=== PATIENT | male | born 1955 | race Caucasian/White ===

== ENCOUNTER 2023-07-15 19:26 | Emergency (ER) | payer OTHER, SELFPAY ==
[2023-07-15] VITALS (31 sets, daily range): BP systolic 156–170; BP diastolic 78–88; PULSE 57–76; TEMP 36.6; O2SAT 95–99; BMI 31.7
--- NOTE | 2023-07-15 20:05 | ED_ITS ---
HPI - Chest Pain General Chief Complaint: Chest Pain Stated Complaint: Chest Pain Time Seen by Provider: 07/15/23 19:34 Source: patient Mode of arrival: walk-in Limitations: no limitations History of Present Illness HPI narrative: This 68-year-old male with a history of hypertension who does not smoke presents for evaluation of a brief episode of chest pain that happened after dinner, around 5:30 PM while he was mowing the lawn. He states it felt like he strained his chest. The pain was brief in nature. He cannot quantify exactly how long it lasted. There was no radiation into his arm back or jaw. He did not feel dizzy. He did not get diaphoretic.. He did not get short of breath. He has no lower extremity pain or swelling. He denies any history of heart disease or any history of tobacco use. He states he has never had a cardiac workup. He drove himself to the emergency department to get checked out . No medications were taken prior to arrival. ON arrival he has no chest pain or other symptoms and states he feels fine. Related Data Home Medications ?Medication ?Instructions ?Recorded ?Confirmed bisoprolol 10 1 tab PO QAM 07/15/23 07/15/23 mg-hydrochlorothiazide 6.25 mg tablet carbidopa 25 mg-levodopa 100 mg 1.5 tab PO TID 07/15/23 07/15/23 tablet Allergies Allergy/AdvReac Type Severity Reaction Status Date / Time No Known Drug Allergies Allergy Verified 07/15/23 19:37 Review of Systems ROS Status of ROS 10 or more systems reviewed and unremark able except as noted in history and below [facility] Medical History (Updated 07/16/23 @ 01:23 by Harriett Solano MD) JATINDER (obstructive sleep apnea) ?G47.33 - Obstructive sleep apnea (adult) (pediatric) (ICD-10) Exam Narrative Exam Narrative: Nurses note and vital signs reviewed and patient is not hypoxic. The patient is noted to be elevated at 170/88 General: The patient appears well and in no apparent distress. Patient is resting comfortably on cart. Skin: Warm, dry, no pallor noted. There is no rash noted. Head: Normocephalic, atraumatic Eye: Normal conjunctiva, no drainage, EOMI. PERRL Ears, Nose, Mouth, and Throat: oral mucosa is moist. Cardiovascular: Regular Rate and Rhythm S1 S2, No murmurs rubs or gallops appreciated, pulses are brisk and equal bilaterally Chest: no reproducible chest wall tenderness Respiratory: Patient is in no distress, no accessory muscle use, lungs are clear to auscultation, no wheezing, rales or rhonchi Back: non-tender, no CVA tenderness bilaterally to percussion. GI: Normal bowel sounds, no tenderness to palpation, no masses appreciated. No rebound, guarding, or rigidity noted. Musculoskeletal: The patient has no evidence of calf tenderness, no pitting edema, symmetrical pulses noted bilaterally Neurological: A&O x4, normal speech Psychiatric: Cooperative Constitutional Vital Signs, click to edit/add: Last Vital Signs Temp 98 F 07/15/23 19:39 Pulse 65 07/15/23 23:50 Resp 16 07/15/23 23:50 BP 156/78 H 07/15/23 21:33 Pulse Ox 98 07/15/23 23:50 O2 Del Method Room Air 07/15/23 19:39 Course Vital Signs Vital signs: Vital Signs Temperature 98 F 07/15/23 19:39 Pulse Rate 70 07/15/23 19:39 Respiratory Rate 14 07/15/23 19:39 Blood Pressure 161/85 H 07/15/23 19:39 Pulse Oximetry 95 07/15/23 19:39 Oxygen Delivery Method Room Air 07/15/23 19:39 Temperature 98 F 07/15/23 19:39 Pulse Rate 65 07/15/23 23:50 Respiratory Rate 16 07/15/23 23:50 Blood Pressure 156/78 H 07/15/23 21:33 Pulse Oximetry 98 07/15/23 23:50 Oxygen Delivery Method Room Air 07/15/23 19:39 MDM - Chest Pain MDM Narrative Medical decision making narrative: This 68-year-old male with a history of Parkinson's disease presents to the emergency department complaining of an episode of chest pain that occurred while he was mowing the lawn earlier in the evening. The patient is a fairly poor historian. He states that while he was mowing the lawn he started to feel some discomfort in his chest that he thought was related to stress. By this he meant the stress of pushing his lawnmower. He was outside for an extended period of time mowing his lawn and the temperature outside was over 80 degrees. He denies that he felt overheated. He denied any radiation of this chest pain into his arm, back or jaw. He denies any dizziness or diaphoresis. There was no syncope. There is no abdominal pain. He has a history of hypertension. He has never been a smoker. An EKG done upon arrival was a sinus rhythm with a first-degree AV block at 70 bpm. There is very minimal ST depression in leads V2 and V3 V4 V5. The axis was normal. At the time of presentation he was no longer having any chest pain. He was medicated with 324 mg baby aspirin. Cardiac workup including CBC with differential, comprehensive metabolic profile and troponin was ordered. Has a normal white count and hemoglobin. Electrolytes are normal with exception of a mildly elevated creatinine 1.63. His 1st troponin was 50.8. His initial blood pressure was elevated, we continued to monitor and it came down. He remained hemodynamically stable in emergency department chest pain-free. A repeat troponin was ordered and was 73. I signed to him that in light of this change in the troponin we would like to repeat one more troponin. He was reluctant to stay but ultimately agreeable after speaking to his and his repeat troponin is 180. I explained to him at this point that he would likely need a cardiac evaluation. I spoke to his who is adamant that he not be transferred to [facility]. A repeat EKG was similar to the 1st EKG with a sinus rhythm at 64 bpm with a normal axis and non specific changes with no acute ST segment elevation. The case was [facility] and he is accepted for admission. Lab Data Labs: Lab Results 07/15/23 07/15/23 07/15/23 Range/Units 20:00 21:43 22:51 WBC 10.1 (4.0-11.0) 10^3/uL RBC 4.01 L (4.70-6.10) 10^6/uL Hgb 12.5 L (14.0-18.0) g/dL Hct 37.7 L (42.0-54.0) % MCV 94.0 (80.0-94.0) fL MCH 31.2 (25.9-34.0) pg MCHC 33.2 (29.9-35.2) g/dL RDW 13.4 (11.0-15.0) % Plt Count 226 (150-450) 10^3/uL MPV 10.0 (9.5-13.5) fL Neut % (Auto) 72.0 (43.0-75.0) % Lymph % (Auto) 17.0 L (20.5-60.0) % [place] % (Auto) 9.2 (1.7-12.0) % Eos % (Auto) 1.0 (0.9-7.0) % Baso % (Auto) 0.3 (0.2-2.0) % Neut # (Auto) 7.3 H (1.4-6.5) 10^3/uL Lymph # (Auto) 1.7 (1.2-3.8) 10^3/uL [place] # (Auto) 0.9 H (0.3-0.8) 10^3/uL Eos # (Auto) 0.1 (0.0-0.7) 10^3/uL Baso # (Auto) 0.0 (0.0-0.1) 10^3/uL Abs Immat Gran (auto) 0.05 H (0.00-0.03) 10^3/uL Imm/Tot Granulo (auto) 0.5 (0.0-0.5) % Sodium 139 (136-145) mmol/L Potassium 4.2 (3.5-5.1) mmol/L Chloride 103 (98-107) mmol/L Carbon Dioxide 26.2 (21.0-32.0) mmol/L Anion Gap 14.0 BUN 30.0 H (7.0-18.0) mg/dL Creatinine 1.63 H (0.70-1.30) mg/dL Est GFR ( Amer) 52 L (>=60) Est GFR (Non-Af Amer) 43 L (>=60) BUN/Creatinine Ratio 18.4 Glucose 126 H (74-106) mg/dL Calcium 9.3 (8.5-10.1) mg/dL Total Bilirubin 0.4 (0.2-1.0) mg/dL AST 24 (15-37) U/L ALT 13 L (16-63) U/L Alkaline Phosphatase 83 (46-116) U/L Troponin I High Sens 50.8 73.0 180.1 H* (4.0-76.1) pg/mL NT-Pro-B Natriuret Pep 454.0 (<=900.0) pg/mL Total Protein 7.6 (6.4-8.2) g/dL Albumin 3.9 (3.4-5.0) g/dL Globulin 3.7 g/dL Albumin/Globulin Ratio 1.1 ECG Data Attestation: I personally reviewed and interpreted this ECG as follows: (Sinus rhythm at 70 beats for minute, first-degree AV block, incomplete right bundle- branch block, nonspecific ST changes, no acute ST segment elevation or T-wave inversion) Heart Score History: Moderately Suspicious ECG: Sign. ST Depression Age: >65 years Risk Factors: 1 or 2 Risk Factors Troponin: <3X Normal Limit Total Heart Score Recommendations & Risks:: 7 Critical Care Time Critical Care Time Critical Care Time: Yes Total Critical Care Time: 35 Attestation: . Discharge Plan Discharge Chief Complaint: Chest Pain Clinical Impression: Elevated troponin I level, Chest pain Patient Disposition: [facility] Time of Disposition Decision: 00:11 Discharge Location: [facility] Condition: Good Mode of Transportation: EMS
[2023-07-15 20:16] LABS: Basophils Percent Auto 0.3 % (0.2-2.0); Eosinophils Absolute Auto 0.1 10^3/uL (0.0-0.7); Hematocrit 37.7 % (42.0-54.0); Hemoglobin 12.5 g/dL (14.0-18.0); Immature Granulocytes Abs Auto 0.05 10^3/uL (0.00-0.03); Immature Granulocytes Pct Auto 0.5 % (0.0-0.5); Lymphocytes Absolute Auto 1.7 10^3/uL (1.2-3.8); Mean Corpuscular HGB Conc 33.2 g/dL (29.9-35.2); Mean Corpuscular Hemoglobin 31.2 pg (25.9-34.0); Monocytes Absolute Auto 0.9 10^3/uL (0.3-0.8); Monocytes Percent Auto 9.2 % (1.7-12.0); Neutrophils Absolute Auto 7.3 10^3/uL (1.4-6.5); Platelet Count 226 10^3/uL (150-450); Red Blood Count 4.01 10^6/uL (4.70-6.10); Red Cell Distribution Width 13.4 % (11.0-15.0); White Blood Count 10.1 10^3/uL (4.0-11.0)
[2023-07-15] MEDS: 0.9 % SODIUM CHLORIDE 1,000 ML 1000 ML IV (20:28)
[2023-07-15] MEDS: ASPIRIN 81 MG TAB.CHEW 324 MG PO (20:29)
[2023-07-15 20:31] LABS: Alanine Aminotransferase 13 U/L (16-63); Albumin Globulin Ratio 1.1; Albumin Level 3.9 g/dL (3.4-5.0); Alkaline Phosphatase 83 U/L (46-116); Aspartate Amino Transferase 24 U/L (15-37); BUN Creatinine Ratio 18.4; Bilirubin Total 0.4 mg/dL (0.2-1.0); Calcium 9.3 mg/dL (8.5-10.1); Carbon Dioxide 26.2 mmol/L (21.0-32.0); Chloride 103 mmol/L (98-107); Estimated GFR (African America 52 (>=60); Estimated GFR (Non-African Ame 43 (>=60); Globulin 3.7 g/dL; Glucose 126 mg/dL (74-106); Potassium 4.2 mmol/L (3.5-5.1); Sodium 139 mmol/L (136-145); Total Protein 7.6 g/dL (6.4-8.2)
[2023-07-15 20:38] LABS: Troponin I High Sensitivity 50.8 pg/mL (4.0-76.1)
--- NOTE | 2023-07-15 21:51 | ECG_ITS ---
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
--- NOTE | 2023-07-15 23:14 | XR_ITS ---
The [place] [id number] Patient Name: MATTHEW GARZA MRN: [id number] date: 1955 Sex: M Assigned Patient Location: ER Current Patient Location: ER Accession/Order Number: [id number] Exam Date: 07/15/2023 23:20 Report Date: 07/15/2023 23:58 At the request of: VERONICA MARKER Procedure: XR chest 1V XR chest 1V 07/15/2023 11:20 PM EDT CLINICAL INDICATION: Chest pain COMPARISON: None. TECHNIQUE: Portable semiupright AP view of the chest. FINDINGS: There are no tubes or implants noted. Cardiac silhouette appears mildly enlarged. No florid pulmonary interstitial edema. No focal parenchymal opacities. No pneumothorax or pleural effusion. No displaced rib fractures. Osseous structures demonstrate degenerative changes. Soft tissues are grossly normal. XR/XR chest 1V IMPRESSION: No acute cardiopulmonary abnormality. Electronically authenticated by: BRYAN CARMONA Date: 07/15/2023 23:58
--- NOTE | 2023-07-15 23:16 | ECG_ITS ---
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
[2023-07-15 23:20] LABS: Troponin I High Sensitivity 180.1 pg/mL (4.0-76.1)
[2023-07-16] MEDS: ENOXAPARIN SODIUM 100 MG/ML SYRINGE SUBQ (01:35)
[2023-07-16 02:04] VITALS: BP 168/87; PULSE 61; O2SAT 96
[2023-07-16 03:45] VITALS: BP 168/89; PULSE 68; O2SAT 98
== END 2023-07-16 03:45 | disposition short-term general hospital (02) ==
PROVIDERS: Emergency Provider Emergency Medicine; PCP Internal Medicine
DX: R07.9 Chest pain, unspecified (principal); R79.89 Other specified abnormal findings of blood chemistry; I10 Essential (primary) hypertension; Z79.899 Other long term (current) drug therapy; G47.33 Obstructive sleep apnea (adult) (pediatric); G20.A1 Parkinson's disease without dyskinesia, without mention of fluctuations
CPT/HCPCS: 36415; 71045; 80053; 83880; 84484; 85025; 93005; 96372; 99285

== ENCOUNTER 2023-10-20 12:34 | Emergency (ER) | payer OTHER, SELFPAY ==
[2023-10-20 12:37] VITALS: BP 145/70; PULSE 65; TEMP 36.7; O2SAT 96; BMI 30.3
--- NOTE | 2023-10-20 12:45 | ED_ITS ---
HPI HPI - Extremity Injury (Lower) General Chief Complaint: Extremity Injury, Lower Stated Complaint: LOWER EXTREMITY INJURY Time Seen by Provider: 10/20/23 12:37 Mode of arrival: walk-in Limitations: no limitations History of Present Illness HPI Narrative: 68-year-old male presents for right knee pain. He states he was walking yesterday and he was on a step and he twisted it. He is not sure if he landed on it or not. It has been swollen so he came in here today. He has been able to walk but it causes some discomfort. Related Data Home Medications ?Medication ?Instructions ?Recorded ?Confirmed bisoprolol 10 1 tab PO QAM 07/15/23 10/20/23 mg-hydrochlorothiazide 6.25 mg tablet aspirin 81 mg tablet,delayed 81 mg PO DAILY 10/20/23 10/20/23 release atorvastatin 80 mg tablet 80 mg PO DAILY 10/20/23 10/20/23 losartan 25 mg tablet 25 mg PO DAILY 10/20/23 10/20/23 nitroglycerin 0.4 mg sublingual 0.4 mg sublingual Q5M PRN chest 10/20/23 10/20/23 tablet pain ticagrelor 90 mg tablet (Brilinta) 90 mg PO Q12H 10/20/23 10/20/23 Previous Rx's ?Medication ?Instructions ?Recorded acetaminophen 300 mg-codeine 30 mg 1 tab PO Q6H PRN pain 5 days #20 10/20/23 tablet tabs Allergies Allergy/AdvReac Type Severity Reaction Status Date / Time No Known Drug Allergies Allergy Verified 07/15/23 19:37 Opioid HPI Opioid Management Most Recent Pain and Opioid Data: 2 No Data to Display Review of Systems ROS Narrative A ten point review of systems is negative except as noted above. [facility] Medical History (Updated 10/20/23 @ 13:42 by Froilan Ruiz MD) JATINDER (obstructive sleep apnea) ?G47.33 - Obstructive sleep apnea (adult) (pediatric) (ICD-10) Exam Narrative Exam Narrative: Nurses note and vital signs reviewed and patient is not hypoxic. General: The patient appears well and in no apparent distress. Patient is resting comfortably on cart. Skin: Warm, dry, no pallor noted. There is no rash noted. Head: Normocephalic, atraumatic Eye: Normal conjunctiva, no drainage Ears, Nose, Mouth, and Throat: oral mucosa is moist. Nares patent. Cardiovascular: Regular Rate and Rhythm Respiratory: Patient is in no distress, no accessory muscle use, lungs are clear to auscultation, no wheezing, rales or rhonchi Back: non-tender, no CVA tenderness bilaterally to percussion. GI: Soft and nontender Musculoskeletal: The right knee is swollen compared to the contralateral. There is no ballotable effusion and the knee joint is stable. Hip and ankle are nontender. Neurological: Awake and alert Psychiatric: Cooperative Constitutional Vital Signs, click to edit/add: Last Vital Signs Temp 98.1 F 10/20/23 12:37 Pulse 65 10/20/23 12:37 Resp 18 10/20/23 12:37 BP 145/70 H 10/20/23 12:37 Pulse Ox 96 10/20/23 12:37 O2 Del Method Room Air 10/20/23 12:37 Course Vital Signs Vital signs: Vital Signs Temperature 98.1 F 10/20/23 12:37 Pulse Rate 65 10/20/23 12:37 Respiratory Rate 18 10/20/23 12:37 Blood Pressure 145/70 H 10/20/23 12:37 Pulse Oximetry 96 10/20/23 12:37 Oxygen Delivery Method Room Air 10/20/23 12:37 Temperature 98.1 F 10/20/23 12:37 Pulse Rate 65 10/20/23 12:37 Respiratory Rate 18 10/20/23 12:37 Blood Pressure 145/70 H 10/20/23 12:37 Pulse Oximetry 96 10/20/23 12:37 Oxygen Delivery Method Room Air 10/20/23 12:37 MDM - Extremity Injury (Lower) MDM Narrative Medical decision making narrative: X-ray findings are discussed with the patient. Doe wrap applied, application checked by me and found to be appropriate, he is neurovascularly intact. He states he can walk on his leg without issues and does not need a walker. He has an established orthopedist with whom he will follow-up. Treatment diagnosis and follow-up were discussed with the patient. Differential Diagnosis Differential diagnosis: Likely other (Knee fracture, knee sprain, knee effusion, osteoarthritis) Imaging Data Right knee x-ray: Radiologist's impression: ITS Impressions Knee X-Ray 10/20/23 13:02 IMPRESSION: Moderate to severe osteoarthritis Electronically authenticated by: KEELY COTA Date: 10/20/2023 13:23 Discharge Plan Discharge Stand Alone Forms: Portal Instructions Chief Complaint: Extremity Injury, Lower Clinical Impression: Right knee sprain, Arthritis of right knee Patient Disposition: Home, Self-Care Time of Disposition Decision: 13:35 Condition: Good Mode of Transportation: Private Vehicle Prescriptions / Home Meds: New acetaminophen-codeine 300-30 mg tablet 1 tab PO Q6H PRN (Reason: pain) 5 Days Qty: 20 0RF No Action bisoprolol-hydrochlorothiazide 10-6.25 mg tablet 1 tab PO QAM aspirin 81 mg tablet,delayed release (DR/EC) 81 mg PO DAILY atorvastatin 80 mg tablet 80 mg PO DAILY losartan 25 mg tablet 25 mg PO DAILY nitroglycerin 0.4 mg tablet, sublingual 0.4 mg sublingual Q5M PRN (Reason: chest pain) Brilinta 90 mg tablet 90 mg PO Q12H Print Language: Bengali Instructions: Knee Sprain (ED), Osteoarthritis (ED) Referrals: MATTHEW COLLAZO [Primary Care Provider] - 1 week
--- OUTSIDE RECORDS SUMMARY | 2023-10-20 12:51 | XMS_ITS | CCD ---
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 Role Phone NAREHS HINDS Admitting Unavailable VALE, DR MATTHEW Price Primary Care Unavailable NARESH HINDS Attending Unavailable NARESH HINDS Consulting Unavailable Fred Gupta Consulting Unavailable GÓMEZ, DR LEWIS Attending Unavailable GÓMEZ, DR LEWIS Consulting Unavailable GÓMEZ, DR LEWIS Admitting Unavailable VALE, DR MATTHEW Price Primary Care Unavailable BEATA, DR KEELY Griffin Consulting Unavailable PAY, DR KENYON Consulting Unavailable HILLARY NICOLAS Consulting Unavailable Matthew Collazo Unavailable BRIAN GLASGOW Attending Unavailable Matthew Collazo MD Primary Care Provider MD Matthew Collazo Primary Care Provider MD Chico Black Admit Provider [phone] BARRY Garza Other Provider Unavailable MD Atul Silva Other Provider MD Holger Leblanc Other Provider MD Navya Rangel Other Provider MD Matthias Mckenna Attending Provider Matthew Collazo Primary Care Unavailable Chico Black Admitting Unavailable Matthias Mckenna Attending Unavailab Blanquita Lopez Consulting Unavailable Atul Silva Consulting Unavailable Holger Leblanc Consulting Navya Ledezma Consulting Unavailable MATTHEW COLLAZO Attending Unavailable MATTHEW COLLAZO Referring Unavailable MATTHEW COLLAZO Primary Care Unavailable MATTHEW COLLAZO Attending Unavailable MATTHEW COLLAZO Referring Unavailable MATTHEW COLLAZO Primary Care Unavailable ERIC MONTIEL Referring Unavailable MARGOLIUS, ERIC Attending Unavailable MATTHEW COLLAZO Referring Unavailabl e MARGOLIUS, ERIC Referring Unavailable MARGOLIUS, ERIC Attending Unavailable MARGOLIUS, ERIC Referring Unavailable BOYERBALTA CAREY Attending Unavailable MARGOLIUS, ERIC Referring Unavailable CHEUVRONT, CHRISTIANA George Attending Unavailabl e CHEUVRONT, CHRISTIANA George Attending Unavailabl e CHEUVRONT, CHRISTIANA George Attending Unavailabl e CHEUVRONT, CHRISTIANA George Referring Unavailabl e CHEUVRONT, CHRISTIANA George Referring Unavailabl e BOYERBALTA CAREY Referring Unavailable MARGOLIUS, ERIC Attending Unavailable MARGOLIUS, ERIC Referring Unavailable Medications Current Medications Medication Drug Class(es) Dates Sig (Normalized) Sig (Original) Antiarthritic Combination No.2 (Glucosamine-Chondroiti n) 900 mg tablet (2 sources) Start: 4 take 1 tablet by mouth once daily Antiarthritic Combination No.2 (Glucosamine-Chond roitin) 900 mg tablet Active MG PO Daily July 24, 2023 12:00am aspirin 81 mg delayed release oral tablet (5 sources) Platelet Aggregation Inhibitor, Nonsteroidal Anti-inflammatory Drug Start: 4 take 81 mg by mouth once daily Aspirin Active 81 MG PO Daily July 17, 2023 12:00am atorvastatin 80 mg oral tablet (5 sources) HMG-CoA Reductase Inhibitor Start: 4 take 80 mg by mouth once daily Atorvastatin Active 80 MG PO Daily July 17, 2023 12:00am BIPAP (13 sources) BIPAP bisoprolol fumarate 10 mg / hydroCHLOROthiazide 6.25 mg oral tablet (18 sources) Thiazide Diuretic, beta-Adrenergic Sage Start: 3 End: 4 take 1 tablet by mouth once daily in the morning bisoprolol-hydroCH LOROthiazide (ZIAC) 10-6.25 mg per tablet Take 1 tablet by mouth every morning. 0 09/12/2022 Active Comment on above: Take 1 tablet by alejandra th every morning. carbidopa 25 mg / levodopa 100 mg oral tablet (14 sources) Aromatic Amino Acid Decarboxylation Inhibitor, Aromatic Amino Acid Start: 3 End: 4 carbidopa-levodopa (SINEMET) 25-100 mg per tablet Indications: Tremor Take 1.5 pills, 3 times per day 405 tablet 3 06/09/2023 Active Comment on above: Take 1/2 pill three times per day x 1 week, then increase to 1 pill 3 times per day Take 1.5 pills, 3 ti mes per day Cpap (Continuous Positive Airway Pressure) (1 source) Start: Cpap (Continuous Positive Airway Pressure) Active 0 .ROUTE October 02, 2023 12:00am As directed CPAP/BIPAP/OTHER (14 sources) Start: End: CPAP/BIPAP/OTHER Indications: Obstructive sleep apnea syndrome , JATINDER treated with BiPAP , Parkinson's disease, unspecified whether dyskinesia present, unspecified whether manifestations fluctuate (HCC) , Myocardial infarction, unspecified PA type, unspecified artery (HCC) Type .CPAPSettings into a note to see current settings/supplies/ DME information. 1 Each 0 10/12/2023 02/26/2051 Active Start: 07-08-2023 End: 11-22-2050 CPAP/BIPAP/OTHER Indications : Obstructive sleep apnea syndrome , JATINDER treated with BiPAP , Dream enactment behavior , Malfunction of continuous positive airway pressure (CPAP) or bilevel positive airway pressure (BPAP) machine, initial encounter Type .CPAPSettings into a note to see current settings/supplies/DME information. 1 Each 0 07/08/2023 11/22/2050 Active Start: 04-27-2023 End: 09-11-2050 CPAP/BIPAP/OTHER Indications : Obstructive sleep apnea syndrome , JATINDER treated with BiPAP , Malfunction of continuous positive airway pressure (CPAP) or bilevel positive airway pressure (BPAP) machine, initial encounter REPLACEMENT BIPAP DEVICE: BIPAP with settings of 25/21 cm H2O. Dx: Obstructive Sleep Apnea G47.33 DME: [facility] Fax: Fax download reports to [phone]. 1 Each 0 04/27/2023 09/11/2050 Active Comment on above: REPLACEMENT BIPAP DE VICE: BIPAP with settings of 25/21 cm H2O. Dx: Obstructive Sleep Apnea G47.33 DME: [facility] Fax: Fax download reports to [phone]. glucosam/chond-msm1/C /jaya/bor (NUOPIICLCTF-QZAYP-WR M COMPLEX ORAL) (6 sources) take 2 tablets by mouth once daily glucosam/chond-msm1/ C/jaya/bor (BXTFINMVTKD-ULZUV-P SM COMPLEX ORAL) Take 2 tablets by mouth once daily. 0 Active Comment on above: Take 2 tablets by mo uth once daily. losartan potassium 25 mg oral tablet (5 sources) Angiotensin 2 Receptor Sage Start: 07-17-19 take 25 mg by mouth once daily in the morning Losartan Active 25 MG PO Every morning July 17, 2023 12:00am nitroglycerin 0.4 mg sublingual tablet (5 sources) Nitrate Vasodilator Start: 07-17-19 nitroglycerin sublingual (NITROQUICK) 0.4 mg SL tablet Q5M 0 07/17/2023 Active Start: 07-17-2023 Nitroglycerin Active 0.4 MG SUBLINGUAL Q5M July 17, 2023 12:00am ticagrelor 90 mg oral tablet (6 sources) Start: 07-17-2023 End: 08-27-2023 ticagrelor (BRILINTA) 90 mg tablet two times a day. 0 08/27/2023 Active Problems Active Problems Problem Classification Problem Date Documented Da te Episodic/Chronic Acute myocardial infarction (10 sources) Myocardial infarction; Translations: [Non-ST elevation (NSTEMI) myocardial infarction] Onset: 07-16-2023 07-16-2023 Chronic Coronary atherosclerosis and other heart disease (2 sources) Old myocardial infarction; Translations: [Atherosclerotic heart disease of [place] coronary artery without angina pectoris] Onset: 07-27-2023 Chronic Disorders of lipid metabolism (9 sources) Hyperlipidemia; Translations: [Hyperlipidemia, unspecified] Onset: 07-16-2023 07-16-2023 Chronic Essential hypertension (17 sources) Essential (primary) hypertension; Translations: [Essential hypertension] Onset: 02-10-2020 04-01-2023 Chronic Osteoarthritis (1 source) Unspecified osteoarthritis, unspecified site; Translations: [UNSPECIFIED OSTEOARTHRITIS UNS SITE] Onset: 07-23-2021 Chronic Other aftercare (1 source) Other correction (current) drug therapy; Translations: [OTH DETENTION CURRENT DRUG THERAPY] Onset: 07-23-2021 Episodic Other ear and sense organ disorders (1 source) Unspecified hearing loss, bilateral; Translations: [Unspecified hearing loss, bilateral] Onset: 07-27-2023 Chronic Other ear and sense organ disorders (1 source) Impacted cerumen, bilateral; Translations: [Impacted cerumen, bilateral] Onset: 08-04-2023 Episodic Other hereditary and degenerative nervous system conditions (1 source) Restless legs syndrome; Translations: [RESTLESS LEGS SYNDROME] Onset: 07-23-2021 Chronic Other hereditary and degenerative nervous system conditions (1 source) Essential tremor; Translations: [ESSENTIAL TREMOR] Onset: 11-21-2020 Chronic Other hereditary and degenerative nervous system conditions (1 source) Essential tremor; Translations: [Essential tremor] Onset: 02-10-2020 02-10-2020 Chronic Other nervous system disorders (2 sources) Abnormal gait; Translations: [Unspecified abnormalities of gait and mobility] 11-11-2022 Episodic Other nervous system disorders (3 sources) Tremor; Translations: [Tremor, unspecified] 11-11-2022 Episodic Other nutritional; endocrine; and metabolic disorders (1 source) Obese class I; Translations: [Obesity, unspecified] 10-12-2023 Chronic Parkinson`s disease (1 source) Parkinson`s disease; Translations: [Parkinson's disease without dyskinesia, without mention of fluctuations] Onset: 07-16-2023 Residual codes; unclassified (1 source) Sleep apnea, unspecified; Translations: [SLEEP APNEA UNSPECIFIED] Onset: 07-23-2021 Chronic Residual codes; unclassified (7 sources) Obstructive sleep apnea syndrome; Translations: [Obstructive sleep apnea (adult) (pediatric)] Onset: 02-10-2020 02-10-2020 Chronic Residual codes; unclassified (1 source) Parasomnia; Translations: [Parasomnia, unspecified] 04-27-2023 Chronic Residual codes; unclassified (2 sources) Dream enactment behavior; Translations: [REM sleep behavior disorder] 04-27-2023 Chronic Residual codes; unclassified (2 sources) Obstructive sleep apnea (adult) (pediatric); Translations: [Obstructive sleep apnea syndrome] Onset: 04-27-2023 Chronic Residual codes; unclassified (1 source) Parasomnia, unspecified; Translations: [Parasomnia, unspecified type] Onset: 04-27-2023 Chronic Residual codes; unclassified (1 source) REM sleep behavior disorder; 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] Onset: 04-27-2023 Chronic Unclassified (15 sources) Parkinson's disease; Translations: [Parkinson's disease without dyskinesia or fluctuating manifestations (HCC)] Onset: 07-08-2023 06-10-2023 Chronic Unclassified (2 sources) COUGH, UNSPECIFIED; Translations: [COUGH, UNSPECIFIED] Onset: 07-23-2021 Unclassified (1 source) CONTACT W/AND (SUSP) EXPOS COVID-19; Translations: [CONTACT W/AND (SUSP) EXPOS COVID-19] Onset: 11-21-2020 Unclassified (1 source) hospital discharge Onset: 07-27-2023 Viral infection (1 source) COVID-19; Translations: [COVID-19] Onset: 07-23-2021 Past or Other Problems Problem Classification Problem Date Documented Date Episodic/Chronic Acute and unspecified renal failure (4 sources) Acute kidney failure, unspecified; Translations: [ACUTE KIDNEY FAILURE UNSPECIFIED] Onset: 11-02-2020 Episodic Calculus of urinary tract (2 sources) Personal history of urinary calculi; Translations: [Kidney stone] Onset: 02-10-2020 02-10-2020 Episodic Complications of surgical procedures or medical care (3 sources) Complication of medical care; Translations: [Other specified complications of surgical and medical care, not elsewhere classified, initial encounter] Onset: 04-27-2023 04-27-2023 Episodic E Codes: Unspecified (2 sources) Traumatic AND/OR non-traumatic injury; Translations: [Activity, sleeping] Onset: 04-27-2023 04-27-2023 Episodic Fluid and electrolyte disorders (2 sources) Dehydration; Translations: [Hyperkalemia] Onset: 11-21-2020 Episodic Genitourinary symptoms and ill-defined conditions (1 source) Other abnormal findings in urine; Translations: [OTHER ABNORMAL FINDINGS IN URINE] Onset: 11-21-2020 Episodic Mood disorders (1 source) Mood disorders Onset: 10-22-2022 10-22-2022 Spondylosis; intervertebral disc disorders; other back problems (10 sources) Pain in thoracic spine; Translations: [Spinal stenosis in cervical region] Onset: 11-21-2020 11-11-2022 Episodic Unclassified (1 source) COUGH, UNSPECIFIED; Translations: [COUGH, UNSPECIFIED] Onset: 07-19-2021 Results Test Name Value Interpretation Reference Range Facility [facility]) -- MATTHEW GARZA ([id number]) 1955 M Date Time Provider Department 10/13/23 CHRISTIANA EWING During your visit today, we recorded the following information about you: Zack Wallace LPN 10/13/2023 8:44 AM Signed Faxed order, office notes to: DME name: [facility] fax # [phone] DME Faxed info in patient's chart. Allergies As of Date: 10/13/2023 (No Known Allergies) Date Reviewed: 10/12/2023 Reviewed by: Christiana Ewing APRN.[facility] - Fully Assessed Reason for Visit: PAP Supply Fax [Other] Prescriptions as of 10/13/2023 - aspirin, enteric coated (ASPIRIN, ENTERIC COATED) 81 mg EC tablet Take 81 mg by mouth once daily. - atorvastatin (LIPITOR) 80 mg tablet Take 80 mg by mouth once daily. - nitroglycerin sublingual (NITROQUICK) 0.4 mg SL tablet Q5M - losartan (COZAAR) 25 mg tablet Take 25 mg by mouth every morning. - ticagrelor (BRILINTA) 90 mg tablet two times a day. - CPAP/BIPAP/OTHER Type .CPAPSettings into a note to see current settings/supplies/DME information. - CPAP/BIPAP/OTHER Type .CPAPSettings into a note to see current settings/supplies/DME information. - glucosam/chond-msm1/C/jaya /bor (TWXIHOVCTWA-HBQOO-NBC COMPLEX ORAL) Take 2 tablets by mouth once daily. - carbidopa-levodopa (SINEMET) 25-100 mg per tablet Take 1.5 pills, 3 times per day - CPAP/BIPAP/OTHER REPLACEMENT BIPAP DEVICE: BIPAP with settings of 25/21 cm H2O. Dx: Obstructive Sleep Apnea G47.33 DME: [facility] Fax: Fax download reports to [phone]. - bisoprolol-hydroCHLOROthia zide (ZIAC) 10-6.25 mg per tablet Take 1 tablet by mouth every morning. - BIPAP Problem List As Of Date 10/13/2023 Noted Resolved Parkinson's disease (HCC) [G20.A1] 07/08/2023 Stenosis, cervical spine [M48.02] 07/08/2023 HTN (hypertension) [I10] 07/08/2023 Encounter Status:Closed by ZACK WALLACE on 10/13/23 [facility] CNOVon 10-12-2023 CNOV Office Visit (NEUR ) -- MATTHEW GARZA ([id number]) 1955 M Date Time Provider Department 10/12/23 2:00 PM CHRISTIANA EWING During your visit today, we recorded the following information about you: Temperature Pulse Respiration Blood pressure 96.7 degrees 47/minute 20/minute 136/70 Weight Height 90.7 kg 1.727 m Christiana Ewing APRN.[employer] 10/12/2023 2:43 PM Signed [facility] Follow up/ Established patient visit Date of last visit : 07/08/2023 Per last visit: IMPRESSION: Obstructive sleep apnea syndrome (primary encounter diagnosis) Jatinder treated with bipap Malfunction of continuous positive airway pressure (cpap) or bilevel positive airway pressure (bpap) machine, initial encounter Dream enactment behavior Parkinson's disease, unspecified whether dyskinesia present, unspecified whether manifestations fluctuate (hcc) Primary hypertension Matthew Garza is a pleasant 68 year old male with PMH of JATINDER on BiPAP, PD, cervical stenosis, tremor, HTN, JATINDER, and class I obesity. He presents today with his . He has a BiPAP device that is malfunctioning. rAHI was not well-controlled (>20) at time of last visit. He does not have device with him at today's visit for reassessment. Updated Split Study with RBD protocol was completed to requalify for supplies/new device and reassess appropriate settings. He reported DEBs associated w/ hitting (last in Apr 2023). Split study with expanded EMG monitoring completed 06/17/2023 showed severe JATINDER (AHI 66.8) associated with minimum oxygen saturation of 76%; CPAP titration was initiated, but transition to bilevel PAP due to the presence of central apneas; Jay Jay-Mcdaniel breathing was not present during PAP titration portion of study; at a bilevel PAP setting of 25/19 cmH2O, the AHI was normalized, snoring was not eliminated, and oxygen saturation was maintained above 92%, however REM sleep was not captured at the setting; RSWA scoring was performed; 0.0% of REM sleep epochs met criteria supportive of RBD, however severity of SDB renders evaluation and adequate; auto BiPAP with IPAP max 25, EPAP min 9, and pressure support 4 recommended with close clinical follow-up; 4% hypopnea scoring; BMI 32.8 Results of sleep study reviewed w/ pt and . We will proceed with Auto BiPAP device order through new DME. PLAN: - Continue Bilevel PAP at current settings of 25/21 cmH2O until new device is received. - Try the sample mask provided today : AirFit F30 mask, size small - Try this mask for a couple of weeks - If you like it and it's fitting well, contact your DME company to let them know that you are changing to this mask, so they provide the correct supplies - Auto BiPAP device is needed based on sleep study results: - Will start Auto Bilevel PAP with IPAP max 25 cmH2O, EPAP min 9 cmH2O, PS 4 cmH2O - I will have a prescription sent to a DME ([employer]) company - [facility] (Phone ? Fax ) - They should reach out to you in the next 1-2 weeks. - If you do not hear from them within 2 weeks, please contact them directly - Let them know what mask you would like to use. - Start using your device right away - We can adjust pressure for comfort if requested prior to next visit. - You should be eligible for new supplies approximately every 3-6 months, depending on your insurance coverage. - If your mask doesn't fit well, call the DME company within the first 30 days to get a new mask without an additional charge. INSURANCE REQUIREMENTS: - Your insurance requires a follow up visit within a 31-90 day period after starting PAP device. This may be virtual or in-person. - Your insurance requires at least 70% compliance with using your PAP device, which is at least 4 hours per night, at least 5 nights per week, for at least 30 consecutive days. This must occur within the initial 90 day period after starting PAP therapy. - Your insurance also requires at least yearly follow ups to continue to pay for PAP supplies. - Schedule a 3 month follow-up visit today, or call after you receive your machine: [phone] - Follow-up visit needs to be between 31-90 days after receiving CPAP device Bedroom Safety Measures: Removing sharp objects and weapons from room you're sleeping in Move furniture and clutter from the room or away from the bed so you don't run into anything. Make sure windows and doors are locked Sleep away from your partner if symptoms are dangerous for them Can lower bed closer to the ground or get bed rails Christiana Ewing APRN.[employer] Here for follow up for JATINDER - PAP compliance Interval history : No recent DEBs or yelling during sleep with new Auto BiPAP device. He received his new device from [employer] but they need 3 digit code to set-up (more content not included)... Normal [facility] Basic Metabolic Panelon 05-1 Anion gap [Moles/Vol] 15.0 mmol/L Normal 6.0-15.0 e [facility] Comment on above: Performed By: #### B MP, CBC #### [facility] [address] Calcium [Mass/Vol] 9.1 mg/dL Normal 8.6-10.3 [facility] Comment on above: Performed By: #### B MP, CBC #### [place] [address] [place] Chloride [Moles/Vol] 102 mmol/L Normal 98-107 [facility] Comment on above: Performed By: #### B MP, CBC #### [place] [address] [place] CO2 [Moles/Vol] 23.3 mmol/L Normal 21.0-31.0 [facility] Comment on above: Performed By: #### B MP, CBC #### [place] [address] [place] Creatinine [Mass/Vol] 1.17 mg/dL Normal 0.70-1.30 [facility] Comment on above: Performed By: #### B MP, CBC #### [place] [address] [place] Creatinine Clr Calc Pharmacy 72.47 Normal [facility] Comment on above: Result Comment: PERF ORMED BY: [place] [address] PATHOLOGIST NEUROPATHOLOGIST JASON ERVIN M.D. Performed By: #### B MP, CBC #### [place] [address] [place] GFR/1.73 sq M.predicted MDRD (S/P/Bld) [Vol rate/Area] mL/min/{1.73_m2} Normal [facility] Comment on above: Performed By: #### B MP, CBC #### [address] Glucose [Mass/Vol] 99 mg/dL Normal 70-100 [facility] Comment on above: Result Comment: [place] Glucose Reference Range is dependent on time and content of last meal. Glucose of more than 200 mg/dL in a nonstressed, ambulatory subject supports the diagnosis of Diabetes Mellitus. ADA recommended reference range Performed By: #### B MP, CBC #### [place] [address] [place] Potassium [Moles/Vol] 4.3 mmol/L Normal 3.5-5.1 [facility] Comment on above: Performed By: #### B MP, CBC #### [facility] [address] Sodium [Moles/Vol] 136 mmol/L Normal 136-145 [facility] Comment on above: Performed By: #### B MP, CBC #### [facility] [address] Urea nitrogen [Mass/Vol] 18 mg/dL Normal 7-25 [facility] Comment on above: Performed By: #### B MP, CBC #### [facility] [address] Basophils Auto (Bld) [#/Vol] Ordered By: Matthias Mckenna on 07-17-2023 Basophils (Bld) [#/Vol] 0.0 10*3/uL 0.0-0.2 [facility] Basophils/100 WBC Auto (Bld) Ordered By: Matthias Mckenna on 07-17-2023 Basophils/100 WBC (Bld) 0.2 % . [facility] Calcium [Mass/volume] in Ser um or PlasmaOrdered By: Matthias Mckenna on 07-17-2023 Calcium [Mass/Vol] 9.1 mg/dL 8.6-10.3 [facility] Carbon dioxide, total [Moles /volume] in Serum or PlasmaOrdered By: Matthias Mckenna on 07-17-2023 CO2 [Moles/Vol] 23.3 mmol/L 21.0-31.0 [facility] Chloride [Moles/volume] in S nicole or PlasmaOrdered By: Matthias Mckenna on 07-17-2023 Chloride [Moles/Vol] 102 mmol/L 98-107 [facility] Complete Blood Count Auto Di ffon 07-17-2023 Basophils (Bld) [#/Vol] 0.0 10*3/uL Normal 0.0-0.2 [facility] Comment on above: Result Comment: PERF ORMED BY: [place] [phone] PATHOLOGIST NEUROPATHOLOGIST JASON ERVIN M.D. Performed By: #### B MP, CBC #### [address] Basophils/100 WBC (Bld) 0.2 % Normal . [facility] Comment on above: Performed By: #### B MP, CBC #### [facility] [address] [place] [address] [place] Eosinophils (Bld) [#/Vol] 0.0 10*3/uL Normal 0.0-0.45 [facility] Comment on above: Performed By: #### B MP, CBC #### [address] Eosinophils/100 WBC (Bld) 0.4 % Normal . [facility] Comment on above: Performed By: #### B MP, CBC #### [address] Erythrocyte distribution width (RBC) [Ratio] 14.2 % Normal 12.0-14.8 [facility] Comment on above: Performed By: #### B MP, CBC #### [address] Hematocrit (Bld) [Volume fraction] 36.3 % Low 38.8-50.0 [facility] Comment on above: Performed By: #### B MP, CBC #### [address] Hemoglobin (Bld) [Mass/Vol] 12.0 g/dL Low 13.0-17.0 [facility] Comment on above: Performed By: #### B MP, CBC #### [place] [address] [place] Lymphocytes (Bld) [#/Vol] 1.1 10*3/uL Normal 1.00-4.8 [facility] Comment on above: Performed By: #### B MP, CBC #### [place] [address] [place] Lymphocytes/100 WBC (Bld) 9.4 % Normal . [facility] Comment on above: Performed By: #### B MP, CBC #### [address] MCH (RBC) [Entitic mass] 30.8 pg Normal 27.5-35.2 [facility] Comment on above: Performed By: #### B MP, CBC #### [address] MCV (RBC) [Entitic vol] 93.2 fL Normal 83.5-101 [facility] Comment on above: Performed By: #### B MP, CBC #### [address] Mean Corpuscular HGB Conc 33.0 g/dL Normal 32.5-35.6 [facility] Comment on above: Performed By: #### B MP, CBC #### [address] Monocytes (Bld) [#/Vol] 1.2 10*3/uL High 0.0-0.8 [facility] Comment on above: Performed By: #### B MP, CBC #### [address] Monocytes/100 WBC (Bld) 10.4 % Normal . [facility] Comment on above: Performed By: #### B MP, CBC #### [address] Neutrophils (Bld) [#/Vol] 8.9 10*3/uL High 1.8-7.7 [facility] Comment on above: Performed By: #### B MP, CBC #### [address] Neutrophils/100 WBC (Bld) 79.6 % Normal . [facility] Comment on above: Performed By: #### B MP, CBC #### [address] NRBC% 0.1 /100{WBC} Normal 0-0.5 [facility] Comment on above: Performed By: #### B MP, CBC #### [facility] [address] [place] [address] [place] Platelet mean volume (Bld) [Entitic vol] 8.0 fL Normal 6.6-10.1 [facility] Comment on above: Performed By: #### B MP, CBC #### [facility] [address] [place] [address] [place] Platelets (Bld) [#/Vol] 219 10*3/uL Normal 150-450 [facility] Comment on above: Performed By: #### B MP, CBC #### [facility] [address] [place] [address] [place] RBC (Bld) [#/Vol] 3.89 10*6/uL Low 3.90-5.60 [facility] Comment on above: Performed By: #### B MP, CBC #### [facility] [address] [place] [address] [place] WBC (Bld) [#/Vol] 11.2 10*3/uL High 4.1-10.5 [facility] Comment on above: Performed By: #### B MP, CBC #### [facility] [address] Creatinine [Mass/volume] in Serum or PlasmaOrdered By: Matthias Mckenna on 07-17-2023 Creatinine [Mass/Vol] 1.17 mg/dL 0.70-1.30 [facility] ECG 12 lead ECGon 07-17-2023 ECG 12 lead ECG [facility] Main [place] [address] [place] [address] Electrocardiograph Report Signed Patient: Matthew Garza MR#: [id number] : 1955 Acct:[id number] Age/Sex: 68 / M ADM Date: 07/16/23 Loc: Room: [address] [place] [address] Type: ADM IN Attending Dr: Matthias Mckenna MD Ordering Provider: Bebe Mojica DO Date of Service: 07/17/2312/30/499 ECG/ECG 12 lead ECG: PCI Copies to: Test Reason : Blood Pressure : / mmHG Vent. Rate : 064 BPM Atrial Rate : 064 BPM P-R Int : 200 ms QRS Dur : 100 ms QT Int : 488 ms P-R-T Axes : 048 060 128 degrees QTc Int : 503 ms Normal sinus rhythm Incomplete right bundle branch block Cannot rule out Anterior infarct (cited on or before 16-JUL-2023) T wave abnormality, consider lateral ischemia Prolonged QT Abnormal ECG When compared with ECG of 16-JUL-2023 15:43, (Unconfirmed) Serial changes of Anterior infarct present Confirmed by KATHERINE MCCULLOUGH [facility], CECILIA ([id number]) on 07/17/2023 8:58:42 AM Referred By: Electronically Signed By:CECILIA MURPHY MD [facility] Transcribed By: MUS Signed By Cecilia Murphy MD, [facility] 07/17/23 0858 Normal [facility] Eosinophils Auto (Bld) [#/Vo l]Ordered By: Matthias Mckenna on 07-17-2023 Eosinophils (Bld) [#/Vol] 0.0 10*3/uL 0.0-0.45 [facility] Eosinophils/100 WBC Auto (Bl d)Ordered By: Matthias Mckenna on 07-17-2023 Eosinophils/100 WBC (Bld) 0.4 % . [facility] Erythrocyte distribution wid th Auto (RBC) [Ratio]Ordered By: Matthias Mckenna on 07-17-2023 Erythrocyte distribution width (RBC) [Ratio] 14.2 % 12.0-14.8 [facility] Glucose [Mass/volume] in Ser um or PlasmaOrdered By: Matthias Mckenna on 07-17-2023 Glucose [Mass/Vol] 99 mg/dL 70-100 [facility] Comment on above: ADA recommended refe rence rangeRandom Glucose Reference Range is dependent on time and content of last meal. Glucose of more than 200 mg/dL in a nonstressed, ambulatory subject supports the diagnosis of Diabetes Mellitus. Hematocrit Auto (Bld) [Volum e fraction]Ordered By: Matthias Mckenna on 07-17-2023 Hematocrit (Bld) [Volume fraction] 36.3 % Low 38.8-50.0 [facility] Hemoglobin [Mass/volume] in BloodOrdered By: Matthias Mckenna on 07-17-2023 Hemoglobin (Bld) [Mass/Vol] 12.0 g/dL Low 13.0-17.0 [facility] Leukocytes [#/volume] correc cristino for nucleated erythrocytes in Blood by Automated counOrdered By: Matthias Mckenna on 07-17-2023 WBC corrected for nucl RBC Auto (Bld) [#/Vol] 11.2 10*3/uL High 4.1-10.5 [facility] Lymphocytes Auto (Bld) [#/Vo l]Ordered By: Matthias Mckenna on 07-17-2023 Lymphocytes (Bld) [#/Vol] 1.1 10*3/uL 1.00-4.8 [facility] Lymphocytes/100 WBC Auto (Bl d)Ordered By: Matthias Mckenna on 07-17-2023 Lymphocytes/100 WBC (Bld) 9.4 % . [facility] MCH Auto (RBC) [Entitic mass ]Ordered By: Matthias Mckenna on 07-17-2023 MCH (RBC) [Entitic mass] 30.8 pg 27.5-35.2 [facility] MCHC Auto (RBC) [Mass/Vol]Or dered By: Matthias Mckenna on 07-17-2023 MCHC (RBC) [Mass/Vol] 33.0 g/dL 32.5-35.6 [facility] MCV Auto (RBC) [Entitic vol] Ordered By: Matthias Mckenna on 07-17-2023 MCV (RBC) [Entitic vol] 93.2 fL 83.5-101 [facility] Monocytes Auto (Bld) [#/Vol] Ordered By: Matthias Mckenna on 07-17-2023 Monocytes (Bld) [#/Vol] 1.2 10*3/uL High 0.0-0.8 [facility] Monocytes/100 WBC Auto (Bld) Ordered By: Matthias Mckenna on 07-17-2023 Monocytes/100 WBC (Bld) 10.4 % . [facility] Neutrophils Auto (Bld) [#/Vo l]Ordered By: Matthias Mckenna on 07-17-2023 Neutrophils (Bld) [#/Vol] 8.9 10*3/uL High 1.8-7.7 [facility] Neutrophils/100 WBC Auto (Bl d)Ordered By: Matthias Mckenna on 07-17-2023 Neutrophils/100 WBC (Bld) 79.6 % . [facility] No Panel InformationOrdered By: Matthias Mckenna on 07-17-2023 Estimated GFR (CKD-EPI) > 60.0 mL/Min [facility] Creatinine Clearance (Chem 72.47 [facility] Nucleated erythrocytes [Pres ence] in Blood by Automated countOrdered By: Matthias Mckenna on 07-17-2023 Nucleated RBC Auto Ql (Bld) 0.1 /100{WBC} 0-0.5 [facility] Platelet mean volume Auto (B ld) [Entitic vol]Ordered By: Matthisa Mckenna on 07-17-2023 Platelet mean volume (Bld) [Entitic vol] 8.0 fL 6.6-10.1 [facility] Platelets Auto (Bld) [#/Vol] Ordered By: Matthias Mckenna on 07-17-2023 Platelets (Bld) [#/Vol] 219 10*3/uL 150-450 [facility] Potassium [Moles/volume] in Serum or PlasmaOrdered By: Matthias Mckenna on 07-17-2023 Potassium [Moles/Vol] 4.3 mmol/L 3.5-5.1 [facility] RBC Auto (Bld) [#/Vol]Ordere d By: Matthias Mckenna on 07-17-2023 RBC (Bld) [#/Vol] 3.89 10*6/uL Low 3.90-5.60 [facility] Serum or plasma anion gap de terminationOrdered By: Matthias Mckenna on 07-17-2023 Anion gap [Moles/Vol] 15.0 mmol/L 6.0-15.0 [facility] Sodium [Moles/volume] in Ser um or PlasmaOrdered By: Matthias Mckenna on 07-17-2023 Sodium [Moles/Vol] 136 mmol/L 136-145 [facility] Troponin I High Sensitivityo n 07-17-2023 Troponin I High Sensitivity 7506.4 pg/mL Off scale high 0.0-20.0 [facility] Comment on above: Result Comment: Crit ical Result : Called to and read back by: XAVI RIZZO at: 07/17/2023 07:13:36 by:JAIME PERFORMED BY: [phone] PATHOLOGIST NEUROPATHOLOGIST JASON ERVIN M.D. Performed By: #### H S TROP ####[address] Troponin I High Sensitivity 20754.3 pg/mL Off scale high 0.0-20.0 [facility] Comment on above: Result Comment: Crit ical Result : Called to and read back by: KATHIE RODRIGUEZ at: 07/16/2023 23:28:41 by:EVELIO PERFORMED BY: [place] [phone] PATHOLOGIST NEUROPATHOLOGIST JASON ERVIN M.D. Performed By: #### H S TROP #### [facility] [address] [place] [address] Troponin I.cardiac [Mass/vol ume] in Serum or Plasma by Detection limit <= 0.01 ng/Ordered By: Bebe Mojica on 07-17-2023 Troponin I.cardiac DL <= 0.01 ng/mL [Mass/Vol] 7506.4 pg/mL High 0.0-20.0 [facility] Comment on above: Critical Result : Ca lled to and read back by: XAVI RIZZO at: 07/17/2023 07:13:36 by:JAIME Urea nitrogen [Mass/volume] in Serum or PlasmaOrdered By: Matthias Mckenna on 07-17-2023 Urea nitrogen [Mass/Vol] 18 mg/dL 7-25 [facility] WBC Auto (Bld) [#/Vol]Ordere d By: Matthias Mckenna on 07-17-2023 WBC (Bld) [#/Vol] 11.2 10*3/uL High 4.1-10.5 [facility] A1C with Estimated Average Amarilys diop 07-16-2023 Glucose [Mass/Vol] 140 mg/dL Normal [facility] Comment on above: Order Comment: Comme nt Add on to previous lab draw Result Comment: PERF ORMED BY: [facility] [address] [place] [id number] PATHOLOGIST NEUROPATHOLOGIST JASON ERVIN M.D. Performed By: #### A 1C [facility] eA, LIPID ####[place] [address] [place] [id number] [facility] HbA1c (Bld) [Mass fraction] 6.5 % High 4.3-5.6 [facility] Comment on above: Order Comment: Comme nt Add on to previous lab draw Result Comment: Incr eased risk for diabetes: 5.7 - 6.4 diabetes: >6.4 glycemic control for adults with diabetes: <7.0 Performed By: #### A 1C WT eA, LIPID ####[place] [address] [place] [id number] [facility] Activated partial thrombopla stin time (aPTT) in platelet poor plasma by coagulation aOrdered By: [place] Black on 07-16-2023 aPTT Coag (PPP) [Time] 38.0 s High 25.1-36.5 [facility] Comment on above: A hematocrit value g reater than 55% may lead to inaccurate results in coagulation testing. Patients having hematocrit values >55% require a special collection tube for coagulation studies. Please contact the laboratory at [phone] for redraw instructions. B-Type Natriuretic Peptideon 07-16-2023 Natriuretic peptide B (Bld) [Mass/Vol] 292.0 pg/mL High 5-100 [facility] Comment on above: Result Comment: PERF ORMED BY: [facility] [address] [place] [address] PATHOLOGIST NEUROPATHOLOGIST JASON ERVIN M.D. Performed By: #### B SWIMMING POOL CLEANER #### [facility] [address] Natriuretic peptide B (Bld) [Mass/Vol] 245.0 pg/mL High 5-100 [facility] Comment on above: Result Comment: PERF ORMED BY: [address] [place] [address] PATHOLOGIST NEUROPATHOLOGIST JASON ERVIN M.D. Performed By: #### P TT, BNP, CBC, PT, BMP, HS TROP ####[address] Basic Metabolic Panelon 05-0 Anion gap [Moles/Vol] 14.7 mmol/L Normal 6.0-15.0 [facility] Comment on above: Performed By: #### P TT, BNP, CBC, PT, BMP, HS TROP ####[address] Calcium [Mass/Vol] 8.9 mg/dL Normal 8.6-10.3 [facility] Comment on above: Performed By: #### P TT, BNP, CBC, PT, BMP, HS TROP ####[address] Chloride [Moles/Vol] 103 mmol/L Normal 98-107 [facility] Comment on above: Performed By: #### P TT, BNP, CBC, PT, BMP, HS TROP ####[address] CO2 [Moles/Vol] 26.3 mmol/L Normal 21.0-31.0 [facility] Comment on above: Performed By: #### P TT, BNP, CBC, PT, BMP, HS TROP ####[address] Creatinine [Mass/Vol] 1.28 mg/dL Normal 0.70-1.30 [facility] Comment on above: Performed By: #### P TT, BNP, CBC, PT, BMP, HS TROP ####[place] [id number] [place] Creatinine Clr Calc Pharmacy 66.24 Normal [facility] Comment on above: Result Comment: PERF ORMED BY: [facility] [place] [address] PATHOLOGIST NEUROPATHOLOGIST JASON ERVIN M.D. Performed By: #### P TT, BNP, CBC, PT, BMP, HS TROP ####[address] GFR/1.73 sq M.predicted MDRD (S/P/Bld) [Vol rate/Area] mL/min/{1.73_m2} Normal [facility] Comment on above: Performed By: #### P TT, BNP, CBC, PT, BMP, HS TROP ####[address] Glucose [Mass/Vol] 102 mg/dL High 70-100 [facility] Comment on above: Result Comment: [place] Glucose Reference Range is dependent on time and content of last meal. Glucose of more than 200 mg/dL in a nonstressed, ambulatory subject supports the diagnosis of Diabetes Mellitus. ADA recommended reference range Performed By: #### P TT, BNP, CBC, PT, BMP, HS TROP ####[address] Potassium [Moles/Vol] 5.0 mmol/L Normal 3.5-5.1 [facility] Comment on above: Performed By: #### P TT, BNP, CBC, PT, BMP, HS TROP ####[address] Sodium [Moles/Vol] 139 mmol/L Normal 136-145 [facility] Comment on above: Performed By: #### P TT, BNP, CBC, PT, BMP, HS TROP ####[address] Urea nitrogen [Mass/Vol] 25 mg/dL Normal 7-25 [facility] Comment on above: Performed By: #### P TT, BNP, CBC, PT, BMP, HS TROP ####[address] [place] [address] [place] Cholesterol [Mass/volume] in Serum or PlasmaOrdered By: Matthias Mckenna on 07-16-2023 Cholesterol [Mass/Vol] 182 mg/dL 140-200 [facility] Comment on above: Chol less than 200 m g/dl low riskChol 201-239 mg/dl borderline riskChol 240 mg/dl and greater high risk Cholesterol in LDL Calc [Mas s/Vol]Ordered By: Matthias Mckenna on 07-16-2023 Cholesterol in LDL [Mass/Vol] 116 mg/dL High 0-100 [facility] Comment on above: LDL ATP III CLASSIFI CATIONLDL less than 100 mg/dL OptimalLDL 100-129 mg/dL Near or above optimalLDL 130-159 mg/dL Borderline highLDL 160-189 mg/dL HighLDL greater than 189 mg/dL Very high Cholesterol in VLDL Calc [Ma ss/Vol]Ordered By: Matthias Mckenna on 07-16-2023 Cholesterol in VLDL [Mass/Vol] 23 mg/dL [facility] Complete Blood Count Auto Di ffon 07-16-2023 Basophils (Bld) [#/Vol] 0.0 10*3/uL Normal 0.0-0.2 [facility] Comment on above: Result Comment: PERF ORMED BY: [facility] [address] [place] [id number] PATHOLOGIST NEUROPATHOLOGIST JASON ERVIN M.D. Performed By: #### P TT, BNP, CBC, PT, BMP, HS TROP ####[address] Basophils/100 WBC (Bld) 0.3 % Normal . [facility] Comment on above: Performed By: #### P TT, BNP, CBC, PT, BMP, HS TROP ####[place] [address] [place] Eosinophils (Bld) [#/Vol] 0.0 10*3/uL Normal 0.0-0.45 [facility] Comment on above: Performed By: #### P TT, BNP, CBC, PT, BMP, HS TROP ####[address] Eosinophils/100 WBC (Bld) 0.4 % Normal . [facility] Comment on above: Performed By: #### P TT, BNP, CBC, PT, BMP, HS TROP ####[address] Erythrocyte distribution width (RBC) [Ratio] 13.9 % Normal 12.0-14.8 [facility] Comment on above: Performed By: #### P TT, BNP, CBC, PT, BMP, HS TROP ####[address] Hematocrit (Bld) [Volume fraction] 37.9 % Low 38.8-50.0 [facility] Comment on above: Performed By: #### P TT, BNP, CBC, PT, BMP, HS TROP ####[address] Hemoglobin (Bld) [Mass/Vol] 12.5 g/dL Low 13.0-17.0 [facility] Comment on above: Performed By: #### P TT, BNP, CBC, PT, BMP, HS TROP ####[address] Lymphocytes (Bld) [#/Vol] 1.5 10*3/uL Normal 1.00-4.8 [facility] Comment on above: Performed By: #### P TT, BNP, CBC, PT, BMP, HS TROP ####[address] Lymphocytes/100 WBC (Bld) 13.9 % Normal . [facility] Comment on above: Performed By: #### P TT, BNP, CBC, PT, BMP, HS TROP ####[address] MCH (RBC) [Entitic mass] 31.0 pg Normal 27.5-35.2 [facility] Comment on above: Performed By: #### P TT, BNP, CBC, PT, BMP, HS TROP ####[address] MCV (RBC) [Entitic vol] 93.6 fL Normal 83.5-101 [facility] Comment on above: Performed By: #### P TT, BNP, CBC, PT, BMP, HS TROP ####[address] Mean Corpuscular HGB Conc 33.1 g/dL Normal 32.5-35.6 [facility] Comment on above: Performed By: #### P TT, BNP, CBC, PT, BMP, HS TROP ####[address] Monocytes (Bld) [#/Vol] 0.9 10*3/uL High 0.0-0.8 [facility] Comment on above: Performed By: #### P TT, BNP, CBC, PT, BMP, HS TROP ####[address] Monocytes/100 WBC (Bld) 8.5 % Normal . [facility] Comment on above: Performed By: #### P TT, BNP, CBC, PT, BMP, HS TROP ####[address] Neutrophils (Bld) [#/Vol] 8.1 10*3/uL High 1.8-7.7 [facility] Comment on above: Performed By: #### P TT, BNP, CBC, PT, BMP, HS TROP ####[address] Neutrophils/100 WBC (Bld) 76.9 % Normal . [facility] Comment on above: Performed By: #### P TT, BNP, CBC, PT, BMP, HS TROP ####[address] NRBC% 0.1 /100{WBC} Normal 0-0.5 [facility] Comment on above: Performed By: #### P TT, BNP, CBC, PT, BMP, HS TROP ####[address] [place] [address] [facility] Platelet mean volume (Bld) [Entitic vol] 8.4 fL Normal 6.6-10.1 [facility] Comment on above: Performed By: #### P TT, BNP, CBC, PT, BMP, HS TROP ####[place] [id number] [facility] Platelets (Bld) [#/Vol] 222 10*3/uL Normal 150-450 [facility] Comment on above: Performed By: #### P TT, BNP, CBC, PT, BMP, HS TROP ####[address] [address] [facility] RBC (Bld) [#/Vol] 4.05 10*6/uL Normal 3.90-5.60 [facility] Comment on above: Performed By: #### P TT, BNP, CBC, PT, BMP, HS TROP ####[place] [id number] [facility] WBC (Bld) [#/Vol] 10.5 10*3/uL Normal 4.1-10.5 [facility] Comment on above: Performed By: #### P TT, BNP, CBC, PT, BMP, HS TROP ####[place] [id number] [facility] ECG 12 lead ECGon 07-16-2023 ECG 12 lead ECG [facility] Main [place] [address] [place] [address] Electrocardiograph Report Signed Patient: Matthew Garza MR#: [id number] : 1955 Acct:[id number] Age/Sex: 68 / M ADM Date: 07/16/23 Loc: Room: [address] [place] [address] Type: ADM IN Attending Dr: Matthias Mckenna MD Ordering Provider: Bebe Mojica DO Date of Service: 07/16/2311/30/1504 ECG/ECG 12 lead ECG: Post Angioplasty Procedure Copies to: Test Reason : Blood Pressure : / mmHG Vent. Rate : 065 BPM Atrial Rate : 065 BPM P-R Int : 212 ms QRS Dur : 098 ms QT Int : 458 ms P-R-T Axes : 050 047 105 degrees QTc Int : 476 ms Sinus rhythm with 1st degree AV block Incomplete right bundle branch block T wave abnormality, consider lateral ischemia Abnormal ECG Confirmed by [facility]OUGH [facility] ([facility] on 07/17/2023 8:58:21 AM Referred By: JOHN Electronically Signed By:CECILIA MURPHY MD [facility] Transcribed By: RAFA Signed By Cecilia Murphy MD, [facility] 07/17/23 0858 Normal [facility] ECG 12 [place] [address] Electrocardiograph Report Signed Patient: Matthew Garza MR#: [id number] : 1955 Acct:[id number] Age/Sex: 68 / M ADM Date: 07/16/23 Loc: Room: [address] [place] [address] Type: ADM IN Attending Dr: Matthias Mckenna MD Ordering Provider: [place] Black MD Date of Service: 07/16/2312/01/547 ECG/ECG 12 lead ECG: chest pain Copies to: Test Reason : Blood Pressure : / mmHG Vent. Rate : 066 BPM Atrial Rate : 066 BPM P-R Int : 206 ms QRS Dur : 104 ms QT Int : 440 ms P-R-T Axes : 051 058 105 degrees QTc Int : 461 ms Normal sinus rhythm Incomplete right bundle branch block T wave abnormality, consider lateral ischemia Prolonged QT Abnormal ECG No previous ECGs available Confirmed by HEMA LEON MD ([id number]) on 07/16/2023 11:46:50 AM Referred By: Electronically Signed By:HEMA LEON MD Transcribed By: RAFA Signed By Hema Leon MD 0 07/16/23 1146 Normal [facility] ECG 12 lead ECG [facility] Main [address] [address] Electrocardiograph Report Signed Patient: Matthew Garza MR#: [id number] : 1955 Acct:[id number] Age/Sex: 68 / M ADM Date: 07/16/23 Loc: 4 Room: [id number] Type: ADM IN Attending Dr: Matthias Mckenna MD Ordering Provider: Matthias Mckenna MD Date of Service: 07/16/2311/30/1025 ECG/ECG 12 lead ECG: Chest Pain Copies to: Test Reason : Blood Pressure : / mmHG Vent. Rate : 064 BPM Atrial Rate : 064 BPM P-R Int : 204 ms QRS Dur : 104 ms QT Int : 450 ms P-R-T Axes : 053 069 107 degrees QTc Int : 464 ms Normal sinus rhythm Incomplete right bundle branch block T wave abnormality, consider lateral ischemia Abnormal ECG No previous ECGs available Confirmed by KATHERINE MCCULLOUGH [facility], CECILIA ([id number]) on 07/17/2023 8:58:00 AM Referred By: Electronically Signed By:CECILIA MURPHY MD [facility] Transcribed By: MUS Signed By Cecilia Murphy MD, [facility] 07/17/23 0858 Normal [facility] ECH echo transthoracicon ECH echo transthoracic [place] [address] Echocardiogram Signed Patient: Matthew Garza MR#: [id number] : 1955 Acct:[id number] Age/Sex: 68 / M ADM Date: 07/16/23 Loc: Room: [address] [place] [address] Type: ADM IN Attending Dr: Matthias Mckenna MD Ordering Provider: Matthias Mckenna MD Date of Service: 07/16/2311/30/1138 ECH/ECH echo transthoracic: NSTEMI Copies to: MD Cecilia Alves MD, [facility] Weight: 221 lb Performed By: Orquidea Valadez RDCS BSA: 2.2 m2 BP: 168/92 mmHg HR: 75 Reason For Study: NSTEMI History: Parkinsons, JATINDER, HTN Interpretation Summary The left ventricular size and thickness are normal. Moderate hypokinesis involving the mid-distal lateral wall, however this is not affecting the overall ejection fraction which remains normal at 55% A variety of Doppler measurements indicate impaired left ventricular relaxation, which is associated with grade I/IV or mild diastolic dysfunction. The left atrium appears mildly dilated. There is no prior echocardiogram noted for this patient. Procedure/Quality: A two-dimensional transthoracic echocardiogram with color flow, Doppler and injection of contrast agent Definity was performed. The study was technically good in quality. There is no prior echocardiogram noted for this patient. Left Ventricle: The left ventricular size and thickness are normal. A variety of Doppler measurements indicate impaired left ventricular relaxation, which is associated with grade I/IV or mild diastolic dysfunction. Moderate hypokinesis involving the mid-distal lateral wall, however this is not affecting the overall ejection fraction which remains normal at 55%. Left Atrium: The left atrium appears mildly dilated. The atrial septum appears normal. Right Atrium: The right atrium appears normal in size. Right Ventricle: The right ventricular size, thickness and function are normal. Aortic Valve: The aortic valve is trileaflet. Mitral Valve: The mitral valve is mildly sclerotic. Tricuspid Valve: The tricuspid valve is normal in structure. Pulmonic Valve: The pulmonic valve is not well seen, but is grossly normal. Arteries: The aortic root is normal size. Pericardium/Pleura: No pericardial effusion seen. There is no pleural effusion. IVC/Hepatic Veins: The IVC is normal in size with an inspiratory collapse of greater then 50%, suggesting normal right atrial pressure. Miscellaneous: No thrombus, vegetation or mass is seen. Measurements with Normals IVSd: 1.2 cm (0.7-1.1 cm)LVIDd: 5.7 cm (3.7-5.4 cm) LVPWd: 1.0 cm (0.7-1.1 cm)LVIDs: 4.0 cm (2.3-3.6 cm) LA dimension: 4.0 cm (2.3-4.0 cm)Ao root diam: 3.7 cm(2.0-3.6 cm) asc Aorta Diam: 3.4 cm(2.1-3.4cm) Doppler with Normals LV V1 max: 97.7 cm/sec (0.7-1.7m/s)MV E max juan: 77.7 cm/sec(0.8-1.3m/s) MV A max juan: 107.2 cm/sec(0.0-0.0m/s) MV E/A: 0.72 (<1.5) MMode/2D Measurements Calculations RVDd: 2.7 cm FS: 29.6 % Ao root area: LVOT diam: 2.0 cm TAPSE: 2.7 cm EDV(Teich): 10.6 cm2 LVOT area: 3.1 cm2 RV S Juan: 161.8 ml 14.7 cm/sec ESV(Teich): 71.5 ml EF(Teich): 55.8 % __ LVLd ap4: 9.2 cm SV(MOD-sp4): LAV(MOD-sp4): LA A4 area: 17.6 cm2 EDV(MOD-sp4): 88.6 ml 40.3 ml LA length (vol): 157.0 ml 5.9 cm LVLs ap4: 8.1 cm ESV(MOD-sp4): 68.4 ml EF(MOD-sp4): 56.4 % Doppler Measurements Calculations MV dec time: MV V2 max: E/E' lat: 10.5 MV P1/2t max juan: 0.17 sec 121.3 cm/sec E/E' med: 14.6 89.9 cm/sec MV max PG: MV P1/2t: 65.5 msec 84.0 mmHg MVA(P1/2t): 3.4 cm2 MV V2 mean: MV dec slope: 75.7 cm/sec MV mean P.3 cm/sec2 2.5 mmHg MV V2 VTI: 31.6 cm MVA(VTI): 2.1 cm2 __ Ao V2 max: LV V1 max PG: MR max juan: RAP systole: 5.0 mmHg 120.1 cm/sec 3.8 mmHg 458.0 cm/sec Ao max PG: LV V1 mean PG: MR max P.8 mmHg 2.4 mmHg 88.1 mmHg Ao mean PG: LV V1 mean: 3.5 mmHg 74.6 cm/sec Ao V2 mean: LV V1 VTI: 21.1 cm 90.1 cm/sec Ao V2 VTI: 25.7 cm SIRIA(I,D): 2.5 cm2 SIRIA(V,D): 2.5 cm2 Transcribed By: SCV Performed At: 07/16/23 1201 Signed By: Cecilia Murphy MD, [facility] 07/16/23 1354 Normal [facility] Glucose mean value [Mass/vol ume] in Blood Estimated from glycated hemoglobinOrdered By: Matthias Mckenna on 07-16-2023 Average glucose Estimated from glycated hemoglobin (Bld) [Mass/Vol] 140 mg/dL [facility] Hemoglobin A1c percentageOrd ered By: Matthias Mckenna on 07-16-2023 HbA1c (Bld) [Mass fraction] 6.5 % High 4.3-5.6 [facility] Comment on above: Increased risk for d iabetes: 5.7 - 6.4diabetes: >6.4glycemic control for adults with diabetes: <7.0 INR in Platelet poor plasma by Coagulation assayOrdered By: Chico Black on 07-16-2023 INR Coag (PPP) [Relative time] 1.0 {INR} [facility] Comment on above: INR Therapeutic Rang e A) Pre- and Peroperative OAT started two weeks before surgery. NOT HIP SURGERY: 1.5 - 2.5 HIP SURGERY: 2 - 3B) Primary and secondary prevention of venous THROMBOSIS: 2 - 3C) Active venous thrombosis, pulmonary embolismand prevention of recurrent venous thrombosis: 2 - 3D) Prevention of arterial thromboembolismincluding patients with mechanical heart valves: 3 - 4.5 Lipid Panelon 07-16-2023 Cholesterol [Mass/Vol] 182 mg/dL Normal 140-200 [facility] Comment on above: Order Comment: ARRON ZHANG Y Comment Add on to previous lab draw Result Comment: Chol less than 200 mg/dl low risk Chol 201-239 mg/dl borderline risk Chol 240 mg/dl and greater high risk Performed By: #### A 1C [facility], LIPID ####[facility] [place] [id number] [facility] Cholesterol in HDL [Mass/Vol] 42 mg/dL Normal 23-92 [facility] Comment on above: Order Comment: ARRON Forde Comment Add on to previous lab draw Result Comment: HDL CHOL ATP-III CLASSIFICATION Cardiovascular Risk HDL > or equal to 60 mg/dL LOW HDL < 40 mg/dL HIGH Performed By: #### A 1C [facility] Lauren, LIPID ####[place] [address] [address] Cholesterol.total/Chol esterol in HDL [Mass ratio] 4.3 {ratio} Normal <5.0 [facility] Comment on above: Order Comment: ARRON Forde Comment Add on to previous lab draw Result Comment: PERF ORMED BY: [facility] [address] [place] [address] PATHOLOGIST NEUROPATHOLOGIST JASON ERVIN M.D. Performed By: #### A 1C [facility] Lauren, LIPID ####[address] LDL Cholesterol,Calculated 116 mg/dL High 0-100 [facility] Comment on above: Order Comment: ARRON Forde Comment Add on to previous lab draw Result Comment: LDL ATP III CLASSIFICATION LDL less than 100 mg/dL Optimal LDL 100-129 mg/dL Near or above optimal LDL 130-159 mg/dL Borderline high LDL 160-189 mg/dL High LDL greater than 189 mg/dL Very high Performed By: #### A 1C [facility] Lauren, LIPID ####[place] [id number] [facility] Triglyceride w/Reflex 119 mg/dL Normal 0-149 [facility] Comment on above: Order Comment: ARRON Forde Comment Add on to previous lab draw Result Comment: TRIG ATP III CLASSIFICATION TRIG less than 150 mg/dL Normal TRIG 150-199 mg/dL Borderline high TRIG 200-500 mg/dL High TRIG greater than 500 mg/dL Very high Standard traceable to the Center for Disease Conrtrol and Prevention (CDC) test method. Performed By: #### A 1C [facility] Lauren, LIPID ####[place] [id number] [facility] VLDL CHOLESTEROL 23 mg/dL Normal [facility] Comment on above: Order Comment: FASTPop ZHANG Y Comment Add on to previous lab draw Performed By: #### A 1C WT eA, LIPID ####[place] [id number] [facility] Natriuretic peptide B [Mass/ Vol]Ordered By: Chico Black on 07-16-2023 Natriuretic peptide B (Bld) [Mass/Vol] 292.0 pg/mL High 5-100 [facility] Partial Thromboplastin Timeo n 07-16-2023 aPTT Coag (Bld) [Time] 38.0 s High 25.1-36.5 Th e [facility] Comment on above: Result Comment: A he matocrit value greater than 55% may lead to inaccurate results in coagulation testing. Patients having hematocrit values >55% require a special collection tube for coagulation studies. Please contact the laboratory at [phone] for redraw instructions. PERFORMED BY: [facility] [address] [place] [address] PATHOLOGIST NEUROPATHOLOGIST JASON ERVIN M.D. Performed By: #### P TT, BNP, CBC, PT, BMP, HS TROP ####[place] [id number] [facility] Prothrombin Time INRon 07-15 INR Coag (PPP) [Relative time] 1.0 {INR} Normal [facility] Comment on above: Result Comment: INR Therapeutic Range A) Pre- and Peroperative OAT started two weeks before surgery. NOT HIP SURGERY: 1.5 - 2.5 HIP SURGERY: 2 - 3 B) Primary and secondary prevention of venous THROMBOSIS: 2 - 3 C) Active venous thrombosis, pulmonary embolism and prevention of recurrent venous thrombosis: 2 - 3 D) Prevention of arterial thromboembolism including patients with mechanical heart valves: 3 - 4.5 Performed By: #### P TT, BNP, CBC, PT, BMP, HS TROP ####[place] [id number] [facility] PT Coag (PPP) [Time] 11.8 s Normal 9.0-12.9 [facility] Comment on above: Result Comment: A he matocrit value greater than 55% may lead to inaccurate results in coagulation testing. Patients having hematocrit values >55% require a special collection tube for coagulation studies. Please contact the laboratory at [phone] for redraw instructions. Performed By: #### P TT, BNP, CBC, PT, BMP, HS TROP ####[facility] [id number] [place] [id number] [facility] Prothrombin time (PT)Ordered By: Chico Black on 07-16-2023 PT Coag (PPP) [Time] 11.8 s 9.0-12.9 [facility] Comment on above: A hematocrit value g reater than 55% may lead to inaccurate results in coagulation testing. Patients having hematocrit values >55% require a special collection tube for coagulation studies. Please contact the laboratory at [phone] for redraw instructions. Serum or plasma high density lipoprotein (HDL) cholesterol measurementOrdered By: Matthias Mckenna on 07-16-2023 Cholesterol in HDL [Mass/Vol] 42 mg/dL 23-92 [facility] Comment on above: HDL CHOL ATP-III CLA SSIFICATION Cardiovascular RiskHDL > or equal to 60 mg/dL LOWHDL < 40 mg/dL HIGH Serum or plasma total choles terol/high density lipoprotein (HDL) cholesterol mass ratOrdered By: Matthias Mckenna on 07-16-2023 Cholesterol.total/Chol esterol in HDL [Mass ratio] 4.3 {ratio} <5.0 [facility] Triglyceride [Mass/volume] i n Serum or PlasmaOrdered By: Matthias Mckenna on 07-16-2023 Triglyceride [Mass/Vol] 119 mg/dL 0-149 [facility] Comment on above: TRIG ATP III CLASSIF ICATIONTRIG less than 150 mg/dL NormalTRIG 150-199 mg/dL Borderline highTRIG 200-500 mg/dL High TRIG greater than 500 mg/dL Very highStandard traceable to the Center for Disease Conrtrol and Prevention (CDC) test method. Troponin I High Sensitivityo n 07-16-2023 Troponin I High Sensitivity 90863.0 pg/mL Off scale high 0.0-20.0 [facility] Comment on above: Result Comment: Crit ical Result : Called to and read back by: JULIO RIZZO at: 07/16/2023 21:09:41 by:KRISTEN PERFORMED BY: [place] [address] PATHOLOGIST NEUROPATHOLOGIST JASON ERVIN M.D. Performed By: #### H S TROP #### [place] [id number] [facility] Troponin I High Sensitivity 12370.6 pg/mL Off scale high 0.0-20.0 [facility] Comment on above: Order Comment: [place] [facility] 1521 PSW NEXT TROP DUE 1815 PSW Q2HRS Result Comment: Crit ical Result : Called to and read back by: KATHIE RIZZO at: 07/16/2023 19:31:10 by:[id number] PERFORMED BY: [place] [address] PATHOLOGIST NEUROPATHOLOGIST JASON ERVIN M.D. Performed By: #### H S TROP ####[place] [id number] [place] Troponin I High Sensitivity 37822.9 pg/mL Off scale high 0.0-20.0 [facility] Comment on above: Order Comment: [place] [facility] 1521 PSW Result Comment: Crit ical Result : Called to and read back by: BISMARK GRIFFIN at: 07/16/2023 17:16:42 by:KRISTEN PERFORMED BY: [place] [id number] PATHOLOGIST NEUROPATHOLOGIST JASON ERVIN M.D. Performed By: #### H S TROP ####[place] [id number] [place] Troponin I High Sensitivity 2152.9 pg/mL Off scale high 0.0-20.0 [facility] Comment on above: Result Comment: Crit ical Result : Called to and read back by: SHAHNAZ KOTHARI/Juan at: 07/16/2023 08:35:03 by:[id number] PERFORMED BY: [place] [id number] PATHOLOGIST NEUROPATHOLOGIST JASON ERVIN M.D. Performed By: #### P TT, BNP, CBC, PT, BMP, HS TROP ####[facility] [id number] [place] [id number] [facility] Peter [facility] -- MATTHEW GARZA ([id number]) 1955 M Date Time Provider Department 07/09/23 CHRISTIANA EWING During your visit today, we recorded the following information about you: Zack Wallace LPN 07/09/2023 10:17 AM Signed Faxed order, office notes, demographics and sleep study to: DME name: [facility] fax # [phone] DME Faxed info in patient's chart. Allergies As of Date: 07/09/2023 (No Known Allergies) Date Reviewed: 07/08/2023 Reviewed by: Christiana Ewing APRN.[employer] - Fully Assessed Reason for Visit: PAP Therapy Fax [Other] Prescriptions as of 07/09/2023 - CPAP/BIPAP/OTHER Type .CPAPSettings into a note to see current settings/supplies/DME information. - glucosam/chond-msm1/C/jaya /bor (KNKONUMDSEY-PTAWS-SOR COMPLEX ORAL) Take 2 tablets by mouth once daily. - carbidopa-levodopa (SINEMET) 25-100 mg per tablet Take 1.5 pills, 3 times per day - CPAP/BIPAP/OTHER REPLACEMENT BIPAP DEVICE: BIPAP with settings of 25/21 cm H2O. Dx: Obstructive Sleep Apnea G47.33 DME: [facility] Fax: Fax download reports to [phone]. - bisoprolol-hydroCHLOROthia zide (ZIAC) 10-6.25 mg per tablet Take 1 tablet by mouth every morning. - BIPAP Problem List As Of Date 07/09/2023 Noted Resolved Parkinson's disease (HCC) [G20.A1] 07/08/2023 Stenosis, cervical spine [M48.02] 07/08/2023 HTN (hypertension) [I10] 07/08/2023 Encounter Status:Closed by ZACK WALLACE on 07/09/23 [facility] CNOVon 07-08-2023 CNOV Office Visit (NEURHU ) -- MATTHEW GARZA ([id number]) 1955 M Date Time Provider Department 07/08/23 2:00 PM [facility] During your visit today, we recorded the following information about you: Temperature Pulse Respiration Blood pressure 96.6 degrees 65/minute 20/minute 144/71 Weight Height 97.5 kg 1.727 m Christiana Ewing APRN.[employer]PER[employer]ING 07/08/2023 8:07 PM Signed [facility] Follow up/ Established patient visit Date of last visit : 04/27/2023 Per last visit: IMPRESSION/PLAN: G47.33 Obstructive sleep apnea syndrome (primary encounter diagnosis) G47.33 JATINDER treated with BiPAP T88.8XXA Malfunction of continuous positive airway pressure (CPAP) or bilevel positive airway pressure (BPAP) machine, initial encounter G47.50 Parasomnia, unspecified type G47.52 Dream enactment behavior Y93.84 Injury while sleeping Matthew Garza is a pleasant 67 year old male with PMH of JATINDER on BiPAP, PD, cervical stenosis, tremor, HTN, JATINDER, and class I obesity. He presents today with his to discuss JATINDER. He has a BiPAP device that is only ~ 2 years old and is malfunctioning. He and report the device gtz off randomly. He was using [employer], but has not received supplies in a long time. His filter is extremely dirty today in office, which may be contributing to issues with device. Mask and supplies are also very dirty. He is unsure when his last sleep study was completed. He believes this was done at [facility] ([place], [place]). He was initially started on CPAP, and later transitioned to BiPAP. He denies mask or pressure intolerance. Manual data report for the past 30 days shows average use of 5 hours/night (>70% compliance) and poorly controlled sleep apnea (rAHI 21.6). He endorses sx of continued snoring, EDS, frequent napping/dozing off during day, and DEBs (associated w/ hitting ; last occurred 1 week ago). We discussed Laurel recall and need to register device. Also discussed need for updated study given sx and uncontrolled sleep apnea. Emphasized importance of safe sleeping. PLAN: -[place] device as quickly as possible online as this will determine your spot in queue. [employer] or your durable medical equipment company (DME) will be handling replacement. [email or web address] or call [phone]. Check back frequently with the [employer] website for updates. - I will place an order for a new BiPAP device to be sent by [employer] - Continue Bilevel PAP at current settings of 25/21 cmH2O. - Clean out humidifier with soap and water and rinse well - Order new CPAP filters on [employer] - Try the new CPAP mask sample provided today - [employer] - Discussed possible diagnosis, causes, and conditions associated with obstructive sleep apnea. - Avoid driving when drowsy. Recommend that if you are dozing off while driving, that you do not drive until your sleepiness is appropriately treated. - Practice healthy lifestyle with adequate sleep (7-9 hours per night), diet and exercise. - PSG/Split Study to evaluate for sleep apnea - Add RBD protocol - Split Study after 2 hours if AHI is > 15. - Start BiPAP titration study. - Please send mask(s) home with patient. - You should get a call within the next week to schedule - Alternatively, you can call [phone] to schedule the test - Results are usually available within 2-3 weeks - Schedule follow-up visit for 3 weeks after study to review results Bedroom Safety Measures: Removing sharp objects and weapons from room you're sleeping in Move furniture and clutter from the room or away from the bed so you don't run into anything. Make sure windows and doors are locked Sleep away from your partner if symptoms are dangerous for them Can lower bed closer to the ground or get bed rails Christiana Ewing APRN.[employer]PER[employer] Here for follow up for JATINDER - sleep study results Interval history : No recent DEBs. He still yells during sleep at times. He had recent Split Study : Split study with expanded EMG monitoring completed 06/17/2023 showed severe JATINDER (AHI 66.8) associated with minimum oxygen saturation of 76%; CPAP titration was initiated, but transition to bilevel PAP due to the presence of central apneas; Jay Jay-Mcdaniel breathing was not present during PAP titration portion of study; at a bilevel PAP setting of 25/19 cmH2O, the AHI was normalized, snoring was not eliminated, and oxygen saturation was maintained above 92%, however REM sleep was not captured at the setting; RSWA scoring was performed; 0.0% of REM sleep epochs met criteria supportive of RBD, however severity of SDB renders evaluation and adequate; auto BiPAP with IPAP max 25, EPAP min 9, and pressure support 4 recommended with close clinical follow-up; 4% hypopnea scoring; BMI 32.8 SLEEP APNEA Split study with exp (more content not included)... Normal [facility] CNOVon 06-09-2023 CNOV Office Visit (NREUS2 ) -- MATTHEW GARZA ([id number]) 1955 M Date Time Provider Department 06/09/23 3:00 PM ERIC MONTIEL NREUS2 During your visit today, we recorded the following information about you: Pulse Blood pressure 62/minute 132/71 Eric Montiel MD 06/10/2023 10:43 AM Signed [facility] - FOLLOW UP EVALUATION I had the pleasure of seeing Mr. Garza for follow-up today. He is a 67 year old right-handed male with a history of tremor since 1999 or so . Subjective Previous Plan-02/10/2023 Visit: Tremor, gait disorder - Will trial Sinemet, 25/100, uptitrate to one pill three times daily. If response is equivocal could consider DaTscan. There is cervical spine stenosis, but likely does not fully explain gait issues. He is established with spine surgery. Follow up in 4 months or so Interval History: Patient states he feels better since starting the Sinemet. Specifically, he says that he is having less frequent tremors in both his hands. Patient thinks he is slightly improved. Feels like coordination is better as well. feels like patient is still walking slow but does seem steadier. says patient still has tremors but the severity of the tremors dose not seem to be as bad. The biggest difference she has noticed is that patient's speech is much clearer (patient is pronouncing words better and not mumbling as much). Driving has still been very difficult for patient ( is concerned about apprehensiveness while driving, not being as watchful, and concern for falling asleep at the wheel at night). Patient is scheduled for sleep study this month. Patient currently has BIPAP machine for JATINDER but it does not seem to be controlling symptoms. thinks sleep apnea is affecting his memory. Patient denies any new/different head/arm/leg movements. Patient denies falls Movement Disorders Medications Schedule - as of the start of the visit: Medications Sinemet 25/100 1 1 1 Questionnaires: ALLERGIES No Known Allergies Current Outpatient Medications Medication Sig glucosam/chond-msm1/C/jaya /bor (VIGRAMHEEGO-XDXOP-VDX COMPLEX ORAL) Take 2 tablets by mouth once daily. CPAP/BIPAP/OTHER REPLACEMENT BIPAP DEVICE: BIPAP with settings of 25/21 cm H2O. Dx: Obstructive Sleep Apnea G47.33 DME: [facility] Fax: Fax download reports to [phone]. bisoprolol-hydroCHLOROthia zide (ZIAC) 10-6.25 mg per tablet Take 1 tablet by mouth every morning. BIPAP carbidopa-levodopa (SINEMET) 25-100 mg per tablet Take 1.5 pills, 3 times per day No current facility-administered medications for this visit. Objective Vital Signs: BP 132/71 (BP Site: Right Arm, BP Position: Sitting, BP Cuff Size: Regular Adult) Pulse 62 SpO2 97% Orthostatic Vitals: None for this encounter No LMP for male patient. There is no height or weight on file to calculate BMI. Mental Status: Pleasant. A/Ox3 Gait: Stands without needing to push himself up. Short steps, mildly decreased arm swing bilaterally. Slightly favoring L leg. Movement Disorders Scales Performed: MDS-UPDRS Motor subscale condition of exam Medication Off/On/Naiive ON Time of UPDRS 1537 Time of Last Medication 1230 Last Medication Taken DBS Right DBS Left MDS-UPDRS Motor subscale scores Speech 0-Normal. No speech problems. Facial Expression 1-Slight. Minimal masked facies manifested only by decreased frequency of blinking. Rigidity Neck 0-Normal. No rigidity. Rigidity Right Upper Extremity 1-Slight. Rigidity only detected with activation maneuver. Rigidity Left Upper Extremity 1-Slight. Rigidity only detected with activation maneuver. Rigidity Right Lower Extremity 0-Normal. No rigidity. Rigidity Left Lower Extremity 0-Normal. No rigidity. Finger Taps Right 1-Slight. a) the regular rhythm is broken with one or two interruptions or hesitations of the tapping movement, b) slight slowing, c) the amplitude decrements near the end of the 10 taps. Finger Taps Left 1-Slight. a) the regular rhythm is broken with one or two interruptions or hesitations of the tapping movement, b) slight slowing, c) the amplitude decrements near the end of the 10 taps. Hand Movements Right 1-Slight. a) the regular rhythm is broken with one or two interruptions or hesitations of the movement, b) slight slowing, c) the amplitude decrements near the end of the task. Hand Movements Left 1-Slight. a) the regular rhythm is broken with one or two interruptions or hesitations of the movement, b) slight slowing, c) the amplitude decrements near the end of the task. Arm Movements Right 0-Normal. No problems. Arm Movements Left 1-Slight. a) the regular rhythm is broken with one or two interruptions or hesitations of the movement, b) slight slowing, c) the amplitude decrements near the (more content not included)... Normal [facility] CNOVon 04-27-2023 CNOV Office Visit ([facility] ) -- MATTHEW GARZA ([id number]) 1955 M Date Time Provider Department 04/27/23 1:00 PM CHRISTIANA EWING During your visit today, we recorded the following information about you: Temperature Pulse Respiration Blood pressure 96.2 degrees 67/minute 20/minute 152/77 Weight Height 97.5 kg 1.727 m Christiana Ewing APRN.SUPER[employer]OR [employer]ING 04/27/2023 3:12 PM Signed [facility] New Patient Evaluation PATIENT NAME: Matthew Garza DATE OF SERVICE: April 23, 2023 CONSULTING PROVIDER: Eric Montiel [address] [facility] [id number] REASON FOR CONSULT: Eric Montiel sends the patient for an opinion about JATINDER. My findings and recommendations will be transmitted electronically via shared medical record to the consulting provider. HPI: Matthew Garza is a 67 year old male. Sleep-related history: He has a BiPAP device that is only ~ 2 years old and is malfunctioning. He and report the device gtz off randomly. Auto-off feature is not turned on. He is unsure when his last sleep study was completed. He believes this was done at [facility] ([place], [place]). He has a Laurel BiPAP device. He was not aware this was recalled. This was received from [facility] in [place], [place]. MANUAL DATA ACCESS: Device: Laurel Bilevel PAP : [id number] Settings: 25/21 cmH2O days >=4 hours Average use: 5.0 hours Mask fit: 99% Residual AHI: 21.6 Mask: F20 Mask issues: none DME: [facility] in [place], [place] SLEEP-WAKE SCHEDULE Bedtime: 1030-11 PM. He does not have a hard time falling asleep. Wake time: 8-9 AM After falling asleep: he wakes up 1-2 time(s) per night, because of the need to urinate. SLEEP-RELATED DETAILS Preferred sleep position: side and back Breathing disturbances and other behaviors during sleep: snoring, frequent leg movements, and acting out dreams. Bruxism: Yes GERD or aspiration: No Waking up with heart pounding or racing: No He does not report having an urge to move the legs in the evening (when resting) that is accompanied or caused by uncomfortable and/or unpleasant sensations in the legs. He has been told that he has leg kicking during sleep. The patient reports having had the following: Acting out dreams. Just started in the past few months . He has hit during sleep. No associated injury to self or others. Last occurrence was 1 week ago. He has dreams of petting the dog and acts out reaching for and petting the dog. He fell out of bed once, but unsure when this occurred (years ago). Excessive daytime sleepiness / fatigue is a problem. Excessive Daytime sleepiness/fatigue has been a problem for 20+ years. There is no history of a viral illness or significant head injury prior to the start of daytime sleepiness. He does not report sleep paralysis or sleep-related hallucinations or cataplexy. WAKE-RELATED DETAILS He does not work. He does have difficulty with memory or concentration. He denies falling asleep or dozing off when driving. He does take naps. Dozing off multiple times per day. He does drink 3 caffeinated beverages per day. Alcohol use: Maybe once per month Tobacco use: Denies Illicit drug use: Denies There has not been a recent change in weight. Patient Questionnaires Sleep Scores PAST TREATMENTS: CPAP BiPAP PRIOR SLEEP STUDIES: None available for review today OTHER RELEVANT LABS AND STUDIES: No past medical history on file. No past surgical history on file. There is no problem list on file for this patient. Allergies As of Date: 04/27/2023 (Not on File) Fully Assessed 02/10/2023 CURRENT MEDICATIONS: carbidopa-levodopa (SINEMET) 25-100 mg per tablet Take 1/2 pill three times per day x 1 week, then increase to 1 pill 3 times per day bisoprolol-hydroCHLOROthia zide (ZIAC) 10-6.25 mg per tablet Take 1 tablet by mouth every morning. BIPAP Review of Systems SOCIAL HISTORY: Social History Tobacco Use Smoking status: Never Smokeless tobacco: Never Substance Use Topics Alcohol use: Never Drug use: Never FAMILY HISTORY: No family history on file. There is a family history of: Sleep apnea. Relative: brother BP 152/77 (BP Site: Right Arm, BP Position: Sitting, BP Cuff Size: Large Adult) Pulse 67 Temp (!) 35.7 ?C (96.2 ?F) Resp 20 Ht 172.7 cm (5' 8 ) Wt 97.5 kg (215 lb) SpO2 96% BMI 32.69 kg/m? PHYSICAL EXAMINATION: General appearance: NAD, well groomed HEENT: Normocephalic, atraumatic Neck: circumference 40.5 cm Neuro: Awake, alert, memory grossly intact, speech is slow Respiratory: No increased work of breathing; able to speak in complete sentences Psych: Appropriate, normal affect IMPRESSION/PLAN: G47.33 Obstructive sleep apnea syndrome (primary encounter diagnosis) G47.33 JATINDER treated with BiPAP T88.8XXA Malfunction of (more content not included)... [facility] -- MATTHEW GARZA ([id number]) 1955 M Date Time Provider Department 04/27/[address] [facility] During your visit today, we recorded the following information about you: Zack Wallace LPN 04/27/2023 4:38 PM Signed Faxed order, office notes to: DME name: [employer] [facility] fax # [phone] Faxed info in patient's chart. Allergies As of Date: 04/27/2023 (Not on File) Date Reviewed: 04/27/2023 Reviewed by: Christiana Ewing APRN.[facility] - Fully Assessed Reason for Visit: PAP Replacement Fax [Other] Prescriptions as of 04/27/2023 - CPAP/BIPAP/OTHER REPLACEMENT BIPAP DEVICE: BIPAP with settings of 25/21 cm H2O. Dx: Obstructive Sleep Apnea G47.33 DME: [facility] Fax: Fax download reports to [phone]. - carbidopa-levodopa (SINEMET) 25-100 mg per tablet Take 1/2 pill three times per day x 1 week, then increase to 1 pill 3 times per day - bisoprolol-hydroCHLOROthia zide (ZIAC) 10-6.25 mg per tablet Take 1 tablet by mouth every morning. - BIPAP Problem List As Of Date: 04/27/2023 (None) Encounter Status:Closed by ZACK WALLACE [facility]27/23 [facility] -- MATTHEW GARZA ([id number]) 1955 M Date Time Provider Department 02/23/23 ERIC MONTIEL [facility] During your visit today, we recorded the following information about you: Harriett Hackett 02/23/2023 3:27 PM Signed Patients calling to ask for a sleep medicine consult. She says she feels he may need a new bi-pap or c-pap. Harriett Kelly 02/23/2023 4:35 PM Signed Pallavi enamorado. Number given for scheduling. Allergies As of Date: 02/23/2023 (Not on File) Date Reviewed: 02/10/2023 Reviewed by: Gustabo Mauricio - Fully Assessed Reason for Visit: Consult [173] Visit Diagnosis:Obstructive sleep apnea syndrome [G47.33] Order(s):CONSULT TO SLEEP MEDICINE - ADULT [[id number]] Order #: [id number]: 1 FUTURE Prescriptions as of 03/23/2023 - carbidopa-levodopa (SINEMET) 25-100 mg per tablet Take 1/2 pill three times per day x 1 week, then increase to 1 pill 3 times per day - bisoprolol-hydroCHLOROthia zide (ZIAC) 10-6.25 mg per tablet Take 1 tablet by mouth every morning. - BIPAP Problem List As Of Date: 02/23/2023 (None) Encounter Status:Closed by HARRIETT HACKETT on 03/23/23 [facility] CNOVon 02-10-2023 CNOV Office Visit ([facility] ) -- MATTHEW GARZA ([id number]) 1955 M Date Time Provider Department 02/10/23 3:00 PM ERIC MONTIEL [facility] During your visit today, we recorded the following information about you: Pulse Blood pressure 63/minute 155/81 Eric Montiel MD 02/10/2023 3:26 PM Signed [facility] - FOLLOW UP EVALUATION I had the pleasure of seeing Mr. Garza for follow-up today. He is a 67 year old male with a history of tremor since 1999 or so . Subjective Previous Plan-11/11/2022 Visit: Tremor, gait disorder - See discussion above. Will obtain MRI brain, C spine. If unremarkable will trial L dopa. Follow up in 3 months Interval History: He saw neurosurgery, and minimal signs of myelopathy were appreciated. They are getting xrays but likely surgery will not be pursued. Tremors are present bilaterally, though not overly bothersome. Noticeable, but he is able to do ADLs without difficulty. Handwriting was always sloppy, not smaller. Tremors are with rest and action. He does tend to shuffle his feet, for years. No falls. Pertinent Neurologic ROS: Patient denies depress mood/anxiety: reports impaired Memory/Cognitive: He has been diagnosed with early dementia . Had neuropsych testing maybe [address], no accidents denies hallucinations: Patient denies sleep disturbances. 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 denies Swallowing difficulties. denies Orthostatic hypotension symptoms. Sense of smell is intact Movement Disorders Medications Schedule - as of the start of the visit: Medications Questionnaires: ALLERGIES Not on File Current Outpatient Medications Medication Sig bisoprolol-hydroCHLOROthia zide (ZIAC) 10-6.25 mg per tablet Take 1 tablet by mouth every morning. BIPAP No current facility-administered medications for this visit. Objective Vital Signs: BP 155/81 (BP Site: Left Arm, BP Position: Sitting, BP Cuff Size: Large Adult) Pulse 63 SpO2 98% Neurologic Exam: Mental Status: Good historian. Gait: Stands without needing to push himself up. Short steps, everted feet, decreased arm swing bilaterally, impaired turns Movement Disorders Scales Performed: MDS-UPDRS Motor subscale condition of exam Medication Off/On/Naiive Drug Naiive Time of UPDRS Time of Last Medication Last Medication Taken DBS Right N/A DBS Left N/A MDS-UPDRS Motor subscale scores Speech 0-Normal. No speech problems. Facial Expression 1-Slight. Minimal masked facies manifested only by decreased frequency of blinking. Rigidity Neck 0-Normal. No rigidity. Rigidity Right Upper Extremity 1-Slight. Rigidity only detected with activation maneuver. Rigidity Left Upper Extremity 1-Slight. Rigidity only detected with activation maneuver. Rigidity Right Lower Extremity 0-Normal. No rigidity. Rigidity Left Lower Extremity 0-Normal. No rigidity. Finger Taps Right 2-Mild. a) 3 to 5 interruptions during tapping, b) mild slowing, c) the amplitude decrements midway in the 10-tap sequence. Finger Taps Left 1-Slight. a) the regular rhythm is broken with one or two interruptions or hesitations of the tapping movement, b) slight slowing, c) the amplitude decrements near the end of the 10 taps. Hand Movements Right 1-Slight. a) the regular rhythm is broken with one or two interruptions or hesitations of the movement, b) slight slowing, c) the amplitude decrements near the end of the task. Hand Movements Left 1-Slight. a) the regular rhythm is broken with one or two interruptions or hesitations of the movement, b) slight slowing, c) the amplitude decrements near the end of the task. Arm Movements Right 0-Normal. No problems. Arm Movements Left 1-Slight. a) the regular rhythm is broken with one or two interruptions or hesitations of the movement, b) slight slowing, c) the amplitude decrements near the end of the sequence. Toe Taps Right 1-Slight. a) the regular rhythm is broken with one or two interruptions or hesitations of the tapping movement, b) slight slowing, c) the amplitude decrements near the end of the ten taps. Toe Taps Left 1-Slight. a) the regular rhythm is broken with one or two interruptions or hesitations of the tapping movement, b) slight slowing, c) the amplitude decrements near the end of the ten taps. Leg Agility Right 1-Slight. a) the regular rhythm is broken with one or two interruptions or hesitations of the movement, b) slight slowing, c) the amplitude decrements near the end of the task. Leg Agility Left 0-Normal. No problems. Arise From Chair 0-Normal. No problems. Able to arise quickly without hesitation. Gait 2-Mild. Independent walking (more content not included)... Normal [facility] XR CERVICAL 2V FLEX/EXTon XR CERVICAL 2V FLEX/EXT * * *Final Report* * * DATE OF EXAM: Feb 10 2023 3:49PM JIX [id number] - XR CERVICAL 2V FLEX/EXT / PROCEDURE REASON: Cervical stenosis of spine * * * * Physician Interpretation * * * * CERVICAL SPINE X-RAYS HISTORY: pain in neck no fall/trauma. Cervical stenosis of spine TECHNIQUE: 2 views of the cervical spine (flexion-extension views). COMPARISON: 01/07/2023 MRI cervical spine RESULT: Counting reference: Craniocervical junction. There is moderate degenerative disc disease C4-C5, C5-C6 and C6-C7. Alignment maintained with flexion and extension. No acute fracture or subluxation. No prevertebral soft tissue swelling. IMPRESSION: Moderate degenerative disc disease C4-C7 Web Weaver: TOYA Transcribe Date/Time: Feb 10 2023 4:05P Dictated by : GINO TAYLOR MD This examination was interpreted and the report reviewed and electronically signed by: GINO TAYLOR MD on Feb 10 2023 4:06PM EST [id number] Normal [facility] CNOVon 02-06-2023 CNOV Office Visit ([facility] ) -- MATTHEW GARZA ([id number]) 1955 M Date Time Provider Department 02/06/23 2:00 PM BALTA BOYER [facility] During your visit today, we recorded the following information about you: Weight Height 97.5 kg 1.727 m Balta Boyer APRN.[employer] 02/06/2023 4:52 PM Signed [facility] Neck Pain - Chronic (> 12 weeks) Initial Exam SUBJECTIVE HISTORY OF PRESENT ILLNESS: Matthew Garza is a 67 year old male who presents for evaluation of cervical stenosis and is seen in consultation requested by Dr. Eric Montiel for an opinion regarding cervical stenosis . My final recommendations will be communicated back to the requesting physician by way of shared medical record or letter via US mail. Patient presents for evaluation of cervical stenosis. At time of today's appointment he denies neck pain, upper extremity pain, upper extremity numbness and tingling. He does report that he will occasionally experience mild neck pain. He states that these episodes are few and far between and not debilitating . He has recently been evaluated by Dr. Montiel neurology for evaluation of chronic essential tremor. At time of neurology evaluation MRI brain and cervical spine orders placed and were completed prior to today's appointment. Upon completion of imaging he was referred to spine for further evaluation. Patient reports that his brother has a history of Parkinson's disease. He reports that he has recently been diagnosed with early onset dementia. Patient's Pallavi is present with his consent. Per patient's she states that she has noticed patient experiencing increased bilateral upper extremity shaking and imbalance. He verbalizes that he does not feel that his shaking or imbalance has changed. Patient's adamantly disagrees. Retired: Previously worked at [employer] He is right handed Pain localized to intermittent midline neck pain - not present today Pain described as tension, ache Radiation: Denies Numbness/Tingling: Denies He denies loss of bowel or bladder control, he states that his only dexterity difficulty is with small zippers , he denies dropping items. He does report imbalance without falls. He states that he has not experienced a fall in close to 30 years , fell 30 years ago he did land on his neck after falling off of a bed. Pain rated 0/10 Pain worse with unknown Pain improved with unknown Interventions: none Medications: Ziac , Past medicaitons: requip Physical Therapy: None Treating Physicians: Dr. Collazo - PCP Dr. Montiel - Neurology - Referring Provider History of Spine Injections/Surgery: None RT shoulder rotator cuff and collarbone surgical repair Other Issues Addressed at the Visit Today: None. Precipitating Event: None PAIN EVALUATION 02/06/2023 1340 Pain Level: 0 Pain Location: Neck Description: Tightness Duration Units: Years Frequency: Intermittent Litigation: No Workers' Compensation: No YELLOW AND BLUE FLAGS No-Neg Attitude; Back Pain is Disabling No-Avoiding Activity (for Fear of Pain) No-Depression or Anxiety Disorders No-Social Problems No-Substance Use Disorder No-Job Dissatisfaction No-Financial Disincentives Patient Entered Questionnaires PROMIS Score Percentiles Percentiles provide an indication of how the patient's score ranks in relation to the general population. Higher percentile rankings indicate better function/quality of life. 50th percentile is the average of the general population and indicates half of respondents had a worse score. Depression Screening: PHQ-9 Self-Harm (Item 9) response options: 0 Not at all 1 Several days 2 More than half the days 3 Nearly every day PHQ-9 Levels: 0-4 No - mild depression 5-9 Mild depression 10-14 Moderate depression 15-19 Moderately severe depression 20-27 Severe depression There is no problem list on file for this patient. No past medical history on file. No past surgical history on file. Social History Tobacco Use Smoking status: Never Smokeless tobacco: Never Substance Use Topics Alcohol use: Never Drug use: Never No family history on file. ALLERGIES Not on File CURRENT MEDICATIONS: bisoprolol-hydroCHLOROthia zide (ZIAC) 10-6.25 mg per tablet Take 1 tablet by mouth every morning. BIPAP REVIEW OF SYSTEMS: PAIN ASSESSMENT: See HPI. GENERAL: Denies fever, chills malaise and weight loss. HEENT: No recent change in vision or hearing. CARDIOVASCULAR: Hypertension RESPIRATORY: Sleep apnea on c-pap GI: Denies GI ulcers, inflammatory disease, or liver disease. : Denies change in frequency or urgency, kidney disease, and burning with urination. MUSCULOSKELETAL: Negative for joint pain or swelling, back pain or muscle pain. SKIN: Denies rash or itching. PSYCHOLOGICAL: Denies uncontrolled de (more content not included)... Normal [facility] 01-14-2023 CNPN Telephone ([facility]) -- MATTHEW GARZA ([id number]) 1955 M Date Time Provider Department 01/14/23 ERIC MONTIEL [id number] During your visit today, we recorded the following information about you: Cheryl Sharma RN 01/14/2023 2:31 PM Signed ----- Message from Eric Montiel MD sent at 01/14/2023 12:39 PM EST ----- Regarding: MRI results Hi, Please let this patient know we have received the results from his MRI. There is some significant arthritis of the neck (cervical stenosis) which may be contributing to some of his symptoms. I am not sure whether or not this is something that would require a surgery, but I would recommend he meet with a human services care specialist to discuss. I have placed a referral for spine surgery (neurosurgery). Thanks, Cheryl Campos RN 01/14/2023 2:32 PM Signed Message left for patient to return call to discusss results from MRI Cheryl Sharma RN 01/14/2023 4:39 PM Signed I spoke with Vladimir and gave him results from MRI per Dr. Montiel. He was also given information to schedule in [facility]. We also scheduled a follow up appt with Dr. Montiel 02/10/2023 at 3pm. Allergies As of Date: 01/14/2023 (Not on File) Date Reviewed: 11/11/2022 Reviewed by: Alka Joyner MA - Fully Assessed Reason for Visit: Results [95] Cmt: MRI Prescriptions as of 01/14/2023 - bisoprolol-hydroCHLOROthia zide (ZIAC) 10-6.25 mg per tablet Take 1 tablet by mouth every morning. - BIPAP Problem List As Of Date: 01/14/2023 (None) Encounter Status:Closed by CHERYL SHARMA on 01/14/23 Normal [facility] MRI BRAIN WO IVCONon 023 MRI BRAIN WO IVCON * * *Final Report* * * DATE OF EXAM: Jan 07 2023 9:09AM LNM 0294 - MRI BRAIN WO IVCON / PROCEDURE REASON: multiple diagnoses * * * * Physician Interpretation * * * * EXAMINATION: MRI BRAIN WO IVCON, MRI CERVICAL SPINE WO IVCON HISTORY: Gait disorder Tremor TECHNIQUE: Routine noncontrast MRI protocol including diffusion and gradient echo images. M: [id number] Routine cervical spine MR protocol without gadolinium. M: [id number] COMPARISON: None. RESULT: BRAIN MRI FINDINGS: Acute Change: No evidence of an acute intracranial process. Hemorrhage: No evidence of prior parenchymal hemorrhage on the susceptibility weighted sequences. Mass Lesion/ Mass Effect: No evidence of an intracranial mass or extra-axial fluid collection. No significant mass effect. Chronic Change: Scattered punctate foci of increased T2 and FLAIR signal are noted in the supratentorial white matter which is a nonspecific finding, but likely represents minimal chronic microvascular ischemia. Parenchyma: There is moderate generalized parenchymal volume loss. The brain parenchyma is otherwise within normal limits of signal intensity and morphology. Ventricles: Ventriculomegaly corresponds to the degree of parenchymal volume loss. Skull Base: Hypothalamic and pituitary region are grossly normal. Craniocervical junction is normal. No significant marrow replacement process. Vasculature: Major intracranial arterial structures and dural venous sinuses demonstrate typical flow voids, suggesting patency by spin echo criteria. Other: There is mild mucosal thickening involving the ethmoid sinuses and the maxillary sinuses. The visualized paranasal sinuses and mastoid air cells are otherwise clear. The orbits and extracranial soft tissues are unremarkable. CERVICAL SPINE FINDINGS: Counting reference: Craniocervical junction. Localizer images: No significant findings. Alignment: Alignment is anatomic. There is straightening of the normal lumbar lordosis. There is moderate degenerative loss of intervertebral disc space height at C4-C5, C5-C6 and C6-C7. Craniocervical junction: Craniocervical junction is normal. Cord: The visualized cord is within normal limits of signal intensity and morphology. Bone marrow signal/fracture: No evidence of pathologic marrow infiltration. No evidence of prior fracture. Cervical soft tissues: The paraspinal soft tissues are within normal limits. C2-C3: There is mild bilateral facet arthropathy and disc osteophyte complex resulting in partial effacement of the ventral thecal sac without cord impingement and mild bilateral neural foraminal narrowing. C3-C4: There is mild bilateral facet arthropathy and disc osteophyte complex as well as mild ligamentum flavum thickening resulting in partial effacement of ventral dorsal thecal sac, mild spinal canal stenosis, mild right and minimal left neural foraminal narrowing. C4-C5: There is mild to moderate bilateral facet arthropathy, disc osteophyte complex and ligamentum flavum thickening resulting in partial effacement of ventral and dorsal thecal sac and contact of the right ventral cord, indentation of the ventral cord, moderate spinal canal stenosis, moderate right and mild left neural foraminal narrowing. C5-C6: There is moderate right and mild left facet arthropathy, disc osteophyte complex and ligamentum flavum thickening resulting in partial effacement of ventral and dorsal thecal sac, moderate spinal canal stenosis, contact of the cord, moderate to severe right and moderate left neural foraminal narrowing. C6-C7: There is mild bilateral facet arthropathy, disc osteophyte complex slightly eccentric left and ligamentum flavum thickening resulting in partial effacement of ventral dorsal thecal sac, mild to moderate spinal canal stenosis, moderate right and moderate to severe left neural foraminal narrowing. C7-T1: Canal and foramina are patent. IMPRESSION: No acute findings. No acute infarction, intracranial hemorrhage or intracranial mass lesion. Multilevel degenerative changes of the cervical spine, most pronounced at C4-C5 with moderate spinal canal stenosis with indentation of the ventral cord, moderate right and mild left neural foraminal narrowing. As well as at C5-C6 with moderate spinal canal stenosis with contact of the cord, moderate to severe right and moderate left neural foraminal narrowing. Web Weaver: TOYA Transcribe Date/Time: Jan 07 2023 9:42A Dictated by : MANULEA TRAN MD This examination was interpreted and the report reviewed and electronically signed by: MANUELA TRAN MD on Jan 07 2023 9:54AM EST [id number] Normal [facility] MRI CERVICAL SPINE WO IVCONo n 01-07-2023 MRI CERVICAL SPINE WO IVCON * * *Final Report* * * DATE OF EXAM: Jan 07 2023 9:09AM LNM 0297 - MRI CERVICAL SPINE WO IVCON / PROCEDURE REASON: Spinal stenosis of cervical region * * * * Physician Interpretation * * * * EXAMINATION: MRI BRAIN WO IVCON, MRI CERVICAL SPINE WO IVCON HISTORY: Gait disorder Tremor TECHNIQUE: Routine noncontrast MRI protocol including diffusion and gradient echo images. M: [id number] Routine cervical spine MR protocol without gadolinium. M: [id number]_[id number] COMPARISON: None. RESULT: BRAIN MRI FINDINGS: Acute Change: No evidence of an acute intracranial process. Hemorrhage: No evidence of prior parenchymal hemorrhage on the susceptibility weighted sequences. Mass Lesion/ Mass Effect: No evidence of an intracranial mass or extra-axial fluid collection. No significant mass effect. Chronic Change: Scattered punctate foci of increased T2 and FLAIR signal are noted in the supratentorial white matter which is a nonspecific finding, but likely represents minimal chronic microvascular ischemia. Parenchyma: There is moderate generalized parenchymal volume loss. The brain parenchyma is otherwise within normal limits of signal intensity and morphology. Ventricles: Ventriculomegaly corresponds to the degree of parenchymal volume loss. Skull Base: Hypothalamic and pituitary region are grossly normal. Craniocervical junction is normal. No significant marrow replacement process. Vasculature: Major intracranial arterial structures and dural venous sinuses demonstrate typical flow voids, suggesting patency by spin echo criteria. Other: There is mild mucosal thickening involving the ethmoid sinuses and the maxillary sinuses. The visualized paranasal sinuses and mastoid air cells are otherwise clear. The orbits and extracranial soft tissues are unremarkable. CERVICAL SPINE FINDINGS: Counting reference: Craniocervical junction. Localizer images: No significant findings. Alignment: Alignment is anatomic. There is straightening of the normal lumbar lordosis. There is moderate degenerative loss of intervertebral disc space height at C4-C5, C5-C6 and C6-C7. Craniocervical junction: Craniocervical junction is normal. Cord: The visualized cord is within normal limits of signal intensity and morphology. Bone marrow signal/fracture: No evidence of pathologic marrow infiltration. No evidence of prior fracture. Cervical soft tissues: The paraspinal soft tissues are within normal limits. C2-C3: There is mild bilateral facet arthropathy and disc osteophyte complex resulting in partial effacement of the ventral thecal sac without cord impingement and mild bilateral neural foraminal narrowing. C3-C4: There is mild bilateral facet arthropathy and disc osteophyte complex as well as mild ligamentum flavum thickening resulting in partial effacement of ventral dorsal thecal sac, mild spinal canal stenosis, mild right and minimal left neural foraminal narrowing. C4-C5: There is mild to moderate bilateral facet arthropathy, disc osteophyte complex and ligamentum flavum thickening resulting in partial effacement of ventral and dorsal thecal sac and contact of the right ventral cord, indentation of the ventral cord, moderate spinal canal stenosis, moderate right and mild left neural foraminal narrowing. C5-C6: There is moderate right and mild left facet arthropathy, disc osteophyte complex and ligamentum flavum thickening resulting in partial effacement of ventral and dorsal thecal sac, moderate spinal canal stenosis, contact of the cord, moderate to severe right and moderate left neural foraminal narrowing. C6-C7: There is mild bilateral facet arthropathy, disc osteophyte complex slightly eccentric left and ligamentum flavum thickening resulting in partial effacement of ventral dorsal thecal sac, mild to moderate spinal canal stenosis, moderate right and moderate to severe left neural foraminal narrowing. C7-T1: Canal and foramina are patent. IMPRESSION: No acute findings. No acute infarction, intracranial hemorrhage or intracranial mass lesion. Multilevel degenerative changes of the cervical spine, most pronounced at C4-C5 with moderate spinal canal stenosis with indentation of the ventral cord, moderate right and mild left neural foraminal narrowing. As well as at C5-C6 with moderate spinal canal stenosis with contact of the cord, moderate to severe right and moderate left neural foraminal narrowing. Web Weaver: TOYA Transcribe Date/Time: Jan 07 2023 9:42A Dictated by : MANUELA TRAN MD This examination was interpreted and the report reviewed and electronically signed by: MANUELA TRAN MD on Jan 07 2023 9:54AM EST [id number] Normal [facility] CNOVon 11-11-2022 CNOV Office Visit (NREUS2 ) -- MATTHEW GARZA ([id number]) 1955 M Date Time Provider Department 11/11/22 10:00 AM ERIC MONTIEL NREUS2 During your visit today, we recorded the following information about you: Pulse Blood pressure Weight Height 56/minute 154/79 97.1 kg 1.727 m Eric Montiel MD 11/11/2022 10:51 AM Signed [facility] - NEW PATIENT EVALUATION Referring Provider: Matthew Collazo MD [address] [place] [address], [address] [place] [address] Dear Matthew Collazo: Thank you for referring Mr. Garza to our clinic today. As you know he is a 67 year old male who is seen in consultation for evaluation of tremor since 1999 or so . Consultation requested by Dr. Collazo for an opinion regarding tremor. My final recommendations will be communicated back to the requesting physician by way of shared Medical record or letter to requesting physician via US mail. Subjective HISTORY OF PRESENT ILLNESS: He is referred for evaluation of Tremor. He tells me he is here for second opinion. 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 His brother has PD so he is concerned. He has had some amount of tremor going back at least 20 years, gradually getting worse. He does not remember if one hand or both hands. He first saw a doctor about the tremor maybe 10-15 years ago, diagnosed with ET. He was started on primidone. He thinks it helped with tremors, though his does not. He took it for a few years, ended up stopping it as it caused positive drug test at his work. He has not tried any medications since then. Coffee makes the shaking worse. Tremors are present bilaterally, though not really bothersome. Noticeable, but he is able to do ADLs without difficulty. Handwriting was always sloppy, not smaller. Tremors are with rest and action. He denies issues with dexterity. He does tend to shuffle his feet. This has been going on for 10-15 year apparently. He does not fall. Not using assistive device. He was tried on Requip for leg movements during sleep, without clear benefit. Pertinent Neurologic ROS: Patient denies depress mood/anxiety: reports impaired Memory/Cognitive: He has been diagnosed with early dementia . Had neuropsych testing maybe [address], no accidents but has gotten lost before. denies hallucinations: Patient denies sleep disturbances. 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 denies Swallowing difficulties. denies Orthostatic hypotension symptoms. Sense of smell is intact Voice is gravelly per (he has not noticed change) Handwriting is sloppy, not smaller Questionnaires Review of Systems ALLERGIES Not on File Current Outpatient Medications Medication Sig bisoprolol-hydroCHLOROthia zide (ZIAC) 10-6.25 mg per tablet Take 1 tablet by mouth every morning. BIPAP No current facility-administered medications for this visit. 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 Neurologic Exam: Mental Status: orientation to time, place, person. Good historian. No aphasia. Able to spell APPLE forwards and backwards. Knows 7 quarters in $1.75. Cranial nerves: Pupils equal round and reactive to light. No visual field defects. EOMI. Normal facial sensation. Normal facial symmetry and movements. Normal hearing and vestibular function. Normal palatal movement. Normal shoulder shrug and head rotation. Tongue protrudes midline Motor: No pronator drift. Power is 5/5 throughout. Sensation: Light touch intact in all 4 extremities. Decreased vibration knees and distal Reflexes: Normal 2+ reflexes throughout Coordination: Normal finger-to- nose-finger Gait: Stands without needing to push himself up. Short steps, everted feet, decreased arm swing bilaterally, impaired turns Movement exam: Slight resting tremor in bilateral upper extremities Slight/mild postural tremor, L>R Slight/mild kinetic tremor, L>R Slight rigidity in bilateral upper extremities mild bradykinesia bilaterally Assessment and Plan: Assessment Mr. Garza is a 67 year old year old male with 20+ year history of tremor, (more content not included)... Normal [facility] CBC AUTO DIFFon 07-19-2021 BASO # 0.0 103/ul Normal 0.0-0.1 [facility] Comment on above: Performed By: #### C BC #### [facility] [address], [place] [address] Antonio Randee Basophils/100 WBC (Bld) 0.2 % Normal 0.2-2.0 [facility] Comment on above: Performed By: #### C BC #### [facility] [address], [place] [address] Antoniojulio Jeff EO # 0.0 103/ul Normal 0.0-0.7 [facility] Comment on above: Performed By: #### C BC #### [facility] [address], [place] [address] Antonio Randee Eosinophils/100 WBC (Bld) 0.0 % Critically low 0.9-7.0 [facility] Comment on above: Performed By: #### C BC #### [facility] [address], [place] [address] Antonio Randee Erythrocyte distribution width (RBC) [Ratio] 13.0 % Normal 11.0-15.0 [facility] Comment on above: Performed By: #### C BC #### [facility] [address] [place] [address] Antoniojulio Jeff Hematocrit (Bld) [Volume fraction] 41.2 % Critically low 42.0-54.0 [facility] Comment on above: Performed By: #### C BC #### [facility] [address] [place] [address] Antonio Randee Hemoglobin (Bld) [Mass/Vol] 13.4 g/dL Critically low 14.0-18.0 [facility] Comment on above: Performed By: #### C BC #### [facility] [address] [place] [address] Antonio Randee IG # 0.03 10e3/ul Normal 0.00-0.03 [facility] Comment on above: Performed By: #### C BC #### [facility] [address] [place] [address] Antonio Randee IG % 0.3 % Normal 0.0-0.5 [facility] Comment on above: Performed By: #### C BC #### [facility] [address] [place] [address] Antonio Randee LYMPH # 0.9 103/ul Critically low 1.2-3.8 [facility] Comment on above: Performed By: #### C BC #### [facility] [address] [place] [address] Antonio Jeff Lymphocytes/100 WBC (Bld) 7.7 % Critically low 20.5-60.0 [facility] Comment on above: Performed By: #### C BC #### [facility] [address] [place] [address] Antonio Jeff MANUAL DIFF REQ NO Normal [facility] Comment on above: Performed By: #### C BC #### [facility] [address] [place], [place] [id number] Antonio Jeff MCH (RBC) [Entitic mass] 30.6 pg Normal 25.9-34.0 [facility] Comment on above: Performed By: #### C BC #### [facility] [address], [place] [address] Antonio Jeff MCHC (RBC) [Mass/Vol] 32.5 g/dL Normal 29.9-35.2 [facility] Comment on above: Performed By: #### C BC #### [facility] [address], [place] [address] Antonio Jeff MCV (RBC) [Entitic vol] 94.1 fL Critically high 80.0-94.0 [facility] Comment on above: Performed By: #### C BC #### [facility] [address], [place] [address] Antoniojulio Jeff MONO # 1.1 103/ul Critically high 0.3-0.8 [facility] Comment on above: Performed By: #### C BC #### [facility] [address] [place] [id number] Antonio Jeff Monocytes/100 WBC (Bld) 9.8 % Normal 1.7-12.0 [facility] Comment on above: Performed By: #### C BC #### [facility] [address], [place] [address] Antonio Lealen NEUT # 9.3 103/ul Critically high 1.4-6.5 [facility] Comment on above: Performed By: #### C BC #### [facility] [address] [place], [place] [id number] Antonio Jeff Neutrophils/100 WBC (Bld) 82.0 % Critically high 43.0-75.0 [facility] Comment on above: Performed By: #### C BC #### [facility] [address], [place] [address] Antonio Jeff Platelet mean volume (Bld) [Entitic vol] 9.7 fL Normal 9.5-13.5 [facility] Comment on above: Performed By: #### C BC #### [facility] [address] [place] [id number] Antonio Randee PLT 215 103/ul Normal 150-450 [facility] Comment on above: Performed By: #### C BC #### [facility] [address], [place] [address] Antonio Randee RBC 4.38 106/ul Critically low 4.70-6.10 [facility] Comment on above: Performed By: #### C BC #### [facility] [address] [place] [address] Antonio Jeff WBC 11.4 103/ul Critically high 4.0-11.0 [facility] Comment on above: Performed By: #### C BC #### [facility] [address] [place] [address] Antonio Jeff Covid-19 PCR (CVDTBH)on 07-07 SARS-CoV-2 (COVID-19) RNA HERMAN+probe Ql (Unsp spec) Detected Critically abnormal NOT DETECTED [facility] Comment on above: Result Comment: This test is not yet approved or cleared by the [place] Food and Drug Administration (FDA). This test was developed by [employer], [place], [place]. The performance characteristics of this test were validated by [facility]. The results are not intended to be used as the sole means for clinical diagnosis or patient management decisions. [facility] is authorized under Clinical Laboratory Improvement Amendments (CLIA) to perform high- complexity testing. This test is not yet approved or cleared by the [place] FDA. When there are no FDA-approved or cleared tests available, and other criteria are met, FDA can make tests available under an emergency access mechanism called an Emergency Use Authorization (EUA). The EUA for this test is supported by the Change Coordinator of Health and Human Service's declaration that circumstances exist to justify the emergency use of in vitro diagnostics for the detection and/or diagnosis of the virus that causes COVID-19. This EUA will remain in effect for the duration of the COVID-19 declaration justifying emergency of IVDs, unless it is terminated or revoked by the FDA (after which the test may no longer be used). Performed By: #### C BC #### [facility] [address] [place] [address] Antonio Jeff PROF CHEM 8 (BAS METB)on Anion gap [Moles/Vol] 14.4 mmol/L Normal [facility] Comment on above: Performed By: #### C BC #### [facility] [address], [place] [address] Antonio Randee Calcium [Mass/Vol] 8.5 mg/dL Normal 8.5-10.1 [facility] Comment on above: Performed By: #### C BC #### [facility] [address] [place] [id number] Antonio Randee Chloride [Moles/Vol] 99 mmol/L Normal 98-107 [facility] Comment on above: Performed By: #### C BC #### [facility] [address] [place] [id number] Antonio Randee CO2 [Moles/Vol] 25.8 mmol/L Normal 21.0-32.0 [facility] Comment on above: Performed By: #### C BC #### [facility] [address] [place] [address] Antonio Randee Creatinine [Mass/Vol] 1.66 mg/dL Critically high 0.70-1.30 [facility] Comment on above: Performed By: #### C BC #### [facility] [address] [place] [id number] Antonio Randee EGFR-AF BARBADIAN 51 mL/min/1.73m2 Critically low >=60 [facility] Comment on above: Performed By: #### C BC #### [facility] [address] [place] [address] Antonio Randee EGFR-NON AF BARBADIAN 42 mL/min/1.73m2 Critically low >=60 [facility] Comment on above: Performed By: #### C BC #### [facility] [address] [place] [id number] Antonio Randee Glucose [Mass/Vol] 119 mg/dL Critically high 74-106 T [facility] Comment on above: Performed By: #### C BC #### [facility] [address] [place] [id number] Antonio Randee Potassium [Moles/Vol] 4.2 mmol/L Normal 3.5-5.1 [facility] Comment on above: Performed By: #### C BC #### [facility] [address] [place] [address] Antonio Randee Sodium [Moles/Vol] 135 mmol/L Critically low 136-145 [facility] Comment on above: Performed By: #### C BC #### [facility] [address] [place] [id number] Antonio Randee Urea nitrogen [Mass/Vol] 38.0 mg/dL Critically high 7.0-18.0 [facility] Comment on above: Performed By: #### C BC #### [facility] [address] [place] [id number] Antonio Randee Urea nitrogen/Creatinine [Mass ratio] 22.9 mg/mg Normal [facility] Comment on above: Performed By: #### C BC #### [facility] [address] [place], [place] [id number] Antonio Randee XR CHEST 2 Von 07-19-2021 XR CHEST 2 V STUDY: Chest exam TECHNIQUE:XR CHEST 2 V COMPARISON: Chest radiographs 11/02/2020, 05/30/2013 HISTORY: COUGH FINDINGS: The lungs are well expanded. No pneumothorax. No pleural effusion. No consolidation. Cardiomediastinal silhouette is normal in size and position. No acute osseous abnormality. Rotator cuff repair hardware in the right humeral head. IMPRESSION: No acute cardiopulmonary findings. Electronically authenticated by: FRED GUPTA Date: 2021-07-19 20:37 Normal [facility] CBC AUTO DIFFon 11-04-2020 BASO # 0.0 103/ul Normal 0.0-0.1 [facility] Comment on above: Performed By: #### C BC #### [facility] [address] [place], [place] [address] Antonio Randee Basophils/100 WBC (Bld) 0.2 % Normal 0.2-2.0 [facility] Comment on above: Performed By: #### C BC #### [facility] [address] [place], [place] [address] Antonio Randee EO # 0.1 103/ul Normal 0.0-0.7 [facility] Comment on above: Performed By: #### C BC #### [facility] [address] [place], [place] [address] Antonio Randee Eosinophils/100 WBC (Bld) 1.2 % Normal 0.9-7.0 [facility] Comment on above: Performed By: #### C BC #### [facility] [address] [place] [address] Antonio Randee Erythrocyte distribution width (RBC) [Ratio] 13.2 % Normal 11.0-15.0 [facility] Comment on above: Performed By: #### C BC #### [facility] [address] [place] [address] Antonio Randee Hematocrit (Bld) [Volume fraction] 33.0 % Critically low 42.0-54.0 [facility] Comment on above: Performed By: #### C BC #### [facility] [address] [place] [address] Antonio Randee Hemoglobin (Bld) [Mass/Vol] 10.3 g/dL Critically low 14.0-18.0 [facility] Comment on above: Performed By: #### C BC #### [facility] [address] [place] [address] Antonio Randee IG # 0.03 10e3/ul Normal 0.00-0.03 [facility] Comment on above: Performed By: #### C BC #### [facility] [address] [place] [address] Antonio Randee IG % 0.4 % Normal 0.0-0.5 [facility] Comment on above: Performed By: #### C BC #### [facility] [address] [place] [address] Antonio Randee LYMPH # 2.0 103/ul Normal 1.2-3.8 [facility] Comment on above: Performed By: #### C BC #### [facility] [address] [place] [address] Antonio Randee Lymphocytes/100 WBC (Bld) 24.1 % Normal 20.5-60.0 [facility] Comment on above: Performed By: #### C BC #### [facility] [address] [place] [address] Antonio Randee MANUAL DIFF REQ NO Normal [facility] Comment on above: Performed By: #### C BC #### [facility] [address] [place], [place] [address] Antonio Jeff MCH (RBC) [Entitic mass] 30.4 pg Normal 25.9-34.0 [facility] Comment on above: Performed By: #### C BC #### [facility] [address] [place], [place] [address] Antonio Jeff MCHC (RBC) [Mass/Vol] 31.2 g/dL Normal 29.9-35.2 [facility] Comment on above: Performed By: #### C BC #### [facility] [address] [place] [address] Antonio Jeff MCV (RBC) [Entitic vol] 97.3 fL Critically high 80.0-94.0 [facility] Comment on above: Performed By: #### C BC #### [facility] [address] [place] [address] Antonio Jeff MONO # 0.7 103/ul Normal 0.3-0.8 [facility] Comment on above: Performed By: #### C BC #### [facility] [address] [place] [address] Antonio Randee Monocytes/100 WBC (Bld) 8.3 % Normal 1.7-12.0 [facility] Comment on above: Performed By: #### C BC #### [facility] [address] [place] [address] Antonio Jeff NEUT # 5.5 103/ul Normal 1.4-6.5 [facility] Comment on above: Performed By: #### C BC #### [facility] [address] [place], [place] [address] Antonio Randee Neutrophils/100 WBC (Bld) 65.8 % Normal 43.0-75.0 [facility] Comment on above: Performed By: #### C BC #### [facility] [address] [place] [address] Antonio Randee Platelet mean volume (Bld) [Entitic vol] 10.2 fL Normal 9.5-13.5 [facility] Comment on above: Performed By: #### C BC #### [facility] [address], [place] [address] Antonio Randee PLT 231 103/ul Normal 150-450 [facility] Comment on above: Performed By: #### C BC #### [facility] [address], [place] [address] Antonio Randee RBC 3.39 106/ul Critically low 4.70-6.10 [facility] Comment on above: Performed By: #### C BC #### [facility] [address], [place] [address] Antonio Randee WBC 8.3 103/ul Normal 4.0-11.0 [facility] Comment on above: Performed By: #### C BC #### [facility] [address] [place] [address] Antonio Randee CRPon 11-04-2020 CRP [Mass/Vol] mg/L Normal <=1.0 [facility] Comment on above: Performed By: #### C MP, CRP #### [facility] [address] [place] [address] Antonio Randee PROF 14(COMP METB)on 021 Albumin [Mass/Vol] 3.5 g/dL Normal 3.5-5.0 [facility] Comment on above: Performed By: #### C MP, CRP #### [facility] [address] [place], [place] [address] Antonio Randee Albumin/Globulin [Mass ratio] 1.1 {ratio} Normal [facility] Comment on above: Performed By: #### C MP, CRP #### [facility] [address] [place] [address] Antonio Randee ALP [Catalytic activity/Vol] 57 U/L Normal 38-126 [facility] Comment on above: Performed By: #### C MP, CRP #### [facility] [address] [place], [place] [address] Antonio Randee ALT [Catalytic activity/Vol] 20 U/L Critically low 21-72 [facility] Comment on above: Performed By: #### C MP, CRP #### [facility] [address] [place] [id number] Antonio Randee Anion gap [Moles/Vol] 11.9 mmol/L Normal [facility] Comment on above: Performed By: #### C MP, CRP #### [facility] [address] [place] [id number] Antonio Randee AST [Catalytic activity/Vol] 20 U/L Normal 17-59 [facility] Comment on above: Performed By: #### C MP, CRP #### [facility] [address] [place] [address] Antonio Arndee Bilirubin [Mass/Vol] 0.6 mg/dL Normal 0.2-1.3 [facility] Comment on above: Performed By: #### C MP, CRP #### [facility] [address] [place] [address] Antonio Randee Calcium [Mass/Vol] 8.2 mg/dL Critically low 8.4-10.2 [facility] Comment on above: Performed By: #### C MP, CRP #### [facility] [address] [place] [address] Antonio Randee Chloride [Moles/Vol] 105 mmol/L Normal 98-107 [facility] Comment on above: Performed By: #### C MP, CRP #### [facility] [address] [address] Antonio Randee CO2 [Moles/Vol] 27.4 mmol/L Normal 22.0-30.0 [facility] Comment on above: Performed By: #### C MP, CRP #### [facility] [address] [phone] Antonio Randee Creatinine [Mass/Vol] 1.36 mg/dL Critically high 0.66-1.25 [facility] Comment on above: Performed By: #### C MP, CRP #### [facility] [address] [phone] Antonio Randee EGFR-AF BARBADIAN >60 Normal >=60 [facility] Comment on above: Performed By: #### C MP, CRP #### [facility] [address], [place] [address] Antonio Randee EGFR-NON AF BARBADIAN 53 mL/min/1.73m2 Critically low >=60 [facility] Comment on above: Performed By: #### C MP, CRP #### [facility] [address], [place] [address] Antonio Randee Globulin (S) [Mass/Vol] 3.1 g/dL Normal [facility] Comment on above: Performed By: #### C MP, CRP #### [facility] [address] [phone] Antonio Randee Glucose [Mass/Vol] 88 mg/dL Normal 74-106 [facility] Comment on above: Performed By: #### C MP, CRP #### [facility] [address] [phone] Antonio Randee Potassium [Moles/Vol] 5.3 mmol/L Critically high 3.4-5.0 [facility] Comment on above: Performed By: #### C MP, CRP #### [facility] [address] [phone] Antonio Randee Protein [Mass/Vol] 6.6 g/dL Normal 6.1-8.2 [facility] Comment on above: Performed By: #### C MP, CRP #### [facility] [address] [phone] Antonio Randee Sodium [Moles/Vol] 139 mmol/L Normal 137-145 [facility] Comment on above: Performed By: #### C MP, CRP #### [facility] [address] [id number] Antonio Randee Urea nitrogen [Mass/Vol] 44.0 mg/dL Critically high 9.0-20.0 [facility] Comment on above: Performed By: #### C MP, CRP #### [facility] [address] [phone] Antonio Randee Urea nitrogen/Creatinine [Mass ratio] 32.4 mg/mg Normal [facility] Comment on above: Performed By: #### C MP, CRP #### [facility] [address] [phone] Antonio Randee PROF CHEM 8 (BAS METB)on Anion gap [Moles/Vol] 14.5 mmol/L Normal [facility] Comment on above: Performed By: #### C BC #### [facility] [address] [address] Antonio Randee Calcium [Mass/Vol] 8.2 mg/dL Critically low 8.4-10.2 [facility] Comment on above: Performed By: #### C BC #### [facility] [address] [place] [address] Antonio Randee Chloride [Moles/Vol] 103 mmol/L Normal 98-107 [facility] Comment on above: Performed By: #### C BC #### [facility] [address] [place] [address] Antonio Randee CO2 [Moles/Vol] 24.5 mmol/L Normal 22.0-30.0 [facility] Comment on above: Performed By: #### C BC #### [facility] [address] [place], [place] [id number] Antonio Randee Creatinine [Mass/Vol] 1.26 mg/dL Critically high 0.66-1.25 [facility] Comment on above: Performed By: #### C BC #### [facility] [address] [place], [place] [id number] Antonio Randee EGFR-AF BARBADIAN >60 Normal >=60 [facility] Comment on above: Performed By: #### C BC #### [facility] [address] [place], [place] [phone] Antonio Randee EGFR-NON AF BARBADIAN 58 mL/min/1.73m2 Critically low >=60 [facility] Comment on above: Performed By: #### C BC #### [facility] [address] [place], [place] [phone] Antonio Randee Glucose [Mass/Vol] 94 mg/dL Normal 74-106 [facility] Comment on above: Performed By: #### C BC #### [facility] [address] [place] [address] Antonio Randee Potassium [Moles/Vol] 5.0 mmol/L Normal 3.4-5.0 [facility] Comment on above: Performed By: #### C BC #### [facility] [address] [place] [address] Antonio Randee Sodium [Moles/Vol] 137 mmol/L Normal 137-145 [facility] Comment on above: Performed By: #### C BC #### [facility] [address] [place] [address] Antonio Randee Urea nitrogen [Mass/Vol] 41.0 mg/dL Critically high 9.0-20.0 [facility] Comment on above: Performed By: #### C BC #### [facility] [address] [place] [address] Antonio Randee Urea nitrogen/Creatinine [Mass ratio] 32.5 mg/mg Normal [facility] Comment on above: Performed By: #### C BC #### [facility] [address] [place] [address] Antonio Randee CBC AUTO DIFFon 11-03-2020 BASO # 0.0 103/ul Normal 0.0-0.1 [facility] Comment on above: Performed By: #### C BC #### [facility] [address] [place] [address] Antonio Randee Basophils/100 WBC (Bld) 0.3 % Normal 0.2-2.0 [facility] Comment on above: Performed By: #### C BC #### [facility] [address] [place] [address] Antonio Randee EO # 0.1 103/ul Normal 0.0-0.7 [facility] Comment on above: Performed By: #### C BC #### [facility] [address] [place], [place] [phone] Antonio Randee Eosinophils/100 WBC (Bld) 1.0 % Normal 0.9-7.0 [facility] Comment on above: Performed By: #### C BC #### [facility] [address] [place] [address] Antonio Randee Erythrocyte distribution width (RBC) [Ratio] 13.2 % Normal 11.0-15.0 [facility] Comment on above: Performed By: #### C BC #### [facility] [address] [place] [address] Antonio Jeff Hematocrit (Bld) [Volume fraction] 32.7 % Critically low 42.0-54.0 [facility] Comment on above: Performed By: #### C BC #### [facility] [address] [place] [address] Antonio Jeff Hemoglobin (Bld) [Mass/Vol] 10.4 g/dL Critically low 14.0-18.0 [facility] Comment on above: Performed By: #### C BC #### [facility] [address] [place] [address] Antonio Jeff IG # 0.02 10e3/ul Normal 0.00-0.03 [facility] Comment on above: Performed By: #### C BC #### [facility] [address] [place] [address] Antonio Jeff IG % 0.3 % Normal 0.0-0.5 [facility] Comment on above: Performed By: #### C BC #### [facility] [address] [place] [address] Antonio Jeff LYMPH # 1.8 103/ul Normal 1.2-3.8 [facility] Comment on above: Performed By: #### C BC #### [facility] [address] [place] [address] Antonio Jeff Lymphocytes/100 WBC (Bld) 23.1 % Normal 20.5-60.0 [facility] Comment on above: Performed By: #### C BC #### [facility] [address] [place] [address] Antonio Jeff MANUAL DIFF REQ NO Normal [facility] Comment on above: Performed By: #### C BC #### [facility] [address] [place] [address] Antonio Jeff MCH (RBC) [Entitic mass] 30.3 pg Normal 25.9-34.0 [facility] Comment on above: Performed By: #### C BC #### [facility] [address], [place] [address] Antonio Jeff MCHC (RBC) [Mass/Vol] 31.8 g/dL Normal 29.9-35.2 [facility] Comment on above: Performed By: #### C BC #### [facility] [address] [phone] Antonio Jeff MCV (RBC) [Entitic vol] 95.3 fL Critically high 80.0-94.0 [facility] Comment on above: Performed By: #### C BC #### [facility] [address] [place], [place] [id number] Antonio Jeff MONO # 0.6 103/ul Normal 0.3-0.8 [facility] Comment on above: Performed By: #### C BC #### [facility] [address] [place], [place] [address] Antonio Jeff Monocytes/100 WBC (Bld) 7.9 % Normal 1.7-12.0 [facility] Comment on above: Performed By: #### C BC #### [facility] [address] [place], [place] [id number] Antonio Jeff NEUT # 5.3 103/ul Normal 1.4-6.5 [facility] Comment on above: Performed By: #### C BC #### [facility] [address] [place], [place] [address] Antonio Jeff Neutrophils/100 WBC (Bld) 67.4 % Normal 43.0-75.0 [facility] Comment on above: Performed By: #### C BC #### [facility] [address] [place], [place] [phone] Antoniojulio Jeff Platelet mean volume (Bld) [Entitic vol] 10.2 fL Normal 9.5-13.5 [facility] Comment on above: Performed By: #### C BC #### [facility] [address] [place], [place] [phone] Antonio Randee PLT 239 103/ul Normal 150-450 [facility] Comment on above: Performed By: #### C BC #### [facility] [address], [place] [address] Antoniojulio Jeff RBC 3.43 106/ul Critically low 4.70-6.10 [facility] Comment on above: Performed By: #### C BC #### [facility] [address], [place] [address] Antoniojulio Lealen WBC 7.8 103/ul Normal 4.0-11.0 [facility] Comment on above: Performed By: #### C BC #### [facility] [address] [place] [address] Antoniojulio Lealen CRPon 11-03-2020 CRP [Mass/Vol] mg/L Normal <=1.0 [facility] Comment on above: Performed By: #### C BC #### [facility] [address] [place] [address] Antonio Jeff CULTURE URINEon 11-03-2020 CULTURE URINE Culture Observations : NO GROWTH. Normal [facility] Comment on above: Performed By: #### C BC #### [facility] [address] [place] [id number] Antonio Jeff OCC BLD IMMUNOASSAYon 2020 OCCULT BLOOD Negative Normal NEGATIVE [facility] Comment on above: Performed By: #### C BC #### [facility] [address] [place] [address] Antonio Jeff PROF 14(COMP METB)on 021 Albumin [Mass/Vol] 3.8 g/dL Normal 3.5-5.0 [facility] Comment on above: Performed By: #### C BC #### [facility] [address] [place] [address] Antonio Randee Albumin/Globulin [Mass ratio] 1.2 {ratio} Normal [facility] Comment on above: Performed By: #### C BC #### [facility] [address] [place] [address] Antonio Randee ALP [Catalytic activity/Vol] 60 U/L Normal 38-126 [facility] Comment on above: Performed By: #### C BC #### [facility] [address] [address] Antonio Randee ALT [Catalytic activity/Vol] 19 U/L Critically low 21-72 [facility] Comment on above: Performed By: #### C BC #### [facility] [address] [place], [place] [address] Antonio Randee Anion gap [Moles/Vol] 13.2 mmol/L Normal [facility] Comment on above: Performed By: #### C BC #### [facility] [address] [address] Antonio Randee AST [Catalytic activity/Vol] 20 U/L Normal 17-59 [facility] Comment on above: Performed By: #### C BC #### [facility] [address] [place] [address] Antonio Randee Bilirubin [Mass/Vol] 0.5 mg/dL Normal 0.2-1.3 [facility] Comment on above: Performed By: #### C BC #### [facility] [address] [place] [address] Antonio Randee Calcium [Mass/Vol] 8.8 mg/dL Normal 8.4-10.2 [facility] Comment on above: Performed By: #### C BC #### [facility] [address] [place] [address] Antonio Randee Chloride [Moles/Vol] 105 mmol/L Normal 98-107 [facility] Comment on above: Performed By: #### C BC #### [facility] [address] [place] [address] Antonio Randee CO2 [Moles/Vol] 25.5 mmol/L Normal 22.0-30.0 [facility] Comment on above: Performed By: #### C BC #### [facility] [address] [place], [place] [address] Antonio Randee Creatinine [Mass/Vol] 1.97 mg/dL Critically high 0.66-1.25 [facility] Comment on above: Performed By: #### C BC #### [facility] [address] [place], [place] [address] Antonio Randee EGFR-AF BARBADIAN 42 mL/min/1.73m2 Critically low >=60 [facility] Comment on above: Performed By: #### C BC #### [facility] [address] [phone] Antonio Randee EGFR-NON AF BARBADIAN 35 mL/min/1.73m2 Critically low >=60 [facility] Comment on above: Performed By: #### C BC #### [facility] [address] [phone] Antonio Randee Globulin (S) [Mass/Vol] 3.3 g/dL Normal [facility] Comment on above: Performed By: #### C BC #### [facility] [address] [place], [place] [address] Antonio Randee Glucose [Mass/Vol] 76 mg/dL Normal 74-106 [facility] Comment on above: Performed By: #### C BC #### [facility] [address] [place], [place] [address] Antonio Randee Potassium [Moles/Vol] 4.7 mmol/L Normal 3.4-5.0 [facility] Comment on above: Performed By: #### C BC #### [facility] [address] [place], [place] [address] Antonio Randee Protein [Mass/Vol] 7.1 g/dL Normal 6.1-8.2 [facility] Comment on above: Performed By: #### C BC #### [facility] [address] [place], [place] [address] Antonio Randee Sodium [Moles/Vol] 139 mmol/L Normal 137-145 [facility] Comment on above: Performed By: #### C BC #### [facility] [address] [place], [place] [address] Antonio Randee Urea nitrogen [Mass/Vol] 80.0 mg/dL Critically high 9.0-20.0 [facility] Comment on above: Result Comment: TEST REPEATED; CRITICAL VALUE VERIFIED Performed By: #### C BC #### [facility] [address] [place], [place] [address] Antonio Randee Urea nitrogen/Creatinine [Mass ratio] 40.6 mg/mg Normal [facility] Comment on above: Performed By: #### C BC #### [facility] [address] [place] [address] Antonio Randee UA RANDOM W/MICROSCOPICon BACTERIA NONE SEEN Normal NONE SEEN [facility] Comment on above: Performed By: #### C BC #### [facility] [address] [place] [address] Antonio Randee Bilirubin Ql (U) Negative Normal NEGATIVE [facility] Comment on above: Performed By: #### C BC #### [facility] [address] [place] [address] Antonio Randee CAST NONE SEEN Normal NONE SEEN [facility] Comment on above: Performed By: #### C BC #### [facility] [address] [place] [address] Antonio Randee Clarity (U) CLEAR Normal CLEAR [facility] Comment on above: Performed By: #### C BC #### [facility] [address] [place] [address] Antonio Randee Color (U) LT. YELLOW Normal YELLOW [facility] Comment on above: Performed By: #### C BC #### [facility] [address] [place] [address] Antonio Randee Crystals LM Nom (Urine sed) NONE SEEN Normal NONE SEEN [facility] Comment on above: Performed By: #### C BC #### [facility] [address] [place], [place] [address] Antonio Randee Epithelial cells LM Ql (Urine sed) RARE Normal NONE SEEN /RARE [facility] Comment on above: Performed By: #### C BC #### [facility] [address] [place] [address] Antonio Randee Glucose Ql (U) 100 mg/dl Abnormal NEGATIVE [facility] Comment on above: Performed By: #### C BC #### [facility] [address] [place] [address] Antonio Randee Hemoglobin Ql (U) Negative Normal NEGATIVE [facility] Comment on above: Performed By: #### C BC #### [facility] [address] [place] [address] Antonio Randee Ketones Ql (U) Negative Normal NEGATIVE [facility] Comment on above: Performed By: #### C BC #### [facility] [address] [place], [place] [address] Antonio Randee LEUKOCYTES Negative Normal NEGATIVE [facility] Comment on above: Performed By: #### C BC #### [facility] [address] [place], [place] [address] Antonio Randee MUCOUS NONE SEEN Normal NONE SEEN [facility] Comment on above: Performed By: #### C BC #### [facility] [address] [place] [address] Antonio Randee Nitrite Ql (U) Negative Normal NEGATIVE [facility] Comment on above: Performed By: #### C BC #### [facility] [address] [place] [address] Antonio Randee pH (U) 5.5 [pH] Normal 5-9 [facility] Comment on above: Performed By: #### C BC #### [facility] [address] [place] [address] Antonio Randee RBC NONE SEEN Abnormal 0-2 [facility] Comment on above: Performed By: #### C BC #### [facility] [address] [place] [address] Antonio Randee SPEC GRAVITY 1.020 Normal 1.005-<=1.0 25 [facility] Comment on above: Performed By: #### C BC #### [facility] [address] [place] [address] Antonio Randee UA PROTEIN Negative Normal NEGATIVE/ TRACE [facility] Comment on above: Performed By: #### C BC #### [facility] [address] [place], [place] [address] Antonio Randee Urobilinogen Qn (U) 0.2 {Brittany'U}/dL Normal 0.2 - 1. 0 [facility] Comment on above: Performed By: #### C BC #### [facility] [address] [place] [address] Antonio Randee WBC NONE SEEN Normal NONE SEEN [facility] Comment on above: Performed By: #### C BC #### [facility] [address] [place] [address] Antonio eJff ASYMPTOMATIC COVID-19 ANTIGE Non 11-02-2020 EUA Statement SEE BELOW Normal [facility] Comment on above: Result Comment: This test has not been FDA cleared or approved, but has been authorized by the FDA under an Emergency Use Authorization (EUA) for use by authorized laboratories certified under CLIA that meet the requirements to perform moderate or high complexity testing. This test has been authorized only for the detection of proteins from SARS-CoV-2, not for any other viruses or pathogens. The emergency use of this test is authorized for the duration of the declaration that circumstances exist justifying the authorization of emergency use of in vitro diagnostic tests for detection and/or diagnosis of Covid-19 under section 564(b)(1) of the Act, 21 U.S.C. 360bbb-3(b)(1), unless the declaration is terminated or authorization is revoked sooner. Performed By: #### C VDAGA #### [facility] [address] [place] [address] Antonio Jeff SARS-CoV-2 (COVID-19) RNA HERMAN+probe Ql (Unsp spec) Negative Normal NEGATIVE [facility] Comment on above: Result Comment: Nega tive results are presumptive. They do not preclude infection and should not be used as the sole basis for treatment decisions. Additional confirmatory testing by a molecular method should be considered. Performed By: #### C VDAGA #### [facility] [address] [place] [address] Antonio Jeff CARDIAC YOUNG ADMITon 021 CK [Catalytic activity/Vol] 95 U/L Normal 55-170 [facility] Comment on above: Performed By: #### C BC #### [facility] [address] [place], [place] [address] Antonio Jeff CK.MB [Mass/Vol] 0.62 ng/mL Normal <=2.37 [facility] Comment on above: Performed By: #### C BC #### [facility] [address] [place] [address] Antonio Jeff HSTROP 4.2 pg/mL Normal 4.0-42.2 [facility] Comment on above: Result Comment: CUT- OFF POINTS HAVE BEEN ESTABLISHED BASED ON THE FOURTH UNIVERSAL DEFINITIONS OF MYOCARDIAL INFARCTION. THE UPPER REFERENCE LIMIT (URL) OF TROPONIN, DEFINED THE 99TH PERCENTILE OF cTnI DISTRIBUTION IN A REFERENCE POPULATION, HAS BEEN CONFIRMED THE DECISION THRESHOLD FOR PA DIAGNOSIS. Performed By: #### C BC #### [facility] [address] [place] [address] Antonio Jeff DEEJAY 199.0 ng/mL Critically high <=121.0 [facility] Comment on above: Performed By: #### C BC #### [facility] [address] [place] [address] Antonio Jeff CBC AUTO DIFFon 11-02-2020 BASO # 0.0 103/ul Normal 0.0-0.1 [facility] Comment on above: Performed By: #### C BC #### [facility] [address] [place] [address] Antonio Jeff Basophils/100 WBC (Bld) 0.4 % Normal 0.2-2.0 [facility] Comment on above: Performed By: #### C BC #### [facility] [address] [place] [address] Antonio Jeff EO # 0.0 103/ul Normal 0.0-0.7 [facility] Comment on above: Performed By: #### C BC #### [facility] [address] [place] [address] Antonio Jeff Eosinophils/100 WBC (Bld) 0.4 % Critically low 0.9-7.0 [facility] Comment on above: Performed By: #### C BC #### [facility] [address] [place], [place] [address] Antonio Jeff Erythrocyte distribution width (RBC) [Ratio] 13.2 % Normal 11.0-15.0 [facility] Comment on above: Performed By: #### C BC #### [facility] [address] [place], [place] [id number] Antonio Jeff Hematocrit (Bld) [Volume fraction] 36.9 % Critically low 42.0-54.0 [facility] Comment on above: Performed By: #### C BC #### [facility] [address] [place] [address] Antonio Randee Hemoglobin (Bld) [Mass/Vol] 12.0 g/dL Critically low 14.0-18.0 [facility] Comment on above: Performed By: #### C BC #### [facility] [address] [place] [address] Antoniojulio Jeff IG # 0.02 10e3/ul Normal 0.00-0.03 [facility] Comment on above: Performed By: #### C BC #### [facility] [address] [place] [address] Antoniojulio Jeff IG % 0.3 % Normal 0.0-0.5 [facility] Comment on above: Performed By: #### C BC #### [facility] [address] [place] [address] Antonio Randee LYMPH # 1.2 103/ul Normal 1.2-3.8 [facility] Comment on above: Performed By: #### C BC #### [facility] [address] [place] [address] Antonio Jeff Lymphocytes/100 WBC (Bld) 15.3 % Critically low 20.5-60.0 [facility] Comment on above: Performed By: #### C BC #### [facility] [address] [place] [address] Antonio Jeff MANUAL DIFF REQ NO Normal [facility] Comment on above: Performed By: #### C BC #### [facility] [address] [place] [address] Antonio Jeff MCH (RBC) [Entitic mass] 30.9 pg Normal 25.9-34.0 [facility] Comment on above: Performed By: #### C BC #### [facility] [address] [place] [address] Antonio Jeff MCHC (RBC) [Mass/Vol] 32.5 g/dL Normal 29.9-35.2 [facility] Comment on above: Performed By: #### C BC #### [facility] [address], [place] [address] Antonio Jeff MCV (RBC) [Entitic vol] 95.1 fL Critically high 80.0-94.0 [facility] Comment on above: Performed By: #### C BC #### [facility] [address] [id number] Antoniojulio Jeff MONO # 0.5 103/ul Normal 0.3-0.8 [facility] Comment on above: Performed By: #### C BC #### [facility] [address] [id number] Antoniojulio Jeff Monocytes/100 WBC (Bld) 5.8 % Normal 1.7-12.0 [facility] Comment on above: Performed By: #### C BC #### [facility] [address] [place] [address] Antoniojulio Lealen NEUT # 6.2 103/ul Normal 1.4-6.5 [facility] Comment on above: Performed By: #### C BC #### [facility] [address] [place], [place] [id number] Antonio Jeff Neutrophils/100 WBC (Bld) 77.8 % Critically high 43.0-75.0 [facility] Comment on above: Performed By: #### C BC #### [facility] [address] [place], [place] [id number] Antoniojulio Jeff Platelet mean volume (Bld) [Entitic vol] 10.0 fL Normal 9.5-13.5 [facility] Comment on above: Performed By: #### C BC #### [facility] [address] [place], [place] [id number] Antonio Randee PLT 273 103/ul Normal 150-450 [facility] Comment on above: Performed By: #### C BC #### [facility] [address] [place], [place] [id number] Antonio Randee RBC 3.88 106/ul Critically low 4.70-6.10 [facility] Comment on above: Performed By: #### C BC #### [facility] [address] [place] [address] Antonio Jeff WBC 8.0 103/ul Normal 4.0-11.0 [facility] Comment on above: Performed By: #### C BC #### [facility] [address] [place] [address] Antonio Jeff Covid-19 PCR (CVDTB)on 10-08 SARS-CoV-2 (COVID-19) RNA HERMAN+probe Ql (Unsp spec) Not detected Normal NOT DETECTED [facility] Comment on above: Result Comment: This test is not yet approved or cleared by the [place] FDA. When there are no FDA-approved or cleared tests available, and other criteria are met, FDA can make tests available under an emergency access mechanism called an Emergency Use Authorization (EUA). The EUA for this test is supported by the [place] of Health and Human Service's (HHS's) declaration that circumstances exist to justify the emergency use of in vitro diagnostics for the detection and/or diagnosis of the virus that causes COVID-19. This EUA will remain in effect (meaning this test can be used) for the duration of the COVID-19 declaration justifying emergency of IVDs, unless it is terminated or revoked by FDA (after which the test may no longer be used). When diagnostic testing is negative, the possibility of a false negative should be considered in the context of a patient's recent exposures and the presence of clinical signs and symptoms consistent with SARS-CoV-2. Performed By: #### C VDTBH #### [facility] [address] [place] [address] Antonio Jeff D-DIMERon 11-02-2020 D-DIMER 0.49 mg/L FEU Normal 0.19-0.50 [facility] Comment on above: Performed By: #### D DIM, PT, PTT #### [facility] [address] [place] [address] Antonio Jeff D-DIMER COMMENTS SEE BELOW Normal [facility] Comment on above: Result Comment: Incr eases in D-Dimer concentration observed with thromboembolic events can be variable due to localization, size, and age of the thrombus. Therefore, a thromboembolic event cannot be diagnosed with certainty on the basis of the reference range. D-Dimers may also be elevated for a variety of disorders including: advanced age, , coronary disease, cancer, liver disease, infection, inflammation, hematoma, DIC, trauma, post-surgery, diabetes, thrombolytic or anticoagulant therapy, stress, and generalized hospitalization. Performed By: #### D DIM, PT, PTT #### [facility] [address] [place], [place] [id number] Antoniojulio Jeff LIPASEon 11-02-2020 Lipase [Catalytic activity/Vol] 461.0 U/L Critically high 23.0-300.0 [facility] Comment on above: Performed By: #### C BC #### [facility] [address] [place], [place] [id number] Antonio Jeff PROF 14(COMP METB)on 021 Albumin [Mass/Vol] 5.0 g/dL Normal 3.5-5.0 [facility] Comment on above: Performed By: #### C BC #### [facility] [address] [place] [address] Antonio Randee Albumin/Globulin [Mass ratio] 1.3 {ratio} Normal [facility] Comment on above: Performed By: #### C BC #### [facility] [address] [place] [address] Antonio Randee ALP [Catalytic activity/Vol] 73 U/L Normal 38-126 [facility] Comment on above: Performed By: #### C BC #### [facility] [address] [place], [place] [id number] Antonio Randee ALT [Catalytic activity/Vol] 26 U/L Normal 21-72 [facility] Comment on above: Performed By: #### C BC #### [facility] [address] [place], [place] [id number] Antonio Randee Anion gap [Moles/Vol] 17.6 mmol/L Normal [facility] Comment on above: Performed By: #### C BC #### [facility] [address] [place], [place] [id number] Antonio Randee AST [Catalytic activity/Vol] 25 U/L Normal 17-59 [facility] Comment on above: Performed By: #### C BC #### [facility] [address], [place] [address] Antonio Randee Bilirubin [Mass/Vol] 0.6 mg/dL Normal 0.2-1.3 [facility] Comment on above: Performed By: #### C BC #### [facility] [address] [id number] Antonio Randee Calcium [Mass/Vol] 9.8 mg/dL Normal 8.4-10.2 [facility] Comment on above: Performed By: #### C BC #### [facility] [address] [id number] Antonio Randee Chloride [Moles/Vol] 100 mmol/L Normal 98-107 [facility] Comment on above: Performed By: #### C BC #### [facility] [address] [address] Antonio Randee CO2 [Moles/Vol] 24.5 mmol/L Normal 22.0-30.0 [facility] Comment on above: Performed By: #### C BC #### [facility] [address] [id number] Antonio Randee Creatinine [Mass/Vol] 3.63 mg/dL Critically high 0.66-1.25 [facility] Comment on above: Performed By: #### C BC #### [facility] [address] [id number] Antonio Randee EGFR-AF BARBADIAN 21 mL/min/1.73m2 Critically low >=60 [facility] Comment on above: Performed By: #### C BC #### [facility] [address] [id number] Antonio Randee EGFR-NON AF BARBADIAN 17 mL/min/1.73m2 Critically low >=60 [facility] Comment on above: Performed By: #### C BC #### [facility] [address] [id number] Antonio Randee Globulin (S) [Mass/Vol] 3.9 g/dL Normal [facility] Comment on above: Performed By: #### C BC #### [facility] [address] [phone] Antonio Randee Glucose [Mass/Vol] 102 mg/dL Normal 74-106 [facility] Comment on above: Performed By: #### C BC #### [facility] [address] [place] [address] Antonio Randee Potassium [Moles/Vol] 6.1 mmol/L Critically high 3.4-5.0 [facility] Comment on above: Result Comment: crit ical value repeated and verified Performed By: #### C BC #### [facility] [address] [place], [place] [id number] Antonio Randee Protein [Mass/Vol] 8.9 g/dL Critically high 6.1-8.2 T [facility] Comment on above: Performed By: #### C BC #### [facility] [address] [place], [place] [address] Antonio Randee Sodium [Moles/Vol] 135 mmol/L Critically low 137-145 [facility] Comment on above: Performed By: #### C BC #### [facility] [address] [place], [place] [id number] Antonio Randee Urea nitrogen [Mass/Vol] 105.0 mg/dL Critically high 9.0-20.0 [facility] Comment on above: Result Comment: crit ical value repeated and verified Performed By: #### C BC #### [facility] [address] [place] [address] Antonio Randee Urea nitrogen/Creatinine [Mass ratio] 28.9 mg/mg Normal [facility] Comment on above: Performed By: #### C BC #### [facility] [address] [place] [address] Antonio Randee PROF CHEM 8 (BAS METB)on Anion gap [Moles/Vol] 17.7 mmol/L Normal [facility] Comment on above: Performed By: #### C BC #### [facility] [address] [place] [address] Antonio Randee Calcium [Mass/Vol] 9.4 mg/dL Normal 8.4-10.2 [facility] Comment on above: Performed By: #### C BC #### [facility] [address], [place] [address] Antonio Randee Chloride [Moles/Vol] 101 mmol/L Normal 98-107 [facility] Comment on above: Performed By: #### C BC #### [facility] [address], [place] [address] Antonio Randee CO2 [Moles/Vol] 21.5 mmol/L Critically low 22.0-30.0 [facility] Comment on above: Performed By: #### C BC #### [facility] [address], [place] [address] Antonio Randee Creatinine [Mass/Vol] 3.29 mg/dL Critically high 0.66-1.25 [facility] Comment on above: Performed By: #### C BC #### [facility] [address] [address] Antonio Randee EGFR-AF BARBADIAN 23 mL/min/1.73m2 Critically low >=60 [facility] Comment on above: Performed By: #### C BC #### [facility] [address] [phone] Antonio Randee EGFR-NON AF BARBADIAN 19 mL/min/1.73m2 Critically low >=60 [facility] Comment on above: Performed By: #### C BC #### [facility] [address] [phone] Antonio Randee Glucose [Mass/Vol] 88 mg/dL Normal 74-106 [facility] Comment on above: Performed By: #### C BC #### [facility] [address], [place] [address] Antonio Randee Potassium [Moles/Vol] 6.2 mmol/L Critically high 3.4-5.0 [facility] Comment on above: Result Comment: crit ical value repeated and verified Performed By: #### C BC #### [facility] [address], [place] [address] Antonio Randee Sodium [Moles/Vol] 134 mmol/L Critically low 137-[address] [facility] Comment on above: Performed By: #### C BC #### [facility] [address] [place] [address] Antonio Randee Urea nitrogen [Mass/Vol] 100.0 mg/dL Critically high 9.0-20.0 [facility] Comment on above: Result Comment: crit ical value repeated and verified Performed By: #### C BC #### [facility] [address] [place] [address] Antonio Randee Urea nitrogen/Creatinine [Mass ratio] 31.0 mg/mg Normal [facility] Comment on above: Performed By: #### C BC #### [facility] [address] [place] [address] Antonio Randee PROTIMEon 11-02-2020 INR Coag (PPP) [Relative time] 1.01 {INR} Normal [facility] Comment on above: Performed By: #### D DIM, PT, PTT #### [facility] [address] [place] [address] Antonio Randee INR GUIDELINES SEE BELOW Normal [facility] Comment on above: Result Comment: CELINA RED INR: 2.0 - 3.0 CONDITIONS NOT LISTED BELOW 2.5 - 3.5 FOR PROSTHETIC HEART VALVE REPLACEMENT 2.5 - 3.5 RECURRENT THROMBOSIS Performed By: #### D DIM, PT, PTT #### [facility] [address] [place] [address] Antonio Randee PT Coag (PPP) [Time] 10.9 s Normal 9.0-11.6 [facility] Comment on above: Performed By: #### D DIM, PT, PTT #### [facility] [address] [place] [address] Antonio Randee PTTon 11-02-2020 aPTT Coag (Bld) [Time] 26.4 s Normal 22.3-36.2 [facility] Comment on above: Performed By: #### D DIM, PT, PTT #### [facility] [address] [place] [address] Antonio Randee TYPE AND SCREENon 11-02-2020 TYPE AND SCREEN Negative Normal [facility] Comment on above: Performed By: #### C BC #### [facility] [address], [place] [address] Antonio Jeff XR CHEST 1 Von 11-02-2020 XR CHEST 1 V EXAMINATION: XR CHES T 1 V HISTORY: CHEST PAIN, UNSPECIFIED COMPARISON: 05/30/2013 TECHNIQUE: AP portable erect FINDINGS: LUNGS: No significant pulmonary parenchymal abnormalities. VASCULATURE: No increased pulmonary vasculature. PLEURA: No pneumothorax, effusion, or pleural thickening. CARDIAC: No cardiomegaly or cardiac silhouette abnormality. MEDIASTINUM: No visible mass or adenopathy. BONES: Mild degenerative disc disease and spondylosis without visible acute abnormalities. OTHER: EKG wires IMPRESSION: No acute disease. Electronically authenticated by: KEELY COTA Date: 2020-11-02 13:30 Normal [facility] Reminderson 02-09-2020 Reminders - From: Idalmis Hyatt To: [facility] Maclearstacey Villanueva; Sent: 09/26/2019 13:20:37 EDT Show up: 10/27/2019 13:20:00 EDT Subject: 1 year w/psa Due Date/Time: 11/27/2019 13:20:00 EDT Reminder/Recall Office had to cancel patient's appointment for 09-26-2019 due to PRW being out of office. LM for patient to call and reschedule. If doesn't call to reschedule in 2 months call patient. 1 year w/PSA From: Bess Ha ([facility]) To: [facility] - Administrative; Sent: 11/22/2019 15:00:51 EDT Show up: 11/22/2019 15:00:00 EDT Subject: RE: 1 year w/psa lvm. From: Lupe Zafar MA ([employer]) To: [facility] - Administrative; Sent: 12/02/2019 12:24:47 EDT Show up: 12/02/2019 12:23:00 EDT Subject: RE: 1 year w/psa Please try and reschedule for a 1 year with f/u Pt was last seen 09/2018. needs PSA as well. Last PSA was done at [facility]. thank you lvm x2. Left message to call for annual recheck- per Kay' last note, needs PSA and KUB. Patient does not have a trackable diagnosis. Multiple phone messages have been left asking pt to call to schedule f/up. LR Normal [facility] Vital Signs Date Time Vital Sign Value Performing Clinician Facility 10-12-2023 13:49-0400 Body height 172.7 cm Christiana Ewing APRN.[employer] Work Phone: [facility] 10-12-2023 13:49-0400 Body mass index (BMI) [Ratio] 30.41 kg/m2 Christiana Ewing APRN.[employer] Work Phone: [facility] 10-12-2023 13:49-0400 Body temperature 96.69 [degF] Christiana Ewing APRN.[employer] Work Phone: [facility] 10-12-2023 13:49-0400 Body weight 90.72 kg Christiana Ewing NEUROPSYCHOLOGY SERVICE DIRECTOR.[employer] Work Phone: [facility] 10-12-2023 13:49-0400 Diastolic blood pressure 70 mm[Hg] Christiana Ewing APRN.[employer] Work Phone: [facility] 10-12-2023 13:49-0400 Heart rate 47 /min Christiana Ewing APRN.[employer] Work Phone: [facility] 10-12-2023 13:49-0400 Respiratory rate 20 /min Christiana Ewing APRN.[employer] Work Phone: [facility] 10-12-2023 13:49-0400 SaO2% (BldA) [Mass fraction] 98 % Christiana Ewing APRN.[employer] Work Phone: [facility] 10-12-2023 13:49-0400 Systolic blood pressure 136 mm[Hg] Christiana Ewing APRN.[employer] Work Phone: [facility] 10-02-2023 10:16-0400 Body height 175.26 cm MD Matthew Collazo Work Phone: [facility] 10-02-2023 10:16-0400 Body mass index (BMI) [Ratio] 30.1 kg/m2 MD Matthew Collazo Work Phone: [facility] 10-02-2023 10:16-0400 Body weight 92.53 kg MD Matthew Collazo Work Phone: [facility] 10-02-2023 10:16-0400 Diastolic blood pressure 66 mm[Hg] MD Matthew Collazo Work Phone: [facility] 10-02-2023 10:16-0400 Heart rate 62 /min MD Matthew Collazo Work Phone: [facility] 10-02-2023 10:16-0400 Respiratory rate 18 /min MD Matthew Collazo Work Phone: [facility] 10-02-2023 10:16-0400 SaO2% (BldA) [Mass fraction] 98 % MD Matthew Collazo Work Phone: [facility] 10-02-2023 10:16-0400 Systolic blood pressure 104 mm[Hg] MD Matthew Collazo Work Phone: [facility] 07-24-2023 11:41-0400 Body height 175.26 cm MD Matthew Collazo Work Phone: [facility] 07-24-2023 11:41-0400 Body mass index (BMI) [Ratio] 31.1 kg/m2 MD Matthew Collazo Work Phone: [facility] 07-24-2023 11:41-0400 Body weight 95.7 kg MD Matthew Collazo Work Phone: [facility] 07-24-2023 11:41-0400 Diastolic blood pressure 82 mm[Hg] MD Matthew Collazo Work Phone: [facility] 07-24-2023 11:41-0400 Heart rate 53 /min MD Matthew Collazo Work Phone: [facility] 07-24-2023 11:41-0400 Respiratory rate 18 /min MD Matthew Collazo Work Phone: [facility] 07-24-2023 11:41-0400 SaO2% (BldA) [Mass fraction] 96 % MD Matthew Collazo Work Phone: [facility] 07-24-2023 11:41-0400 Systolic blood pressure 126 mm[Hg] MD Matthew Collazo Work Phone: [facility] 07-17-2023 12:08-0400 Body height 175.26 cm MD Matthew Collazo Work Phone: [facility] 07-17-2023 11:25-0400 Body temperature 97.8 [degF] MD Matthew Collazo Work Phone: [facility] 07-17-2023 11:25-0400 Diastolic blood pressure 83 mm[Hg] MD Matthew Collazo Work Phone: [facility] 07-17-2023 11:25-0400 Heart rate 56 /min MD Matthew Collazo Work Phone: [facility] 07-17-2023 11:25-0400 Respiratory rate 18 /min MD Matthew Collazo Work Phone: [facility] 07-17-2023 11:25-0400 SaO2% (BldA) [Mass fraction] 97 % MD Matthew Collazo Work Phone: [facility] 07-17-2023 11:25-0400 Systolic blood pressure 146 mm[Hg] MD Matthew Collazo Work Phone: [facility] 07-17-2023 08:49-0400 Body weight 98.5 kg MD Matthew Collazo Work Phone: [facility] 07-08-2023 13:50-0400 Body height 172.7 cm Christen Cheuvront NEUROPSYCHOLOGY SERVICE DIRECTOR.[employer] Work Phone: [facility] 07-08-2023 13:50-0400 Body mass index (BMI) [Ratio] 32.69 kg/m2 Christiana Whitmoreuvront NEUROPSYCHOLOGY SERVICE DIRECTOR.[employer] Work Phone: [facility] 07-08-2023 13:50-0400 Body temperature 96.6 [degF] Vinnyen Myrandauvront NEUROPSYCHOLOGY SERVICE DIRECTOR.[employer] Work Phone: [facility] 07-08-2023 13:50-0400 Body weight 97.52 kg Christen Myrandauvront NEUROPSYCHOLOGY SERVICE DIRECTOR.[employer] Work Phone: [facility] 07-08-2023 13:50-0400 Diastolic blood pressure 71 mm[Hg] Vinnyen Cheuvront NEUROPSYCHOLOGY SERVICE DIRECTOR.[employer] Work Phone: [facility] 07-08-2023 13:50-0400 Heart rate 65 /min Vninyen Myrandauvront NEUROPSYCHOLOGY SERVICE DIRECTOR.SUPER[employer] Work Phone: [facility] 07-08-2023 13:50-0400 Respiratory rate 20 /min [facility] Myrandauvront NEUROPSYCHOLOGY SERVICE DIRECTOR.[employer] Work Phone: [facility] 07-08-2023 13:50-0400 SaO2% (BldA) [Mass fraction] 98 % [facility] Whitmoreuvront NEUROPSYCHOLOGY SERVICE DIRECTOR.SUPER[employer] Work Phone: [facility] 07-08-2023 13:50-0400 Systolic blood pressure 144 mm[Hg] Vinnyen Cheuvront NEUROPSYCHOLOGY SERVICE DIRECTOR.[employer] Work Phone: [facility] 06-09-2023 14:45-0400 Diastolic blood pressure 71 mm[Hg] Eric Montiel MD Work Phone: [facility] 06-09-2023 14:45-0400 Heart rate 62 /min Eric Montiel MD Work Phone: [facility] 06-09-2023 14:45-0400 SaO2% (BldA) [Mass fraction] 97 % Eric Montiel MD Work Phone: [facility] 06-09-2023 14:45-0400 Systolic blood pressure 132 mm[Hg] Eric Montiel MD Work Phone: [facility] 04-27-2023 13:08-0500 Body height 172.7 cm Christen Cheuvront NEUROPSYCHOLOGY SERVICE DIRECTOR.[employer]PER[employer] Work Phone: [facility] 04-27-2023 13:08-0500 Body temperature 96.21 [degF] Christen Cheuvront NEUROPSYCHOLOGY SERVICE DIRECTOR.[employer]PER[employer] Work Phone: [facility] 04-27-2023 13:08-0500 Body weight 97.52 kg Christen Cheuvront NEUROPSYCHOLOGY SERVICE DIRECTOR.[employer] Work Phone: [facility] 04-27-2023 13:08-0500 Diastolic blood pressure 77 mm[Hg] Christen Cheuvront NEUROPSYCHOLOGY SERVICE DIRECTOR.SUPER[employer] Work Phone: [facility] 04-27-2023 13:08-0500 Heart rate 67 /min Christen Cheuvront NEUROPSYCHOLOGY SERVICE DIRECTOR.[employer] Work Phone: [facility] 04-27-2023 13:08-0500 Respiratory rate 20 /min Christen Cheuvront NEUROPSYCHOLOGY SERVICE DIRECTOR.[employer] Work Phone: [facility] 04-27-2023 13:08-0500 SaO2% (BldA) [Mass fraction] 96 % Christen Cheuvront NEUROPSYCHOLOGY SERVICE DIRECTOR.SUPER[employer] Work Phone: [facility] 04-27-2023 13:08-0500 Systolic blood pressure 152 mm[Hg] Christen Cheuvront NEUROPSYCHOLOGY SERVICE DIRECTOR.[employer] Work Phone: [facility] 02-10-2023 14:52-0500 Diastolic blood pressure 81 mm[Hg] Eric Montiel MD Work Phone: [facility] 02-10-2023 14:52-0500 Heart rate 63 /min Eric Montiel MD Work Phone: [facility] 02-10-2023 14:52-0500 SaO2% (BldA) [Mass fraction] 98 % Eric Montiel MD Work Phone: [facility] 02-10-2023 14:52-0500 Systolic blood pressure 155 mm[Hg] Eric Montiel MD Work Phone: [facility] 11-11-2022 09:44-0400 Body height 172.7 cm Eric Montiel MD Work Phone: [facility] 11-11-2022 09:44-0400 Body weight 97.07 kg Eric Montiel MD Work Phone: [facility] 11-11-2022 09:44-0400 Diastolic blood pressure 79 mm[Hg] Eric Montiel MD Work Phone: [facility] 11-11-2022 09:44-0400 Heart rate 56 /min Eric Montiel MD Work Phone: [facility] 11-11-2022 09:44-0400 SaO2% (BldA) [Mass fraction] 98 % Eric Montiel MD Work Phone: [facility] 11-11-2022 09:44-0400 Systolic blood pressure 154 mm[Hg] Eric Montiel MD Work Phone: [facility] Encounters Encounter Date Encounter Type Care Provider Facility Start: 10-13-2023 Telephone encounter Christiana Ewing APRN.SUPERVISOR ASSEMBLY [employer] PACKING Work Phone: Neurology Comment on above: PAP Supply Fax Start: 10-12-2023 End: 10-12-2023 ambulatory CHRISTIANA EWING Facility:[facility] Start: 10-12-2023 End: 10-12-2023 Patient encounter procedure Christiana Ewing NEUROPSYCHOLOGY SERVICE DIRECTOR.SUPERVISOR [employer]ING Work Phone: Neurology Comment on above: Obstructive sleep ap juan carlos syndrome (Primary Dx); JATINDER treated with BiPAP; Parkinson's disease, unspecified whether dyskinesia present, unspecified whether manifestations fluctuate (HCC); Myocardial infarction, unspecified PA type, unspecified artery (HCC); Obesity, Class I, BMI 30-34.9 Start: 10-02-2023 End: 10-02-2023 ambulatory MD Matthew Collazo Work Phone: [facility] Work Phone: Start: 10-02-2023 End: 10-02-2023 Patient encounter procedure MD Matthew Collazo Work Phone: [facility] Work Phone: Start: 08-04-2023 End: 08-04-2023 ambulatory [facility] Start: 07-27-2023 End: 07-27-2023 ambulatory [facility] Start: 07-24-2023 End: 07-24-2023 ambulatory MD Matthew Collazo Work Phone: [facility] Work Phone: Start: 07-24-2023 End: 07-24-2023 Patient encounter procedure MD Matthew Collazo Work Phone: [facility] Work Phone: Start: 07-20-2023 Non-patient / Non-visit MD Tod Collazo Work Phone: [facility] Work Phone: Start: 07-16-2023 End: 07-17-2023 Non-patient / Non-visit MD Matthew Collazo Work Phone: [facility] Work Phone: Start: 07-16-2023 End: 07-17-2023 Evaluation and management of inpatient Matthew Collazo Facility:[facility] Start: 07-16-2023 End: 07-17-2023 Evaluation and management of inpatient MD Matthew Collazo Work Phone: [facility] [facility] Work Phone: Start: 07-09-2023 Telephone encounter Christiana Ewing APRN.SUPERVISOR [employer] Work Phone: Neurology Comment on above: PAP Therapy Fax Start: 07-08-2023 End: 07-08-2023 ambulatory CHRISTIANA EWING Facility:[facility] Start: 07-08-2023 End: 07-08-2023 Patient encounter procedure Christiana Ewing APRN.CNP Work Phone: Neurology Comment on above: Obstructive sleep ap juan carlos syndrome (Primary Dx); JATINDER treated with BiPAP; Malfunction of continuous positive airway pressure (CPAP) or bilevel positive airway pressure (BPAP) machine, initial encounter; Dream enactment behavior; Parkinson's disease, unspecified whether dyskinesia present, unspecified whether manifestations fluctuate (HCC); Primary hypertension Start: 06-18-2023 Chart [facility] Work Phone: Neurology Start: 06-17-2023 End: 06-17-2023 [facility] Facility:[facility] Start: 06-09-2023 End: 06-09-2023 [facility] Start: 06-09-2023 End: 06-09-2023 Patient encounter procedure Eric Montiel MD Work Phone: [facility] Comment on above: Parkinson's disease without dyskinesia or fluctuating manifestations (HCC) (Primary Dx); Tremor; Gait disorder Start: 04-27-2023 Telephone encounter Christiana Ewing APRN.CNP Work Phone: Neurology Comment on above: PAP Replacement Fax Start: 04-27-2023 End: 04-27-2023 Patient encounter procedure Christiana Ewing APRN.CNP Work Phone: Neurology Comment on above: Obstructive sleep ap juan carlos syndrome (Primary Dx); JATINDER treated with BiPAP; Malfunction of continuous positive airway pressure (CPAP) or bilevel positive airway pressure (BPAP) machine, initial encounter; Parasomnia, unspecified type; Dream enactment behavior; Injury while sleeping Start: 04-27-2023 End: 04-27-2023 ambulatory ERIC MONTIEL Facility:[facility] Start: 04-01-2023 Anai bennett MD Work Phone: [facility] Comment on above: Essential hypertensi on Start: 03-16-2023 End: 03-16-2023 ambulatory BRIAN ECHEVERRIAING Not Available Start: 02-10-2023 End: 02-10-2023 Subsequent hospital visit by physician Marquez Burks J1-4 Work Phone: Radiology Comment on above: Cervical stenosis of spine [M48.02] Start: 02-10-2023 End: 02-10-2023 ambulatory [facility] Facility:[facility] Start: 02-10-2023 End: 02-10-2023 Patient encounter procedure Eric Montiel MD Work Phone: [facility] Comment on above: Tremor (Primary Dx) Start: 02-06-2023 End: 02-06-2023 ambulatory [facility] Facility:[facility] Start: 01-14-2023 Orders Only Eric Montiel MD Work Phone: [facility] Comment on above: Cervical stenosis of spine (Primary Dx) Results (MRI) Start: 01-07-2023 End: 01-07-2023 ambulatory [facility] Facility:[facility] Start: 11-11-2022 End: 11-11-2022 [facility] Facility:[facility] Start: 11-11-2022 End: 11-11-2022 Patient encounter procedure Eric Montiel MD Work Phone: [facility] Comment on above: Tremor (Primary Dx); Spinal stenosis of cervical region; Gait disorder Start: 07-19-2021 End: 07-20-2021 ambulatory NARESH HINDS Facility:[facility] Start: 11-02-2020 End: 11-04-[address] DEBBIE MAGAÑA Facility: Procedures Date Procedure Procedure Detail Performing Clinician Start: 07-16-2023 CL LHC & COR Angio MD Albert Collazo Work Phone: Start: 07-16-2023 CL Stent 1st Vessel LAD ALBINO MD Matthew Collazo Work Phone: Start: 07-16-2023 CL Stent Ea Add LAD ALBINO Collazo Work Phone: Start: 07-16-2023 MD Matthew parker Work Phone: Start: 02-10-2023 Radex spine cervical 2 or 3 views Balta Boyer NEUROPSYCHOLOGY SERVICE DIRECTOR.SUPERVISOR [employer]ING Work Phone: Start: 10-22-2022 Adult depression scr eening assessment Matthew Collazo MD Work Phone: Start: 03-22-2018 Colonoscopy Matthew Feliz Work Phone: Start: 01-08-2018 Lipid 1996 panel - S nicole or Plasma Eric Montiel MD Work Phone: Plan of Treatment Date Care Activity Detail Author Start: 03-22-2028 Screening for malign ant neoplasm of colon Colonoscopy [facility] Start: 10-25-2027 PROSTATE CANCER SCREENING DISCUSSION PROSTATE CANCER SCREENING DISCUSSION [facility] Start: 10-25-2027 Prostate specific antigen measurement Prostate Cancer Screening Discussion [facility] Start: 10-24-2025 Diabetes Screening Diabetes Screenin g [facility] Start: 01-12-2024 End: 01-12-2024 Patient encounter procedure 01/12/2024 1:00 PM EST Office Visit Neurology [address] [place] [address] Christiana Ewing APRN.SUPERVISOR [employer] P[employer]ING [address] [place] [address] Return in about 3 months (around 01/12/2024) for with EFRA. Neurology Comment on above: Return in about 3 mo nths (around 01/12/2024) for with EFRA. Start: 11-10-2023 End: 11-10-2023 Patient encounter procedure 11/10/2023 3:30 PM EDT Office Visit [facility] [address] [address] Eric Montiel MD [address] [place] [address] Follow up [facility] Comment on above: Follow up Start: 11-08-2023 Influenza vaccination Influenza Vacc ine (#1) [facility] Start: 10-23-2023 Adult BMI Screening Adult BMI Screen ing [facility] Start: 10-23-2023 Depression Screening Depression Scre ening [facility] Start: 10-23-2023 Fall Risk Screening Fall Risk Screen ing [facility] Start: 10-23-2023 Medicare Annual Well ness Visit Medicare Annual Wellness Visit [facility] Start: 10-23-2023 Tobacco Screening Tobacco Screening [facility] Start: 10-12-2023 End: 10-12-2023 Patient encounter procedure 10/12/2023 2:00 PM EDT Office Visit Neurology [address] [place] [id number] Christiana Ewing, MARYA.SUPERVISOR [employer]SEM[employer]ING [address] [place] [address] 3 mo tres with EFRA Neurology Comment on above: 3 mo tres with EFRA Start: 07-21-2023 Covid-19 Vaccine () Covid-19 Vaccine () [facility] Start: 07-17-2023 [facility] Start: 07-16-2023 Referral to cardiac rehabilitation program [facility] Start: 07-16-2023 Dilation of Coronary Artery, Two Arteries with Two Drug-eluting Intraluminal Devices, Percutaneous Approach Dilation of Coronary Artery, Two Arteries with Two Drug-eluting Intraluminal Devices, Percutaneous Approach [facility] Start: 07-16-2023 Fluoroscopy of Left Heart using Low Osmolar Contrast Fluoroscopy of Left Heart using Low Osmolar Contrast [facility] Start: 07-16-2023 Fluoroscopy of Multi ple Coronary Arteries using Low Osmolar Contrast Fluoroscopy of Multiple Coronary Arteries using Low Osmolar Contrast [facility] Start: 07-16-2023 Measurement of Cardi ac Sampling and Pressure, Left Heart, Percutaneous Approach Measurement of Cardiac Sampling and Pressure, Left Heart, Percutaneous Approach [facility] Start: 07-16-2023 Hospital admission [facility] Start: 07-16-2023 Referral to director of strategic marketing [facility] Start: 07-16-2023 [facility] Start: 03-09-2023 Advance Directive Discussion Advance Directive Discussion [facility] Start: 03-09-2023 Behavioral Health Screening Behavioral Health Screening [facility] Start: 03-09-2023 Depression Assessment Depression Ass essment [facility] Start: 01-08-2023 Lipid 1996 panel - S nicole or Plasma Lipid Screening [facility] Start: 01-08-2023 Lipid panel Lipid Screening [facility] Start: 01-08-2023 LIPID SCREEN LIPID SCREEN [facility] Start: 11-07-2022 Covid-19 Vaccine ( season) Covid-19 Vaccine ( season) [facility] Start: 11-07-2022 Influenza vaccination C [facility] Start: 07-04-2022 COVID-19 VACCINE (5 - Pfizer series) COVID-19 VACCINE (5 - Pfizer series) [facility] Start: 2022 ADVANCE DIRECTIVE DISCUSSION ADVANCE DIRECTIVE DISCUSSION [facility] Start: 2022 PNEUMOCOCCAL: 65+ (1 - PCV) PNEUMOCOCCAL: 65+ (1 - PCV) [facility] Start: 06-05-2022 DTaP,Tdap and Td Vaccines (2 - Td or Tdap) DTaP,Tdap and Td Vaccines (2 - Td or Tdap) [facility] Start: 06-05-2022 Urine microalbumin profile DTaP,Tdap,Td Vaccine (2 - Td or Tdap) [facility] Start: 03-09-2022 DEPRESSION ASSESSMENT DEPRESSION ASS ESSMENT [facility] Start: 02-01-2021 Screening for malign ant neoplasm of colon [facility] Start: 2017 RSV Vaccine (1 - 1-d ose 60+ series) RSV Vaccine (1 - 1-dose 60+ series) [facility] Start: 06-27-2007 Administration of varicella zoster vaccine Zoster (Shingles) Vaccine (1 of 2) [facility] Start: 06-27-2007 SHINGRIX VACCINE (1 of 2) SHINGRIX VACCINE (1 of 2) [facility] Start: 2002 COLOGUARD (FIT-DNA) COLOGUARD (FIT-D NA) [facility] Start: 2002 Colonoscopy COLONOSCOPY [facility] Start: 2002 COLORECTAL CANCER SCREENING COLORECTAL CANCER SCREENING [facility] Start: [address] COLONOGRAPHY [facility] Start: 2002 DIABETES SCREEN DIABETES SCREEN [facility] Start: 2002 Diabetes Screening Diabetes Screenin g [facility] Start: 2002 FECAL OCCULT BLOOD FECAL OCCULT BLOO D [facility] Start: 2002 Screening for malign ant neoplasm of colon [facility] Start: 2002 SIGMOIDOSCOPY SIGMOIDOSCOPY [facility] Start: 1976 Urine microalbumin profile DTAP,TDAP,TD (1 - Tdap) [facility] Start: 06-27-1975 Adult BMI Follow Up Plan Adult BMI Follow Up Plan [facility] Start: 06-27-1975 Annual PCP Team Machine Feeder Floorperson elena Disease Visit Annual PCP Team Chronic Disease Visit [facility] Start: 06-27-1975 Anxiety Screening Anxiety Screening [facility] Start: 06-27-1975 BP Controlled (<130/80) BP Controlle d (<130/80) [facility] Start: 06-27-1975 Depression Screening Depression Scre ening [facility] Start: 06-27-1975 HEPATITIS C SCREENING HEPATITIS C [facility] Start: 06-27-1975 Hepatitis C screening Hepatitis C [facility] Start: 06-27-1975 HIV SCREENING HIV SCREENING [facility] Start: 06-27-1975 HIV screening HIV Screening [facility] End: 12-11-2023 Mri brain brain stem w/o contrast material MRI BRAIN WO IVCON Radiology Routine Gait disorder Tremor 1 Occurrences starting 11/11/2022 until 12/11/2023 [facility] Work Phone: Comment on above: 1 Occurrences starti ng 11/11/2022 until 12/11/2023 End: 12-11-2023 Mri spinal canal cervical w/o contrast matrl MRI CERVICAL SPINE WO IVCON Radiology Routine Spinal stenosis of cervical region 1 Occurrences starting 11/11/2022 until 12/11/2023 [facility] Work Phone: Comment on above: 1 Occurrences starti ng 11/11/2022 until 12/11/2023 Patient Education Coronary Angio plasty Heart Attack (DC) Angina (DC) Diabetes and diet Know your Meds [facility] Work Phone: Patient referral [facility] Work Phone: End: 04-26-2024 Polysomnogram POLYSOMNOGRAM (PSG) Procedures Routine Obstructive sleep apnea syndrome Parasomnia, unspecified type Dream enactment behavior Injury while sleeping 1 Occurrences starting 04/27/2023 until 04/26/2024 [facility] Work Phone: Comment on above: 1 Occurrences starti ng 04/27/2023 until 04/26/2024 [facility] Immunizations Immunization Date Immunization Notes Care Provider [facility] 01-28-2023 influenza virus vaccine, unspecified formulation Christiana Ewing NEUROPSYCHOLOGY SERVICE DIRECTOR.SUPERVISOR ASSEMBLY [employer] PACKING Work Phone: [facility] 10-22-2022 Pneumococcal Conjuga te 20-valent Matthew Collazo MD Work Phone: [facility] 04-08-2022 influenza, injectabl e, quadrivalent, preservative free Matthew Collazo MD Work Phone: [facility] 04-08-2022 influenza virus vaccine, unspecified formulation Eric Montiel MD Work Phone: [facility] 12-12-2020 influenza, seasonal, injectable Matthew Collazo MD Work Phone: [facility] 06-14-2020 COVID-19, mRNA, LNP- S, PF, 30mcg/0.3mL Dose Matthew Collazo MD Work Phone: [facility] 05-23-2020 COVID-19, mRNA, LNP- S, PF, 30mcg/0.3mL Dose Matthew Collazo MD Work Phone: [facility] 06-05-2012 tetanus toxoid, redu lv diphtheria toxoid, and acellular pertussis vaccine, adsorbed Matthew Collazo MD Work Phone: [facility] Payers Date Payer Category Payer Medicare [id number] 2023 Self-pay [id number] 2023 Unknown [id number] 2022 Medicare [id number] 2022 Medicare [id number] 1959 Private Health Insurance [id number] 1959 Unknown [id number] 1957 Unknown [id number] 1957 Unknown [id number] 1957 Unknown [id number] 1957 Unknown [id number] 1957 Unknown [id number] [id number] Unknown [id number] Social History Date Type Detail Facility Start: 11-11-2022 End: 10-02-2023 Tobacco smoking status NHIS Never smoked tobacco [facility] Start: 10-22-2022 End: 11-11-2022 Tobacco use and exposure Smokeless tobacco non-user [facility] Start: 11-11-2022 End: 10-12-2023 Alcohol intake Lifetime non-drinker (finding) [facility] Start: 11-11-2022 End: 02-06-2023 History of Social function [facility] Start: 11-11-2022 End: 02-06-2023 Tobacco use panel [facility] National Score (1-100), lower number is lower risk 93 [facility] Start: 1955 Sex Assigned At Not on file C [facility] Start: 10-22-2022 Alcohol intake Current drinke r of alcohol (finding) [facility] Start: 03-15-2018 Alcohol Comment Once in a while [facility] Start: [birth year]20-1956 Sex Assigned At Male F [facility] Medical Equipment Procedure Code Equipment Code Equipment Origin al Text Equipment Identifier Dates CL STENT PRABHAKAR FRONTIER 2.5 X 22 FDA Start: 07-16-2023 CL STENT PRABHAKAR FRONTIER 3.5 X 38 FDA Start: 07-16-2023 CL STENT PRABHAKAR FRONTIER 2.5 X 22 FDA Start: 07-16-2023 CL STENT PRABHAKAR FRONTIER 3.5 X 38 FDA Start: 07-16-2023 CL STENT PRABHAKAR FRONTIER 2.5 X 22 FDA Start: 07-16-2023 CL STENT PRABHAKAR FRONTIER 3.5 X 38 FDA Start: 07-16-2023 Goals Date Patient Goal Desired Activity /State Functional Status Date Assessment Result Facility 07-17-2023 Functional status Patient at Baseline [facility] Work Phone: Mental Status Date Assessment Result Facility 07-17-2023 Cognitive function Cognitive Sta tus Patient at Baseline [facility] Work Phone: Clinical Notes 11-11-2022 to 10-13-2023 Telephone Encounter - Zack Wallace LPN - 10/13/2023 8:42 AM EDTTelephone Encounter - Zack Wallace LPN - 10/13/2023 8:42 AM EDTPatient Instructions Note Date & Type Note Facility 10-13-2023 Telephone encount er Note Faxed order, office notes to: DME name: [facility] fax # [phone] DME Faxed info in patient's chart. [facility] 10-13-2023 Miscellaneous Notes Formattin g of this note might be different from the original. Faxed order, office notes to: DME name: [facility] fax # [phone] DME Faxed info in patient's chart. documented in this encounter [facility] 10-12-2023 Instructions Christiana Ewing APRN.SUPERVISOR [employer]ING - 10/12/2023 2:33 PM EDT Images from the original note were not included. PATIENT INSTRUCTIONS: - Continue Auto Bilevel PAP at IPAP max 25 cmH2O, EPAP min 9 cmH2O, PS 4 cmH2O - I will request a download from your DME company: [facility] (Phone Fax ) - You will need to provide them with your 3-digit device code - I will send you a [employer] message when the download is received, letting you know if any changes to your settings are needed/recommended - Remember to clean your mask and equipment regularly, as directed. - Avoid use of ozone kettle operator, SoClean devices, or UV cleaning devices - Avoid using alcohol or alcohol-containing products on your mask, as this may compromise the integrity of the mask materials and contribute to leak issues - Use only baby shampoo and water, mild dish soap and water, or CPAP-specific wipes to clean your supplies. - You should be eligible for new supplies approximately every 3-6 months, depending on your insurance coverage. Contact your Durable Medical Equipment (DME) company for new supplies as needed. - Order will be sent to [employer] for supplies: [facility] (Phone Fax ) - Let DME know if you need filters - Try to get about a 1 hour planned nap with BiPAP on after lunch ; hopefully this will help to reduce daytime sleepiness and drowsiness Bedroom Safety Measures: Removing sharp objects and weapons from room you're sleeping in Move furniture and clutter from the room or away from the bed so you don't run into anything. Make sure windows and doors are locked Sleep away from your partner if symptoms are dangerous for them Can lower bed closer to the ground or get bed rails - Follow-up 3 months PAP Supply Guidelines Below are the guidelines for reordering your supplies. You will be responsible for your deductible, co-payments, and out of pocket expenses. Item Medicare & Commercial Insurance Medicaid & HCAP Nasal Mask (no headgear) 1 every 3 months 1 per year Nasal Mask Cushion 1 every month 2 per year Full Face Mask (no headgear) 1 every 3 months 1 per year Full Face Mask Cushion 1 every month *Self-Pay Nasal Pillows 2 every month 2 per year Headgear 1 every 6 months 1 per year Chin Strap 1 every 6 months 2 per year Tubing 1 every 3-6 months 1 per year Filters: Reusable 1 every 6 months 4 per year Filters: Disposable 2 every month 1 per month Humidifier Chamber(disposable) 1 every 6 months *Self-Pay Contacting the Sleep Disorders Center: - Appointments can be scheduled through the central scheduling system for the [facility] [place] at [phone]. - Call the Sleep Disorders Center at [phone] for questions. - May use Message [employer] Doc through [employer] for questions. - [facility] website: [email or web address] documented in this encounter [facility] 10-12-2023 Note HNO ID: [id number] Author: CHRISTIANA EWING APRN.JACINTA Service: ? Author Type: Nurse Practitioner Type: Progress Notes Filed: 10/12/2023 14:43 Note Text: [facility] Follow up/ Established patient visit Date of last visit : 07/08/2023 Per last visit: IMPRESSION: Obstructive sleep apnea syndrome (primary encounter diagnosis) Jatinder treated with bipap Malfunction of continuous positive airway pressure (cpap) or bilevel positive airway pressure (bpap) machine, initial encounter Dream enactment behavior Parkinson's disease, unspecified whether dyskinesia present, unspecified whether manifestations fluctuate (hcc) Primary hypertension Matthew Garza is a pleasant 68 year old male with PMH of JATINDER on BiPAP, PD, cervical stenosis, tremor, HTN, JATINDER, and class I obesity. He presents today with his . He has a BiPAP device that is malfunctioning. rAHI was not well-controlled (>20) at time of last visit. He does not have device with him at today's visit for reassessment. Updated Split Study with RBD protocol was completed to requalify for supplies/new device and reassess appropriate settings. He reported DEBs associated w/ hitting (last in Apr 2023). Split study with expanded EMG monitoring completed 06/17/2023 showed severe JATINDER (AHI 66.8) associated with minimum oxygen saturation of 76%; CPAP titration was initiated, but transition to bilevel PAP due to the presence of central apneas; Jay Jay-Mcdaniel breathing was not present during PAP titration portion of study; at a bilevel PAP setting of 25/19 cmH2O, the AHI was normalized, snoring was not eliminated, and oxygen saturation was maintained above 92%, however REM sleep was not captured at the setting; RSWA scoring was performed; 0.0% of REM sleep epochs met criteria supportive of RBD, however severity of SDB renders evaluation and adequate; auto BiPAP with IPAP max 25, EPAP min 9, and pressure support 4 recommended with close clinical follow-up; 4% hypopnea scoring; BMI 32.8 Results of sleep study reviewed w/ pt and . We will proceed with Auto BiPAP device order through new DME. PLAN: - Continue Bilevel PAP at current settings of 25/21 cmH2O until new device is received. - Try the sample mask provided today : AirFit F30 mask, size small - Try this mask for a couple of weeks - If you like it and it's fitting well, contact your DME company to let them know that you are changing to this mask, so they provide the correct supplies - Auto BiPAP device is needed based on sleep study results: - Will start Auto Bilevel PAP with IPAP max 25 cmH2O, EPAP min 9 cmH2O, PS 4 cmH2O - I will have a prescription sent to a DME (durable medical equipment) company - [facility] (Phone ? Fax ) - They should reach out to you in the next 1-2 weeks. - If you do not hear from them within 2 weeks, please contact them directly - Let them know what mask you would like to use. - Start using your device right away - We can adjust pressure for comfort if requested prior to next visit. - You should be eligible for new supplies approximately every 3-6 months, depending on your insurance coverage. - If your mask doesn't fit well, call the DME company within the first 30 days to get a new mask without an additional charge. INSURANCE REQUIREMENTS: - Your insurance requires a follow up visit within a 31-90 day period after starting PAP device. This may be virtual or in-person. - Your insurance requires at least 70% compliance with using your PAP device, which is at least 4 hours per night, at least 5 nights per week, for at least 30 consecutive days. This must occur within the initial 90 day period after starting PAP therapy. - Your insurance also requires at least yearly follow ups to continue to pay for PAP supplies. - Schedule a 3 month follow-up visit today, or call after you receive your machine: [phone] - Follow-up visit needs to be between 31-90 days after receiving CPAP device Bedroom Safety Measures: Removing sharp objects and weapons from room you're sleeping in Move furniture and clutter from the room or away from the bed so you don't run into anything. Make sure windows and doors are locked Sleep away from your partner if symptoms are dangerous for them Can lower bed closer to the ground or get bed rails Christiana Ewing APRN.[employer] Here for follow up for JATINDER - PAP compliance Interval history : No recent DEBs or yelling during sleep with new Auto BiPAP device. He received his new device from [employer] but they need 3 digit code to set-up remote access. Overall doing well with Auto BiPAP. He is dozing off more during the day since his recent PA in 07/2023. SLEEP APNEA Split study with expanded EMG monitoring completed 06/17/2023 showed severe JATINDER (AHI 66.8) associated with minimum oxygen saturation of 76%; CPAP titration was ini (more content not included)... [facility] 10-12-2023 History of Presen t illness Narrative Images from the original note were not included. [facility] Follow up/ Established patient visit Date of last visit : 07/08/2023 Per last visit: IMPRESSION: Obstructive sleep apnea syndrome (primary encounter diagnosis) Jatinder treated with bipap Malfunction of continuous positive airway pressure (cpap) or bilevel positive airway pressure (bpap) machine, initial encounter Dream enactment behavior Parkinson's disease, unspecified whether dyskinesia present, unspecified whether manifestations fluctuate (hcc) Primary hypertension Matthew Garza is a pleasant 68 year old male with PMH of JATINDER on BiPAP, PD, cervical stenosis, tremor, HTN, JATINDER, and class I obesity. He presents today with his . He has a BiPAP device that is malfunctioning. rAHI was not well-controlled (>20) at time of last visit. He does not have device with him at today's visit for reassessment. Updated Split Study with RBD protocol was completed to requalify for supplies/new device and reassess appropriate settings. He reported DEBs associated w/ hitting (last in Apr 2023). Split study with expanded EMG monitoring completed 06/17/2023 showed severe JATINDER (AHI 66.8) associated with minimum oxygen saturation of 76%; CPAP titration was initiated, but transition to bilevel PAP due to the presence of central apneas; Jay Jay-Mcdaniel breathing was not present during PAP titration portion of study; at a bilevel PAP setting of 25/19 cmH2O, the AHI was normalized, snoring was not eliminated, and oxygen saturation was maintained above 92%, however REM sleep was not captured at the setting; RSWA scoring was performed; 0.0% of REM sleep epochs met criteria supportive of RBD, however severity of SDB renders evaluation and adequate; auto BiPAP with IPAP max 25, EPAP min 9, and pressure support 4 recommended with close clinical follow-up; 4% hypopnea scoring; BMI 32.8 Results of sleep study reviewed w/ pt and . We will proceed with Auto BiPAP device order through new DME. PLAN: - Continue Bilevel PAP at current settings of 25/21 cmH2O until new device is received. - Try the sample mask provided today : AirFit F30 mask, size small - Try this mask for a couple of weeks - If you like it and it's fitting well, contact your DME company to let them know that you are changing to this mask, so they provide the correct supplies - Auto BiPAP device is needed based on sleep study results: - Will start Auto Bilevel PAP with IPAP max 25 cmH2O, EPAP min 9 cmH2O, PS 4 cmH2O - I will have a prescription sent to a DME ([employer]) company - [facility] (Phone Fax ) - They should reach out to you in the next 1-2 weeks. - If you do not hear from them within 2 weeks, please contact them directly - Let them know what mask you would like to use. - Start using your device right away - We can adjust pressure for comfort if requested prior to next visit. - You should be eligible for new supplies approximately every 3-6 months, depending on your insurance coverage. - If your mask doesn't fit well, call the [employer] company within the first 30 days to get a new mask without an additional charge. INSURANCE REQUIREMENTS: - Your insurance requires a follow up visit within a 31-90 day period after starting PAP device. This may be virtual or in-person. - Your insurance requires at least 70% compliance with using your PAP device, which is at least 4 hours per night, at least 5 nights per week, for at least 30 consecutive days. This must occur within the initial 90 day period after starting PAP therapy. - Your insurance also requires at least yearly follow ups to continue to pay for PAP supplies. - Schedule a 3 month follow-up visit today, or call after you receive your machine: [phone] - Follow-up visit needs to be between 31-90 days after receiving CPAP device Bedroom Safety Measures: Removing sharp objects and weapons from room you're sleeping in Move furniture and clutter from the room or away from the bed so you don't run into anything. Make sure windows and doors are locked Sleep away from your partner if symptoms are dangerous for them Can lower bed closer to the ground or get bed rails Christiana Ewing APRN.[employer] Here for follow up for JATINDER - PAP compliance Interval history : No recent DEBs or yelling during sleep with new Auto BiPAP device. He received his new device from [employer] but they need 3 digit code to set-up remote access. Overall doing well with Auto BiPAP. He is dozing off more during the day since his recent PA in 07/2023. SLEEP APNEA Split study with expanded EMG monitoring completed 06/17/2023 showed severe JATINDER (AHI 66.8) associated with minimum oxygen saturation of 76%; CPAP titration was initiated, but transition to bilevel PAP due to the presence of central apneas; Jay Jay-Mcdaniel breathing was not present during PAP titration portion of study; at a bilevel PAP setting of 25/19 cmH2O, the AHI was normalized, snoring was not eliminated, and oxygen saturation was maintained above 92%, however REM sleep was not captured at the setting; RSWA scoring was performed; 0.0% of REM sleep epochs met criteria supportive of RBD, however severity of SDB renders evaluation inadequate; auto BiPAP with IPAP max 25, EPAP min 9, and pressure support 4 recommended with close clinical follow-up; 4% hypopnea scoring; BMI 32.8 Sleep apnea type : JATINDER, Most Recent Apnea-Hypopnea Index (AHI): 66.8 Treatment : PAP therapy DME: [facility] (Phone Fax ) PAP History: Uses Bilevel PAP for 8 hours per night, 7 nights per week. Current PAP setting: IPAP max 25 cmH2O, EPAP min 9 cmH2O, PS 4 cmH2O Difficulties with Bilevel PAP: No Reviewed objective PAP compliance data: does not have device with him today Mask type: full face mask - F30 Mask issues: none - not making noises per Distilled water: Yes Per , he's not making any noises with new Auto BiPAP device SLEEP HYGIENE QUESTIONS: Bedtime : 10-11 PM Time it takes to fall sleep : 5 mins Number of times patient wakes up per night : 1x/night Reason (s) why patient wakes up during the night : use BR - falls right back asleep Wake up Time : 8 AM Estimated total sleep time (in a 24 hour period of time) : 8-9 hours overnight Naps : off and on during the day a few times 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 Neurological: Positive for memory loss. All other systems reviewed and are negative. ALLERGIES No Known Allergies CURRENT MEDICATIONS: aspirin, enteric coated (ASPIRIN, ENTERIC COATED) 81 mg EC tablet Take 81 mg by mouth once daily. atorvastatin (LIPITOR) 80 mg tablet Take 80 mg by mouth once daily. nitroglycerin sublingual (NITROQUICK) 0.4 mg SL tablet Q5M losartan (COZAAR) 25 mg tablet Take 25 mg by mouth every morning. ticagrelor (BRILINTA) 90 mg tablet two times a day. CPAP/BIPAP/OTHER Type .CPAPSettings into a note to see current settings/supplies/DME information. glucosam/chond-msm1/C/jaya/bor (PAMUDFHEMDC-BSZZT-CXT COMPLEX ORAL) Take 2 tablets by mouth once daily. carbidopa-levodopa (SINEMET) 25-100 mg per tablet Take 1.5 pills, 3 times per day CPAP/BIPAP/OTHER REPLACEMENT BIPAP DEVICE: BIPAP with settings of 25/21 cm H2O. Dx: Obstructive Sleep Apnea G47.33 DME: [facility] Fax: Fax download reports to [phone]. bisoprolol-hydroCHLOROthiazide (ZIAC) 10-6.25 mg per tablet Take 1 tablet by mouth every morning. BIPAP CPAP/BIPAP/OTHER Type .CPAPSettings into a note to see current settings/supplies/DME information. BP 136/70 (BP Site: Left Arm, BP Position: Sitting, BP Cuff Size: Regular Adult) Pulse (!) 47 Temp (!) 35.9 C (96.7 F) Resp 20 Ht 172.7 cm (5' 8 ) Wt 90.7 kg (200 lb) SpO2 98% BMI 30.41 kg/m PHYSICAL EXAMINATION: General appearance: NAD, well groomed HEENT: Normocephalic, atraumatic Neuro: Awake, alert, memory grossly intact, speech is fluent Respiratory: No increased work of breathing; able to speak in complete sentences Psych: Appropriate, normal affect IMPRESSION: Obstructive sleep apnea syndrome (primary encounter diagnosis) Jatinder treated with bipap Parkinson's disease, unspecified whether dyskinesia present, unspecified whether manifestations fluctuate (hcc) Myocardial infarction, unspecified mi type, unspecified artery (hcc) Obesity, class i, bmi 30-34.9 Matthew Garza is a pleasant 68 year old male with PMH of JATINDER on BiPAP, PD, cervical stenosis, tremor, HTN, JATINDER, and class I obesity. He presents today with his for PAP compliance. He had a BiPAP device that was malfunctioning. rAHI was not well-controlled (>20) on old device. Updated Split Study with RBD protocol was completed to requalify for supplies/new device and reassess appropriate settings. He reported DEBs associated w/ hitting (last in Apr 2023). Split study with expanded EMG monitoring completed 06/17/2023 showed severe JATINDRE (AHI 66.8) associated with minimum oxygen saturation of 76%; CPAP titration was initiated, but transition to bilevel PAP due to the presence of central apneas; Jay Jay-Mcdaniel breathing was not present during PAP titration portion of study; at a bilevel PAP setting of 25/19 cmH2O, the AHI was normalized, snoring was not eliminated, and oxygen saturation was maintained above 92%, however REM sleep was not captured at the setting; RSWA scoring was performed; 0.0% of REM sleep epochs met criteria supportive of RBD, however severity of SDB renders evaluation inadequate; auto BiPAP with IPAP max 25, EPAP min 9, and pressure support 4 recommended with close clinical follow-up; 4% hypopnea scoring; BMI 32.8. He was set-up with Auto BiPAP through [facility]. There is no remote access set-up for device; per DME, they need 3 digit code from Auto BiPAP device. Per , his new mask (F30) is working much better w/o noisiness. He is not having yelling/making noises during the night, and no recent DEBs. He had a recent PA (07/2023) and his EDS is somewhat worse since that time. He is dozing on and off throughout the day. PLAN: - Continue Auto Bilevel PAP at IPAP max 25 cmH2O, EPAP min 9 cmH2O, PS 4 cmH2O - I will request a download from your DME company: [facility] (Phone Fax ) - You will need to provide them with your 3-digit device code - I will send you a [employer] message when the download is received, letting you know if any changes to your settings are needed/recommended - Remember to clean your mask and equipment regularly, as directed. - Avoid use of ozone kettle operator, SoClean devices, or UV cleaning devices - Avoid using alcohol or alcohol-containing products on your mask, as this may compromise the integrity of the mask materials and contribute to leak issues - Use only baby shampoo and water, mild dish soap and water, or CPAP-specific wipes to clean your supplies. - You should be eligible for new supplies approximately every 3-6 months, depending on your insurance coverage. Contact your Durable Medical Equipment (DME) company for new supplies as needed. - Order will be sent to DME for supplies: [facility] (Phone Fax ) - Let DME know if you need filters - Try to get about a 1 hour planned nap with BiPAP on after lunch ; hopefully this will help to reduce daytime sleepiness and drowsiness Bedroom Safety Measures: Removing sharp objects and weapons from room you're sleeping in Move furniture and clutter from the room or away from the bed so you don't run into anything. Make sure windows and doors are locked Sleep away from your partner if symptoms are dangerous for them Can lower bed closer to the ground or get bed rails - Follow-up 3 months Christiana Ewing APRN.JACINTA I spent a total of 31 minutes on the date of the service which included preparing to see the patient, [id number] patient care, completing clinical documentation, obtaining and/or reviewing separately obtained history, performing a medically appropriate examination, counseling and educating the patient/family/caregiver, ordering medications, tests, or procedures, and communicating results to the patient/family/caregiver. documented in this encounter [facility] 07-16-2023 Consult note Note Date/Time July 16, 2023 3:18pm [facility] [address] [place] [address] Cardiology Consult Note Signed Patient: Matthew Garza MR#: [id number] : 1955 Acct:[id number] Age/Sex: 68 / M Adm Date: 4 Loc: 4P Room: [address] [place] [address] Type: ADM IN Attending Dr: Matthias Mckenna MD Copies to: MD Matthew Alves MD W Scott Sheldon, DO~ Cardiology HPI History of Present Illness Consult Date: 07/16/23 Reason for Consult: Non-ST elevation PA, critical LAD and diagonal branch disease HPI: Mr. Garza is a 68 year old male seen in interventional cardiology consultation atthe request of Dr. Navya Rangel for further interventional assessment and management of LAD?diagonal branch disease. Patient presented with new onset acute coronary syndrome with troponins of 2100, ECG is consistent with high lateral non-ST elevation ischemia, corroborated by echocardiography revealing focal segmental distal lateral wall motion defect with preserved LV function. Comorbidities are noted for hyperlipidemia, hypertension, mild obesity, Parkinson syndrome There is no prior history of myocardial infarction or revascularization or thromboembolic or bleeding disorder in the past Case is reviewed, angiograms reviewed and discussed with general cardiology; will proceed with urgent ad hoc two-vessel PCI's of the LAD and diagonal branch infarct vessels. Review of Systems Review of Systems All other systems reviewed & are negative unless noted below or in HPI Constitutional Constitutional: Reports as per HPI [facility] Medical History (Updated 07/16/23 @ 13:25 by Navya Rangel MD) Collar bone fracture Rotator cuff arthropathy of right shoulder Strabismus Arthritis Sleep apnea Parkinson disease Hypertension Social History Smoking Status: Never smoker Substance Use Type: None Meds Medications and Allergies Allergies No Known Allergies Allergy (Verified 07/16/23 04:46) Home Medications bisoprolol 10 mg-hydrochlorothiazide 6.25 mg tablet 1 tab PO DAILY BLOOD PRESSURE 07/16/23 [History Confirmed 07/16/23] carbidopa 25 mg-levodopa 100 mg tablet 1.5 tab PO TID PARKINSONS 07/16/23 [History Confirmed 07/16/23] Exam Physical Exam Vital Signs: Temp Pulse Resp BP Pulse Ox O2 Del Method 97.6 F 73 18 168/92 H 94 L Room Air 07/16/23 11:32 07/16/23 11:32 07/16/23 11:32 07/16/23 11:32 07/16/23 11:32 07/16/23 11:32 Const General: cooperative, comfortable and no acute distress Nutritional Appearance: overweight Orientation: awake Limitations: altered mental status HEENT Head: normal to inspection Neck Neck: normal visual inspection Chest Chest palpation & inspection: normal inspection of the chest Resp Effort & Inspection: normal respiratory effort Auscultation: clear to auscultation bilaterally Cardio Palpation: normal PMI Rate: regular rate Rhythm: regular rhythm Heart Sounds: S1 normal and S2 normal Pulses: radial pulses present GI Palpation: soft Skin General: no rashes or lesions noted Neuro General: patient awake Cognition: abnormal cognition Speech: abnormal speech Extrem General: no clubbing, cyanosis or edema Results - Cardiology Labs 07/16/23 06:37 07/16/23 06:37 Lab results: Cardiac Enzymes 07/16/23 07/16/23 Range/Units 06:37 08:24 B-Natriuretic Peptide 245.0 H 292.0 H (5-100) pg/mL Lipids 07/16/23 Range/Units 06:37 Triglycerides 119 (0-149) mg/dL Cholesterol 182 (140-200) mg/dL HDL Cholesterol 42 (23-92) mg/dL Cholesterol/HDL Ratio 4.3 (<5.0) CBC 07/16/23 Range/Units 06:37 RBC 4.05 (3.90-5.60) X10E6/uL Hgb 12.5 L (13.0-17.0) g/dL Hct 37.9 L (38.8-50.0) % Plt Count 222 (150-450) x10E3/uL Neut # (Auto) 8.1 H (1.8-7.7) x10E3/uL Lymph # (Auto) 1.5 (1.00-4.8) x10E3/uL [place] # (Auto) 0.9 H (0.0-0.8) x10E3/uL Eos # (Auto) 0.0 (0.0-0.45) x10E3/uL Baso # (Auto) 0.0 (0.0-0.2) x10E3/uL Comprehensive Metabolic Panel 07/16/23 Range/Units 06:37 Sodium 139 (136-145) mmol/L Potassium 5.0 (3.5-5.1) mmol/L Chloride 103 (98-107) mmol/L Carbon Dioxide 26.3 (21.0-31.0) mmol/L BUN 25 (7-25) mg/dL Creatinine 1.28 (0.70-1.30) mg/dL Glucose 102 H (70-100) mg/dL Calcium 8.9 (8.6-10.3) mg/dL Intake and Output 07/15/23 07/16/23 07/16/23 23:59 07:59 15:59 Other: Weight 100.2 kg Date of Last Bowel Movement 07/16/23 07/16/23 Patient Weight 07/16/23 23:59 Weight 100.2 kg Lab 07/16/23 06:37 PT 11.8 INR 1.0 APTT 38.0 H EKG Interpretations EKG EKG results cardiology: sinus rhythm Blocks, axis, hypertrophy, ST abn Repolarization changes or abnormalities: ST or T wave suggestive of ischemia A&P - Cardiology (1) Hypertension: Code(s): I10 - Essential (primary) hypertension (2) Parkinson disease: Code(s): G20.A1 - Parkinson's disease without dyskinesia, without mention of fluctuations (3) NSTEMI (non-ST elevated myocardial infarction): Code(s): I21.4 - Non-ST elevation (NSTEMI) myocardial infarction (4) Hyperlipidemia: Code(s): E78.5 - Hyperlipidemia, unspecified Plan Proceed with two-vessel PCI; LAD and diagonal Documented By: Bebe Mojica DO 07/16/231514 Signed By: <Electronically signed by Bebe Mojica DO> 07/16/[address] [place] [address] Ctr Work Phone: [phone] Consult note Author Navya Rangel [facility] July 16, 2023 1:37pm Note Date/Time July 16, 2023 1:23pm [facility] [address] [place] [address] Cardiology Consult Note Signed Patient: Matthew Garza MR#: [id number] : 1955 Acct:[id number] Age/Sex: 68 / M Adm Date: 4 Loc: Room: [address] [place] [address] Type: ADM IN Attending Dr: Matthias Mckenna MD Copies to: MD Matthew Alves MD Linda Njoroge, MD~ Cardiology HPI History of Present Illness Consult Date: 07/16/23 Reason for Consult: NSTEMI HPI: Mr. Garza is a 68 year old male with PMH significant for HTN and Parkinson's disease who presented as a transfer from [facility] for management of NSTEMI. He initially presented with 1 day history of retrosternal chest pressure that started while mowing his lawn. It was sudden onset, severe, non radiating; denied associated dyspnea, palpititations, n/v, diaphoresis, light headedness orsyncope. Pt's reports that he's had intermittent minor chest pain in the past week. No previous cardiac history reported. On arrival to the ER, EKG was reported to show normal sinus rhythm with nonspecific findings. Troponin was 50-->73-->180. He received ASA and lovenox and transferred to [facility] for further evaluation. Repeat EKG here showed NSR with lateral T wave inversions. Troponin was elevatedat 2152; BNP elevated at 245. Pt remains chest pain free. Review of Systems Review of Systems All other systems reviewed & are negative unless noted below or in HPI [facility] Medical History (Updated 07/16/23 @ 13:25 by Navya Rangel MD) Collar bone fracture Rotator cuff arthropathy of right shoulder Strabismus Arthritis Sleep apnea Parkinson disease Hypertension Social History Smoking Status: Never smoker Substance Use Type: None Meds Medications and Allergies Allergies No Known Allergies Allergy (Verified 07/16/23 04:46) Home Medications bisoprolol 10 mg-hydrochlorothiazide 6.25 mg tablet 1 tab PO DAILY BLOOD PRESSURE 07/16/23 [History Confirmed 07/16/23] carbidopa 25 mg-levodopa 100 mg tablet 1.5 tab PO TID PARKINSONS 07/16/23 [History Confirmed 07/16/23] Exam Physical Exam Vital Signs: Temp Pulse Resp BP Pulse Ox O2 Del Method 97.6 F 73 18 168/92 H 94 L Room Air 07/16/23 11:32 07/16/23 11:32 07/16/23 11:32 07/16/23 11:32 07/16/23 11:32 07/16/23 11:32 Narrative: GEN: AAOx3. No acute distress. Neck: No JVD. Lungs: Clear to auscultation bilaterally Heart: Regular rate and rhythm. Normal S1 and S2. No murmurs or rubs appreciated. Abdomen: Soft, nontender, nondistended, bowel sounds present. Extremities: No BLE edema. Neuro: AAOx3. No focal deficits. Results - Cardiology Labs 07/16/23 06:37 07/16/23 06:37 Lab results: Cardiac Enzymes 07/16/23 07/16/23 Range/Units 06:37 08:24 B-Natriuretic Peptide 245.0 H 292.0 H (5-100) pg/mL Lipids 07/16/23 Range/Units 06:37 Triglycerides 119 (0-149) mg/dL Cholesterol 182 (140-200) mg/dL HDL Cholesterol 42 (23-92) mg/dL Cholesterol/HDL Ratio 4.3 (<5.0) CBC 07/16/23 Range/Units 06:37 RBC 4.05 (3.90-5.60) X10E6/uL Hgb 12.5 L (13.0-17.0) g/dL Hct 37.9 L (38.8-50.0) % Plt Count 222 (150-450) x10E3/uL Neut # (Auto) 8.1 H (1.8-7.7) x10E3/uL Lymph # (Auto) 1.5 (1.00-4.8) x10E3/uL [place] # (Auto) 0.9 H (0.0-0.8) x10E3/uL Eos # (Auto) 0.0 (0.0-0.45) x10E3/uL Baso # (Auto) 0.0 (0.0-0.2) x10E3/uL Comprehensive Metabolic Panel 07/16/23 Range/Units 06:37 Sodium 139 (136-145) mmol/L Potassium 5.0 (3.5-5.1) mmol/L Chloride 103 (98-107) mmol/L Carbon Dioxide 26.3 (21.0-31.0) mmol/L BUN 25 (7-25) mg/dL Creatinine 1.28 (0.70-1.30) mg/dL Glucose 102 H (70-100) mg/dL Calcium 8.9 (8.6-10.3) mg/dL Intake and Output 07/15/23 07/16/23 07/16/23 23:59 07:59 15:59 Other: Weight 100.2 kg Date of Last Bowel Movement 07/16/23 07/16/23 Patient Weight 07/16/23 23:59 Weight 100.2 kg Lab 07/16/23 06:37 PT 11.8 INR 1.0 APTT 38.0 H A&P - Cardiology (1) Hypertension: Code(s): I10 - Essential (primary) hypertension (2) Parkinson disease: Code(s): G20.A1 - Parkinson's disease without dyskinesia, without mention of fluctuations (3) NSTEMI (non-ST elevated myocardial infarction): Code(s): I21.4 - Non-ST elevation (NSTEMI) myocardial infarction (4) Hyperlipidemia: Code(s): E78.5 - Hyperlipidemia, unspecified Plan Mr. Garza is a 68 year old male with PMH significant for HTN and Parkinson's disease who presented as a transfer from [facility] for management of NSTEMI. Troponin at [facility] was 50-->73-->180. Troponin here was 2152; BNP elevated at 245. Repeat EKG here showed NSR with lateral T wave inversions. Assessment: NSTEMI HTN HLD Parkinson's disease Recommendations: - C this afternoon to evaluate coronaries - Pt receved therapeutic lovenox prior to transfer. - Continue ASA, Bisoprolol 10mg daily, statin, PRN NTG. - ECHO to evaluate LV function and wall motion - Will follow Documented By: Navya Rangel MD 07/16/23 1317 Signed By: <Electronically signed by Navya Rangel MD> 07/16/23 1339 [facility] Work Phone: 1(576) 346-524005-09-2024 Procedure [facility]05-09-2024 Procedure [facility]05-09-2024 Progress note Author Matthias Mckenna [facility] July 16, 2023 11:52am Note Date/Time July 16, 2023 11:18a m [facility] [address] [place] [address] Hospitalist Progress Note Signed Patient: Matthew Garza MR#: [id number] : 1955 Acct:[id number] Age/Sex: 68 / M Adm Date: 4 Loc: 3T Room: [address] [place] [address] Type: ADM IN Attending Dr: Matthias Mckenna MD Copies to: ~ Date of Service: 07/16/2023 Subjective Subjective Narrative: Patient does not report any cardiorespiratory complaints at this time. He has not had any chest discomfort since last night during the emergency department. He reports following up with a primary care physician, but has not seen them in a little over a year. He does report a family history of cardiac conditions including PA in his father. He denies any current symptoms of palpitations, nausea/vomiting, chest pain currently. I did inform him that he is likely having a heart attack and we will therefore need to have him undergo cardiac catheterization for further evaluation. I did inform him that he will need to see director of strategic marketing first before this occurs. Exam Physical Exam Vital Signs: Temp Pulse Resp BP Pulse Ox O2 Del Method 97.6 F 63 18 156/79 H 95 Room Air 07/16/23 08:00 07/16/23 08:00 07/16/23 08:00 07/16/23 08:00 07/16/23 08:00 07/16/23 08:00 Narrative: Constitutional: Middle-aged WM, resting in bed comfortably HEENT: Moist mucous membranes, neck supple Cardiovascular: RRR, no M/R/G, normal S1 and S2, no JVD Respiratory: Lungs clear to auscultation bilaterally, no wheezes, rales or rhonchi GI: Soft, NTND, normoactive bowel sounds : Deferred Neuro: AAO x3, no focal deficits. CN III-XII grossly intact, Strength 5/5 throughout Extremities: No clubbing, cyanosis or edema Psych: Patient calm, cooperative and conversant GI Risk Score GI Risk Score Predictor Historical: Age > 65 Years Old and 3 or more Risk Factors: FHx,HTN,elevated cholesterol,DM,active smoker Presentation: Recent (>/=24hr) Angina and Increased Cardiac Marker Score Risk Score (0-7): 4 Objective Lab Results 07/16/23 06:37 07/16/23 06:37 Meds Allergies and Active Meds Allergies No Known Allergies Allergy (Verified 07/16/23 04:46) Active Meds: Active Medications Generic Name Dose Route Start Last Admin Trade Name Freq PRN Reason Stop Dose Admin Acetaminophen 1,000 mg 07/16/23 05:48 Acetaminophen 500 Mg Tablet PO 07/15/24 05:47 Q6H PRN Mild Pain Al Hydrox/Mg Hydrox/Simethicone 30 ml 07/16/23 05:48 Mag Hydrox/Al Hydrox/Simeth 30 Ml Udc PO 07/15/24 05:47 Q4H PRN Epigastric distress (Non-Card) Aspirin 325 mg 07/16/23 09:00 07/16/23 08:17 Aspirin 325 Mg Tablet PO 07/15/24 08:59 325 mg DAILY [facility] Administration Bisoprolol Fumarate 10 mg 07/16/23 05:55 07/16/23 08:20 Bisoprolol 5 Mg Tablet PO 07/15/24 05:54 Not Given DAILY [facility] Docusate Sodium 100 mg 07/16/23 05:48 Docusate 100 Mg Capsule PO 07/15/24 05:47 QHS PRN Constipation Sodium Chloride 1,000 mls @ 100 mls/hr 07/16/23 10:30 0.9% Sodium Chloride 1,000 Ml IV 07/15/24 10:29 .Q10H [facility] Miscellaneous Information 1 each 07/16/23 10:21 Consult To Pharmacy MISCELLANE 07/15/24 10:20 .PHACONSULT PRN ZZ.Pharmacy Consult Protocol Morphine Sulfate 4 mg 07/16/23 05:48 Morphine Sulfate 4 Mg/Ml Cartridge IV-PUSH Q20M PRN Chest Pain Nitroglycerin 0.4 mg 07/16/23 05:48 Nitroglycerin 0.4 Mg Tab.Subl SUBLINGUAL 07/15/24 05:47 Q5M PRN Chest Pain Ondansetron HCl 4 mg 07/16/23 05:48 Ondansetron 4 Mg/2 Ml Vial IV-PUSH 07/15/24 05:47 Q6H PRN Nausea And Vomiting Potassium Chloride 40 meq 07/16/23 10:21 Potassium Chloride Er 20 Meq Tab.Er.Prt PO STAT PRN Hypokalemia Sodium Chloride 0 ml 07/16/23 05:48 Sodium Chloride 0.9 % 10 Ml Syringe IV-PUSH 07/15/24 05:47 PRN PRN Flush Sodium Chloride 0 ml 07/16/23 10:21 Sodium Chloride 0.9 % 10 Ml Syringe IV-PUSH 07/15/24 10:20 PRN PRN Flush Tramadol HCl 50 mg 07/16/23 05:48 Tramadol 50 Mg Tablet PO 01/12/24 05:47 Q6H PRN Moderate Pain Triamcinolone Acetonide 1 applic 07/16/23 05:48 Triamcinolone 0.1% Cream 15 Gm Tube TOPICAL 07/15/24 05:47 QID PRN Irritation A&P - Hospitalist Assessment/Plan (1) NSTEMI (non-ST elevated myocardial infarction): (2) Parkinson disease: (3) Hypertension: Plan NSTEMI EKG shows TWIs. Troponin trend: 80s-->2152. Patient currently chest pain free. GI risk score of 4. EKG does demonstrate some T wave inversions in the anterior leads. Received full dose of Lovenox at around 2:00 AM Plan: -Cardiology consult; will determine timing of invasive coronary intervention- n.p.o. for now -Maintain on cardiac telemetry -Cont antiplatelet therapy with ASA 81mg daily -Echo to assess for wall motion abnormalities; cardiac function -Cont statin therapy -Assess lipid panel and A1c -Cont BB -SLNG and morphine PRN for pain -Patrol Commander on lifestyle modifications: Physical activity regimen, healthy diet, weight loss HTN- Continue bisoprolol at home dose, HCTZ is currently on hold Parkinson's disease- Neuro status at baseline. Continue Sinemet CODE STATUS: FULL CODE Documented By: Matthias Mckenna MD 4 1115 Signed By: <Electronically signed by Matthias Mckenna MD> 07/16/23 1152 [facility] Work Phone: 1(495) 692-275705-09-2024 History and physical note Author Chico Black [facility] July 16, 2023 6:13am Note Date/Time July 16, 2023 6:13am [facility] [address] [place] [address] Hospitalist H&P Signed Patient: Matthew Garza MR#: [id number] : 1955 Acct:[id number] Age/Sex: 68 / M Adm Date: 4 Loc: 3T Room: [address] [place] [address] Type: ADM INOo Attending Dr: Chico Black MD Copies to: MD Matthew Robin MD~ HPI DATE OF EXAMINATION: 07/16/23 CHIEF COMPLAINT: chest pain HISTORY OF PRESENT ILLNESS: 68 year old man with history of HTN and parkinson's disease who presented to [facility] complaining of chest pain starting earlier on the date of presentation. Per the patient he was mowing his lawn around 4pm and noted the sudden onset of midsternal chest pain, described as like a strain - no associated dyspnea diaphoresis or nausea. Pt had never had similar symptoms before and was concerned so he presented to the ED for evaluation Vital signs on arrival to [facility] were unremarkable- ECG NSR 70bpm with nonspecific abnormalities. initial troponin was 50 -> 73 -> 180 (~2-3 xULN) Pt was given ASA and enoxaparin and was transferred here for further evaluation Pt denies any current chest pain or other complaints ROS: 10 systems reviewed and were negative except as noted in the [facility] Medical History Collar bone fracture Rotator cuff arthropathy of right shoulder Strabismus Arthritis Sleep apnea Parkinson disease Hypertension Social History Smoking Status: Never smoker Substance Use Type: None Meds Medications and Allergies Allergies No Known Allergies Allergy (Verified 07/16/23 04:46) Home Medications bisoprolol 10 mg-hydrochlorothiazide 6.25 mg tablet tab PO DAILY BLOOD PRESSURE 07/16/23 [History] carbidopa 25 mg-levodopa 100 mg tablet tab PO TID PARKINSONS 07/16/23 [History] Exam Physical Exam Vital Signs: Pulse Resp BP Pulse Ox O2 Del Method 64 14 195/96 H 97 Room Air 07/16/23 04:30 07/16/23 04:30 07/16/23 04:30 07/16/23 04:30 07/16/23 04:30 Const General: cooperative, no acute distress and well developed HEENT Head: normal to inspection Ears: external ears normal Nose: external nose normal Face and sinus: normal facial exam Mouth: oral mucosae normal Throat: posterior oropharynx normal Eyes General: appearance normal, both eyes and all related structures Visual Carlisle: normal visual carlisle by confrontation Sclera: sclerae normal Pupils: PERRL and accommodation normal Neck Neck: normal visual inspection, no lymphadenopathy and supple Thyroid: thyroid normal Lymphatic: no lymphadenopathy noted Chest Chest palpation & inspection: normal inspection of the chest Resp Effort & Inspection: normal respiratory effort, able to speak in complete sentences and symmetric chest movement Auscultation: clear to auscultation bilaterally Cardio Palpation: normal PMI Rate: regular rate Rhythm: regular rhythm Heart Sounds: S1 normal and S2 normal GI Inspection: normal to inspection Palpation: soft Auscultation: normal bowel sounds General: bladder normal to palpation Musc Cervical Spine: cervical ROM normal Thoracic/Lumbar Spine: thoracic and lumbar spine normal to inspection Skin General: no rashes or lesions noted and turgor normal Neuro General: patient alert, patient awake and patient oriented x3 Speech: speech normal Other: + R>L arm tremor Extrem General: normal to inspection and full ROM Psych Appearance: grossly normal Mental Status: mental status grossly normal Affect: normal affect Speech and Movement: speech and movement normal Attitude: cooperative GI Risk Score GI Risk Score Predictor Historical: Age > 65 Years Old and 3 or more Risk Factors: FHx,HTN,elevated cholesterol,DM,active smoker Presentation: Recent (>/=24hr) Angina and Increased Cardiac Marker Score Risk Score (0-7): 4 Assessment & Plan Assessment/Plan (1) NSTEMI (non-ST elevated myocardial infarction): Plan admit to medicine monitor on telemetry trend troponin STAT ECG now ASA beta sage statin NTG morphine supplemental O2 PRN check lipid panel given enoxaparin at zach around 0200- defer to cardiology if any further doses should be given cardiology consult entered- appreciate input HTN- continue bisoprolol at home dose PD- continue sinemet FULL CODE IP vs OBS Justification Based on differential dx, clinical care plan, and risk of adverse events, if untreated, in my clinical judgement this patient requires an acute care setting as: INPATIENT because of an expectation of an over 2 midnight stay. Estimated length of stay (# of days): 3 Documented By: Chico Black MD 07/16/23 06 Signed By: <Electronically signed by Chico Black MD> 07/16/23 06 [facility] Work Phone: 1(123) 821-925805-02-2024 Telephone encounter Note* Telephone Encounter - Zack Wallace LPN - 07/09/2023 10:15 AM EDT Faxed order, office notes, demographics and sleep study to: DME name: [facility] fax # [phone] DME Faxed info in patient's chart. [facility]05-02-2024 Miscellaneous Notes* Telephone Encounter - Zack Wallace LPN - 07/09/2023 10:15 AM EDT Faxed order, office notes, demographics and sleep study to: DME name: [facility] fax # [phone] DME Faxed info in patient's chart. [facility] Instructions* Patient Instructions* Christiana Ewing APRN.SUPERVISOR [employer]ING - 07/08/2023 2:30 PM EDT Images from the original note were not included. PLAN: - Continue Bilevel PAP at current settings of 25/21 cmH2O. - Try the sample mask provided today : AirFit F30 mask, size small - Try this mask for a couple of weeks - If you like it and it's fitting well, contact your DME company to let them know that you are changing to this mask, so they provide the correct supplies - Auto BiPAP device is needed based on sleep study results: - Will start Auto Bilevel PAP with IPAP max 25 cmH2O, EPAP min 9 cmH2O, PS 4 cmH2O - I will have a prescription sent to a DME (durable medical equipment) company - [facility] (Phone Fax ) - They should reach out to you in the next 1-2 weeks. - If you do not hear from them within 2 weeks, please contact them directly - Let them know what mask you would like to use. - Start using your device right away - We can adjust pressure for comfort if requested prior to next visit. - You should be eligible for new supplies approximately every 3-6 months, depending on your insurance coverage. - If your mask doesn't fit well, call the DME company within the first 30 days to get a new mask without an additional charge. INSURANCE REQUIREMENTS: - Your insurance requires a follow up visit within a 31-90 day period after starting PAP device. This may be virtual or in-person. - Your insurance requires at least 70% compliance with using your PAP device, which is at least 4 hours per night, at least 5 nights per week, for at least 30 consecutive days. This must occur withinthe initial 90 day period after starting PAP therapy. - Your insurance also requires at least yearly follow ups to continue to pay for PAP supplies. - Schedule a 3 month follow-up visit today, or call after you receive your machine: [phone] - Follow-up visit needs to be between 31-90 days after receiving CPAP device Bedroom Safety Measures: Removing sharp objects and weapons from room you're sleeping in Move furniture and clutter from the room or away from the bed so you don't run into anything. Make sure windows and doors are locked Sleep away from your partner if symptoms are dangerous for them Can lower bed closer to the ground or get bed rails PAP Supply Guidelines Below are the guidelines for reordering your supplies. You will be responsible for your deductible,co-payments, and out of pocket expenses. Item Medicare & Commercial Insurance Medicaid & HCAP Nasal Mask (no headgear) 1 every 3 months 1 per year Nasal Mask Cushion 1 every month 2 per year Full Face Mask (no headgear) 1 every 3 months 1 per year Full Face Mask Cushion 1 every month *Self-Pay Nasal Pillows 2 every month 2 per year Headgear 1 every 6 months 1 per year Chin Strap 1 every 6 months 2 per year Tubing 1 every 3 months 1 per year Filters: Reusable 1 every 6 months 4 per year Filters: Disposable 2 every month 1 per month Humidifier Chamber(disposable) 1 every 6 months *Self-Pay Contacting the Sleep Disorders Center: - Appointments can be scheduled through the central scheduling system for the [facility] at [phone]. - Call the Sleep Disorders Center at [phone] for questions. - May use Message [employer] Doc through [employer] for questions. - [facility] website: [email or web address] n documented in this encounterG[facility] NoteHNO ID: [id number] Author: CHRISTIANA EWING APRN.SUPERVIS[employer]ING Service: ? Author Type: Nurse Practitioner Type: Progress Notes Filed: 07/08/2023 20:07 Note Text: [facility] Follow up/ Established patient visit Date of last visit : 04/27/2023 Per last visit: IMPRESSION/PLAN: G47.33 Obstructive sleep apnea syndrome (primary encounter diagnosis) G47.33 JATINDER treated with BiPAP T88.8XXA Malfunction of continuous positive airway pressure (CPAP) or bilevel positive airway pressure (BPAP) machine, initial encounter G47.50 Parasomnia, unspecified type G47.52 Dream enactment behavior Y93.84 Injury while sleeping Matthew Garza is a pleasant 67 year old male with PMH of JATINDER on BiPAP, PD, cervical stenosis, tremor, HTN, JATINDER, and class I obesity. He presents today with his to discuss JATINDER. He has a BiPAP device that is only ~ 2 years old and is malfunctioning. He and report the device gtz off randomly. He was using [employer], but has not received supplies in a long time. His filter is extremely dirty today in office, which may be contributing to issues with device. Mask and supplies are also very dirty. He is unsure when his last sleep study was completed. He believes this was done at [facility] ([place], [place]). He was initially started on CPAP, and later transitioned to BiPAP. He denies mask or pressure intolerance. Manual data report for the past 30 days shows average use of 5 hours/night (>70% compliance) and poorly controlled sleep apnea (rAHI 21.6). He endorses sx of continued snoring, EDS, frequent napping/dozing off during day, and DEBs (associated w/ hitting ; last occurred 1 week ago). We discussed [employer] recall and need to register device. Also discussed need for updated study given sx and uncontrolled sleep apnea. Emphasized importance of safe sleeping. PLAN: -[place] device as quickly as possible online as this will determine your spot in queue. [employer] or your durable medical equipment company (DME) will be handling replacement. [email or web address] or call [phone]. Check back frequently with the [employer] website for updates. - I will place an order for a new BiPAP device to be sent by [employer] - Continue Bilevel PAP at current settings of 25/21 cmH2O. - Clean out humidifier with soap and water and rinse well - Order new CPAP filters on [employer] - Try the new CPAP mask sample provided today - [employer] - Discussed possible diagnosis, causes, and conditions associated with obstructive sleep apnea. - Avoid driving when drowsy. Recommend that if you are dozing off while driving, that you do not drive until your sleepiness is appropriately treated. - Practice healthy lifestyle with adequate sleep (7-9 hours per night), diet and exercise. - PSG/Split Study to evaluate for sleep apnea - Add RBD protocol - Split Study after 2 hours if AHI is > 15. - Start BiPAP titration study. - Please send mask(s) home with patient. - You should get a call within the next week to schedule - Alternatively, you can call [phone] to schedule the test - Results are usually available within 2-3 weeks - Schedule follow-up visit for 3 weeks after study to review results Bedroom Safety Measures: Removing sharp objects and weapons from room you're sleeping in Move furniture and clutter from the room or away from the bed so you don't run into anything. Make sure windows and doors are locked Sleep away from your partner if symptoms are dangerous for them Can lower bed closer to the ground or get bed rails Christiana Ewing APRN.SUPER[employer] Here for follow up for JATINDER - sleep study results Interval history : No recent DEBs. He still yells during sleep at times. He had recent Split Study : Split study with expanded EMG monitoring completed 06/17/2023 showed severe JATINDER (AHI 66.8) associated with minimum oxygen saturation of 76%; CPAP titration was initiated, but transition to bilevel PAP due to the presence of central apneas; Jay Jay-Mcdaniel breathing was not present during PAP titration portion of study; at a bilevel PAP setting of 25/19 cmH2O, the AHI was normalized, snoring was not eliminated, and oxygen saturation was maintained above 92%, however REM sleep was not captured at the setting; RSWA scoring was performed; 0.0% of REM sleep epochs met criteria supportive of RBD, however severity of SDB renders evaluation and adequate; auto BiPAP with IPAP max 25, EPAP min 9, and pressure support 4 recommended with close clinical follow-up; 4% hypopnea scoring; BMI 32.8 SLEEP APNEA Split study with expanded EMG monitoring completed 06/17/2023 showed severe JATINDER (AHI 66.8) associated with minimum oxygen saturation of 76%; CPAP titration was initiated, but transition to bilevel PAP due to the presence of central apneas; Jay Jay-Mcdaniel breathing was not present during PAP titration portion of study; at (more content not included)...[facility]05-01-2024 History of Present illness Narrative* Christiana Ewing APRN.SUPERVIS[employer] - 07/08/2023 2:17 PM EDT Images from the original note were not included. [facility] Follow up/ Established patient visit Date of last visit : 04/27/2023 Per last visit: IMPRESSION/PLAN: G47.33 Obstructive sleep apnea syndrome (primary encounter diagnosis) G47.33 JATINDER treated with BiPAP T88.8XXA Malfunction of continuous positive airway pressure (CPAP) or bilevel positive airway pressure (BPAP) machine, initial encounter G47.50 Parasomnia, unspecified type 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 He presents today with his to discuss JATINDER. He has a BiPAP device that is only ~ 2 years old and is malfunctioning. He and report the device gtz off randomly. He was using [employer], but has not received supplies in a long time. His filter is extremely dirty today in office, which may be contributing to issues with device. Mask and supplies are also very dirty. He is unsure when his last sleep study was completed. He believes this was done at [facility] ([place], [place]). He was initially started on CPAP, and later transitioned to BiPAP. He denies mask or pressure intolerance. Manual data report for the past 30 days shows average use of 5 hours/night (>70% compliance) and poorly controlled sleep apnea (rAHI 21.6). He endorses sx of continued snoring, EDS, frequent napping/dozing off during day, and DEBs (associated w/ hitting ; last occurred 1 week ago). We discussed [employer] recall and need to register device. Also discussed need for updated study given sx and uncontrolled sleep apnea. Emphasized importance of safe sleeping. PLAN: -[place] device as quickly as possible online as this will determine your spot in queue. [employer] or your [employer] medical equipment company ([employer]) will be handling replacement. [email or web address] or call [phone]. Check back frequently with the [employer] website for updates. - I will place an order for a new BiPAP device to be sent by [employer] - Continue Bilevel PAP at current settings of 25/21 cmH2O. - Clean out humidifier with soap and water and rinse well - Order new CPAP filters on [employer] - Try the new CPAP mask sample provided today - [employer] - Discussed possible diagnosis, causes, and conditions associated with obstructive sleep apnea. - Avoid driving when drowsy. Recommend that if you are dozing off while driving, that you do not drive until your sleepiness is appropriately treated. - Practice healthy lifestyle with adequate sleep (7-9 hours per night), diet and exercise. - PSG/Split Study to evaluate for sleep apnea - Add RBD protocol - Split Study after 2 hours if AHI is > 15. - Start BiPAP titration study. - Please send mask(s) home with patient. - You should get a call within the next week to schedule - Alternatively, you can call [phone] to schedule the test - Results are usually available within 2-3 weeks - Schedule follow-up visit for 3 weeks after study to review results Bedroom Safety Measures: Removing sharp objects and weapons from room you're sleeping in Move furniture and clutter from the room or away from the bed so you don't run into anything. Make sure windows and doors are locked Sleep away from your partner if symptoms are dangerous for them Can lower bed closer to the ground or get bed rails Christiana Ewing APRN.[employer]PER[employer] Here for follow up for JATINDER - sleep study results Interval history : No recent DEBs. He still yells during sleep at times. He had recent Split Study : Split study with expanded EMG monitoring completed 06/17/2023 showed severe JATINDER (AHI 66.8) associated with minimum oxygen saturation of 76%; CPAP titration was initiated, but transition to bilevel PAPdue to the presence of central apneas; Jay Jay-Mcdaniel breathing was not present during PAP titrationportion of study; at a bilevel PAP setting of 25/19 cmH2O, the AHI was normalized, snoring was not e liminated, and oxygen saturation was maintained above 92%, however REM sleep was not captured at the setting; RSWA scoring was performed; 0.0% of REM sleep epochs met criteria supportive of RBD, however severity of SDB renders evaluation and adequate; auto BiPAP with IPAP max 25, EPAP min 9, and pressure support 4 recommended with close clinical follow-up; 4% hypopnea scoring; BMI 32.8 SLEEP APNEA Split study with expanded EMG monitoring completed 06/17/2023 showed severe JATINDER (AHI 66.8) associated with minimum oxygen saturation of 76%; CPAP titration was initiated, but transition to bilevel PAPdue to the presence of central apneas; Jay Jay-Mcdaniel breathing was not present during PAP titrationportion of study; at a bilevel PAP setting of 25/19 cmH2O, the AHI was normalized, snoring was not e liminated, and oxygen saturation was maintained above 92%, however REM sleep was not captured at the setting; RSWA scoring was performed; 0.0% of REM sleep epochs met criteria supportive of RBD, however severity of SDB renders evaluation and adequate; auto BiPAP with IPAP max 25, EPAP min 9, and pressure support 4 recommended with close clinical follow-up; 4% hypopnea scoring; BMI 32.8 Sleep apnea type : JATINDER, Most Recent Apnea-Hypopnea Index (AHI): 66.8 Treatment : PAP therapy MANUAL DATA ACCESS: (from last visit 04/27/2023) Device: [facility] Bilevel PAP : [id number] Settings: 25/21 cmH2O / days >=4 hours Average use: 5.0 hours Mask fit: 99% Residual AHI: 21.6 Mask: F20 Mask issues: none DME: [facility] in [place], [place] - wants to change DME PAP History: Uses Bilevel PAP for 4+ hours per night, 7 nights per week. Current PAP settin/21 cm H2O. Difficulties with Bilevel PAP: Yes: pressure feels high Reviewed objective PAP compliance data: does not have device with him today Per prior manual data review, rAHI was > 20 Mask type: full face mask PATIENT-ENTERED QUESTIONNAIRE SLEEP SCORES PMH, PSH, SH: Reviewed SLEEP RELATED ROS Review of Systems Constitutional: Positive for fatigue. Neurological: Positive for memory loss. All other systems reviewed and are negative. ALLERGIES No Known Allergies CURRENT MEDICATIONS: glucosam/chond-msm1/C/jaya/bor (WESKRWNQGBA-YRFSR-ETY COMPLEX ORAL) Take 2 tablets by mouth once daily. carbidopa-levodopa (SINEMET) 25-100 mg per tablet Take 1.5 pills, 3 times per day CPAP/BIPAP/OTHER REPLACEMENT BIPAP DEVICE: BIPAP with settings of 25/21 cm H2O. Dx: Obstructive Sleep Apnea G47.33 DME: [facility] Fax: Fax download reports to [phone]. bisoprolol-hydroCHLOROthiazide (ZIAC) 10-6.25 mg per tablet Take 1 tablet by mouth every morning. BIPAP BP 144/71 (BP Site: Right Arm, BP Position: Sitting, BP Cuff Size: Regular Adult) Pulse 65 Temp(!) 35.9 C (96.6 F) Resp 20 Ht 172.7 cm (5' 8 ) Wt 97.5 kg (215 lb) SpO2 98% BMI 32.69 kg/m PHYSICAL EXAMINATION: General appearance: NAD, well groomed HEENT: Normocephalic, atraumatic Neuro: Awake, alert, memory grossly intact, speech is fluent Respiratory: No increased work of breathing; able to speak in complete sentences Psych: Appropriate, normal affect IMPRESSION: Obstructive sleep apnea syndrome (primary encounter diagnosis) Jatinder treated with bipap Malfunction of continuous positive airway pressure (cpap) or bilevel positive airway pressure (bpap) machine, initial encounter Dream enactment behavior Parkinson's disease, unspecified whether dyskinesia present, unspecified whether manifestations fluctuate (hcc) Primary hypertension Matthew Garza is a pleasant 68 year old male with PMH of JATINDER on BiPAP, PD, cervical stenosis, tremor,HTN, JATINDER, and class I obesity. He presents today with his . He has a BiPAP device that is malfunctioning. rAHI was not well- controlled (>20) at time of last visit. He does not have device withhim at today's visit for reassessment. Updated Split Study with RBD protocol was completed to requalify for supplies/new device and reassess appropriate settings. He reported DEBs associated w/ hitting (last in Apr 2023). Split studywith expanded EMG monitoring completed 06/17/2023 showed severe JATINDER (AHI 66.8) associated with minimum oxygen saturation of 76%; CPAP titration was initiated, but transition to bilevel PAP due to the presence of central apneas; Jay Jay-Mcdaniel breathing was not present during PAP titration portion of study; at a bilevel PAP setting of 25/19 cmH2O, the AHI was normalized, snoring was not eliminated, and oxygen saturation was maintained above 92%, however REM sleep was not captured at the setting; RSWA scoring was performed; 0.0% of REM sleep epochs met criteria supportive of RBD, however severityof SDB renders evaluation and adequate; auto BiPAP with IPAP max 25, EPAP min 9, and pressure support 4 recommended with close clinical follow-up; 4% hypopnea scoring; BMI 32.8 Results of sleep study reviewed w/ pt and . We will proceed with Auto BiPAP device order through new DME. PLAN: - Continue Bilevel PAP at current settings of 25/21 cmH2O until new device is received. - Try the sample mask provided today : AirFit F30 mask, size small - Try this mask for a couple of weeks - If you like it and it's fitting well, contact your DME company to let them know that you are changing to this mask, so they provide the correct supplies - Auto BiPAP device is needed based on sleep study results: - Will start Auto Bilevel PAP with IPAP max 25 cmH2O, EPAP min 9 cmH2O, PS 4 cmH2O - I will have a prescription sent to a DME (durable medical equipment) company - [facility] (Phone Fax ) - They should reach out to you in the next 1-2 weeks. - If you do not hear from them within 2 weeks, please contact them directly - Let them know what mask you would like to use. - Start using your device right away - We can adjust pressure for comfort if requested prior to next visit. - You should be eligible for new supplies approximately every 3-6 months, depending on your insurance coverage. - If your mask doesn't fit well, call the [employer] company within the first 30 days to get a new mask without an additional charge. INSURANCE REQUIREMENTS: - Your insurance requires a follow up visit within a 31-90 day period after starting PAP device. This may be virtual or in-person. - Your insurance requires at least 70% compliance with using your PAP device, which is at least 4 hours per night, at least 5 nights per week, for at least 30 consecutive days. This must occur withinthe initial 90 day period after starting PAP therapy. - Your insurance also requires at least yearly follow ups to continue to pay for PAP supplies. - Schedule a 3 month follow-up visit today, or call after you receive your machine: [phone] - Follow-up visit needs to be between 31-90 days after receiving CPAP device Bedroom Safety Measures: Removing sharp objects and weapons from room you're sleeping in Move furniture and clutter from the room or away from the bed so you don't run into anything. Make sure windows and doors are locked Sleep away from your partner if symptoms are dangerous for them Can lower bed closer to the ground or get bed rails Christiana Ewing APRN.JACINTA I spent a total of 37 minutes on the date of the service which included preparing to see the patient, [id number] patient care, completing clinical documentation, obtaining and/or reviewing separately obtained history, performing a medically appropriate examination, counseling and educating the pat ient/family/caregiver, ordering medications, tests, or procedures, and communicating results to thepatient/family/caregiver. documented in this encounterG[facility]04-[facility] History of Present illness Narrative* Evelyn Gabriel - 06/18/2023 2:45 AM EDT Sleep Study Check-In Documentation Date: June 18, 2023 Name: Matthew Garza Patient was accompanied by Self. Location: [place] Latex allergy: No Tape allergy: No Current medications were reviewed with the patient:Yes Sleep aid taken by patient for the sleep study: [place]mold of sleep aid: Not Applicable Procedure was explained to the patient and all questions were answered. PAP treatment discussed and shown to patient: Yes If PAP used enter mask info: Mask NameSimplus, MakeF&P MaskTypeFull Face Mask SizeMedium Knowledge Program (KP): KP was not completed in psychiatric by patient and accepted Study type: Split Study-Polysomnogram with CPAP titration Adverse Event: No (If yes create a new abstract) Comments: Patient was advised to follow up with their ordering provider regarding test results Evelyn Norton documented in this encounterGlenbeigh [facility]04-03-2024 Miscellaneous Notes* Addendum Note - Eric Montiel MD - 06/10/2023 12:57 PM EDTAddended by: ERIC MONTIEL on: 06/10/2023 12:57 PM Modules accepted: Orders documented in this encounterGlenbeigh Hospital04-02-2024 Instructions* Patient Instructions* Jesus Donald DO - 06/09/2023 4:01 PM EDT Please increase your Sinemet dose to 1.5 (one and a half) tablets, three times a day. We will have you follow up in the clinic in 4-5 months. We can discuss further memory testing if your sleep apneatreatments do not help your memories. documented in this encounterGlenbeigh [facility]04-02-2024 NoteHNO ID: [id number] Author: ERIC MONTIEL MD Service: ? Author Type: Physician Type: Progress Notes Filed: 06/10/2023 10:43 Note Text: [facility] - FOLLOW UP EVALUATION I had the pleasure of seeing Mr. Garza for follow-up today. He is a 67 year old right-handed male with a history of tremor since 1999 or so . Subjective Previous Plan-02/10/2023 Visit: Tremor, gait disorder - Will trial Sinemet, 25/100, uptitrate to one pill three times daily. If response is equivocal could consider DaTscan. There is cervical spine stenosis, but likely does not fully explain gait issues. He is established with spine surgery. Follow up in 4 months or so Interval History: Patient states he feels better since starting the Sinemet. Specifically, he says that he is having less frequent tremors in both his hands. Patient thinks he is slightly improved. Feels like coordination is better as well. feels like patient is still walking slow but does seem steadier. says patient still has tremors but the severity of the tremors dose not seem to be as bad. The biggest difference she has noticed is that patient's speech is much clearer (patient is pronouncing words better and not mumbling as much). Driving has still been very difficult for patient ( is concerned about apprehensiveness while driving, not being as watchful, and concern for falling asleep at the wheel at night). Patient is scheduled for sleep study this month. Patient currently has BIPAP machine for JATINDER but it does not seem to be controlling symptoms. thinks sleep apnea is affecting his memory. Patient denies any new/different head/arm/leg movements. Patient denies falls Movement Disorders Medications Schedule - as of the start of the visit: Medications Sinemet 25/100 1 1 1 Questionnaires: ALLERGIES No Known Allergies Current Outpatient Medications Medication Sig glucosam/chond-msm1/C/jaya/bor (BIWPIPCZLYE-CWFEM-ZSB COMPLEX ORAL) Take 2 tablets by mouth once daily. CPAP/BIPAP/OTHER REPLACEMENT BIPAP DEVICE: BIPAP with settings of 25/21 cm H2O. Dx: Obstructive Sleep Apnea G47.33 DME: [facility] Fax: Fax download reports to [phone]. bisoprolol-hydroCHLOROthiazide (ZIAC) 10-6.25 mg per tablet Take 1 tablet by mouth every morning. BIPAP carbidopa-levodopa (SINEMET) 25-100 mg per tablet Take 1.5 pills, 3 times per day No current facility-administered medications for this visit. Objective Vital Signs: BP 132/71 (BP Site: Right Arm, BP Position: Sitting, BP Cuff Size: Regular Adult) Pulse 62 SpO2 97% Orthostatic Vitals: None for this encounter No LMP for male patient. There is no height or weight on file to calculate BMI. Mental Status: Pleasant. A/Ox3 Gait: Stands without needing to push himself up. Short steps, mildly decreased arm swing bilaterally. Slightly favoring L leg. Movement Disorders Scales Performed: MDS-UPDRS Motor subscale condition of exam Medication Off/On/Naiive ON Time of UPDRS 1537 Time of Last Medication 1230 Last Medication Taken DBS Right DBS Left MDS-UPDRS Motor subscale scores Speech 0-Normal. No speech problems. Facial Expression 1-Slight. Minimal masked facies manifested only by decreased frequency of blinking. Rigidity Neck 0-Normal. No rigidity. Rigidity Right Upper Extremity 1-Slight. Rigidity only detected with activation maneuver. Rigidity Left Upper Extremity 1-Slight. Rigidity only detected with activation maneuver. Rigidity Right Lower Extremity 0-Normal. No rigidity. Rigidity Left Lower Extremity 0-Normal. No rigidity. Finger Taps Right 1-Slight. a) the regular rhythm is broken with one or two interruptions or hesitations of the tapping movement, b) slight slowing, c) the amplitude decrements near the end of the 10 taps. Finger Taps Left 1-Slight. a) the regular rhythm is broken with one or two interruptions or hesitations of the tapping movement, b) slight slowing, c) the amplitude decrements near the end of the 10 taps. Hand Movements Right 1-Slight. a) the regular rhythm is broken with one or two interruptions or hesitations of the movement, b) slight slowing, c) the amplitude decrements near the end of the task. Hand Movements Left 1-Slight. a) the regular rhythm is broken with one or two interruptions or hesitations of the movement, b) slight slowing, c) the amplitude decrements near the end of the task. Arm Movements Right 0-Normal. No problems. Arm Movements Left 1-Slight. a) the regular rhythm is broken with one or two interruptions or hesitations of the movement, b) slight slowing, c) the amplitude decrements near the end of the sequence. Toe Taps Right 1-Slight. a) the regular rhythm is broken with one or two interruptions or hesitations of the tapping movement, b) slight slowing, c) the amplitude decrements near the end of the ten taps. (more content not included)...[facility]04-02-[facility] History of Present illness Narrative* Eric Montiel MD - 06/09/2023 3:10 PM EDT [facility] - FOLLOW UP EVALUATION I had the pleasure of seeing Mr. Garza for follow-up today. He is a 67 year old right-handed male with a history of tremor since 1999 or so . Subjective Previous Plan-02/10/2023 Visit: Tremor, gait disorder - Will trial Sinemet, 25/100, uptitrate to one pill three times daily. If response is equivocal could consider DaTscan. There is cervical spine stenosis, but likely does not fully explain gait issues. He is established with spine surgery. Follow up in 4 months or so Interval History: Patient states he feels better since starting the Sinemet. Specifically, he says that he is having less frequent tremors in both his hands. Patient thinks he is slightly improved. Feels like coordination is better as well. feels like patient is still walking slow but does seem steadier. says patient still has tremors but the severity of the tremors dose not seem to be as bad. The biggest difference she has noticed is that patient's speech is much clearer (patient is pronouncing words better and not mumblingas much). Driving has still been very difficult for patient ( is concerned about apprehensiveness while driving, not being as watchful, and concern for falling asleep at the wheel at night). Patient is scheduled for sleep study this month. Patient currently has BIPAP machine for JATINDER but itdoes not seem to be controlling symptoms. thinks sleep apnea is affecting his memory. Patient denies any new/different head/arm/leg movements. Patient denies falls Movement Disorders Medications Schedule - as of the start of the visit: Medications Sinemet 25/100 1 1 1 Questionnaires: ALLERGIES No Known Allergies Current Outpatient Medications Medication Sig glucosam/chond-msm1/C/jaya/bor (ZRZLMARAQCL-VCVNN-UTE COMPLEX ORAL) Take 2 tablets by mouth once daily. CPAP/BIPAP/OTHER REPLACEMENT BIPAP DEVICE: BIPAP with settings of 25/21 cm H2O. Dx: Obstructive Sleep Apnea G47.33 DME: [facility] Fax: Fax download reports to [phone]. bisoprolol-hydroCHLOROthiazide (ZIAC) 10-6.25 mg per tablet Take 1 tablet by mouth every morning. BIPAP carbidopa-levodopa (SINEMET) 25-100 mg per tablet Take 1.5 pills, 3 times per day No current facility-administered medications for this visit. Objective Vital Signs: BP 132/71 (BP Site: Right Arm, BP Position: Sitting, BP Cuff Size: Regular Adult) Pulse 62 FrE334% Orthostatic Vitals: None for this encounter No LMP for male patient. There is no height or weight on file to calculate BMI. Mental Status: Pleasant. A/Ox3 Gait: Stands without needing to push himself up. Short steps, mildly decreased arm swing bilaterally. Slightly favoring L leg. Movement Disorders Scales Performed: MDS-UPDRS Motor subscale condition of exam Medication Off/On/Naiive ON Time of UPDRS 1537 Time of Last Medication 1230 Last Medication Taken DBS Right DBS Left MDS-UPDRS Motor subscale scores Speech 0-Normal. No speech problems. Facial Expression 1-Slight. Minimal masked facies manifested only by decreased frequency of blinking. Rigidity Neck 0-Normal. No rigidity. Rigidity Right Upper Extremity 1-Slight. Rigidity only detected with activation maneuver. Rigidity Left Upper Extremity 1-Slight. Rigidity only detected with activation maneuver. Rigidity Right Lower Extremity 0-Normal. No rigidity. Rigidity Left Lower Extremity 0-Normal. No rigidity. Finger Taps Right 1-Slight. a) the regular rhythm is broken with one or two interruptions or hesitations of the tapping movement, b) slight slowing, c) the amplitude decrements near the end of the 10taps. Finger Taps Left 1-Slight. a) the regular rhythm is broken with one or two interruptions or hesitations of the tapping movement, b) slight slowing, c) the amplitude decrements near the end of the 10 taps. Hand Movements Right 1-Slight. a) the regular rhythm is broken with one or two interruptions or hesitations of the movement, b) slight slowing, c) the amplitude decrements near the end of the task. Hand Movements Left 1-Slight. a) the regular rhythm is broken with one or two interruptions or hesitations of the movement, b) slight slowing, c) the amplitude decrements near the end of the task. Arm Movements Right 0-Normal. No problems. Arm Movements Left 1-Slight. a) the regular rhythm is broken with one or two interruptions or hesitations of the movement, b) slight slowing, c) the amplitude decrements near the end of the sequence. Toe Taps Right 1-Slight. a) the regular rhythm is broken with one or two interruptions or hesitations of the tapping movement, b) slight slowing, c) the amplitude decrements near the end of the ten taps. Toe Taps Left 1-Slight. a) the regular rhythm is broken with one or two interruptions or hesitations of the tapping movement, b) slight slowing, c) the amplitude decrements near the end of the ten taps. Leg Agility Right 0-Normal. No problems. Leg Agility Left 0-Normal. No problems. Arise From Chair 0-Normal. No problems. Able to arise quickly without hesitation. Gait 1-Slight. Independent walking with minor gait impairment. Gait Freezing 0-Normal. No freezing. Posture Stability 0-Normal. No problems: recovers with one or two steps. Posture 1-Slight. Not quite erect, but posture could be normal for older person. Body Bradykinesia 0-Normal. No problems. Postural Tremor Hand Right 1-Slight. Tremor is present but less than 1cm in amplitude. Postural Tremor Hand Left 2-Mild. Tremor is at least 1 but less than 3 cm in amplitude. Kinetic Tremor Right 1-Slight. Tremor is present but less than 1cm in amplitude. Kinetic Tremor Left 2-Mild. Tremor is at least 1 but less than 3 cm in amplitude. Rest Tremor Amplitude Right Upper Extremity 1-Slight. < 1 cm in maximal amplitude. Rest Tremor Amplitude Left Upper Extremity 1-Slight. < 1 cm in maximal amplitude. Rest Tremor Amplitude Right Lower Extremity 0-Normal. No tremor. Rest Tremor Amplitude Left Lower Extremity 0-Normal. No tremor. Rest Tremor Amplitude Lip/Jaw 0-Normal. No tremor. Rest Tremor Constancy 1-Slight. Tremor at rest is present < 25% of the entire examination period. MDS-UPDRS Motor subscale totals Left Total 10 Right Total 7 Midline Total 3 Tremor Total / 10 9 PIGD Total / 3 1 Overall Total 21 % Change Compared to Last Filed Total Pertinent Studies MRI brain, C spine 01/07/2023: IMPRESSION: No acute findings. No acute infarction, intracranial hemorrhage or intracranial mass lesion. Multilevel degenerative changes of the cervical spine, most pronounced at C4-C5 with moderate spinal canal stenosis with indentation of the ventral cord, moderate right and mild left neural foraminal narrowing. As well as at C5-C6 with moderate spinal canal stenosis with contact of the cord, moderate to severe right and moderate left neural foraminal narrowing. Assessment and Plan: Assessment Mr. Garza is a right-handed 67 year old year old male with 20+ year history of tremor, with 5-10 years of gait disorder, cognitive symptoms, who presents for follow up. On exam there is both action and resting tremor, as well as mild rigidity and bradykinesia. Likely long-standing tremors are due toessential tremor, though it is possible that more recent symptoms (such as slowness of gait, dexterity difficulty) most likely due to mild Parkinson's disease; Sinemet response is supportive of this (see below). Since last visit, patient was started on Sinemet and patient/ have noticed noticeable improvement in tremor severity/frequency, steadier gait, and clearer speech. has also noticed patient's memory has gotten worse (is concerned this is due to uncontrolled sleep apnea; pt to get sleep studythis month) The following are the current problems noted and addressed during this visit: Tremor (primary encounter diagnosis) Gait disorder Plan 06/09/2023 Visit: Tremor, gait disorder - Probable PD. Subjective improvement in tremors and gait. Mild objective improvements on examination today. Patient tolerating medication ok. Will Increase Sinemet 25-100mg to 1.5 tabs TID. Cognitive slowing - mild, progressive memory changes. Patient to get repeat sleep study d/t concernfor uncontrolled JATINDER. If JATINDER treatment adjustment Updated Movement Disorders Medication Schedule: Medications Sinemet 25/100 1.5 1.5 1.5 Jesus Donald DO PGY 2 06/09/2023 5:14 PM Seen and staffed with Dr. Eric Montiel MD Attending Note I evaluated the patient and personally participated in the howe components. I agree with the resident's findings and plan as documented and have discussed the case and management of the patient's carewith the resident. Time spent 30 min on the day of service, which included preparing to see the patient, [id number] patient care, completing clinical documentation, obtaining and/or reviewing separately obtained history, performing a medically appropriate examination, counseling and educating the patient/family/caregiver, and ordering medications, tests, or procedures. Thank you for allowing me to be part of the clinical care of this patient! I look forward to continued participation in the patient s care with you. Please do not hesitate to call with any questions. Sincerely, Eric Montiel MD Signature: Eric Montiel MD Date: 06/10/2023 Time: 10:43 AM documented in this encounterGlen[facility]02-19-2024 Miscellaneous Notes* Telephone Encounter - Zack Wallace LPN - 04/27/2023 4:37 PM EST Faxed order, office notes to: DME name: [facility] fax # [phone] Faxed info in patient's chart. documented in this encounterGlenbeigh Hospital02-19-2024 Instructions* Patient Instructions* Christiana Ewing APRN.[employer] - 04/27/2023 1:31 PM EST Images from the original note were not included. PLAN: -[place] device as quickly as possible online as this will determine your spot in queue. [facility] [employer] [facility] or your durable medical equipment company (DME) will be handling replacement. [email or web address] or call [phone]. Check back frequently with the [employer] website for updates. - I will place an order for a new BiPAP device to be sent by [facility] - Continue Bilevel PAP at current settings of 25/21 cmH2O. - Clean out humidifier with soap and water and rinse well - Order new CPAP filters on [employer] - Try the new CPAP mask sample provided today - [facility] - Avoid driving when drowsy. Recommend that if you are dozing off while driving, that you do not drive until your sleepiness is appropriately treated. - Practice healthy lifestyle with adequate sleep (7-9 hours per night), diet and exercise. - In lab sleep study (PSG/Split Study) to re-evaluate for sleep apnea - Add RBD protocol - Split Study after 2 hours if AHI is > 15. - Start BiPAP titration study. - Please send mask(s) home with patient. - You should get a call within the next week to schedule - Alternatively, you can call [phone] to schedule the test - Results are usually available within 2-3 weeks - Schedule follow-up visit for 3 weeks after study to review results Bedroom Safety Measures: Removing sharp objects and weapons from room you're sleeping in Move furniture and clutter from the room or away from the bed so you don't run into anything. Make sure windows and doors are locked Sleep away from your partner if symptoms are dangerous for them Can lower bed closer to the ground or get bed rails Your most recent body mass index (BMI) that we have on record is 32.69 kg/m2. Obstructive sleep apnea (JATINDER) worsens with an increase in weight; reduction in weight may improve or resolve your JATINDER. Ifyou are not already seeking treatment, there are resources available at the [facility] such as a nutrition consultation or referral to weight management programs at our [facility]. Please let us know if we can assist with a referral. documented in this encounterG[facility]02-[facility]24 History of Present illness Narrative* Christiana Ewing APRN.CNP - 04/27/2023 1:00 PM EST Images from the original note were not included. [facility] New Patient Evaluation PATIENT NAME: Matthew Garza DATE OF SERVICE: April 23, 2023 CONSULTING PROVIDER: Eric Montiel [address] [facility] [address] REASON FOR CONSULT: Eric Montiel sends the patient for an opinion about JATINDER. My findings and recommendations will be transmitted electronically via shared medical record to the consulting provider. HPI: Matthew Garza is a 67 year old male. Sleep-related history: He has a BiPAP device that is only ~ 2 years old and is malfunctioning. He and report the device gtz off randomly. Auto-off feature is not turned on. He is unsure when his last sleep study was completed. He believes this was done at [facility] ([place], [place]). He has a Laurel BiPAP device. He was not aware this was recalled. This was received from [facility] in [place], [place]. MANUAL DATA ACCESS: Device: Laurel Bilevel PAP : [id number] Settings: 25/21 cmH2O / days >=4 hours Average use: 5.0 hours Mask fit: 99% Residual AHI: 21.6 Mask: F20 Mask issues: none DME: [facility] in [place], [place] SLEEP-WAKE SCHEDULE Bedtime: 1030-11 PM. He does not have a hard time falling asleep. Wake time: 8-9 AM After falling asleep: he wakes up 1-2 time(s) per night, because of the need to urinate. SLEEP-RELATED DETAILS Preferred sleep position: side and back Breathing disturbances and other behaviors during sleep: snoring, frequent leg movements, and acting out dreams. Bruxism: Yes GERD or aspiration: No Waking up with heart pounding or racing: No He does not report having an urge to move the legs in the evening (when resting) that is accompanied or caused by uncomfortable and/or unpleasant sensations in the legs. He has been told that he has leg kicking during sleep. The patient reports having had the following: Acting out dreams. Just started in the past few months . He has hit during sleep. No associated injury to self or others. Last occurrence was 1 week ago. He has dreams of petting the dog and acts out reaching for and petting the dog. He fell out of bed once, but unsure when this occurred (years ago). Excessive daytime sleepiness / fatigue is a problem. Excessive Daytime sleepiness/fatigue has been a problem for 20+ years. There is no history of a viral illness or significant head injury prior to the start of daytime sleepiness. He does not report sleep paralysis or sleep-related hallucinations or cataplexy. WAKE-RELATED DETAILS He does not work. He does have difficulty with memory or concentration. He denies falling asleep or dozing off when driving. He does take naps. Dozing off multiple times per day. He does drink 3 caffeinated beverages per day. Alcohol use: Maybe once per month Tobacco use: Denies Illicit drug use: Denies There has not been a recent change in weight. Patient Questionnaires Sleep Scores PAST TREATMENTS: CPAP BiPAP PRIOR SLEEP STUDIES: None available for review today OTHER RELEVANT LABS AND STUDIES: No past medical history on file. No past surgical history on file. There is no problem list on file for this patient. Allergies As of Date: 04/27/2023 (Not on File) Fully Assessed 02/10/2023 CURRENT MEDICATIONS: carbidopa-levodopa (SINEMET) 25-100 mg per tablet Take 1/2 pill three times per day x 1 week, then increase to 1 pill 3 times per day bisoprolol-hydroCHLOROthiazide (ZIAC) 10-6.25 mg per tablet Take 1 tablet by mouth every morning. BIPAP Review of Systems SOCIAL HISTORY: Social History Tobacco Use Smoking status: Never Smokeless tobacco: Never Substance Use Topics Alcohol use: Never Drug use: Never FAMILY HISTORY: No family history on file. There is a family history of: Sleep apnea. Relative: brother BP 152/77 (BP Site: Right Arm, BP Position: Sitting, BP Cuff Size: Large Adult) Pulse 67 Temp (!) 35.7 C (96.2 F) Resp 20 Ht 172.7 cm (5' 8 ) Wt 97.5 kg (215 lb) SpO2 96% BMI 32.69 kg/m 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 He presents today with his to discuss JATINDER. He has a BiPAP device that is only ~ 2 years old and is malfunctioning. He and report the device gtz off randomly. He was using [employer], but has not received supplies in a long time. His filter is extremely dirty today in office, which may be contributing to issues with device. Mask and supplies are also very dirty. He is unsure when his last sleep study was completed. He believes this was done at [facility] ([place], [place]). He was initially started on CPAP, and later transitioned to BiPAP. He denies mask or pressure intolerance. Manual data report for the past 30 days shows average use of 5 hours/night (>70% compliance) and poorly controlled sleep apnea (rAHI 21.6). He endorses sx of continued snoring, EDS, frequent napping/dozing off during day, and DEBs (associated w/ hitting ; last occurred 1 week ago). We discussed Laurel recall and need to register device. Also discussed need for updated study given sx and uncontrolled sleep apnea. Emphasized importance of safe sleeping. PLAN: -[place] device as quickly as possible online as this will determine your spot in queue. [employer] or your [employer] medical equipment company ([employer]) will be handling replacement. [email or web address] or call [phone]. Check back frequently with the [employer] website for updates. - I will place an order for a new BiPAP device to be sent by [employer] - Continue Bilevel PAP at current settings of 25/21 cmH2O. - Clean out humidifier with soap and water and rinse well - Order new CPAP filters on [employer] - Try the new CPAP mask sample provided today - [employer] - Discussed possible diagnosis, causes, and conditions associated with obstructive sleep apnea. - Avoid driving when drowsy. Recommend that if you are dozing off while driving, that you do not drive until your sleepiness is appropriately treated. - Practice healthy lifestyle with adequate sleep (7-9 hours per night), diet and exercise. - PSG/Split Study to evaluate for sleep apnea - Add RBD protocol - Split Study after 2 hours if AHI is > 15. - Start BiPAP titration study. - Please send mask(s) home with patient. - You should get a call within the next week to schedule - Alternatively, you can call [phone] to schedule the test - Results are usually available within 2-3 weeks - Schedule follow-up visit for 3 weeks after study to review results Bedroom Safety Measures: Removing sharp objects and weapons from room you're sleeping in Move furniture and clutter from the room or away from the bed so you don't run into anything. Make sure windows and doors are locked Sleep away from your partner if symptoms are dangerous for them Can lower bed closer to the ground or get bed rails Christiana Ewing APRN.CNP I spent a total of 55 minutes on the date of the service which included preparing to see the patient, [id number] patient care, completing clinical documentation, obtaining and/or reviewing separately obtained history, performing a medically appropriate examination, counseling and educating the pat ient/family/caregiver, ordering medications, tests, or procedures, and communicating results to thepatient/family/caregiver. documented in this encounterGlen[facility] Hospital02-[facility]24 NoteHNO ID: [id number] Author: CHRISTIANA EWING APRN.CNP Service: ? Author Type: Nurse Practitioner Type: Progress Notes Filed: 04/27/2023 15:12 Note Text: [facility] New Patient Evaluation PATIENT NAME: Matthew Garza DATE OF SERVICE: April 23, 2023 CONSULTING PROVIDER: Eric Montiel [address] [facility] [address] REASON FOR CONSULT: Eric Montiel sends the patient for an opinion about JATINDER. My findings and recommendations will be transmitted electronically via shared medical record to the consulting provider. HPI: Matthew Garza is a 67 year old male. Sleep-related history: He has a BiPAP device that is only ~ 2 years old and is malfunctioning. He and report the device gtz off randomly. Auto-off feature is not turned on. He is unsure when his last sleep study was completed. He believes this was done at [facility] ([place], [place]). He has a Laurel BiPAP device. He was not aware this was recalled. This was received from [facility] in [place], [place]. MANUAL DATA ACCESS: Device: Laurel Bilevel PAP : [id number] Settings: 25/21 cmH2O 23/ days >=4 hours Average use: 5.0 hours Mask fit: 99% Residual AHI: 21.6 Mask: F20 Mask issues: none DME: [facility] in [place], [place] SLEEP-WAKE SCHEDULE Bedtime: 1030-11 PM. He does not have a hard time falling asleep. Wake time: 8-9 AM After falling asleep: he wakes up 1-2 time(s) per night, because of the need to urinate. SLEEP-RELATED DETAILS Preferred sleep position: side and back Breathing disturbances and other behaviors during sleep: snoring, frequent leg movements, and acting out dreams. Bruxism: Yes GERD or aspiration: No Waking up with heart pounding or racing: No He does not report having an urge to move the legs in the evening (when resting) that is accompanied or caused by uncomfortable and/or unpleasant sensations in the legs. He has been told that he has leg kicking during sleep. The patient reports having had the following: Acting out dreams. Just started in the past few months . He has hit during sleep. No associated injury to self or others. Last occurrence was 1 week ago. He has dreams of petting the dog and acts out reaching for and petting the dog. He fell out of bed once, but unsure when this occurred (years ago). Excessive daytime sleepiness / fatigue is a problem. Excessive Daytime sleepiness/fatigue has been a problem for 20+ years. There is no history of a viral illness or significant head injury prior to the start of daytime sleepiness. He does not report sleep paralysis or sleep-related hallucinations or cataplexy. WAKE-RELATED DETAILS He does not work. He does have difficulty with memory or concentration. He denies falling asleep or dozing off when driving. He does take naps. Dozing off multiple times per day. He does drink 3 caffeinated beverages per day. Alcohol use: Maybe once per month Tobacco use: Denies Illicit drug use: Denies There has not been a recent change in weight. Patient Questionnaires Sleep Scores PAST TREATMENTS: CPAP BiPAP PRIOR SLEEP STUDIES: None available for review today OTHER RELEVANT LABS AND STUDIES: No past medical history on file. No past surgical history on file. There is no problem list on file for this patient. Allergies As of Date: 04/27/2023 (Not on File) Fully Assessed 02/10/2023 CURRENT MEDICATIONS: carbidopa-levodopa (SINEMET) 25-100 mg per tablet Take 1/2 pill three times per day x 1 week, then increase to 1 pill 3 times per day bisoprolol-hydroCHLOROthiazide (ZIAC) 10-6.25 mg per tablet Take 1 tablet by mouth every morning. BIPAP Review of Systems SOCIAL HISTORY: Social History Tobacco Use Smoking status: Never Smokeless tobacco: Never Substance Use Topics Alcohol use: Never Drug use: Never FAMILY HISTORY: No family history on file. There is a family history of: Sleep apnea. Relative: brother BP 152/77 (BP Site: Right Arm, BP Position: Sitting, BP Cuff Size: Large Adult) Pulse 67 Temp (!) 35.7 ?C (96.2 ?F) Resp 20 Ht 172.7 cm (5' 8 ) Wt 97.5 kg (215 lb) SpO2 96% BMI 32.69 kg/m? 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 enactment behavior Y93.84 Injury while sleeping Matthew Garza is a pleasant 67 year old male with PMH of JATINDER on BiPAP, PD, cervical stenosi (more content not included)...[facility] 04-01-2023 Miscellaneous Notes* Telephone Encounter - Rea Mullins CMA - 04/01/2023 9:46 AM EST Refill request documented in this encounterTriHealth [facility]ull[facility] HospitalYaper[facility] [id number] Telephone encounter Note* Telephone Encounter - Rea Mullins CMA - 04/01/2023 9:46 AM EST Refill request [facility] [email or web address] [id number] Instructions* Patient Instructions* Eric Montiel MD - 02/10/2023 3:18 PM EST It is possible that the tremors you are having are due to mild Parkinson's disease. I would like to try a medication called Sinemet (carbidopa/levodopa 25/100). Please take 1/2 pill three times per day, roughly meal times, for one week. Then increase to 1 pill three times per day and remain on that dose. Please see me again in 4 months, in person or virtual visit. documented in this [facility]12[facility] History of Present illness Narrative* Eric Montiel MD - 02/10/2023 3:00 PM EST [facility] - FOLLOW UP EVALUATION I had the pleasure of seeing Mr. Garza for follow-up today. He is a 67 year old male with a history of tremor since 1999 or so . Subjective Previous Plan-11/11/2022 Visit: Tremor, gait disorder - See discussion above. Will obtain MRI brain, C spine. If unremarkable will trial L dopa. Follow up in 3 months Interval History: He saw neurosurgery, and minimal signs of myelopathy were appreciated. They are getting xrays but likely surgery will not be pursued. Tremors are present bilaterally, though not overly bothersome. Noticeable, but he is able to do ADLs without difficulty. Handwriting was always sloppy, not smaller. Tremors are with rest and action. He does tend to shuffle his feet, for years. No falls. Pertinent Neurologic ROS: Patient denies depress mood/anxiety: reports impaired Memory/Cognitive: He has been diagnosed with early dementia . Had neuropsych testing maybe [address], no accidents denies hallucinations: Patient denies sleep disturbances. 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 denies Swallowing difficulties. denies Orthostatic hypotension symptoms. Sense of smell is intact Movement Disorders Medications Schedule - as of the start of the visit: Medications Questionnaires: ALLERGIES Not on File Current Outpatient Medications Medication Sig bisoprolol-hydroCHLOROthiazide (ZIAC) 10-6.25 mg per tablet Take 1 tablet by mouth every morning. BIPAP No current facility-administered medications for this visit. Objective Vital Signs: BP 155/81 (BP Site: Left Arm, BP Position: Sitting, BP Cuff Size: Large Adult) Pulse 63 SpO2 98% Neurologic Exam: Mental Status: Good historian. Gait: Stands without needing to push himself up. Short steps, everted feet, decreased arm swing bilaterally, impaired turns Movement Disorders Scales Performed: MDS-UPDRS Motor subscale condition of exam Medication Off/On/Naiive Drug Naiive Time of UPDRS Time of Last Medication Last Medication Taken DBS Right N/A DBS Left N/A MDS-UPDRS Motor subscale scores Speech 0-Normal. No speech problems. Facial Expression 1-Slight. Minimal masked facies manifested only by decreased frequency of blinking. Rigidity Neck 0-Normal. No rigidity. Rigidity Right Upper Extremity 1-Slight. Rigidity only detected with activation maneuver. Rigidity Left Upper Extremity 1-Slight. Rigidity only detected with activation maneuver. Rigidity Right Lower Extremity 0-Normal. No rigidity. Rigidity Left Lower Extremity 0-Normal. No rigidity. Finger Taps Right 2-Mild. a) 3 to 5 interruptions during tapping, b) mild slowing, c) the amplitudedecrements midway in the 10-tap sequence. Finger Taps Left 1-Slight. a) the regular rhythm is broken with one or two interruptions or hesitations of the tapping movement, b) slight slowing, c) the amplitude decrements near the end of the 10 taps. Hand Movements Right 1-Slight. a) the regular rhythm is broken with one or two interruptions or hesitations of the movement, b) slight slowing, c) the amplitude decrements near the end of the task. Hand Movements Left 1-Slight. a) the regular rhythm is broken with one or two interruptions or hesitations of the movement, b) slight slowing, c) the amplitude decrements near the end of the task. Arm Movements Right 0-Normal. No problems. Arm Movements Left 1-Slight. a) the regular rhythm is broken with one or two interruptions or hesitations of the movement, b) slight slowing, c) the amplitude decrements near the end of the sequence. Toe Taps Right 1-Slight. a) the regular rhythm is broken with one or two interruptions or hesitations of the tapping movement, b) slight slowing, c) the amplitude decrements near the end of the ten taps. Toe Taps Left 1-Slight. a) the regular rhythm is broken with one or two interruptions or hesitations of the tapping movement, b) slight slowing, c) the amplitude decrements near the end of the ten taps. Leg Agility Right 1-Slight. a) the regular rhythm is broken with one or two interruptions or hesitations of the movement, b) slight slowing, c) the amplitude decrements near the end of the task. Leg Agility Left 0-Normal. No problems. Arise From Chair 0-Normal. No problems. Able to arise quickly without hesitation. Gait 2-Mild. Independent walking but with substantial gait impairment. Gait Freezing 0-Normal. No freezing. Posture Stability 0-Normal. No problems: recovers with one or two steps. Posture 1-Slight. Not quite erect, but posture could be normal for older person. Body Bradykinesia 0-Normal. No problems. Postural Tremor Hand Right 1-Slight. Tremor is present but less than 1cm in amplitude. Postural Tremor Hand Left 2-Mild. Tremor is at least 1 but less than 3 cm in amplitude. Kinetic Tremor Right 1-Slight. Tremor is present but less than 1cm in amplitude. Kinetic Tremor Left 2-Mild. Tremor is at least 1 but less than 3 cm in amplitude. Rest Tremor Amplitude Right Upper Extremity 2-Mild. > 1 cm but < 3 cm in maximal amplitude. Rest Tremor Amplitude Left Upper Extremity 1-Slight. < 1 cm in maximal amplitude. Rest Tremor Amplitude Right Lower Extremity 0-Normal. No tremor. Rest Tremor Amplitude Left Lower Extremity 0-Normal. No tremor. Rest Tremor Amplitude Lip/Jaw 0-Normal. No tremor. Rest Tremor Constancy 1-Slight. Tremor at rest is present < 25% of the entire examination period. MDS-UPDRS Motor subscale totals Left Total 10 Right Total 10 Midline Total 4 Tremor Total / 10 10 PIGD Total / 3 2 Overall Total 25 % Change Compared to Last Filed Total Assessment and Plan: Assessment Mr. Garza is a 67 year old year old male with 20+ year history of tremor, with 5- 10 years of gait disorder, cognitive symptoms, who presents for follow up. On exam there is both action and resting tremor, as well as mild rigidity and bradykinesia. No hyposmia, but there is a history of RBD. Likely long-standing tremors are due to essential tremor, though it is possible that more recent symptoms (such as slowness of gait, dexterity difficulty) may be due to mild Parkinson's disease. The following are the current problems noted and addressed during this visit: Tremor (primary encounter diagnosis) Plan 02/10/2023 Visit: Tremor, gait disorder - Will trial Sinemet, 25/100, uptitrate to one pill three times daily. If response is equivocal could consider DaTscan. There is cervical spine stenosis, but likely does not fully explain gait issues. He is established with spine surgery. Follow up in 4 months or so Updated Movement Disorders Medication Schedule: Medications Sinemet 25/100 1 1 1 Time spent 30 min on the day of service, which included preparing to see the patient, [id number] patient care, completing clinical documentation, obtaining and/or reviewing separately obtained history, performing a medically appropriate examination, counseling and educating the patient/family/caregiver, and ordering medications, tests, or procedures. Thank you for allowing me to be part of the clinical care of this patient! I look forward to continued participation in the patient s care with you. Please do not hesitate to call with any questions. Sincerely, Eric Montiel MD documented in this encounterGlen[facility] Hospital12-[facility]23 NoteHNO ID: [id number] Author: Eric Montiel MD Service: ? Author Type: Physician Type: Progress Notes Filed: 02/10/2023 3:26 PM Note Text: [facility] - FOLLOW UP EVALUATION I had the pleasure of seeing Mr. Garza for follow-up today. He is a 67 year old male with a history of tremor since 1999 or so . Subjective Previous Plan-11/11/2022 Visit: Tremor, gait disorder - See discussion above. Will obtain MRI brain, C spine. If unremarkable will trial L dopa. Follow up in 3 months Interval History: He saw neurosurgery, and minimal signs of myelopathy were appreciated. They are getting xrays but likely surgery will not be pursued. Tremors are present bilaterally, though not overly bothersome. Noticeable, but he is able to do ADLs without difficulty. Handwriting was always sloppy, not smaller. Tremors are with rest and action. He does tend to shuffle his feet, for years. No falls. Pertinent Neurologic ROS: Patient denies depress mood/anxiety: reports impaired Memory/Cognitive: He has been diagnosed with early dementia . Had neuropsych testing maybe [address], no accidents denies hallucinations: Patient denies sleep disturbances. 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 denies Swallowing difficulties. denies Orthostatic hypotension symptoms. Sense of smell is intact Movement Disorders Medications Schedule - as of the start of the visit: Medications Questionnaires: ALLERGIES Not on File Current Outpatient Medications Medication Sig bisoprolol-hydroCHLOROthiazide (ZIAC) 10-6.25 mg per tablet Take 1 tablet by mouth every morning. BIPAP No current facility-administered medications for this visit. Objective Vital Signs: BP 155/81 (BP Site: Left Arm, BP Position: Sitting, BP Cuff Size: Large Adult) Pulse 63 SpO2 98% Neurologic Exam: Mental Status: Good historian. Gait: Stands without needing to push himself up. Short steps, everted feet, decreased arm swing bilaterally, impaired turns Movement Disorders Scales Performed: MDS-UPDRS Motor subscale condition of exam Medication Off/On/Naiive Drug Naiive Time of UPDRS Time of Last Medication Last Medication Taken DBS Right N/A DBS Left N/A MDS-UPDRS Motor subscale scores Speech 0-Normal. No speech problems. Facial Expression 1-Slight. Minimal masked facies manifested only by decreased frequency of blinking. Rigidity Neck 0-Normal. No rigidity. Rigidity Right Upper Extremity 1-Slight. Rigidity only detected with activation maneuver. Rigidity Left Upper Extremity 1-Slight. Rigidity only detected with activation maneuver. Rigidity Right Lower Extremity 0-Normal. No rigidity. Rigidity Left Lower Extremity 0-Normal. No rigidity. Finger Taps Right 2-Mild. a) 3 to 5 interruptions during tapping, b) mild slowing, c) the amplitude decrements midway in the 10-tap sequence. Finger Taps Left 1-Slight. a) the regular rhythm is broken with one or two interruptions or hesitations of the tapping movement, b) slight slowing, c) the amplitude decrements near the end of the 10 taps. Hand Movements Right 1-Slight. a) the regular rhythm is broken with one or two interruptions or hesitations of the movement, b) slight slowing, c) the amplitude decrements near the end of the task. Hand Movements Left 1-Slight. a) the regular rhythm is broken with one or two interruptions or hesitations of the movement, b) slight slowing, c) the amplitude decrements near the end of the task. Arm Movements Right 0-Normal. No problems. Arm Movements Left 1-Slight. a) the regular rhythm is broken with one or two interruptions or hesitations of the movement, b) slight slowing, c) the amplitude decrements near the end of the sequence. Toe Taps Right 1-Slight. a) the regular rhythm is broken with one or two interruptions or hesitations of the tapping movement, b) slight slowing, c) the amplitude decrements near the end of the ten taps. Toe Taps Left 1-Slight. a) the regular rhythm is broken with one or two interruptions or hesitations of the tapping movement, b) slight slowing, c) the amplitude decrements near the end of the ten taps. Leg Agility Right 1-Slight. a) the regular rhythm is broken with one or two interruptions or hesitations of the movement, b) slight slowing, c) the amplitude decrements near the end of the task. Leg Agility Left 0-Normal. No problems. Arise From Chair 0-Normal. No problems. Able to arise quickly without hesitation. Gait 2-Mild. Independent walking but with substantial gait impairment. Gait Freezing 0-Normal. No freezing. Posture Stability 0-Normal. No problems: recovers with one or two steps. Posture 1-Slight. Not quite erect, but posture could be normal for older (more content not included)...[facility]12-01-2023 NoteHNO ID: [id number] Author: Balta Boyer APRN.[employer] Service: ? Author Type: Nurse Practitioner Type: Progress Notes Filed: 02/06/2023 4:52 PM Note Text: Spine Care Path Neck Pain - Chronic (> 12 weeks) Initial Exam SUBJECTIVE HISTORY OF PRESENT ILLNESS: Matthew Garza is a 67 year old male who presents for evaluation of cervical stenosis and is seen in consultation requested by Dr. Eric Montiel for an opinion regarding cervical stenosis . My final recommendations will be communicated back to the requesting physician by way of shared medical record or letter via US mail. Patient presents for evaluation of cervical stenosis. At time of today's appointment he denies neck pain, upper extremity pain, upper extremity numbness and tingling. He does report that he will occasionally experience mild neck pain. He states that these episodes are few and far between and not debilitating . He has recently been evaluated by Dr. Montiel neurology for evaluation of chronic essential tremor. At time of neurology evaluation MRI brain and cervical spine orders placed and were completed prior to today's appointment. Upon completion of imaging he was referred to spine for further evaluation. Patient reports that his brother has a history of Parkinson's disease. He reports that he has recently been diagnosed with early onset dementia. Patient's Pallavi is present with his consent. Per patient's she states that she has noticed patient experiencing increased bilateral upper extremity shaking and imbalance. He verbalizes that he does not feel that his shaking or imbalance has changed. Patient's adamantly disagrees. Retired: Previously worked at [employer] He is right handed Pain localized to intermittent midline neck pain - not present today Pain described as tension, ache Radiation: Denies Numbness/Tingling: Denies He denies loss of bowel or bladder control, he states that his only dexterity difficulty is with small zippers , he denies dropping items. He does report imbalance without falls. He states that he has not experienced a fall in close to 30 years , fell 30 years ago he did land on his neck after falling off of a bed. Pain rated 0/10 Pain worse with unknown Pain improved with unknown Interventions: none Medications: Ziac , Past medicaitons: requip Physical Therapy: None Treating Physicians: Dr. Collazo - PCP Dr. Montiel - Neurology - Referring Provider History of Spine Injections/Surgery: None RT shoulder rotator cuff and collarbone surgical repair Other Issues Addressed at the Visit Today: None. Precipitating Event: None PAIN EVALUATION 02/06/2023 1340 Pain Level: 0 Pain Location: Neck Description: Tightness Duration Units: Years Frequency: Intermittent Litigation: No Workers' Compensation: No YELLOW AND BLUE FLAGS No-Neg Attitude; Back Pain is Disabling No-Avoiding Activity (for Fear of Pain) No-Depression or Anxiety Disorders No-Social Problems No-Substance Use Disorder No-Job Dissatisfaction No-Financial Disincentives Patient Entered Questionnaires PROMIS Score Percentiles Percentiles provide an indication of how the patient's score ranks in relation to the general population. Higher percentile rankings indicate better function/quality of life. 50th percentile is the average of the general population and indicates half of respondents had a worse score. Depression Screening: PHQ-9 Self-Harm (Item 9) response options: 0 Not at all 1 Several days 2 More than half the days 3 Nearly every day PHQ-9 Levels: 0-4 No - mild depression 5-9 Mild depression 10-14 Moderate depression 15-19 Moderately severe depression 20-27 Severe depression There is no problem list on file for this patient. No past medical history on file. No past surgical history on file. Social History Tobacco Use Smoking status: Never Smokeless tobacco: Never Substance Use Topics Alcohol use: Never Drug use: Never No family history on file. ALLERGIES Not on File CURRENT MEDICATIONS: bisoprolol-hydroCHLOROthiazide (ZIAC) 10-6.25 mg per tablet Take 1 tablet by mouth every morning. BIPAP REVIEW OF SYSTEMS: PAIN ASSESSMENT: See HPI. GENERAL: Denies fever, chills malaise and weight loss. HEENT: No recent change in vision or hearing. CARDIOVASCULAR: Hypertension RESPIRATORY: Sleep apnea on c-pap GI: Denies GI ulcers, inflammatory disease, or liver disease. : Denies change in frequency or urgency, kidney disease, and burning with urination. MUSCULOSKELETAL: Negative for joint pain or swelling, back pain or muscle pain. SKIN: Denies rash or itching. PSYCHOLOGICAL: Denies uncontrolled depression or anxiety. NEURO: ET, early onset dementia ENDOCRINE: Denies diabetes, thyroid disease. HEMATOLOGY/LYMPHOLOGY: Denies cancer, bleeding or clotting disorders, anemia,and DVT's. ALLERGIC/IMMUN (more content not included)...[facility] 01-14-2023 Miscellaneous Notes* Telephone Encounter - Cheryl Sharma RN - 01/14/2023 4:38 PM EST I spoke with Vladimir and gave him results from MRI per Dr. Montiel. He was also given information to schedule in [facility]. We also scheduled a follow up appt with Dr. Montiel 02/10/2023 at 3pm. * Telephone Encounter - Cheryl Sharma RN - 01/14/2023 2:31 PM EST Message left for patient to return call to discusss results from MRI * Telephone Encounter - Cheryl Sharma RN - 01/14/2023 2:31 PM EST ----- Message from Eric Montiel MD sent at 01/14/2023 12:39 PM EST ----- Regarding: MRI results Hi, Please let this patient know we have received the results from his MRI. There is some significant arthritis of the neck (cervical stenosis) which may be contributing to some of his symptoms. I am not sure whether or not this is something that would require a surgery, but I would recommend he meet with a human services care specialist to discuss. I have placed a referral for spine surgery (neurosurgery). Eric Hough [facility] NoteHNO ID: [id number] Author: Hiral Barros RT(R) Service: ? Author Type: Technologist Type: Progress Notes Filed: 01/07/2023 8:37 AM Note Text: Radiology Service Progress Note PATIENT NAME: Matthew Garza DATE OF SERVICE: January 07, 2023 TIME: 8:37 AM PATIENT IDENTITY VERIFICATION COMPLETED USING TWO (2) IDENTIFIERS: Name and Date of confirmed by patient verbally. FALL SCREENING: Has the patient had 2 falls in the last year or 1 fall with injury or currently using an Ambulatory Assistive Device (Walker, Cane, Wheelchair, Crutches, etc.)? No PATIENT GENDER DATA: Male PATIENT RELEVANT IMPLANT DATA REVIEWED: Yes RADIOLOGY DEPARTMENT: MR; Exam(s) Completed: Head: Routine Brain Spine: Cervical spine PERIPHERAL IV DATA: Not applicable SIGNED BY: RT Romel(R) January 07, 2023 8:37 [facility]09-05-2023 Instructions* Patient Instructions* Eric Montiel MD - 11/11/2022 10:33 AM EDT The tremors you have had for many years is likely due to Essential Tremor. It is possible that you have also developed mild Parkinson's, but at this point I am not sure. Parkinson's disease is a clinical diagnosis, meaning the diagnosis is based on signs and symptoms; thereis no blood test, and it cannot be diagnosed using an MRI. However, I would like to get MRIs of the brain and neck, to make sure there are not other problems that could be causing walking trouble, or tremors. If the MRIs come back okay, then likely the next step would be to try a Parkinson's medication, called Sinemet, to see if it can help with the walking or tremors. Please see me again in 3 months, in person or virtual visit. documented [facility] History of Present illness Narrative* Eric Montiel MD - 11/11/2022 10:00 AM EDT [facility] - NEW PATIENT EVALUATION Referring Provider: Matthew Collazo MD [address] [place] [address], [address] [place] [id number] Dear Matthew Collazo: Thank you for referring Mr. Garza to our clinic today. As you know he is a 67 year old male who is seen in consultation for evaluation of tremor since 1999 or so . Consultation requested by Dr. Collazo for an opinion regarding tremor. My final recommendations will be communicated back to the requesting physician by way of shared Medical record or letter to requesting physician via [place] mail. Subjective HISTORY OF PRESENT ILLNESS: He is referred for evaluation of Tremor. He tells me he is here for second opinion. 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 His brother has PD so he is concerned. He has had some amount of tremor going back at least 20 years, gradually getting worse. He does notremember if one hand or both hands. He first saw a doctor about the tremor maybe 10-15 years ago, diagnosed with ET. He was started on primidone. He thinks it helped with tremors, though his does not. He took it for a few years, ended up stopping it as it caused positive drug test at his work.He has not tried any medications since then. Coffee makes the shaking worse. Tremors are present bilaterally, though not really bothersome. Noticeable, but he is able to do ADLs without difficulty. Handwriting was always sloppy, not smaller. Tremors are with rest and action. He denies issues with dexterity. He does tend to shuffle his feet. This has been going on for 10-15year apparently. He does not fall. Not using assistive device. He was tried on Requip for leg movements during sleep, without clear benefit. Pertinent Neurologic ROS: Patient denies depress mood/anxiety: reports impaired Memory/Cognitive: He has been diagnosed with early dementia . Had neuropsych testing maybe [address], no accidents but has gotten lost before. denies hallucinations: Patient denies sleep disturbances. 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 denies Swallowing difficulties. denies Orthostatic hypotension symptoms. Sense of smell is intact Voice is gravelly per (he has not noticed change) Handwriting is sloppy, not smaller Questionnaires Review of Systems ALLERGIES Not on File Current Outpatient Medications Medication Sig bisoprolol-hydroCHLOROthiazide (ZIAC) 10-6.25 mg per tablet Take 1 tablet by mouth every morning. BIPAP No current facility-administered medications for this visit. 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 Good historian. No aphasia. Able to spell APPLE forwards and backwards. Knows 7 quarters in $1.75. Cranial nerves: Pupils equal round and reactive to light. No visual field defects. EOMI. Normal facial sensation. Normal facial symmetry and movements. Normal hearing and vestibular function. Normal palatal movement. Normal shoulder shrug and head rotation. Tongue protrudes midline Motor: No pronator drift. Power is 5/5 throughout. Sensation: Light touch intact in all 4 extremities. Decreased vibration knees and distal Reflexes: Normal 2+ reflexes throughout Coordination: Normal finger-to- nose-finger Gait: Stands without needing to push himself up. Short steps, everted feet, decreased arm swing bilaterally, impaired turns Movement exam: Slight resting tremor in bilateral upper extremities Slight/mild postural tremor, L>R Slight/mild kinetic tremor, L>R Slight rigidity in bilateral upper extremities mild bradykinesia bilaterally Assessment and Plan: Assessment Mr. Garza is a 67 year old year old male with 20+ year history of tremor, with 5- 10 years of gait disorder, cognitive impairment, who presents for evaluation. On exam there is both action and resting tremor, as well as mild rigidity and bradykinesia. No hyposmia, but there is a history of RBD. Likely long-standing tremors are due to essential tremor, though it is possible that more recent symptoms (such as slowness of gait, dexterity difficulty) may be due to mild Parkinson's disease. 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 The following are the current problems noted and addressed during this visit: Spinal stenosis of cervical region Gait disorder Tremor (primary encounter diagnosis) Plan 11/11/2022 Visit: Tremor, gait disorder - See discussion above. Will obtain MRI brain, C spine. If unremarkable will trial L dopa. Follow up in 3 months Time spent 60 min on the day of service, which included preparing to see the patient, [id number] patient care, completing clinical documentation, obtaining and/or reviewing separately obtained history, performing a medically appropriate examination, and counseling and educating the patient/family/ caregiver. Thank you for allowing me to be part of the clinical care of this patient! I look forward to continued participation in the patient s care with you. Please do not hesitate to call with any questions. Sincerely, Eric Montiel MD documented [facility] encounter[facility]23 NoteHNO ID: [id number] Author: Eric Montiel MD Service: ? Author Type: Physician Type: Progress Notes Filed: 11/11/2022 10:51 AM Note Text: [facility] - NEW PATIENT EVALUATION Referring Provider: Matthew Collazo MD [address] [place] [address], [address] [place] [address] Dear Matthew Collazo: Thank you for referring Mr. Garza to our clinic today. As you know he is a 67 year old male who is seen in consultation for evaluation of tremor since 1999 or so . Consultation requested by Dr. Collazo for an opinion regarding tremor. My final recommendations will be communicated back to the requesting physician by way of shared Medical record or letter to requesting physician via US mail. Subjective HISTORY OF PRESENT ILLNESS: He is referred for evaluation of Tremor. He tells me he is here for second opinion. 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 His brother has PD so he is concerned. He has had some amount of tremor going back at least 20 years, gradually getting worse. He does not remember if one hand or both hands. He first saw a doctor about the tremor maybe 10-15 years ago, diagnosed with ET. He was started on primidone. He thinks it helped with tremors, though his does not. He took it for a few years, ended up stopping it as it caused positive drug test at his work. He has not tried any medications since then. Coffee makes the shaking worse. Tremors are present bilaterally, though not really bothersome. Noticeable, but he is able to do ADLs without difficulty. Handwriting was always sloppy, not smaller. Tremors are with rest and action. He denies issues with dexterity. He does tend to shuffle his feet. This has been going on for 10-15 year apparently. He does not fall. Not using assistive device. He was tried on Requip for leg movements during sleep, without clear benefit. Pertinent Neurologic ROS: Patient denies depress mood/anxiety: reports impaired Memory/Cognitive: He has been diagnosed with early dementia . Had neuropsych testing maybe [address], no accidents but has gotten lost before. denies hallucinations: Patient denies sleep disturbances. 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 denies Swallowing difficulties. denies Orthostatic hypotension symptoms. Sense of smell is intact Voice is gravelly per (he has not noticed change) Handwriting is sloppy, not smaller Questionnaires Review of Systems ALLERGIES Not on File Current Outpatient Medications Medication Sig bisoprolol-hydroCHLOROthiazide (ZIAC) 10-6.25 mg per tablet Take 1 tablet by mouth every morning. BIPAP No current facility-administered medications for this visit. 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 Neurologic Exam: Mental Status: orientation to time, place, person. Good historian. No aphasia. Able to spell APPLE forwards and backwards. Knows 7 quarters in $1.75. Cranial nerves: Pupils equal round and reactive to light. No visual field defects. EOMI. Normal facial sensation. Normal facial symmetry and movements. Normal hearing and vestibular function. Normal palatal movement. Normal shoulder shrug and head rotation. Tongue protrudes midline Motor: No pronator drift. Power is 5/5 throughout. Sensation: Light touch intact in all 4 extremities. Decreased vibration knees and distal Reflexes: Normal 2+ reflexes throughout Coordination: Normal finger-to- nose-finger Gait: Stands without needing to push himself up. Short steps, everted feet, decreased arm swing bilaterally, impaired turns Movement exam: Slight resting tremor in bilateral upper extremities Slight/mild postural tremor, L>R Slight/mild kinetic tremor, L>R Slight rigidity in bilateral upper extremities mild bradykinesia bilaterally Assessment and Plan: Assessment Mr. Garza is a 67 year old year old male with 20+ year history of tremor, with 5-10 years of gait disorder, cognitive impairment, who presents for evaluation. On exam there is both action and resting tremor, as well as mild rigidity and bradykinesia. No hyposmia, but there is a history of RBD. Likely long-sta (more content not included)...[facility] Evaluation note* Diagnosis Tremor- Primary Abnormal involuntary movements Spinal stenosis of cervical region Spinal stenosis in cervical region Gait disorder Abnormality of gait [facility] Diagnosis Cervical stenosis of spine- Primary Spinal stenosis in cervical region [facility]* Diagnosis Tremor- Primary Abnormal involuntary movements [facility]* Diagnosis Cervical stenosis of spine Spinal stenosis in cervical region [facility]* Diagnosis Essential hypertension Unspecified essential hypertension [facility] Diagnosis Obstructive sleep apnea syndrome- Primary Obstructive sleep apnea (adult) (pediatric) JATINDER treated with BiPAP Malfunction of continuous positive airway pressure (CPAP) or bilevel positive airway pressure (BPAP) machine, initial encounter Parasomnia, unspecified type Dream enactment behavior Injury while sleeping [facility]* Diagnosis Parkinson's disease without dyskinesia or fluctuating manifestations (HCC)- Primary Tremor Abnormal involuntary movements Gait disorder Abnormality of gait [facility]* Diagnosis Obstructive sleep apnea syndrome- Primary Obstructive sleep apnea (adult) (pediatric) JATINDER treated with BiPAP Malfunction of continuous positive airway pressure (CPAP) or bilevel positive airway pressure (BPAP) machine, initial encounter Dream enactment behavior Parkinson's disease, unspecified whether dyskinesia present, unspecified whether manifestations fluctuate (HCC) Primary hypertension Unspecified essential hypertension [facility]* Diagnosis Onset Date Resolution Status Hyperlipidemia acute Hypertension acute NSTEMI (non-ST elevated myocardial infarction) acute Parkinson disease acute [facility] Work Phone: Evaluation note* Diagnosis Onset Date Resolution Status Hyperlipidemia acute Hypertension acute Parkinson disease acute NSTEMI (non-ST elevated myocardial infarction) resolved Hyperlipidemia acute Hypertension acute Parkinson disease acute NSTEMI (non-ST elevated myocardial infarction) resolved Hyperlipidemia acute Hypertension acute Parkinson disease acute NSTEMI (non-ST elevated myocardial infarction) resolved [facility] Work Phone: Evaluation note* Diagnosis Obstructive sleep apnea syndrome- Primary Obstructive sleep apnea (adult) (pediatric) JATINDER treated with BiPAP Parkinson's disease, unspecified whether dyskinesia present, unspecified whether manifestations fluctuate (HCC) Myocardial infarction, unspecified PA type, unspecified artery (HCC) Obesity, Class I, BMI 30-34.9 Obesity, unspecified documented in this encounter [facility] Discharge instructions Additional Instructions DISCHARGE INSTRUCTIONS FOR ANGIOPLASTY/CORONARY/PERIPHERAL/STENT IMPLANT FOR ADULT ANTICOAGULATION -Since the greatest risk of a blood clot forming with the stent occurs in the first 2-3 weeks after implantation, you will need to take anticoagulants for at least 12-18 months. ANTICOAGULATION MEDICATION: Aspirin 81mg once a day and Ticagrelor (Brilinta) 90mg twice a day] STATIN MEDICATION: atorvastatin (Lipitor) 80 mg Drug-Eluting Stent (ALBINO) duration of anticoagulation therapy (Aspirin and Brilinta) is 12-18 months. DO NOT discontinue Brilinta and/or Aspirin during the first few months regardless of what you are advised by your family doctor or pharmacist, without first calling the director of strategic marketing who implanted the stent. If you require pain relief during this time, please take only ACETAMINOPHEN (TYLENOL)- NO additional aspirin or ibuprofen. DISCHARGE ACTIVITIES ARE FOLLOWS: First week after discharge: -Take it easy at home, no strenuous activity. -Do not lift or pull objects over 10-15 pounds, including children, and groceries for four weeks. If puncture site is at wrist do NOT lift more than three pounds for three days. - May walk up stairs. -May shower. -No excessive scrubbing of the affected site (groin). -May ride in car. -May resume sexual intercourse after 1-2 weeks. -No MRI for 12 days. -May drive in 4-7 days. -If puncture site is at the wrist do not manipulate the wrist for 24 hours, and no soaking wrist for three days. Second Week: -May take a bath -May start walking 3 times a week for 15-20 minutes at a leisurely pace. You should be able to carry on a conversation comfortably without feeling winded. -No strenuous activity as in jogging, running, weight lifting, stair steppers, etc. until the director of strategic marketing approves these activities. Check with the director of strategic marketing on your first follow-up visit. CALL YOUR HAND GLASS CUTTER: -If bleeding should occur from the catheter insertion site- apply pressure to the site then immediately call us. -Report any fever, redness, drainage, increased swelling, or firmness at the catheter insertion site. Some bruising or slight swelling may be present at the time of discharge. -Should arm or leg become cold, numb, white, or blue, contact the director of strategic marketing immediately. -IF you should experience episodes of angina, e.g. chest discomfort, heaviness, tightness, pressure burning with or without radiation to the neck, jaw, arms or back- use 1 Nitrostat tablet under your tongue every 5-10 minutes and up to three tablets. IF NO RELIEF, CALL 911 or GO TO THE NEAREST EMERGENCY ROOM. -Please notify our office if you have recurrent angina. The attending director of strategic marketing or a nurse clinician should provide you with specific instructions regarding activity, diet, medications, and further follow up for you. Follow the medication instructions provided on your discharge. If the dosages and instructions on this sheet differ from the dosage and instructions on the bottle, follow the instructions on the bottle. [facility] is not responsible for incorrect prescription information provided by the patient during their visit. Do not stop your medications without consulting your health care provider. Please take the list with you to your next doctor's appointment.[facility] Work Phone: InstructionsNot on filedocumented in this encounter [facility] SystemProgress note Author Navya Rangel [facility] July 17, 2023 2:19pm Note Date/Time July 17, 2023 2:19p m [facility] [address] [place] [address] Cardiology Progress Note Signed Patient: Matthew Garza MR#: [id number] : 1955 Acct:[id number] Age/Sex: 68 / M Adm Date: 4 Loc: Room: [address] [place] [address] Type: DIS IN Attending Dr: Matthias Mckenna MD Copies to: ~ Date of Service: 07/17/2023 Subjective Interval history: No acute events overnight. No ectopy noted on telemetry. Pt is doing well today.Denies chest pain,dyspnea,palpitations or light headedness. BP elevated this am. Exam Physical Exam Vital Signs: Temp Pulse Resp BP Pulse Ox O2 Del Method 97.8 F 56 L 18 146/83 H 97 Room Air 07/17/23 11:25 07/17/23 11:25 07/17/23 11:25 07/17/23 11:25 07/17/23 11:25 07/17/23 11:25 Narrative: GEN: AAOx3. No acute distress. Neck: No JVD. Lungs: Clear to auscultation bilaterally Heart: Regular rate and rhythm. Normal S1 and S2. No murmurs or rubs appreciated. Abdomen: Soft, nontender, nondistended, bowel sounds present. Extremities: No BLE edema. Neuro: AAOx3. No focal deficits. Objective Labs 07/17/23 05:32 07/17/23 05:32 Labs: Laboratory Results - last 24 hr 07/16/23 07/16/23 07/16/23 16:18 18:21 20:26 Corrected WBC Uncorrected WBC Count RBC Hgb Hct MCV MCH MCHC RDW Plt Count MPV Neut % (Auto) Lymph % (Auto) [place] % (Auto) Eos % (Auto) Baso % (Auto) Nucleat RBC Rel Count Neut # (Auto) Lymph # (Auto) [place] # (Auto) Eos # (Auto) Baso # (Auto) PHA Creatinine Clear Sodium Potassium Chloride Carbon Dioxide Anion Gap BUN Creatinine Est GFR (CKD-EPI) Glucose Calcium Troponin I High Sens 69874.9 H* 80458.6 H* 43892.0 H* 07/16/23 07/17/23 22:08 05:32 Corrected WBC 11.2 H Uncorrected WBC Count 11.2 H RBC 3.89 L Hgb 12.0 L Hct 36.3 L MCV 93.2 MCH 30.8 MCHC 33.0 RDW 14.2 Plt Count 219 MPV 8.0 Neut % (Auto) 79.6 Lymph % (Auto) 9.4 [place] % (Auto) 10.4 Eos % (Auto) 0.4 Baso % (Auto) 0.2 Nucleat RBC Rel Count 0.1 Neut # (Auto) 8.9 H Lymph # (Auto) 1.1 [place] # (Auto) 1.2 H Eos # (Auto) 0.0 Baso # (Auto) 0.0 PHA Creatinine Clear 72.47 Sodium 136 Potassium 4.3 Chloride 102 Carbon Dioxide 23.3 Anion Gap 15.0 BUN 18 Creatinine 1.17 Est GFR (CKD-EPI) > 60.0 Glucose 99 Calcium 9.1 Troponin I High Sens 47946.3 H* 7506.4 H* A&P - Cardiology (1) Hypertension: Code(s): I10 - Essential (primary) hypertension (2) Parkinson disease: Code(s): G20.A1 - Parkinson's disease without dyskinesia, without mention of fluctuations (3) NSTEMI (non-ST elevated myocardial infarction): Code(s): I21.4 - Non-ST elevation (NSTEMI) myocardial infarction (4) Hyperlipidemia: Code(s): E78.5 - Hyperlipidemia, unspecified Plan Mr. Garza is a 68 year old male with PMH significant for HTN and Parkinson's disease who presented as a transfer from [facility] for management of NSTEMI. Troponin at [facility] was 50-->73-->180. Troponin here was 2152; BNP elevated at 245. Repeat EKG here showed NSR with lateral T wave inversions. Assessment: NSTEMI HTN HLD Parkinson's disease Recommendations: - LHC showed total occlusion diagonal branch and severe proximal/mid LAD disease. Pt is s/p successful bifurcation PCI ostial-proximal diagonal and proximal/mid LAD with 2.5 x 22 and 3.5 x 38 mm Prabhakar stents respectively. - Echo 07/16/2023 showed normal LVEF 55% with moderate hypokinesis of the mid to distal lateral wall. - Doing well today. BP elevated. Will start Losartan 25mg daily for afterload reduction and BP control - Continue DAPT ASA+Brilinta 90mg BID for at least 1 year. - Continue Bisoprolol 10mg daily, high intensity statin, PRN NTG. - Cardiac rehab on discharge - Follow up with [facility] cardiology in 2 weeks. Documented By: Navya Rangel MD 07/17/23 1411 Signed By: <Electronically signed by Navya Rangel MD> 07/17/23 1419 [facility] Work Phone: Reason for referral (narrative)* Diagnostic Procedure Only (Routine) - Closed Specialty Diagnoses / Procedures Referred By Chaparro gonzalez Referred To Contact XR IMAGING Diagnoses Cervical stenosis of spine Procedures XR CERVICAL 2V FLEX/EXT RADEX SPINE CERVICAL 2 OR 3 VIEWS Balta Boyer APRN.CNP [address] [place] [address] Xr Imaging [place] [address] Referral ID Status Reason Start Date Expiration Date V isits Requested Visits Authorized [id number] Closed Auto-Generate d Referral 02/06/2023 03/07/2024 1 1 [facility] Summary Purpose Family History No Family History Records Found Relationship Condition Age at Onset Recorded Date/T shankar father Myocardial infarction Unknown Not Specified Myocardial infarction Unknown Relationship Condition Age at Onset Recorded Date/T shankar father Myocardial infarction Unknown mother Myocardial infarction Unknown Advance Directives No Advanced Directives Records Found Advance Directive Response Recorded Date/ Time Advance Directives No February 12:58pm Reason for Referral Specialty Diagnoses / Procedures Referred By Chaparro t Referred To Contact MR IMAGING Diagnoses Gait disorder Tremor Procedures MRI BRAIN WO IVCON MRI BRAIN BRAIN STEM W/O CONTRAST MATERIAL Eric Montiel MD [address] [place] [address] Mr Imaging [place] [address] Referral ID Status Reason Start Date Expiration Date Visits Requested Visits Authorized [id number] Pending Review Auto-Generat ed Referral 11/11/2022 12/11/2023 1 1 Specialty Diagnoses / Procedures Referred By Contac t Referred To Contact MR IMAGING Diagnoses Spinal stenosis of cervical region Procedures MRI CERVICAL SPINE WO IVCON MRI SPINAL CANAL CERVICAL W/O CONTRAST MATRL Eric Montiel MD [address] [place] [address] Mr Imaging [place] [address] Referral ID Status Reason Start Date Expiration Date Visits Requested Visits Authorized [id number] Pending Review Auto-Generat ed Referral 11/11/2022 12/11/2023 1 1 Specialty Diagnoses / Procedures Referred By Contac t Referred To Contact Neurosurgery Diagnoses Cervical stenosis of spine Procedures CONSULT TO NEUROSURGERY OFFICE/OUTPATIENT NEW HIGH MDM 60-74 MINUTES Eric Montiel MD [address] [place] [phone] Referral ID Status Reason Start Date Expiration Date Visits Requested Visits Authorized [id number] Authorized PCP Requested Referral 01/14/2023 01/14/2024 1 1 Specialty Diagnoses / Procedures Referred By Contac t Referred To Contact Diagnoses Parkinson's disease without dyskinesia or fluctuating manifestations (HCC) Procedures PROVIDER ORDERED FOLLOW UP OFFICE/OUTPATIENT NEW HIGH MDM 60 MINUTES Eric Montiel MD [address] [place] [phone] Referral ID Status Reason Start Date Expiration Date Visits Requested Visits Authorized [id number] Authorized PCP Requested Referral 10/12/2023 06/09/2024 1 1 Chief Complaint and Reason for Visit Chief Complaint Chest Pain,elevated troponin Chest Pain,elevated troponin Reason for Visit Hyperlipidemia Hypertension NSTEMI (non-ST elevated myocardial infarction) Parkinson disease Chief Complaint Chest Pain,elevated troponin Chest Pain,elevated troponin Amb Documentation TCM Reason for Visit Hyperlipidemia Hypertension NSTEMI (non-ST elevated myocardial infarction) Parkinson disease Chief Complaint Chest Pain,elevated troponin Chest Pain,elevated troponin Amb Documentation TCM 2 Months Reason for Visit Hyperlipidemia Hypertension Parkinson disease NSTEMI (non-ST elevated myocardial infarction) Hyperlipidemia Hypertension Parkinson disease NSTEMI (non-ST elevated myocardial infarction) Hyperlipidemia Hypertension Parkinson disease NSTEMI (non-ST elevated myocardial infarction) Additional Source Comments (unrecognized sect ion and content) No Status Records FoundNo Status Records FoundNo Status Records FoundNo Status Records FoundNo Status Records FoundNo Status Records Found INFORMATION SOURCE (unrecogn ized section and content) DATE CREATED AUTHOR 02/09/2020 [facility] DATE CREATED AUTHOR AUTHOR'S ORGANIZ ATION 07/26/2021 [facility] DATE CREATED AUTHOR AUTHOR'S ORGANIZ ATION 03/16/2023 [facility] EPIC DATE CREATED AUTHOR AUTHOR'S ORGANIZ ATION 08/02/2023 [facility] DATE CREATED AUTHOR AUTHOR'S ORGANIZ ATION 08/05/2023 [facility] DATE CREATED AUTHOR AUTHOR'S ORGANIZ ATION 10/14/2023 [facility] Source Comments (unrecognize d section and content) In the event this informatio n is protected by the Federal Confidentiality of Alcohol and Drug Abuse Patient Records regulations: The Federal rules restrict any use of the information to criminally investigate or prosecute any alcohol or drug abuse patient.[facility] the event this information is protected by the Federal Confidentiality of Alcohol and Drug Abuse Patient Records regulations: The Federal rules restrict any use of the information to criminally investigate or prosecute any alcohol or drug abuse patient.[facility] Hospital[facility] the event this information is protected by the Federal Confidentiality of Alcohol and Drug Abuse Patient Records regulations: The Federal rules restrict any use of the information to criminally investigate or prosecute any alcohol or drug abuse patient.[facility] Hospital[facility] the event this information is protected by the Federal Confidentiality of Alcohol and Drug Abuse Patient Records regulations: The Federal rules restrict any use of the information to criminally investigate or prosecute any alcohol or drug abuse patient.[facility] Hospital[facility] the event this information is protected by the Federal Confidentiality of Alcohol and Drug Abuse Patient Records regulations: The Federal rules restrict any use of the information to criminally investigate or prosecute any alcohol or drug abuse patient.[facility] HospitalIn the event this information is protected by the Federal Confidentiality of Alcohol and Drug Abuse Patient Records regulations: The Federal rules restrict any use of the information to criminally investigate or prosecute any alcohol or drug abuse patient.[facility] Clinic[facility] the event this information is protected by the Federal Confidentiality of Alcohol and Drug Abuse Patient Records regulations: The Federal rules restrict any use of the information to criminally investigate or prosecute any alcohol or drug abuse patient.[facility] Hospital[facility] the event this information is protected by the Federal Confidentiality of Alcohol and Drug Abuse Patient Records regulations: The Federal rules restrict any use of the information to criminally investigate or prosecute any alcohol or drug abuse patient.[facility] Hospital[facility] the event this information is protected by the Federal Confidentiality of Alcohol and Drug Abuse Patient Records regulations: The Federal rules restrict any use of the information to criminally investigate or prosecute any alcohol or drug abuse patient.[facility] HospitalIn the event this information is protected by the Federal Confidentiality of Alcohol and Drug Abuse Patient Records regulations: The Federal rules restrict any use of the information to criminally investigate or prosecute any alcohol or drug abuse patient.[facility] HospitalIn the event this information is protected by the Federal Confidentiality of Alcohol and Drug Abuse Patient Records regulations: The Federal rules restrict any use of the information to criminally investigate or prosecute any alcohol or drug abuse patient.[facility] HospitalIn the event this information is protected by the Federal Confidentiality of Alcohol and Drug Abuse Patient Records regulations: The Federal rules restrict any use of the information to criminally investigate or prosecute any alcohol or drug abuse patient.[facility] HospitalIn the event this information is protected by the Federal Confidentiality of Alcohol and Drug Abuse Patient Records regulations: The Federal rules restrict any use of the information to criminally investigate or prosecute any alcohol or drug abuse patient.[facility] Reason for Visit (unrecogniz ed section and content) Reason Comments New Patient New Patient Evaluation Specialty Diagnoses / Procedures Referred By Chaparro gonzalez Referred To Contact Neurology / NEUROLOGICAL RESTORATIONISM Diagnoses Essential tremor essential tremor Procedures [facility] Matthew Montiel [address] [place] [address], [address] [place] [address] Eric Montiel MD [address] [place] [phone] Referral ID Status Reason Start Date Expiration Date Visits Re quested Visits Authorized [id number] Closed 10/31/2022 03/08/2023 1 1 Reason Comments Results MRI Reason Comments Established Patient FOLLOW UP Specialty Diagnoses / Procedures Referred By Contac t Referred To Contact Neurology / NEUROLOGICAL RESTORATIONISM Diagnoses FOLLOW UP Procedures OFFICE/OUTPATIENT ESTABLISHED HIGH MDM 40-54 MIN EST NI PATIENT Eric Montiel MD [address] [place] [phone] Eric Montiel MD [address] [place] [address] Referral ID Status Reason Start Date Expiration Date Visits Re quested Visits Authorized [id number] Closed 02/04/2023 03/08/2023 1 1 Reason Comments [facility] J1 Specialty Diagnoses / Procedures Referred By Contac t Referred To Contact XR IMAGING Diagnoses Cervical stenosis of spine Procedures XR CERVICAL 2V FLEX/EXT RADEX SPINE CERVICAL 2 OR 3 VIEWS Balta Boyer, NEUROPSYCHOLOGY SERVICE DIRECTOR.[employer] [address] [place] [address] Xr Imaging [place] [address] Referral ID Status Reason Start Date Expiration Date V isits Requested Visits Authorized [id number] Closed Auto-Generate d Referral 02/06/2023 03/07/2024 1 1 Reason Comments Med Refill Reason Comments New Patient Specialty Diagnoses / Procedures Referred By Contac t Referred To Contact SLEEP DISORDERS Diagnoses Obstructive sleep apnea syndrome Procedures CONSULT TO SLEEP MEDICINE - ADULT OFFICE/OUTPATIENT NEW HIGH MDM 60-74 MINUTES Eric Montiel MD [address] [place] [address] Neur [facility] [address] [place] [address] Referral ID Status Reason Start Date Expiration Date V isits Requested Visits Authorized [id number] Closed PCP Requested Referral 04/06/2023 03/08/2024 1 1 Reason Comments PAP Replacement Fax Reason Comments Established Patient Follow up Specialty Diagnoses / Procedures Referred By Contruth t Referred To Contact Neurology / NEUROLOGICAL RESTORATIONISM Diagnoses Follow up Procedures EST NI PATIENT Eric Montiel MD [address] [place] [address] Eric Montiel MD [address] [place] [address] Referral ID Status Reason Start Date Expiration Date V isits Requested Visits Authorized [id number] Pending Review 06/09/2023 09/07/2023 1 1 Reason Comments Follow Up Reason Comments PAP Therapy Fax Reason Comments Follow Up Sleep Apnea Reason Comments PAP Supply Fax Care Teams (unrecognized sec tion and content) Electronic Typesetting Machine Operator Relationship Specialty Start Date End Date Matthew Collazo [address] [place] [address], [address] [place] [address] Referring Internal Medicine 10/24/22 Electronic Typesetting Machine Operator Relationship Specialty Start Date End Date Matthew Collazo [address] [place] [address], [address] [place] [address] Referring Internal Medicine 10/24/22 Electronic Typesetting Machine Operator Relationship Specialty Start Date End Date Matthew Collazo [address] [place] [address], [address] [place] [address] Referring Internal Medicine 10/24/22 Electronic Typesetting Machine Operator Relationship Specialty Start Date End Date Matthew Collazo [address] [place] [address], [address] [place] [address] Referring Internal Medicine 10/24/22 Electronic Typesetting Machine Operator Relationship Specialty Start Date End Date Matthew Collazo [address] [place] [address], [address] [place] [address] Referring Internal Medicine 10/24/22 Electronic Typesetting Machine Operator Relationship Specialty Start Date End Date Matthew Collazo MD [address] [place] [address], [address] [place] [address] PCP - General Pediatrics 09/03/16 Electronic Typesetting Machine Operator Relationship Specialty Start Date End Date Matthew Collazo [address] [place] [address], [address] [place] [address] Referring Internal Medicine 10/24/22 Electronic Typesetting Machine Operator Relationship Specialty Start Date End Date Matthew Collazo [address] [place] [address], [address] [place] [address] Referring Internal Medicine 10/24/22 Electronic Typesetting Machine Operator Relationship Specialty Start Date End Date Matthew Collazo [address] [place] [address], [address] [place] [address] Referring Internal Medicine 10/24/22 Electronic Typesetting Machine Operator Relationship Specialty Start Date End Date Matthew Collazo [address] [place] [address], [address] [place] [id number] Referring Internal Medicine 10/24/22 Team Status: Active Member Role Status Dates Matthew Collazo MD Primary Care Provider Active Team Status: Inactive Member Role Status Dates Matthew Collazo MD Primary Care Provider Active Start: July 16, 2023 End: July 17, 2023 Chico Black MD Admit Provider Active S tart: July 16, 2023 End: July 17, 2023 Blanquita Garza RN Other Provider Active Star t: July 16, 2023 End: July 17, 2023 Atul Silva MD Other Provider Active Start: Renetta blanc 2023 End: July 17, 2023 Holger Leblanc MD Other Provider Active Start: July 16, 2023 End: July 17, 2023 Navya Rangel MD Other Provider Active Start: July 16, 2023 End: July 17, 2023 Matthias Mckenna MD Attending Provider Active Start: July 16, 2023 End: July 17, 2023 Team Status: Active Member Role Status Dates Matthew Collazo MD Primary Care Provider Active Start: July 16, 2023 Chico Black MD Admit Provider Active S tart: July 16, 2023 Matthias Mckenna MD Other Provider Active Start: July 16, 2023 Blanquita Garza RN Other Provider Active Star t: July 16, 2023 Atul Silva MD Other Provider Active Start: M ay 2023 Holger Leblanc MD Other Provider Active Start: July 16, 2023 Navya Rangel MD Attending Provider, Other Provider Active Start: July 16, 2023 Team Status: Inactive Member Role Status Tr Collazo MD Primary Care Provider Active Start: July 16, 2023 End: July 17, 2023 Chico Black MD Admit Provider Active S tart: July 16, 2023 End: July 17, 2023 Matthias Mckenna MD Attending Provider Active Start: July 16, 2023 End: July 17, 2023 Blanquita Graza RN Other Provider Active Star t: July 16, 2023 End: July 17, 2023 Atul Silva MD Other Provider Active Start: [facility] 2023 End: July 17, 2023 Holger Leblanc MD Other Provider Active Start: July 16, 2023 End: July 17, 2023 Navya Rangel MD Other Provider Active Start: July 16, 2023 End: July 17, 2023 Team Status: Active Member Role Status Tr Collazo MD Primary Care Provider Active Start: July 20, 2023 Karina Sykes RN Attending Provider Active S tart: July 20, 2023 Team Status: Inactive Member Role Status Tr Collazo MD Primary Care Provider Active Start: July 24, 2023 End: July 24, 2023 Navya Rangel MD Attending Provider Active Sta rt: July 24, 2023 End: July 24, 2023 Team Status: Active Member Role Status Tr Rangel MD Timber Management Assistant Active Matthew Collazo MD Primary Care Provider Active Team Status: Active Member Role Status Dates Matthew Collazo MD Primary Care Provider Active Start: July 16, 2023 End: July 17, 2023 Chico Black MD Admit Provider Active S tart: July 16, 2023 End: July 17, 2023 Matthias Mckenna MD Other Provider Active Start: July 16, 2023 End: July 17, 2023 Blanquita Garza RN Other Provider Active Star t: July 16, 2023 End: July 17, 2023 Atul Silva MD Other Provider Active Start: M 2023 End: July 17, 2023 Holger Leblanc MD Other Provider Active Start: July 16, 2023 End: July 17, 2023 Navya Rangel MD Attending Provider, Other Provider Active Start: July 16, 2023 End: July 17, 2023 Team Status: Inactive Member Role Status Dates Matthew Collazo MD Primary Care Provider Active Start: October 02, 2023 End: October 02, 2023 Navya Rangel MD Attending Provider Active Sta rt: October 02, 2023 End: October 02, 2023 Electronic Typesetting Machine Operator Relationship Specialty Start Date End Date Matthew Collazo [address] [place] [address], [address] [place] [id number] Referring Internal Medicine 10/24/22 Electronic Typesetting Machine Operator Relationship Specialty Start Date End Date Matthew Collazo [address] [place] [address], [address] [place] [address] Referring Internal Medicine 10/24/22 FOR RECORDS PERTAINING TO PATIENTS WHO ARE OR HAVE BEEN ENROLLED IN A CHEMICAL DEPENDENCY/SUBSTANCEABUSE PROGRAM, SOME INFORMATION MAY BE OMITTED. This clinical summary was aggregated from multiple sources. Caution should be exercised in using it in the provision of clinical care. This summary normalizes information from multiple sources, and as a consequence, information in this document may materially change the coding, format and clinical context of patient data. In addition, data may be omitted in some cases. CLINICAL DECISIONS SHOULD BE BASED ON THE PRIMARY CLINICAL RECORDS. [facility] [employer] [facility]. provides no warranty or guarantee of the accuracy or completeness of information in this document.
--- NOTE | 2023-10-20 13:02 | XR_ITS ---
The [address] [address] Patient Name: MATTHEW GARZA MRN: [id number] date: 1955 Sex: M Assigned Patient Location: ER Current Patient Location: ER Accession/Order Number: [id number] Exam Date: 10/20/2023 12:55 Report Date: 10/20/2023 13:23 At the request of: HAO RIVERA Procedure: XR knee RT 3V PROCEDURE: XR knee RT 3V COMPARISON: None. HISTORY: twisted, pain FINDINGS: BONES:No acute fracture or dislocation. Moderate to severe tricompartmental osteoarthropathy with joint space narrowing and marginal osteophyte formation SOFT TISSUES:Negative. No visible soft tissue swelling. EFFUSION:Moderate effusion OTHER: Negative. XR/XR knee RT 3V IMPRESSION: Moderate to severe osteoarthritis Electronically authenticated by: KEELY COTA Date: 10/20/2023 13:23
--- NOTE | 2023-10-20 13:18 | PC.NURSE ---
pt states tripped when walking dog. states did not fall. pt did not feel any snapping sensation. Right knee started to swell and become painful.
== END 2023-10-20 14:04 | disposition home or self-care (01) ==
PROVIDERS: Emergency Provider Emergency Medicine; PCP Internal Medicine
DX: S83.91XA Sprain of unspecified site of right knee, initial encounter (principal); M17.11 Unilateral primary osteoarthritis, right knee; X50.1XXA Overexertion from prolonged static or awkward postures, initial encounter
CPT/HCPCS: 73562; 99283

== ENCOUNTER 2024-01-12 07:07 | Outpatient (RCR) | payer OTHER, SELFPAY ==
--- NOTE | 2023-07-28 14:20 | CR1_ITS ---
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
--- NOTE | 2023-08-04 15:10 | PC.NURSE ---
Called patient to outreach and left voicemail to call back. Patient has not been seen since his orientation on 07/28/23. 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
--- NOTE | 2023-08-05 15:40 | CR1_ITS ---
The 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
--- NOTE | 2023-09-02 07:20 | CR1_ITS ---
The 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
--- NOTE | 2023-09-15 13:25 | PC.NURSE ---
called to outreach patient as he has not been seen in some time. patients mailbox is full. letter sent to outreach as an alternative. will attempt to call again in the future.
--- NOTE | 2023-10-01 07:15 | CR1_ITS ---
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
--- NOTE | 2023-11-02 12:56 | CR1_ITS ---
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
--- NOTE | 2023-12-03 08:19 | CR1_ITS ---
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
--- NOTE | 2023-12-31 08:13 | CR1_ITS ---
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
--- NOTE | 2024-02-02 11:25 | CR1_ITS ---
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
== END 2024-02-02 13:50 | disposition home or self-care (01) ==
LOC: CR 07:07
PROVIDERS: PCP Internal Medicine; Visit Provider Internal Medicine
DX: Z95.5 Presence of coronary angioplasty implant and graft (principal); I21.9 Acute myocardial infarction, unspecified
CPT/HCPCS: 93798

== ENCOUNTER 2024-03-14 18:55 | Emergency (ER) | payer OTHER, SELFPAY ==
[2024-03-14 18:59] VITALS: BP 182/87; PULSE 69; TEMP 36.9; O2SAT 97; BMI 30.4
--- NOTE | 2024-03-14 19:17 | XR_ITS ---
The [address] [address] Patient Name: MATTHEW GARZA MRN: [id number] date: 1955 Sex: M Assigned Patient Location: ER Current Patient Location: ED.MAIN Accession/Order Number: [id number] Exam Date: 03/14/2024 19:32 Report Date: 03/14/2024 20:49 At the request of: VERONICA MARKER Procedure: XR hand LT min 3V EXAM: XR hand LT min 3V TECHNIQUE: AP, lateral and oblique views left hand HISTORY: dog bite COMPARISON: None. FINDINGS: No acute fracture or dislocation. 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 Moderate degenerative changes throughout the interphalangeal joints. No radiopaque foreign body. No gas within the soft tissues. XR/XR hand LT min 3V IMPRESSION: No acute fracture. Electronically authenticated by: KOLTON CORNEJO Date: 03/14/2024 20:49
--- NOTE | 2024-03-14 19:18 | ED_ITS ---
HPI HPI - Extremity Injury (Upper) General Chief Complaint: Extremity Injury, Upper Stated Complaint: dog bite Time Seen by Provider: 03/14/24 19:09 Source: patient Mode of arrival: walk-in Limitations: no limitations History of Present Illness HPI narrative: This 62-year-old male who is right-hand dominant and on Brilinta after he had an [place] presents for evaluation of a dog bite to his left hand. He has 4 small puncture wounds to the left thenar eminence and metacarpal of the thumb. He denies any numbness or tingling. The patient states that his told him that his dog's dunk and he was trying to give it a bath when it bit him. He does not remember when he had his last tetanus shot. He has no numbness or tingling. He has 4 small puncture wounds to the thenar eminence 1 with mild bleeding. Related Data Home Medications ?Medication ?Instructions ?Recorded ?Confirmed bisoprolol 10 1 tab PO QAM 07/15/23 03/14/24 mg-hydrochlorothiazide 6.25 mg tablet aspirin 81 mg tablet,delayed 81 mg PO DAILY 10/20/23 03/14/24 release atorvastatin 80 mg tablet 80 mg PO DAILY 10/20/23 03/14/24 losartan 25 mg tablet 25 mg PO DAILY 10/20/23 03/14/24 nitroglycerin 0.4 mg sublingual 0.4 mg sublingual Q5M PRN chest 10/20/23 03/14/24 tablet pain ticagrelor 90 mg tablet (Brilinta) 90 mg PO Q12H 10/20/23 03/14/24 carbidopa 25 mg-levodopa 100 mg tab 03/14/24 tablet Allergies Allergy/AdvReac Type Severity Reaction Status Date / Time No Known Drug Allergies Allergy Verified 03/14/24 19:06 Opioid HPI Opioid Management Most Recent Pain and Opioid Data: No Data to Display Review of Systems ROS Status of ROS 10 or more systems reviewed and unremark able except as noted in history and below [facility] Medical History (Updated 03/14/24 @ 19:50 by Harriett Solano MD) JATINDER (obstructive sleep apnea) ?G47.33 - Obstructive sleep apnea (adult) (pediatric) (ICD-10) Social History Little interest or pleasure in doing things: not at all Feeling down, depressed, or hopeless: not at all Exam Narrative Exam Narrative: Vital signs and Nursing Notes reviewed: Patient is afebrile with a normal pulse, blood pressure is elevated 182/87, he is not hypoxic with pulse ox of 97% on r oom air General: Awake, alert, oriented, no acute distress, lying comfortably on the stretcher HEENT: Normocephalic atraumatic, mucous membranes are moist and pink, eyes are clear, normal conjunctiva, vision is grossly intact Chest: Lungs are clear to auscultation with good air entry, there is no wheezing rhonchi or rales appreciated no accessory muscle use, patient is speaking in complete sentences-no chest wall tenderness to palpation CVS: Regular rate and rhythm S1-S2, no murmurs rubs or gallops, pulses are brisk and equal bilaterally Extremities: There are 4 puncture wounds to the left thenar eminence. They are all approximately less than 0.25 cm. One is bleeding mildly. Patient has full range of motion of his hand. 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 There is no numbness or tingling. He is able to approximate thumb and all fingers Skin: Normal in appearance without rash,pallor, petechiae or purpura Neuro: No focal deficits Constitutional Vital Signs, click to edit/add: Last Vital Signs Temp 98.4 F 03/14/24 18:59 Pulse 03/14/24 18:59 Resp 03/14/24 18:59 BP 182/87 H 03/14/24 18:59 Pulse Ox 97 03/14/24 18:59 O2 Del Method Room Air 03/14/24 18:59 Course Vital Signs Vital signs: Vital Signs Temperature 98.4 F 03/14/24 18:59 Pulse Rate 03/14/24 18:59 Respiratory Rate 03/14/24 18:59 Blood Pressure 182/87 H 03/14/24 18:59 Pulse Oximetry 97 03/14/24 18:59 Oxygen Delivery Method Room Air 03/14/24 18:59 Temperature 98.4 F 03/14/24 18:59 Pulse Rate 03/14/24 18:59 Respiratory Rate 20 03/14/24 18:59 Blood Pressure 182/87 H 03/14/24 18:59 Pulse Oximetry 97 03/14/24 18:59 Oxygen Delivery Method Room Air 03/14/24 18:59 MDM - Extremity Injury (Upper) [facility] Narrative Medical decision making narrative: This 68-year-old male who is right-hand dominant presents for evaluation of a dog bite to his left thenar eminence. The patient was trying to give his dog a bath when it bit him. He has 4 puncture wounds on the left thenar eminence. He is neurovascularly intact. He did not know the date of his last tetanus. Tetanus was updated and he was medicated with oral Augmentin. X-ray of the hand does not show any foreign body or fracture. One of the puncture wounds was bleeding mildly and was infiltrated with lidocaine and closed with 1 suture topped with Surgicel and a pressure dressing. Suture care was explained to the patient and provided in his discharge instructions. It was recommended to him to return the emergency department for fever, redness, swelling, severe pain lymphangitic streaking or any other concerns. He can have the sutures removed in 7 to 10 days. He will be given 7-day course of antibiotics. Discharge Plan Discharge Chief Complaint: Extremity Injury, Upper Clinical Impression: Dog bite of left hand Patient Disposition: Home, Self-Care Time of Disposition Decision: 19:49 Condition: Good Prescriptions / Home Meds: No Action bisoprolol-hydrochlorothiazide 10-6.25 mg tablet 1 tab PO QAM aspirin 81 mg tablet,delayed release (DR/EC) 81 mg PO DAILY atorvastatin 80 mg tablet 80 mg PO DAILY losartan 25 mg tablet 25 mg PO DAILY nitroglycerin 0.4 mg tablet, sublingual 0.4 mg sublingual Q5M PRN (Reason: chest pain) Brilinta 90 mg tablet 90 mg PO Q12H carbidopa-levodopa 25-100 mg tablet Print Language: Faroese Instructions: Animal Bite (ED), Care For Your Stitches (ED) Additional Instructions: You can remove the dressing that was placed in the emergency department and 24 hours. You can replace the dressing with the gauze and Curlex that was given to you in the emergency department. Return to the emergency department for pain, redness, swelling or red lines up your arm, fever, chills or any concerns. Sutures can be removed in 7 to 10 days. Please take all of your antibiotics as prescribed. Referrals: MATTHEW COLLAZO [Primary Care Provider] - 1 week Procedures ED Procedure Instructions Procedures Procedures: Procedure note: Laceration repair; the laceration/puncture wound on the patient's left thenar eminence that was mildly bleeding was infiltrated with 1% lidocaine. After anesthesia was obtained a Betadine scrub was used to cleanse all of the puncture wounds on the hand. It was then dried and 1, 3-0 Ethilon suture was placed into the bleeding puncture wound. A small piece of Surgicel was applied over the sutured laceration, a 4 x 4 and Kerlix pressure dressing was applied by myself. Patient tolerated procedure well.
[2024-03-14] MEDS: AMOXICILLIN/POT CLAV 875-125 MG TABLET 1 TAB PO (19:29)
[2024-03-14] MEDS: ADACEL DIPH,PERTUSS(ACELL),TET VAC/PF 0.5 ML ADULT SYRINGE IM (19:29)
--- NOTE | 2024-03-14 19:35 | PC.NURSE ---
Pt received TDAP vaccination in left deltoid. Pt received information sheet on vaccination and has no questions or concerns at this time. XRAY at bedside.
[2024-03-14 20:02] VITALS: BP 161/88; PULSE 61; O2SAT 97
== END 2024-03-14 20:02 | disposition home or self-care (01) ==
PROVIDERS: Emergency Provider Emergency Medicine; PCP Internal Medicine
DX: S61.432A Puncture wound without foreign body of left hand, initial encounter (principal); W54.0XXA Bitten by dog, initial encounter; I25.2 Old myocardial infarction; Z23 Encounter for immunization
CPT/HCPCS: 12001; 73130; 90471; 90715; 99283

== ENCOUNTER 2024-03-23 14:47 | Emergency (ER) | payer OTHER, SELFPAY ==
[2024-03-23 15:03] VITALS: BP 122/67; PULSE 49; TEMP 36.6; O2SAT 98; BMI 28.0
--- NOTE | 2024-03-23 15:28 | PC.NURSE ---
i gave this patient verbal and paper discharge orders, and this patient voices yes to understanding these. at time of discharge this patient voices no concerns and shows no signs of distress
--- NOTE | 2024-03-23 15:28 | ED.GENADUL1 ---
HPI HPI - General Adult General Chief complaint: Wound/Laceration Stated complaint: STITCH REMOVAL Time Seen by Provider: 03/23/24 14:50 Source: patient Mode of arrival: walk-in Limitations: no limitations History of Present Illness HPI narrative: Patient presents ED needing suture removal. He has [address] on the left hand near the thumb from a dog bite injury. He states the swelling has improved and he has no pain or redness in the joint. He has no fevers. He was on antibiotics after the dog bite. No other complaints at this time. Related Data Home Medications ?Medication ?Instructions ?Recorded ?Confirmed bisoprolol 10 1 tab PO QAM 07/15/23 03/14/24 mg-hydrochlorothiazide 6.25 mg tablet aspirin 81 mg tablet,delayed 81 mg PO DAILY 10/20/23 03/14/24 release atorvastatin 80 mg tablet 80 mg PO DAILY 10/20/23 03/14/24 losartan 25 mg tablet 25 mg PO DAILY 10/20/23 03/14/24 nitroglycerin 0.4 mg sublingual 0.4 mg sublingual Q5M PRN chest 10/20/23 03/14/24 tablet pain ticagrelor 90 mg tablet (Brilinta) 90 mg PO Q12H 10/20/23 03/14/24 carbidopa 25 mg-levodopa 100 mg tab 03/14/24 tablet Allergies Allergy/AdvReac Type Severity Reaction Status Date / Time No Known Drug Allergies Allergy Verified 03/23/24 15:03 Opioid HPI Opioid Management Most Recent Opioid Data: No Data to Display Review of Systems ROS Status of ROS 10 or more systems reviewed and unremarkable except as noted in history and below [facility] Medical History (Updated 03/23/24 @ 15:21 by Pebbles Strange DO) JATINDER (obstructive sleep apnea) ?G47.33 - Obstructive sleep apnea (adult) (pediatric) (ICD-10) Social History Little interest or pleasure in doing things: not at all Feeling down, depressed, or hopeless: not at all Exam Narrative Exam Narrative: General: alert, no acute distress Cardiovascular: regular rate and rhythm, normal peripheral perfusion. Respiratory: Lungs CTA, respirations non labored. Extremities: Healing abrasions and a small amount of ecchymosis on the left thumb area. [address] which was removed without any issues. No abnormal drainage very mild erythema around the suture which is to be expected Neurological: oriented x 4, LOC appropriate for age. Constitutional Vital Signs, click to edit/add: Last Vital Signs Temp 97.9 F 03/23/24 15:03 Pulse 49 L 03/23/24 15:03 Resp 19 03/23/24 15:03 BP 122/67 03/23/24 15:03 Pulse Ox 98 03/23/24 15:03 O2 Del Method Room Air 03/23/24 15:03 Course Vital Signs Vital signs: Vital Signs Temperature 97.9 F 03/23/24 15:03 Pulse Rate 49 L 03/23/24 15:03 Respiratory Rate 19 03/23/24 15:03 Blood Pressure 122/67 03/23/24 15:03 Pulse Oximetry 98 03/23/24 15:03 Oxygen Delivery Method Room Air 03/23/24 15:03 Temperature 97.9 F 03/23/24 15:03 Pulse Rate 49 L 03/23/24 15:03 Respiratory Rate 19 03/23/24 15:03 Blood Pressure 122/67 03/23/24 15:03 Pulse Oximetry 98 03/23/24 15:03 Oxygen Delivery Method Room Air 03/23/24 15:03 Medical Decision Making MDM Narrative Medical decision making narrative: Sutures removed from the left hand without difficulty. Patient will return if worsening pain swelling or concerns otherwise follow-up outpatient as needed. Differential Diagnosis Differential Diagnosis: Cellulitis, suture removal Discharge Plan Discharge Chief Complaint: Wound/Laceration Clinical Impression: Visit for suture removal Patient Disposition: Home, Self-Care Time of Disposition Decision: 15:21 Condition: Good Mode of Transportation: Private Vehicle Prescriptions / Home Meds: No Action bisoprolol-hydrochlorothiazide 10-6.25 mg tablet 1 tab PO QAM aspirin 81 mg tablet,delayed release (DR/EC) 81 mg PO DAILY atorvastatin 80 mg tablet 80 mg PO DAILY losartan 25 mg tablet 25 mg PO DAILY nitroglycerin 0.4 mg tablet, sublingual 0.4 mg sublingual Q5M PRN (Reason: chest pain) Brilinta 90 mg tablet 90 mg PO Q12H carbidopa-levodopa 25-100 mg tablet Print Language: Serbian Instructions: Stitches Removal (ED) Referrals: MATTHEW COLLAZO [Primary Care Provider] - 1 week Procedures ED Procedure Instructions Procedures Procedures: 1 suture removed from the left hand
== END 2024-03-23 15:29 | disposition home or self-care (01) ==
PROVIDERS: Emergency Provider Emergency Medicine; PCP Internal Medicine
DX: S61.452D Open bite of left hand, subsequent encounter (principal); W54.0XXD Bitten by dog, subsequent encounter
CPT/HCPCS: 99281

== ENCOUNTER 2025-01-02 22:40 | Emergency (ER) | payer OTHER, SELFPAY ==
[2025-01-02 22:43] VITALS: BP 160/68; PULSE 60; TEMP 36.6; O2SAT 97; BMI 30.6
--- OUTSIDE RECORDS SUMMARY | 2025-01-02 22:46 | XMS_ITS | CCD ---
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 Name Role Phone NARESH HINDS Admitting Unavailable VALE, DR MATTHEW Price Primary Care Unavailable NARESH HINDS Attending Unavailable NARESH HINDS Consulting Unavailable Fred Gupta Consulting Unavailable GÓMEZ, DR LEWIS Attending Unavailable GÓMEZ, DR LEWIS Consulting Unavailable GÓMEZ, DR LEWIS Admitting Unavailable CYNESTCLEM, DR MATTHEW Price Primary Care Unavailable BEATA, DR KEELY Griffin Consulting Unavailable PAY, DR KENYON Consulting Unavailable HILLARY NICOLAS Consulting Unavailable Matthew Collazo Unavailable MD Matthew Collazo Primary Care Provider MD Chico Black Admit Provider [phone] BARRY Garza Other Provider Unavailable MD Atul Silva Other Provider MD Holger Leblanc Other Provider MD Navya Rangel Other Provider MD Matthias Mckenna Attending Provider Matthew Collazo Primary Care Unavailable Chico Black Admitting Unavailable Matthias Mckenna Attending Unavailab Blanquita Lopez Consulting Unavailable Atul Silva Consulting Unavailable Holger Leblanc Consulting UnaNavya David Consulting Unavailable BRIAN GLASGOW Attending Unavailable BRIAN GLASGOW Attending Unavailable ERIC MONTIEL Referring Unavailable ERIC MONTIEL Referring Unavailable Matthew Collazo MD Unavailable MATTHEW COLLAZO Attending Unavailable MATTHEW COLLAZO Referring Unavailable MATTHEW COLLAZO Primary Care Unavailable MATTHEW COLLAZO Attending Unavailable MATTHEW COLLAZO Referring Unavailable MATTHEW COLLAZO Primary Care Unavailable MATTHEW COLLAZO Attending Unavailable MATTHEW COLLAZO Referring Unavailable MATTHEW COLLAZO Primary Care Unavailable MATTHEW COLLAZO Referring Unavailable MATTHEW COLLAZO Primary Care Unavailable Matthew Collazo MD Primary Care Provider Matthew Collazo MD Primary Care Provider Navya Rangel MD Attending Provider KARL MCGREGOR Attending Unavailable MARGOLIERIC SEE Referring Unavailable MARGOLIUS, ERIC Referring Unavailable MARGOLI, ERIC Attending Unavailable CHEUVRONTCHRISTIANA Attending Unavailjn e SAVANAH, ERIC Attending Unavailable MAURICIOERLEIF MERINO Attending Unavailable SAVANAH, ERIC Attending Unavailable OFELIA, LEIF Attending Unavailable KARL MCGREGOR Attending Unavailable Matthew Collazo MD Primary Care Provider Medications Current Medications MedicationDrug Class(es)DatesSig (Normalized)Sig (Original)acetaminophen 300 mg / codeine phosphate 30 mg oral tablet (13 sources)Opioid AgonistStart: 03-07-8986yrjvmqsmldjnq-codeine (TYLENOL-COD #3) 300-30 mg per tablet 10/20/2023 ActiveAntiarthritic Combination No.2 (Glucosamine-Chondroitin) 900 mg tablet (4 sources)Start: 40-38-9142khti 1 tablet by mouth once dailyAntiarthritic Combination No.2 (Glucosamine-Chondroitin) 900 mg tablet Active MG PO Daily July 12:00am Complies with drug therapyStart: 12-50-3706egwq 1 tablet by mouth once dailyAntiarthritic Combination No.2 (Glucosamine-Chondroitin) 900 mg tablet Active MG PO Daily July 11:00pmStart: 65-37-2281cedo 1 tablet by mouth once dailyAntiarthritic Combination No.2 (Glucosamine-Chondroitin) 900 mg tablet Active MG PO Daily July 12:00amBIPAP (20 sources)BIPAP ActiveBIPAPbisoprolol fumarate 10 mg / hydroCHLOROthiazide 6.25 mg oral tablet (20 sources)Thiazide Diuretic, beta-Adrenergic BlockerStart: 11-12-2023 End: 26-64-6532gxgq 1 tablet by mouth once in the morningbisoprolol- hydroCHLOROthiazide (ZIAC) 10-6.25 mg per tablet Indications: Essential hypertension TAKE 1 TABLET BY MOUTH IN THE MORNING (pt needs appointment for further refills) 90 tablet 3 01/14/2024ctiveStart: 09-12-2022 End: 68-49-0449xrfq 1 tablet by mouth once daily in the morningbisoprolol- hydroCHLOROthiazide (ZIAC) 10-6.25 mg per tablet Take 1 tablet by mouth every morning. 09/12/2022 ActiveComment on above:Take 1 tablet by mouth every morning. carbidopa 25 mg / levodopa 100 mg oral tablet (20 sources)Aromatic Amino Acid Decarboxylation Inhibitor, Aromatic Amino Acid Start: 02-10-2023 End: 51-73-7319xhbxrqrgv-levodopa (SINEMET) 25-100 mg per tablet Indications: Parkinson's disease, unspecified whether dyskinesia present, unspecified whether manifestations fluctuate (HCC) Take 1.5 pills three times per day 405 tablet 3 10/04/2024 Activecarbidopa-levodopa (PARCOPA) 25-100 mg per disintegrating tablet Dissolve 1 tablet on tongue 3 (three) times a day. ActiveComment on above:Take 1/2 pill three times per day x 1 week, then increase to 1 pill 3 times per dayTake 1.5 pills, 3 times per dayCpap (Continuous Positive Airway Pressure) (1 source)Start: 80-66-1176Jmzv (Continuous Positive Airway Pressure) Active 0 .ROUTE October 02, 2023 12:00am As directedCpap (Continuous Positive Airway Pressure) unit (2 sources)Start: 40-37-9300Hdfv (Continuous Positive Airway Pressure) unit Active 0 .Route October 02, 2023 12:00am As directedStart: 07-51-3266Nkfl (Continuous Positive Airway Pressure) unit Active 0 .Route October 01, 2023 11:00pm As directedCPAP/BIPAP/OTHER (20 sources)Start: 07-19-2024 End: 92-26-1109XQIB/BIPAP/OTHER Type .CPAPSettings into a note to see current settings/supplies/DME information. 1each 07/19/2024 12/04/2051 ActiveStart: 01-13-2024 End: 14-74-8749MFPP/BIPAP/OTHER Type .CPAPSettings into a note to see current settings/supplies/DME information. 1Each 01/13/2024 05/30/2051 ActiveStart: 10-12-2023 End: 15-42-9961JGBX/BIPAP/OTHER Indications: Obstructive sleep apnea syndrome , JATINDER treated with BiPAP , Parkinson's disease, unspecified whether dyskinesia present, unspecified whether manifestations fluctuate (HCC) , Myocardial infarction, unspecified CA type, unspecified artery (HCC) Type .CPAPSettings into a note to see current settings/supplies/DME information. 1 Each 10/12/2023 02/26/2051 ActiveStart: 10-12-2023 End: 88-69-5526VMQD/BIPAP/OTHER Indications: Obstructive sleep apnea syndrome , JATINDER treated with BiPAP , Parkinson's disease, unspecified whether dyskinesia present, unspecified whether manifestations fluctuate (HCC) , Myocardial infarction, unspecified CA type, unspecified artery (HCC) Type .CPAPSettings into a note to see current settings/supplies/DME information. 1 Each 0 10/12/2023 02/26/2051 ActiveStart: 07-08-2023 End: 04-72-9819UINK/BIPAP/OTHER Indications: Obstructive sleep apnea syndrome , JATINDER treated with BiPAP , Dream enactment behavior , Malfunction of continuous positive airway pressure (CPAP) or bilevel positive airway pressure (BPAP) machine, initial encounter Type .CPAPSettings into a note to see current settings/supplies/DME information. 1 Each 07/08/2023 11/22/2050 ActiveStart: 07-08-2023 End: 79-94-7250LPXO/BIPAP/OTHER Indications: Obstructive sleep apnea syndrome , JATINDER treated with BiPAP , Dream enactment behavior , Malfunction of continuous positive airway pressure (CPAP) or bilevel positive airway pressure (BPAP) machine, initial encounter Type .CPAPSettings into a note to see current settings/supplies/DME information. 1 Each 0 07/08/2023 11/22/2050 ActiveStart: 04-27-2023 End: 32-53-9355ZJOR/BIPAP/OTHER Indications: Obstructive sleep apnea syndrome , JATINDER treated with BiPAP , Malfunction of continuous positive airway pressure (CPAP) or bilevel positive airway pressure (BPAP) machine,initial encounter REPLACEMENT BIPAP DEVICE: BIPAP with settings of 25/21 cm H2O. Dx: Obstructive Sleep Apnea G47.33 [facility] Fax: Fax download reports to [phone]. 1 Each 04/27/2023 09/11/2050 ActiveStart: 04-27-2023 End: 57-02-6293EDBL/BIPAP/OTHER Indications: Obstructive sleep apnea syndrome , JATINDER treated with BiPAP , Malfunction of continuous positive airway pressure (CPAP) or bilevel positive airway pressure (BPAP) machine,initial encounter REPLACEMENT BIPAP DEVICE: BIPAP with settings of 25/21 cm H2O. Dx: Obstructive Sleep Apnea G47.33 [facility] Fax: Fax download reports to [phone]. 1 Each 0 04/27/2023 09/11/2050 ActiveComment on above:REPLACEMENT BIPAP DEVICE: BIPAP with settings of 25/21 cm H2O. Dx: Obstructive Sleep Apnea G47.33 [facility] Fax: Fax download reports to [phone].donepezil hydrochloride 5 mg oral tablet (9 sources)Start: 86-28-6405stib 1 tablet by mouth once daily at bedtime donepezil (ARICEPT) 5 mg tablet Indications: Mild cognitive impairment Take 1 tablet by mouth dailyat bedtime. 90 tablet 3 03/22/2024 Activeglucosam/chond- msm1/C/jaya/bor (HKEUNOLAPUO-FYYFJ-GDJ COMPLEX ORAL) (19 sources)take 2 tablets by mouth once dailyglucosam/chond-msm1/C/jaya/bor (JYSLEROQICA-XMAZY-SHO COMPLEX ORAL) Take 2 tablets by mouth once daily. Active take 2 tablets by mouth once dailyglucosam/chond-msm1/C/jaya/bor (ZDYJUEVOKFK-GPJWJ-FGP COMPLEX ORAL) Take 2 tablets by mouth once daily. 0 ActiveComment on above:Take 2 tablets by mouth once daily.nitroglycerin 0.4 mg sublingual tablet (20 sources)Nitrate VasodilatorStart: 84-49-0610dfcgqlttdmwpu sublingual (NITROQUICK) 0.4 mg SL tablet Q5M 07/17/2023 ActiveStart: 07-17-2023 Nitroglycerin 0.4 mg Tablet, Sublingual Active 0.4 MG SUBLINGUAL Q5M as needed for Chest Pain 25 30May 2023 12:00am Complies with drug therapyapply 0.4 mg transdermal route every hournitroglycerin (NITRODUR) 0.4 mg/hr Place 1 patch on the skin daily. Activeticagrelor 90 mg oral tablet (20 sources)Start: 07-17-2023 End: 24-02-5351rigffyzlnz (BRILINTA) 90 mg tablet two times a day. 08/27/2023 Activeticagrelor (BRILINTA) 90 mg tablet Take by mouth every 12 (twelve) hours. Active Completed/Discontinued Medications MedicationDrug Class(es)DatesSig (Normalized)Sig (Original)aspirin 81 mg delayed release oral tablet (20 sources)Platelet Aggregation Inhibitor, Nonsteroidal Anti-inflammatory Drug Start: 07-17-2023 End: 52-89-3247ghqy 1 tablet by mouth once dailyAspirin 81 mg tablet,delayed release (DR/EC) Discontinued 81 MG PO Daily October 08, 2023 3:12pm March 24, 2024 5:11pmatorvastatin 80 mg oral tablet (20 sources)HMG-CoA Reductase InhibitorStart: 07-17-2023 End: 91-85-6968ocyh 1 tablet by mouth once dailyAtorvastatin 80 mg tablet Discontinued 80 MG PO Daily October 08, 2023 3:13pm March 24, 2024 5:11pmlosartan potassium 25 mg oral tablet (20 sources)Angiotensin 2 Receptor BlockerStart: 07-17-2023 End: 93-91-1700qpvh 1 tablet by mouth once daily in the morningLosartan 25 mg tablet Discontinued 25 MG PO Every morning October 08, 2023 3:12pm March 24, 2024 5:11pm Problems Active Problems Problem ClassificationProblemDateDocumented DateEpisodic/ChronicAcute myocardial infarction (14 sources)Myocardial infarction; Translations: [Non-ST elevation (NSTEMI) myocardial infarction]Onset: 782909-05-1993KmqirgyGmoisvsjhzevv of surgical procedures or medical care (2 sources)Complication of medical care; Translations: [Other specified complications of surgical and medical care, not elsewhere classified, initial encounter]83-48-4041BqepmweuYwdpbjde atherosclerosis and other heart disease (20 sources)Old myocardial infarction; Translations: [Atherosclerotic heart disease of [place] coronary artery without angina pectoris]Onset: 07-27-2023 05-07-7946RkmmugxZjgqpxoxw of lipid metabolism (16 sources)Hyperlipidemia; Translations: [Hyperlipidemia, unspecified]Onset: 289120-41-5465YmokwdoR Codes: Unspecified (1 source)Traumatic AND/OR non-traumatic injury; Translations: [Activity, sleeping]33-11-8115CuqzoxkzPlwvvxaeg hypertension (20 sources)Essential (primary) hypertension; Translations: [Essential hypertension]Onset: 421375-09-5364GbdgvilOenimrftmlazo symptoms and ill- defined conditions (5 sources)Other abnormal findings in urine; Translations: [Gross hematuria] Onset: 966522-89-0250CninvihePnbdjqhatsoitr (1 source)Unspecified osteoarthritis, unspecified site; Translations: [UNSPECIFIED OSTEOARTHRITIS UNS SITE]Onset: 92-48-0689YvdfukjIbert aftercare (1 source)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; Translations: [OTH [facility] CURRENT DRUG THERAPY]Onset: 89-34-7350FdizzilsYveam ear and sense organ disorders (1 source)Unspecified hearing loss, bilateral; Translations: [Unspecified hearing loss, bilateral]Onset: 54-87-2722AzxgbmtDoeui ear and sense organ disorders (1 source)Bilateral hearing loss; Translations: [Unspecified hearing loss, bilateral]53-32-3123JrnaugbJmypg hereditary and degenerative nervous system conditions (1 source)Restless legs syndrome; Translations: [RESTLESS LEGS SYNDROME]Onset: 18-56-6420JqrnrttDrooh hereditary and degenerative nervous system conditions (1 source)Essential tremor; Translations: [ESSENTIAL TREMOR]Onset: 11-21-2020 ChronicOther hereditary and degenerative nervous system conditions (1 source)Impaired cognition; Translations: [Mild cognitive impairment, so stated]42-42-2207ZnghlzyJbptw hereditary and degenerative nervous system conditions (9 sources)Essential tremor; Translations: [Essential tremor]Onset: 02-10-2020 22-77-6539MmghzngBchrx nervous system disorders (3 sources)Abnormal gait; Translations: [Unspecified abnormalities of gait and mobility]77-08-9722XttuaafnMqdst nervous system disorders (4 sources)Tremor; Translations: [Tremor, unspecified]09-77-9827NxxfyknqTtebj nervous system disorders (1 source)Impaired cognition; Translations: [Other symptoms and signs involving cognitive functions and awareness]40-50-6825ScbdeakoPnicw nutritional; endocrine; and metabolic disorders (1 source)Obese class I; Translations: [Obesity, unspecified]19-09-2001Sbsyext Parkinson`s disease (3 sources)Parkinson`s disease; Translations: [Parkinson's disease without dyskinesia, without mention of fluctuations]Onset: 70-48-3574Whuofdst codes; unclassified (1 source)Sleep apnea, unspecified; Translations: [SLEEP APNEA UNSPECIFIED] Onset: 72-86-2429RthosipJukunmcb codes; unclassified (18 sources)Obstructive sleep apnea syndrome; Translations: [Obstructive sleep apnea (adult) (pediatric)]Onset: 164853-25-6779PmfjgdqBlfvvybq codes; unclassified (1 source)Parasomnia; Translations: [Parasomnia, unspecified]95-22-4000Pcsoodz Residual codes; unclassified (4 sources)Dream enactment behavior; Translations: [REM sleep behavior disorder] 04-41-6109CxwmlfiOdlrvkin codes; unclassified (1 source)Obstructive sleep apnea (adult) (pediatric); Translations: [Obstructive sleep apnea (adult) (pediatric)]Onset: 21-14-2412AdjvqyrTdolradr codes; unclassified (2 sources)Primary central sleep apnea; Translations: [Primary central sleep apnea]32-23-8251YqmsfzkRlgvusde codes; unclassified (1 source)Sleep apneaOnset: 87-51-9716MijkypeNugmgwkskdlm (20 sources)Parkinson's disease; Translations: [Parkinson's disease without dyskinesia or fluctuating manifestations (HCC)]Onset: 230667-00-3836 ChronicUnclassified (2 sources)Parkinsonism; Translations: [Parkinsonism, unspecified Parkinsonism type (HCC)]95-72-4924LvmdptoGfnliplxvbji (2 sources)COUGH, UNSPECIFIED; Translations: [COUGH, UNSPECIFIED]Onset: 97-80-7401Xvqjmbzedpvq (1 source)CONTACT W/AND (SUSP) EXPOS COVID-19; Translations: [CONTACT W/AND (SUSP) EXPOS COVID-19]Onset: 23-70-8068Ilinpbphqeaf (1 source)Parkinsonism, unspecified Parkinsonism type (HCC); Translations: [Parkinsonism, unspecified Parkinsonism type (HCC)]Onset: 33-08-3195Okfugenwubwu (1 source)Annual ExamOnset: 29-33-7285Fotnifhuoiou (1 source)hospital dischargeOnset: 14-83-7713Vzwso infection (1 source)COVID-19; Translations: [COVID-19]Onset: 07-23-2021 Past or Other Problems Problem ClassificationProblemDateDocumented DateEpisodic/ChronicAcute and unspecified renal failure (4 sources)Acute kidney failure, unspecified; Translations: [ACUTE KIDNEY FAILURE UNSPECIFIED]Onset: 47-78-1239FfbdrqsyWfkznacu of urinary tract (10 sources)Personal history of urinary calculi; Translations: [Kidney stone] Onset: 795573-67-5888OycfwwklVzpxi and electrolyte disorders (2 sources)Dehydration; Translations: [Hyperkalemia]Onset: 51-93-1101Aejyhaom Mood disorders (9 sources)Mood disordersOnset: 10-22-2022 Resolved: 816156-61-2213Kgzmy ear and sense organ disorders (1 source)Impacted cerumen, bilateral; Translations: [Impacted cerumen, bilateral]Onset: 16-38-1935OqhbhjrhHtznx ear and sense organ disorders (1 source)Impacted cerumen of bilateral ears; Translations: [Impacted cerumen, bilateral]37-46-3675DlqoxkcnYxefcjuxyfa; intervertebral disc disorders; other back problems (20 sources)Pain in thoracic spine; Translations: [Spinal stenosis in cervical region]Onset: 536244-36-2659XmvownqxFexegqcbhpmt (1 source)COUGH, UNSPECIFIED; Translations: [COUGH, UNSPECIFIED]Onset: 07-19-2021 Results Test NameValueInterpretationReference RangeFacilityCNOVon 89-53-7914SOIQCgljqr Visit (NREUS2) MATTHEW GARZA ([id number]) 1955 M Date Time Provider Department 10/04/24 4:00 PM ERIC MONTIEL NREUS2 During your visit today, we recorded the following information about you: Pulse Blood pressure 50/minute 121/78 Eric Montiel MD 10/04/2024 4:29 PM Signed [facility] - FOLLOW UP EVALUATION I had the pleasure of seeing Mr. Garza for follow-up today. He is a 69 year old right-handed male with a history of tremor since 1999 or so . He is seen with his , Pallavi Moore Previous Plan-03/22/2024 Visit: Recommended patient to stop driving given high risk of getting into an accident (this recommendation is based on results of neuropsychological testing) Start Aricept 5 mg every night for memory concerns Continue Sinemet 1 tablet TID Follow up in 6 months Interval History: He is doing okay. He had trouble remembering how to set up a tent when camping this summer. Walking and balance are impaired. Has had two falls since last visit. Fell recently while taking apart a cabinet. Still gets some tremors, though Sinemet has helped. Mostly action tremor when holding a dish. He takes Sinemet 1 tab tid. 8 am, noon, 6 pm. He thinks it may help some with tremors. No wearing off. He denies dexterity issues. 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 He does drive, no issues he says. However his does most of the driving. He takes Aricept 5 mg daily denies hallucinations: Patient denies sleep disturbances. 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 denies Swallowing difficulties. denies Orthostatic hypotension symptoms. Sense of smell is intact Movement Disorders Medications Schedule - as of the start of the visit: Medications Sinemet 25/100 one tab tid Questionnaires: ALLERGIES No Known Allergies Current Outpatient Medications Medication Sig CPAP/BIPAP/OTHER Type .CPAPSettings into a note to see current settings/supplies/DME information. donepezil (ARICEPT) 5 mg tablet Take 1 tablet by mouth daily at bedtime. carbidopa-levodopa (SINEMET) 25-100 mg per tablet Take 1 pill three times per day CPAP/BIPAP/OTHER Type .CPAPSettings into a note to see current settings/supplies/DME information. acetaminophen-codeine (TYLENOL-COD #3) 300-30 mg per tablet (Patient not taking: Reported on 07/18/2024) aspirin, enteric coated (ASPIRIN, ENTERIC COATED) 81 [...] a note to see current settings/supplies/DME information. (Patient not taking: Reported on 01/12/2024) CPAP/BIPAP/OTHER Type .CPAPSettings into a note to see current settings/supplies/DME information. (Patient not taking: Reported on 01/12/2024) glucosam/chond-msm1/C/jaya/bor (RYVYXCVXTVX-ISYNA-TDY COMPLEX ORAL) Take 2 tablets by mouth once daily. CPAP/BIPAP/OTHER REPLACEMENT BIPAP DEVICE: BIPAP with settings of 25/21 cm H2O. Dx: Obstructive Sleep Apnea G47.33 [facility] Fax: Fax download reports to [phone]. bisoprolol-hydroCHLOROthiazide (ZIAC) 10-6.25 mg per tablet Take 1 tablet by mouth every morning. BIPAP No current facility-administered medications for this visit. Objective Vital Signs: BP 121/78 (BP Site: Right Arm, BP Position: Sitting, BP Cuff Size: Regular Adult) Pulse (!) 50 SpO2 100% Awake and alert Off by three on exact date Able to spell APPLE forwards and backwards. Knows 7 quarters in $1.75. Movement Disorders Cognitive and Motor Biomeasures: 03/22/2024 10/04/2024 Processing Speed Processing Speed Total Number Correct 34 25 Processing Speed Z score -0.18 -1.09 03/22/2024 10/04/2024 VMT Memory Raw Score 52 27 Memory Z Score 0.85 -1.1 03/22/2024 10/04/2024 MDT - RIGHT Hand Dominant MDT Right Hand Time 36.5 37.73 Dominant Hand % 0.19 MDT Left Hand Time 38.47 41.64 Non-Dominant Hand % 0.03 03/22/2024 10/04/2024 Walking Speed Walking Speed Test (25 feet) 9.41 9.65 WST Percentile 0.07 15.87 *Percentile interpretation: Higher is better. A score < 50 would be worse than predicted, around 50 would be near predicted and > 50 would be better than predicted. Z score interpretation: higher than -1.5 is within normal; -1.5 to -2.0 represents mild impairment; lower than -2.0 represents significant impairment Move (more content not included)...NormalChildren'S Hospital For RehabilitationCNPNon 57-34-5054AESZRxfabjpqw (MARY) MATTHEW GARZA ([id number]) 1955 M Date Time Provider Department 07/19/24 LEIF RAMOS During your visit today, we recorded the following information about you: Lucy Dye OCCA 07/19/2024 12:49 PM Signed PAP order, OV notes, and demographics were all faxed to [facility] at [phone], and received confirmation on 07/19/2024 at 1236. Allergies As of Date: 07/19/2024 (No Known Allergies) Date Reviewed: 07/18/2024 Reviewed by: Leif Ramos PA-C - Fully Assessed Reason for Visit: PAP Rx Faxed [[phone]] Cmt: [facility] as of 07/19/2024 - CPAP/BIPAP/OTHER Type .CPAPSettings into a note to see current settings/supplies/DME information. - donepezil (ARICEPT) 5 mg tablet Take 1 tablet by mouth daily at bedtime. - carbidopa-levodopa (SINEMET) 25-100 mg per tablet Take 1 pill three times per day - CPAP/BIPAP/OTHER Type .CPAPSettings into a note to see current settings/supplies/DME information. - acetaminophen-codeine (TYLENOL-COD #3) 300-30 mg per tablet - aspirin, enteric coated (ASPIRIN, ENTERIC COATED) [...] note to see current settings/supplies/DME information. - glucosam/chond-msm1/C/jaya/bor (BZIQONHMBMJ-KADUA-REQ COMPLEX ORAL) Take 2 tablets by mouth once daily. - CPAP/BIPAP/OTHER REPLACEMENT BIPAP DEVICE: BIPAP with settings of 25/21 cm H2O. Dx: Obstructive Sleep Apnea G47.33 DME: [facility] Fax: Fax download reports to [phone]. - bisoprolol-hydroCHLOROthiazide (ZIAC) 10-6.25 mg per tablet Take 1 tablet by mouth every morning. - BIPAP Problem List As Of Date 07/19/2024 Noted Resolved Parkinson's disease (HCC) [G20.A1] 07/08/2023 Stenosis, cervical spine [M48.02] 07/08/2023 HTN (hypertension) [I10] 07/08/2023 Encounter Status:Closed by LUCY DYE on 07/19/24NoMetroHealth [facility] Campus Medical Centeron 79-48-1322YNBLOsdkmo Visit (NEURHU) GREGMATTHEW Hayes ([id number]) 1955 M Date Time Provider Department 07/18/24 10:00 AM LEIF RAMOS During your visit today, we recorded the following information about you: Temperature Pulse Blood pressure Weight 97.3 degrees 55/minute 100/64 95.7 kg Height 1.753 m Leif Ramos PA-C 07/19/2024 12:28 PM Signed [facility] Follow up/ Established patient visit Date of last visit : 01/12/2024 IMPRESSION: Obstructive sleep apnea syndrome (primary encounter diagnosis) 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 Matthew Garza is a pleasant 68 year old male with PMH of JATINDER on BiPAP, PD, cervical stenosis, tremor, HTN, JATINDER, and class I obesity. Updated Split Study with RBD protocol was [...] Auto BiPAP through [facility]. He presents with his for follow-up. He is using his device nightly and is sleep well with it. Unfortunately, we still do not have remote access to his compliance data. We will reach out to [facility] (Phone ? Fax ) regarding this. rAHI is elevated at 13.5. I suspect this is due to significant leak- 89L/min. The patient was advised to switch out his supplies and start using a new mask/headgear. He understands that a titration study may be the next step should his AHI remain elevated. No recent DEBs. The patient's says Matthew energy level and sleep quality are both better when he uses his device. PLAN: - Continue Auto Bilevel PAP at IPAP max 25 cmH2O, EPAP min 9 cmH2O, PS 4 cmH2O -We will fax an order for supplies to : [facility] (Phone ? Fax ) Remember to clean your mask and equipment regularly, as directed. - Avoid use of ozone senior sql developer, SoClean devices, or UV cleaning devices - [...] needed. - Order will be sent to [employer] for supplies: [facility] (Phone ? Fax ) Bedroom Safety Measures: Removing sharp objects and weapons from room you're sleeping in Move furniture and clutter from the room or away from the bed so you don't run into anything. Make sure windows and doors are locked Sleep away from your partner if symptoms are dangerous for them Can lower bed closer to the ground or get bed rails Follow-up in 6 months. Leif Ramos PA-C Interval history : He has been doing well with therapy. Reports a better mask fit and denies any SB. SLEEP APNEA Sleep apnea type : JATINDER, Most Recent Apnea-Hypopnea Index (AHI): 66 Treatment : PAP therapy DME: [facility] PAP History: Uses Bilevel PAP for 8 hours per night, 7 nights per week. Current PAP setting: see report. Difficulties with Bilevel PAP: None Reviewed objective PAP compliance data: yes AHI 7.8 Leak 95th percentile 20 LPM There is a perceived benefit by the patient Observers report abolition of snoring and respiratory events with Bilevel PAP use. PATIENT-ENTERED QUESTIONNAIRE SLEEP SCORES PMH, PSH, SH: reviewed SLEEP RELATED ROS Review of Systems Constitutional: Negative for fatigue and night sweats. Respiratory: Negative for difficulty breathing. Cardiovascular: Negative for chest pain and palpitations. Musculoskeletal: Negative for uncomfortable leg sensations. ALLERGI (more content not included)...NormalOhioHealth Doctors Hospitalon [id number] (EMA) MATTHEW GARZA ([id number]) 1955 M Date Time Provider Department 07/15/24 BIERUT, LEIF NEURHU During your visit today, we recorded the following information about you: Lucy Dye OCCA 07/15/2024 2:45 PM Signed Allergies As of Date: 07/15/2024 (No Known Allergies) Date Reviewed: 03/22/2024 Reviewed by: Sathish Mantilla CT - Fully Assessed Reason for Visit: PAP Compliance AND Therapy Report [Other] Cmt: Follow Up Prescriptions as of 07/15/2024 - donepezil (ARICEPT) 5 mg tablet Take 1 tablet by mouth daily at bedtime. - carbidopa-levodopa (SINEMET) 25-100 mg per tablet Take 1 pill three times per day - CPAP/BIPAP/OTHER Type .CPAPSettings into a note to see current settings/supplies/DME information. - acetaminophen-codeine (TYLENOL-COD #3) 300-30 mg per tablet - aspirin, enteric coated (ASPIRIN, ENTERIC COATED) [...] note to see current settings/supplies/DME information. - glucosam/chond-msm1/C/jaya/bor (PJGIAVMFKTW-GAKXX-WDN COMPLEX ORAL) Take 2 tablets by mouth once daily. - CPAP/BIPAP/OTHER REPLACEMENT BIPAP DEVICE: BIPAP with settings of 25/21 cm H2O. Dx: Obstructive Sleep Apnea G47.33 [facility] Fax: Fax download reports to [phone]. - bisoprolol-hydroCHLOROthiazide (ZIAC) 10-6.25 mg per tablet Take 1 tablet by mouth every morning. - BIPAP Problem List As Of Date 07/15/2024 Noted Resolved Parkinson's disease (HCC) [G20.A1] 07/08/2023 Stenosis, cervical spine [M48.02] 07/08/2023 HTN (hypertension) [I10] 07/08/2023 Encounter Status:Closed by LUCY DYE on 07/15/24[facility] HospitalCNPNTelephone (EMA) MATTHEW GARZA ([id number]) 1955 M Date Time Provider Department 07/15/24 LEIF RAMOS During your visit today, we recorded the following information about you: Lucy Dye OCCA 07/15/2024 1:15 PM Signed Called [facility] requesting patient's PAP compliance and therapy report. Spoke with collections representative employee ID is [id number]. She stated she will fax over report to our office. Fax number to our office confirmed as [phone]. Waiting on report. Lucy Dye OCCA 07/15/2024 2:47 PM Signed Received compliance report and was able to gain access the patient report online at [employer]. Allergies As of Date: 07/15/2024 (No Known Allergies) Date Reviewed: 03/22/2024 Reviewed by: Sathish Mantilla CT - Fully Assessed Reason for Visit: Requesting PAP Compliance AND Therapy Report [Other] Cmt: [facility] Prescriptions as of 07/15/2024 - donepezil (ARICEPT) 5 mg tablet Take 1 tablet by mouth daily at bedtime. - carbidopa-levodopa (SINEMET) 25-100 mg per tablet Take 1 pill three times per day - CPAP/BIPAP/OTHER Type .CPAPSettings into a note to see current settings/supplies/DME information. - acetaminophen-codeine (TYLENOL-COD #3) 300-30 mg per tablet - aspirin, enteric coated (ASPIRIN, ENTERIC COATED) [...] note to see current settings/supplies/DME information. - glucosam/chond-msm1/C/jaya/bor (HJCQXFTUSOB-PZOVR-SVN COMPLEX ORAL) Take 2 tablets by mouth once daily. - CPAP/BIPAP/OTHER REPLACEMENT BIPAP DEVICE: BIPAP with settings of 25/21 cm H2O. Dx: Obstructive Sleep Apnea G47.33 DME: [facility] Fax: Fax download reports to [phone]. - bisoprolol-hydroCHLOROthiazide (ZIAC) 10-6.25 mg per tablet Take 1 tablet by mouth every morning. - BIPAP Problem List As Of Date 07/15/2024 Noted Resolved Parkinson's disease (HCC) [G20.A1] 07/08/2023 Stenosis, cervical spine [M48.02] 07/08/2023 HTN (hypertension) [I10] 07/08/2023 Encounter Status:Closed by LUCY DYE on 07/15/24[facility] [id number] Visit (NREUS2) MATTHEW GARZA ([id number]) 1955 M Date Time Provider Department 03/22/24 3:00 PM ERIC MONTIEL NRFERNANDOS2 During your visit today, we recorded the following information about you: Weight Height 89.8 kg 1.753 m Eric Montiel MD 03/25/2024 8:25 AM Signed [facility] - FOLLOW UP EVALUATION I had the pleasure of seeing Mr. Garza for follow-up today. He is a 68 year old right-handed male with a history of tremor since 1999 or so . Subjective Mr. Garza is a right-handed 68 year old year old male with possible Parkinson disease (diagnosed 2022) who presents for follow up. He has long standing ET as well. Sinemet has provided subjective benefit for his tremors (and cognition). Differential diagnosis includes PD vs ET plus other cause of cognitive impairment. Previous Plan-11/10/2023 Visit: Probable Parkinson disease - Will obtain DaTscan for diagnostic clarity. See discussion above. Continue to hold Sinemet for now, but will resume if DaTscan is abnormal. Cognitive complaints - Will obtain neuropsych testing. He apparently had this done somewhere a few years ago and it showed mild dementia . Consider referral to brain [facility] pending results (especially if DaTscan is WNL) Follow up in 4-6 months Interval History: Neuropsych testing completed 11/17/2023: Evaluation shows severely slowed cognitive processing speed, deficits in attention, and impaired semantic fluency Current test scores are comparable to his outside test results in 03/2019, and in some cases, better Meets criteria for multi-domain MCI The pattern of cognitive weaknesses/deficits seen on testing is not specific, but not atypical in the setting of Parkinson's disease Recommendations made to refrain from driving DaTscan 12/10/2023: Suggestive of grade 1 loss of dopaminergic neuronal terminal density in the striatum Today, patient reports: On Sinemet 25-100 mg- 1 tabs TID Has been driving. No mishaps or accidents. Tremors are unchanged. Left worse than right. Worse with stress Memory is about the same. Still forgetful. Feels stable walking. No falls in interim. No issues with sleep - sleeps with a BiPAP on. Not acting out dreams since being on the BiPAP. Mood is good. Is due to see his vp lab on Apr 01 Questionnaires: ALLERGIES No Known Allergies Current Outpatient Medications Medication Sig CPAP/BIPAP/OTHER Type .CPAPSettings into a note to see current settings/supplies/DME information. acetaminophen-codeine (TYLENOL-COD #3) 300-30 mg per tablet aspirin, enteric coated (ASPIRIN, ENTERIC COATED) 81 mg EC tablet Take 81 mg by mouth once daily. atorvastatin (LIPITOR) 80 mg tablet Take 80 mg by mouth once daily. nitroglycerin sublingual (NITROQUICK) 0.4 mg SL tablet Q5M losartan (COZAAR) 25 mg tablet Take 25 mg by mouth every morning. ticagrelor (BRILINTA) 90 mg tablet two times a day. glucosam/chond-msm1/C/jaya/bor (SXVBRWVQHSA-YKILG-DXR COMPLEX ORAL) Take 2 tablets by mouth once daily. CPAP/BIPAP/OTHER REPLACEMENT BIPAP DEVICE: BIPAP with settings of 25/21 cm H2O. Dx: Obstructive Sleep Apnea G47.33 [facility] Fax: Fax download reports to [phone]. bisoprolol-hydroCHLOROthiazide (ZIAC) 10-6.25 mg per tablet Take 1 tablet by mouth every morning. BIPAP carbidopa-levodopa (SINEMET) 25-100 mg per tablet Take 1/2 pill three times per day for 1 week, then increase to 1 pill three times per day (Patient not taking: Reported on 01/12/2024) CPAP/BIPAP/OTHER Type .CPAPSettings into a note to see current settings/supplies/DME information. (Patient not taking: Reported on 01/12/2024) CPAP/BIPAP/OTHER Type .CPAPSettings into a note to see current settings/supplies/DME information. (Patient not taking: Reported on 01/12/2024) No current facility-administered medications for this visit. Objective Vital Signs: Ht 175.3 cm (5' 9 ) Wt 89.8 kg (198 lb) SpO2 100% BMI 29.24 kg/m? Orthostatic Vitals: Sitting: BP 134/72 Pulse 50 Weight: 89.8 kg (198 lb) Height: 175.3 cm (5' 9 ) No LMP for male patient. Body mass index is 29.24 kg/m?. General Physical Examination: General: Awake, alert, interactive, no acute distress, good nutritional status, normal development, well-kept General Neurological Examination: Neurological Exam Mental Status Awake, alert and oriented to person, place and time. Language is fluent with no aphasia. Cranial Nerves CN II: Visual acuity is normal. Visual carlisle full to confrontation. CN III, IV, : Extraocular movements intact bilaterally. Normal lids and orbits bilaterally. Pupils equal round and reactive to light bilaterally. CN V: Facial sensation is normal. CN VII: Full and symmetric facial movement. Mild hypomimia. CN VIII: Hearing is normal. CN IX, X: Palate e (more content not included)...NormalCleveland Clinic Euclid HospitalPNon [phone] (NEUR) MATTHEW GARZA ([id number]) 1955 M Date Time Provider Department 01/15/24 LEIF RAMOS [facility] During your visit today, we recorded the following information about you: Aniyah Thibodeaux LPN 01/15/2024 1:31 PM Signed PAP ORDER FAXED TO [facility] WITH DEMOGRAPHICS, OFFICE NOTES WITH CONFIRMATION NOTED. Allergies As of Date: 01/15/2024 (No Known Allergies) Date Reviewed: 01/12/2024 Reviewed by: Leif Ramos PA-C - Fully Assessed Reason for Visit: Orders [111] Cmt: PAP RX. Prescriptions as of 01/15/2024 - CPAP/BIPAP/OTHER Type .CPAPSettings into a note to see current settings/supplies/DME information. - carbidopa-levodopa (SINEMET) 25-100 mg per tablet Take 1/2 pill three times per day for 1 week, then increase to 1 pill three times per day - acetaminophen-codeine (TYLENOL-COD #3) 300-30 mg per tablet - aspirin, enteric coated (ASPIRIN, ENTERIC COATED) [...] note to see current settings/supplies/DME information. - glucosam/chond-msm1/C/jaya/bor (RRAWDGVXZPA-CNSLE-RNR COMPLEX ORAL) Take 2 tablets by mouth once daily. - CPAP/BIPAP/OTHER REPLACEMENT BIPAP DEVICE: BIPAP with settings of 25/21 cm H2O. Dx: Obstructive Sleep Apnea G47.33 DME: [facility] Fax: Fax download reports to [phone]. - bisoprolol-hydroCHLOROthiazide (ZIAC) 10-6.25 mg per tablet Take 1 tablet by mouth every morning. - BIPAP Problem List As Of Date 01/15/2024 Noted Resolved Parkinson's disease (HCC) [G20.A1] 07/08/2023 Stenosis, cervical spine [M48.02] 07/08/2023 HTN (hypertension) [I10] 07/08/2023 Encounter Status:Closed by ANIYAH THIBODEAUX on 01/15/24NoWVUMedicine Barnesville HospitalLuigi [id number] Visit (MARY) MATTHEW GARZA ([id number]) 1955 M Date Time Provider Department 01/12/24 11:15 AM LEIF RAMOS During your visit today, we recorded the following information about you: Temperature Pulse Blood pressure Weight 97.3 degrees 45/minute 120/80 92 kg Height 1.727 m Leif Ramos PA-C 01/13/2024 10:35 AM Signed [facility] Follow up/ Established patient visit Date of last visit : 10/12/2023 IMPRESSION: Obstructive sleep apnea syndrome (primary encounter [...] no recent DEBs. He had a recent CA (07/2023) and his EDS is somewhat worse since that time. He is dozing on and off throughout the day. PLAN: - Continue Auto Bilevel PAP at IPAP max 25 cmH2O, EPAP min 9 cmH2O, PS 4 cmH2O - I will request a download from your DME company: [facility] (Phone ? Fax ) - You will need to provide them with your 3-digit device code - I will send you a hiyalife message when the download is received, letting you know if any changes to your settings are needed/recommended - Remember to clean your mask and equipment regularly, as directed. - Avoid use of ozone senior sql developer, SoClean devices, or UV cleaning devices - [...] needed. - Order will be sent to [employer] for supplies: [facility] (Phone ? Fax ) - Let DME know if [...] rails - Follow-up 3 months Christiana Ewing APRN.ELECTRIC ORGAN ASSEMBLER AND CHECKER HPI: Matthew Garza is a pleasant 68 year old male with PMH of JATINDER on BiPAP, PD, cervical stenosis, tremor, HTN, JATINDER, and class I obesity. PSG on 06/17/2023 revealed an AHI of 66.8 and a low SaO2 of 75%. He presents today with his . He has been sleeping better with his device. rAHI is down from his previous appointments but still slightly elevated at 13.5 Interval history : Pt has been sleeping much better with his new device. There is excessive leak noted on his report, however this has not been waking him at night. rAHI is elevated at 13.5. We still do not have remote access to his compliance data but he brought hi (more content not included)...NormalFort Hamilton HospitalPREHENSIVE METABOLIC PANELon [id number] [Mass/Vol]4.5 g/dLNormal3.2-5.3PCedar Springs Behavioral Hospital HospitalComment on above:Performed By: #### CMP, 18613-4, 2857-1 #### [facility] ([id number]) [address], [address] [place], [place] [address]ITW [Catalytic activity/Vol]76 U/EYyskvu49-293WxdUejpnkGraham Regional Medical CenterComment on above:Performed By: #### CMP, 32636-2, 2857-1 #### [facility] ([id number]) [address], [address] [place], [place] [address]DEN [Catalytic activity/Vol]38 U/LNormal0-40ProGraham Regional Medical CenterComment on above:Performed By: #### CMP, 61493-8, 2857-1 #### [facility] ([id number]) [address], [address] [place], [place] [address]Kuxni gap [Moles/Vol]7 mmol/LNormal5-15ProGraham Regional Medical CenterComment on above:Performed By: #### CMP, 51009-0, 2857-1 #### [facility] ([id number]) [address], [address] [place], [place] [address]KYM [Catalytic activity/Vol]32 U/LNormal0-41ProPromedica Defiance Regional Hospital HospitalComment on above:Performed By: #### CMP, 04486-2, 2857-1 #### [facility] ([id number]) [address], [address] [place], [place] [address]Bzlbsdugj [Mass/Vol]0.8 mg/dLNormal0.3-1.2PGreene Memorial HospitalComment on above:Performed By: #### CMP, 15508-0, 2857-1 #### [place] [facility] ([id number]) [address], [address] [place], [place] [address]Uaucbmq [Mass/Vol]9.6 mg/dLNormal8.5-10.5PGreene Memorial HospitalComment on above:Performed By: #### DARYL, 30337-6, 2857-1 #### [facility] ([id number]) [address], [address] [place], [place] [address]Ubepwwya [Moles/Vol]104 mmol/DVnzvsu80-061EvzJvbqpcGraham Regional Medical CenterComment on above:Performed By: #### DARYL, 64163-1, 2857-1 #### [facility] ([id number]) [address], [address] [place], [place] [address]RX5 [Moles/Vol]29 mmol/SRcburv37-60MabKmhyfgGreene Memorial Hospital Comment on above:Performed By: #### DARYL, 90835-2, 2857-1 #### [facility] ([id number]) [address], [address] [place], [place] [address]Orxfgkladi [Mass/Vol]1.20 mg/dLNormal0.60-1.30Fairfield Medical CenterComment on above:Result Comment: METHOD TRACEABLE TO IDMS STANDARD Performed By: #### DARYL, 97889-7, 2857-1 #### [facility] ([id number]) [address], [address] [place], [place] [address]HIW/1.73 sq M.predicted among non-blacks MDRD (S/P/Bld) [Vol rate/Area]67 mL/min/{1.73_m2}Normal>59ProGraham Regional Medical CenterComment on above:Result Comment: Reported eGFR is based on the CKD-EPI 2020 equation that does not use a race coefficient.Performed By: #### DARYL, 74250-2, 2857-1 #### [facility] ([id number]) [address], [address] [place], [place] [address]Dyptfsz [Mass/Vol]93 mg/iIZxlgjk36-86TfcOlitroMethodist Specialty And Transplant Hospital on above:Performed By: #### DARYL, 33523-2, 2857-1 #### [facility] ([id number]) [address], [address] [place] [address]Scyvvaomp [Moles/Vol]4.4 mmol/LNormal3.5-5.0ProGraham Regional Medical CenterComment on above:Performed By: #### DARYL, 69370-0, 2857-1 #### [facility] ([id number]) [address], [address] [place] [address]Fdavksa [Mass/Vol]7.6 g/dLNormal6.0-8.0ProGraham Regional Medical CenterComment on above:Performed By: #### DARYL, 52289-3, 2857-1 #### [facility] ([id number]) [address], [address] [place] [address]Adlrwc [Moles/Vol]140 mmol/LKmrmod573-580IjgYffkpn [facility]remont HospitalComment on above:Performed By: #### DARYL, 06445-5, 2857-1 #### [facility] ([id number]) [address], [address] [place] [address]Wnyh nitrogen [Mass/Vol]21 mg/dLNormal5-27ProGraham Regional Medical CenterComment on above:Performed By: #### DARYL, 85472-8, 2857-1 #### [facility] ([id number]) [address], [address] [place] [address]Beicm 1996 panelon 32-01-8860Etlzmkaeqre [Mass/Vol]103 mg/dLLow 150-200ProGraham Regional Medical CenterComment on above:Performed By: #### DARYL, 25537- 1, 2857-1 #### [facility] ([id number]) [address], [address] [place] [address]Hgcxtxecyxu in HDL [Mass/Vol]47 mg/dLNormal>39ProGraham Regional Medical CenterComment on above:Result Comment: HDL <40 mg/dL - High Risk HDL > or = 40mg/dL- Desirable HDL >60 mg/dL - Negative Risk Performed By: #### DARYL, 02364-4, 2857-1 #### [facility] ([id number]) [address], [address] [place] [address]Yucvlmhdedt in LDL [Mass/Vol]41 mg/dLNormal<130ProGraham Regional Medical CenterComment on above:Result Comment: LDL <100 mg/dL - Desirable LDL >160 mg/dL - High Risk Performed By: #### DARYL, 40950-5, 3843-1 #### [facility] ([id number]) [address], [facility] [address] [place] [address]Nduuqsuijcz in VLDL [Mass/Vol]15 mg/dLNormal0-30ProGraham Regional Medical CenterComment on above:Performed By: #### DARYL, 58257-3, 9067-1 #### [facility] ([id number]) [address], [address] [place] [address]XZHHGTVXYEP:HDL2.7Esnems6.0-5.0Fair[facility] Medical CenterComment on above:Performed By: #### DARYL, 35918-7, 5717-1 #### [facility] ([id number]) [address], [address] [place] [address]Azbdjzapgakq [Mass/Vol]74 mg/aAMnzzpg42-210OnjUugicy [facility]remont HospitalComment on above:Performed By: #### DARYL, 10879-9, 2857-1 #### [facility] ([id number]) [address] [place] [address], [address] [place], [place] [address]XBVS urinalysis dipstick onlyon 73-97-2381Jbjkdtxm Poct Urine BilirubinNegativeProDayton Va Medical Center SystemExternal Poct Urine BloodNegative ProMHendricks Community Hospital SystemExternal Poct Urine GlucoseNegativeParkwood Hospital SystemExternal Poct Urine KetonesNegativeParkwood Hospital SystemExternal Poct Urine Leukocyte EsteraseNegativeProDayton Va Medical Center SystemExternal Poct Urine NitriteNegativeProDayton Va Medical Center SystemExternal Poct Urine Iv2AhmSjhqsbDayton Va Medical Center SystemExternal Poct Urine ProteinNegativeParkwood Hospital SystemExternal Poct Urine Specific Gravity1.025ProDayton Va Medical Center SystemExternal Poct Urine Urobilinogen0.2ProMedPennsylvania HospitalProstate specific Ag [Mass/Vol]on 34-03-6762JKMEDPCOC SPEC ANT0.08 ng/mLNormal0.00-4.00Fairfield Medical CenterCompromedica coldwater [facility] hospital on above:Result Comment: The method used for this test is Miranda Citlaly DXI chemiluminescent immunoassay. Values obtained by different assay methods cannot be used interchangeably.Performed By: #### DARYL, 90983-4, 2857-1 #### [facility] ([id number]) [address] [place] [address], [address] [place], [place] [address]JZIBob 26-00-5109DDSCDdbsuo TextNoalCVan Wert County Hospital BRAIN TREMOR SPECT/CTon 34-79-3713PS BRAIN TREMOR SPECT/CT* * *Final Report* * * DATE OF EXAM: Dec 10 2023 2:10PM FVN 0088 - NM BRAIN TREMOR SPECT/CT / PROCEDURE REASON: Parkinsonism, unspecified Parkinsonism type (HCC) * * * * Physician Interpretation * * * * I-123-BRAIN DaTSCAN CLINICAL HISTORY: Parkinsonism. TECHNIQUE: The patient's medications and allergies were reviewed in electronic medical record and reconciled to the proposed procedure/treatment. The patient was pretreated with 4 drops of Lugol's solution orally, followed by injection of 5.1 mCi I-123 Ioflupane, IV. SPECT CT images of the brain was acquired in 3-[address] Dose-Length Product (DLP): 181 mGy*cm CT Dose Reduction Employed: [Yes] RESULT: The tracer uptake in the caudate nuclei are asymmetric. The uptake in the left caudate nucleus: normal. The uptake in the right caudate nucleus: Slightly decreased. The tracer uptake in the putamen are asymmetric. The uptake in the left putamen: Decreased. The uptake in the right putamen: Mildly decreased. CT of head and brain: the images were acquired mainly for attenuation correction, suboptimal for diagnosis purpose. No gross acute abnormal findings. IMPRESSION: THE PATTERN OF THE TRACER UPTAKE SUGGEST GRADE 1 LOSS OF DOPAMINERGIC NEURONAL TERMINAL DENSITY IN THE STRIATUM (SEE REFERENCE BELOW). REFERENCE: Hang Gaston, MRCP ([place]), Howard Barnes, PhD, Tarun Rojas BSc, MD, FRCP Accurate Differentiation of Parkinsonism and Essential Tremor Using Visual Assessment of [123I]-FP-CIT SPECT Imaging: The [123I]-FP-CIT Study Group. Movement Disorders Vol. 15, No. 31999, pp. 503-510 Tobacco Baler: [facility] Transcribe Date/Time: Dec 10 2023 5:45P Dictated by : ILANA SMITH MD This examination was interpreted and the report reviewed and electronically signed by: ILANA SMITH MD on Dec 10 2023 5:52PM EST [id number] Hospital 84-65-8961JLGEYCBZEY: THE PATTERN OF THE TRACER UPTAKE SUGGEST GRADE 1 LOSS OF DOPAMINERGIC NEURONAL TERMINAL DENSITY IN THE STRIATUM (SEE REFERENCE BELOW). REFERENCE: GUY Donnelly ([place]), Howard Barnes, PhD, Tarun Rojas BSc, MD, FRCP Accurate Differentiation of Parkinsonism and Essential Tremor Using Visual Assessment of [123I]-FP-CIT SPECT Imaging: The [123I]-FP-CIT Study Group. Movement Disorders Vol. 15, No. 31999, pp. 503-510 Tobacco Baler: [facility] Transcribe Date/Time: Dec 10 2023 5:45P Dictated by : ILANA SMITH MD This examination was interpreted and the report reviewed and electronically signed by: ILANA SMITH MD on Dec 10 2023 5:52PM [facility]* * *Final Report* * * DATE OF EXAM: Dec 10 2023 2:10PM N 0088 - NM BRAIN TREMOR SPECT/CT / PROCEDURE REASON: Parkinsonism, unspecified Parkinsonism type (HCC) * * * * Physician Interpretation * * * * I-123-BRAIN DaTSCAN CLINICAL HISTORY: Parkinsonism. TECHNIQUE: The patient's medications and allergies were reviewed in electronic medical record and reconciled to the proposed procedure/treatment. The patient was pretreated with 4 drops of Lugol's solution orally, followed by injection of 5.1 mCi I-123 Ioflupane, IV. SPECT CT images of the brain was acquired in 3-[address] Dose-Length Product (DLP): 181 mGy*cm CT Dose Reduction Employed: [Yes] RESULT: The tracer uptake in the caudate nuclei are asymmetric. The uptake in the left caudate nucleus: normal. The uptake in the right caudate nucleus: Slightly decreased. The tracer uptake in the putamen are asymmetric. The uptake in the left putamen: Decreased. The uptake in the right putamen: Mildly decreased. CT of head and brain: the images were acquired mainly for attenuation correction, suboptimal for diagnosis purpose. No gross acute abnormal findings. ROFF RADIOLOGYProvider, [facility] [place] - 12/10/2023 * * *Final Report* * * DATE OF EXAM: Dec 10 2023 2:10PM N 0088 - NM BRAIN TREMOR SPECT/CT / PROCEDURE REASON: Parkinsonism, unspecified Parkinsonism type (HCC) * * * * Physician Interpretation * * * * I-123-BRAIN DaTSCAN CLINICAL HISTORY: Parkinsonism. TECHNIQUE: The patient's medications and allergies were reviewed in electronic medical record and reconciled to the proposed procedure/treatment. The patient was pretreated with 4 drops of Lugol's solution orally, followed by injection of 5.1 mCi I-123 Ioflupane, IV. SPECT CT images of the brain was acquired in 3-[address] Dose-Length Product (DLP): 181 mGy*cm CT Dose Reduction Employed: [Yes] RESULT: The tracer uptake in the caudate nuclei are asymmetric. The uptake in the left caudate nucleus: normal. The uptake in the right caudate nucleus: Slightly decreased. The tracer uptake in the putamen are asymmetric. The uptake in the left putamen: Decreased. The uptake in the right putamen: Mildly decreased. CT of head and brain: the images were acquired mainly for attenuation correction, suboptimal for diagnosis purpose. No gross acute abnormal findings. IMPRESSION IMPRESSION: THE PATTERN OF THE TRACER UPTAKE SUGGEST GRADE 1 LOSS OF DOPAMINERGIC NEURONAL TERMINAL DENSITY IN THE STRIATUM (SEE REFERENCE BELOW). REFERENCE: Hang Gaston, MRCP ([place]), Howard Barnes, PhD, Tarun Rojas, BSc, MD, CP Accurate Differentiation of Parkinsonism and Essential Tremor Using Visual Assessment of [123I]-FP-CIT SPECT Imaging: The [123I]-FP-CIT Study Group. Movement Disorders Vol. 15, No. 3, 2000, pp. 503-510 Tobacco Baler: TOYA Transcribe Date/Time: Dec 10 2023 5:45P Dictated by : ILANA SMITH MD This examination was interpreted and the report reviewed and electronically signed by: ILANA SMITH MD on Dec 10 2023 5:52PM EST [facility] observation (narrative)[facility] BrainOrdered By: [facility] Provider on [id number] ClinicCNOVon [id number] Office Visit (PSYTMN) MATTHEW GARZA ([id number]) 1955 M Date Time Provider Department 11/25/23 1:30 PM KARL MCGREGOR PSYTMN During your visit today, we recorded the following information about you: Karl Mcgregor PSYD 11/30/2023 8:10 AM Signed We discussed the results of his recent neuropsychological evaluation today. I explained the testing showed deficits in processing speed, attention, and semantic fluency. We also discussed his relative strengths. I explained that though testing shows some areas of significant impairment, there is not clear evidence of significant decline since testing in 2020. I provided a diagnosis of MCI. I recommended against driving. We discussed healthy living habits, such as engaging in social and cognitively stimulating activity, eating a healthy diet, and physical exercise to bolster short and usp brain health. I answered all questions and asked that they reach out with and future questions or needs. 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 - glucosam/chond-msm1/C/jaya/bor (SUPCFZXVQCN-IKNIP-XGC COMPLEX ORAL) Take 2 tablets by mouth once daily. - CPAP/BIPAP/OTHER REPLACEMENT BIPAP DEVICE: BIPAP with settings of 25/21 cm H2O. Dx: Obstructive Sleep Apnea G47.33 DME: [facility] Fax: Fax download reports to [phone]. - bisoprolol-hydroCHLOROthiazide (ZIAC) 10-6.25 mg per tablet Take 1 tablet by mouth every morning. - BIPAP Problem List As Of Date 11/25/2023 Noted Resolved Parkinson's disease (HCC) [G20.A1] 07/08/2023 Stenosis, cervical spine [M48.02] 07/08/2023 HTN (hypertension) [I10] 07/08/2023 Encounter Status:Closed by KARL MCGREGOR on [facility]/30/23[facility] [id number] (NEUR) MATTHEW GARZA ([id number]) 1955 M Date Time Provider Department 11/23/23 CHRISTIANA EWING [facility] During your visit today, we recorded the following information about you: Jeny, Jimenez 11/23/2023 10:15 AM Signed error Allergies As of Date: 11/23/2023 (No Known Allergies) Date Reviewed: 11/10/2023 Reviewed by: Gustabo Mauricio MA - Fully Assessed Prescriptions as of 11/23/2023 - acetaminophen-codeine (TYLENOL-COD #3) 300-30 mg per tablet - aspirin, enteric coated (ASPIRIN, ENTERIC COATED) [...] note to see current settings/supplies/DME information. - glucosam/chond-msm1/C/jaya/bor (QXDWLFREESQ-URPUO-AHO COMPLEX ORAL) Take 2 tablets by mouth once daily. - CPAP/BIPAP/OTHER REPLACEMENT BIPAP DEVICE: BIPAP with settings of 25/21 cm H2O. Dx: Obstructive Sleep Apnea G47.33 [facility] Fax: Fax download reports to [phone]. - bisoprolol-hydroCHLOROthiazide (ZIAC) 10-6.25 mg per tablet Take 1 tablet by mouth every morning. - BIPAP Problem List As Of Date 11/23/2023 Noted Resolved Parkinson's disease (HCC) [G20.A1] 07/08/2023 Stenosis, cervical spine [M48.02] 07/08/2023 HTN (hypertension) [I10] 07/08/2023 Encounter Status:Closed by JIMENEZ FERMIN on 11/23/23NoMet[facility] Centerpatsy [id number] Visit (PSYTMN) MATTHEW GARZA ([id number]) 1955 M Date Time Provider Department 11/17/23 8:00 AM KARL MCGREGOR PSYTMN During your visit today, we recorded the following information about you: Karl Mcgregor PSYD 11/30/2023 8:10 AM Addendum [facility] Neurological [place] Section of Neuropsychology Neuropsychological Evaluation Report CONFIDENTIAL Patient: Matthew Garza Age: [age] year old : 1955 Sex: male Handedness: right-handed Date of Evaluation: 11/17/2023 History and Presenting Problem: Mr. Matthew Garza is a 68 year old man with a history of essential tremor, possibly secondary to Parkinson's disease, who presented for a neuropsychological evaluation today to assess concerns of progressive memory decline. He was accompanied by his . His records show that Sinemet has provided subjective benefit for his tremor and cognition. He had outside cognitive testing in June 2019. Per my review of the results from that evaluation, his scores showed weak attention, impaired working memory and processing speed, and deficits in aspects of verbal learning and memory. Today, he stated that he was referred to assess for dementia. He stated that he sometimes misplaces things. He will forget to shut doors. He does not lose things. He sometimes forgets small details of conversations. He has word finding difficulties, sometimes. He does well with the names of familiar family and friends. He has problems with comprehension, to which his agreed. His remote memory is good. He has reported problems with attention and concentration, but stated that his mind does not wander during conversation. He focuses when watching TV and movies and can follow the plot well. He feels cognitively slow. His stated that he always forgets to shut drawers. He will forget to put things away in the refrigerator or freezer. He puts things places where she can't find them. He has word finding difficulties in conversation. When with friends, he uses his phone rather than conversing. He will mix up the names of friends. Big picture, he feels that he may be a little slower than he should be, but that his cognition/memory is otherwise good for his age. His believes that he is worse than he should be for his age, and that others have noticed a decline too. He spends time using his phone, playing games, including Lumosity. He walks his dog daily. He reads the news online. 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 He manages the finances and his medications well with his pillbox. He drives some, locally. He has never been a good navigator, even in his own town, but this has become worse of late. He has a hard time with detours. He is denied problems with basic ADLs. Neuropsychiatric Symptoms: He described good mood. He does tend to put things off. He denied depression. He had depression and anxiety when working, related to his job. He retired June 2021. He still has some anxiety, which has always been the case. 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 He denied hallucinations. He has previously stated that he has seen flashes and squiggly lines in his periphery, though he denied this today. He denied delusions. He denied suicidal ideation. Sleep: He uses a BIPAP. He denied problems with sleep onset or maintenance. He has REM behavioral disorder (RBD), but not symptoms since using his new BIPAP machine. Medical History: He denied a history of head injury, stroke, or seizure. He had a CA in July and had a few stents placed. ACTIVE PROBLEM LIST Parkinson's Disease (Hcc) Stenosis, Cervical Spine Htn (Hypertension) Current Outpatient Medications on File Prior to Visit Medication Sig acetaminophen-codeine (TYLENOL-COD #3) 300-30 mg per tablet aspirin, enteric coated (ASPIRIN, ENTERIC COATED) 81 [...] a note to see current settings/supplies/DME information. CPAP/BIPAP/OTHER Type .CPAPSettings into a note to see current settings/supplies/DME information. glucosam/chond-msm1/C/jaya/bor (EDLLMMYLNKT-TVWNS-LHC COMPLEX ORAL) Take 2 tablets by mouth once daily. CPAP/BIPAP/OTHER REPLACEMENT BIPAP DEVICE: BIPAP with settings of 25/21 cm H2O. Dx: Obstructive Sleep Apnea G47.33 [facility] Fax: Fax download reports to [phone]. bisoprolol-hydroCHLOROthiazide (ZIAC) 10-6.25 mg per tablet Take 1 tablet by mouth every mo (more content not included)...[facility] Laura [id number] Visit (NREUS2) MATTHEW GARZA ([id number]) 1955 M Date Time Provider Department 11/10/23 3:30 PM ERIC MONTIEL NREUS2 During your visit today, we recorded the following information about you: Pulse Blood pressure 60/minute 129/64 Eric Montiel MD 11/10/2023 3:29 PM Signed I would recommend having a special type of brain scan done, called a DaTscan. This scan measure dopamine activity in the brain, and can help confirm whether or not someone has Parkinson's disease. If this test comes back abnormal, then we will restart the Carbidopa/levodopa. For the memory changes, let's repeat the detailed memory testing, called neuropsychological testing. I have ordered this test for you. Please see me again in 4-6 months or so, but we will be in touch before then when the DaTscan is done. Eric Montiel MD 11/10/2023 3:52 PM Signed [facility] - FOLLOW UP EVALUATION I had the pleasure of seeing Mr. Garza for follow-up today. He is a 68 year old right-handed male with a history of tremor since 1999 or so . Subjective Previous Plan-06/09/2023 Visit: Tremor, gait disorder - Probable PD. Subjective improvement in tremors and gait. Mild objective improvements on examination today. Patient tolerating medication ok. Will Increase Sinemet 25-100mg to 1.5 tabs TID. Cognitive slowing - mild, progressive memory changes. Patient to get repeat sleep study d/t concern for uncontrolled JATINDER. If JATINDER treatment adjustment Interval History: He is doing okay. He went on a cruise to [place]. Physically he is doing okay. He had a fall last months. Right leg folded underneath (me) . He had an X-ray, no broken bones. Still gets some tremors, though Sinemet has helped. Mostly action tremor when holding a dish. Actually he has been out of Sinemet for a couple weeks. Maybe memory worse since then. Forgets to put thing back in the fridge. Did also have a heart attack a few weeks ago. 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 He does drive, no issues he says. denies hallucinations: Patient denies sleep disturbances. 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 denies Swallowing difficulties. denies Orthostatic hypotension symptoms. Sense of smell is intact Movement Disorders Medications Schedule - as of the start of the visit: Medications Sinemet 25/100 1.5 1.5 1.5 Questionnaires: ALLERGIES No Known Allergies Current Outpatient Medications Medication Sig acetaminophen-codeine (TYLENOL-COD #3) 300-30 mg per tablet aspirin, enteric coated (ASPIRIN, ENTERIC COATED) 81 [...] a note to see current settings/supplies/DME information. CPAP/BIPAP/OTHER Type .CPAPSettings into a note to see current settings/supplies/DME information. glucosam/chond-msm1/C/jaya/bor (EOJTCRCQPEH-GEBTQ-OOX COMPLEX ORAL) Take 2 tablets by mouth once daily. carbidopa-levodopa (SINEMET) 25-100 mg per tablet Take 1.5 pills, 3 times per day CPAP/BIPAP/OTHER REPLACEMENT BIPAP DEVICE: BIPAP with settings of 25/21 cm H2O. Dx: Obstructive Sleep Apnea G47.33 DME: [facility] Fax: Fax download reports to [phone]. bisoprolol-hydroCHLOROthiazide (ZIAC) 10-6.25 mg per tablet Take 1 tablet by mouth every morning. BIPAP No current facility-administered medications for this visit. Objective Vital Signs: BP 129/64 (BP Site: Left Arm, BP Position: Sitting, BP Cuff Size: Regular Adult) Pulse 60 SpO2 98% Awake and alert Fair historian Able to spell APPLE forwards and backwards. Knows 7 quarters in $1.75. ([place] affects testing below) Movement Disorders Scales Performed: MDS-UPDRS Motor subscale condition of exam Medication Off/On/Naiive OFF Time of UPDRS Time of Last Medication Last Medication Taken DBS Right N/A DBS Left N/A MDS-UPDRS Motor subscale scores Speech 0-Normal. No speech problems. Facial Expression 1-Slight. Minimal masked facies manifested only by decreased frequency of blinking. Rigidity Neck 0-Normal. No rigidity. Rigidity Right Upper Extremity 0-Normal. No rigidity. Rigidity Left Upper Extremity 0-Normal. No rigidity. Rigidity Right Lower Extremity 2-Mild. Rigidity detected without the activation maneuver, but full (more content not included)...NormalOhioHealth Doctors Hospitalon [id number] (NEURHU) MATTHEW GARZA ([id number]) 1955 M Date Time Provider Department 10/13/23 CHRISTIANA EWING During your visit today, we recorded the following information about you: Zack Wallace LPN 10/13/2023 8:44 AM Signed Faxed order, office notes to: [facility] name: Integrated [facility] fax # [phone] [facility] Faxed info in patient's chart. Allergies As of Date: 10/13/2023 (No Known Allergies) Date Reviewed: 10/12/2023 Reviewed by: Christiana Ewing APRN.ELECTRIC ORGAN ASSEMBLER AND CHECKER - Fully Assessed Reason for Visit: PAP [...] note to see current settings/supplies/DME information. - glucosam/chond-msm1/C/jaya/bor (NVOLTYCWTTC-SMIAT-JAN COMPLEX ORAL) Take 2 tablets by mouth once daily. - carbidopa-levodopa (SINEMET) 25-100 mg per tablet Take 1.5 pills, 3 times per day - CPAP/BIPAP/OTHER REPLACEMENT BIPAP DEVICE: BIPAP with settings of 25/21 cm H2O. Dx: Obstructive Sleep Apnea G47.33 DME: [facility] Fax: Fax download reports to [phone]. - bisoprolol-hydroCHLOROthiazide (ZIAC) 10-6.25 mg per tablet Take 1 tablet by mouth every morning. - BIPAP Problem List As Of Date 10/13/2023 Noted Resolved Parkinson's disease (HCC) [G20.A1] 07/08/2023 Stenosis, cervical spine [M48.02] 07/08/2023 HTN (hypertension) [I10] 07/08/2023 Encounter Status:Closed by ZACK WALLACE on 10/13/23[facility] [id number] Visit (EMA) MATTHEW GARZA ([id number]) 1955 M Date Time Provider Department 10/12/23 2:00 PM CHRISTIANA EWING During your visit today, we recorded the following information about you: Temperature Pulse Respiration Blood pressure 96.7 degrees 47/minute 20/minute 136/70 Weight Height 90.7 kg 1.727 m Christiana Ewing APRN.JACINTA 10/12/2023 2:43 PM Signed [facility] Follow up/ Established [...] a DME (durable medical equipment) company - [facility] (Phone ? Fax ) [...] or call after you receive your machine: [phone] - Follow-up visit needs to be between [...] the ground or get bed rails Christiana Ewing, MARYA.ELECTRIC ORGAN ASSEMBLER AND CHECKER Here for follow up for JATINDER - PAP compliance Interval history : No recent DEBs or yelling during sleep with new Auto BiPAP device. He received his new device from [employer] but they need 3 digit code to set-up (more content not included)...NormalUniversity Hospitals [facility] Center Metabolic Panelon 52-45-9921Axsvb gap [Moles/Vol]15.0 mmol/LNormal6.0-15.0The [facility] Physician GroupComment on above:Performed By: #### BMP, CBC #### [place] [address] USACalcium [Mass/Vol]9.1 mg/dLNormal8.6-10.3The [facility] Hospital Physician GroupComment on above:Performed By: #### BMP, CBC #### [place] [address] USAChloride [Moles/Vol]102 mmol/ENrrsqu77-416Xvf [facility] Physician GroupComment on above:Performed By: #### BMP, CBC #### [place] [address] USACO2 [Moles/Vol]23.3 mmol/ZGcutws50.0-31.0The [facility] Hospital Physician GroupComment on above:Performed By: #### BMP, CBC #### [place] [address] USACreatinine [Mass/Vol]1.17 mg/dLNormal0.70-1.30The [facility] Physician [facility] Medical CenterComment on above:Performed By: #### BMP, CBC #### [place] [address] USACreatinine Clr Calc Pzrwfjdb09.47NormalThe [facility] Hospital Physician GroupComment on above:Result Comment: PERFORMED BY: [place] [address] PATHOLOGIST MEMBERSHIP ADMINISTRATOR JASON ERVIN M.D.Performed By: #### BMP, CBC #### [place] [address] USAGFR/1.73 sq M.predicted MDRD (S/P/Bld) [Vol rate/Area] mL/min/{1.73_m2}NormalThe [facility] Physician [facility] Medical CenterComment on above:Performed By: #### BMP, CBC #### [address] [place] [address] USAGlucose [Mass/Vol]99 mg/hYMllvpa58-173Zoo [facility] Physician GroupComment on above:Result Comment: Random Glucose Reference Range is dependent on time and content of last meal. Glucose of more than 200 mg/dL in a nonstressed, ambulatory subject supports the diagnosis of Diabetes Mellitus. ADA recommended reference rangePerformed By: #### BMP, CBC #### [facility] [address] [place] [address] USAPotassium [Moles/Vol]4.3 mmol/LNormal3.5-5.1The [facility] Physician GroupComment on above:Performed By: #### BMP, CBC #### [facility] [address] [place] [address] USASodium [Moles/Vol]136 mmol/IQfryuf870-532Zak [facility] Physician GroupComment on above:Performed By: #### BMP, CBC #### [facility] [address] [place] [address] USAUrea nitrogen [Mass/Vol]18 mg/dLNormal7-25The [facility] Physician GroupComment on above:Performed By: #### BMP, CBC #### [facility] [address] [place] [address] USABasophils Auto (Bld) [#/Vol]Ordered By: Matthias Mckenna on 72-57-1408Qupfrptly (Bld) [#/Vol]0.0 10*3/uL0.0-0.2FGeorgetown Behavioral HospitalBasophils/100 WBC Auto (Bld)Ordered By: Matthias Mckenna on 10-12-1701Dwkwpbtlw/100 WBC (Bld)0.2 %.The [facility] Medical CenterCalcium [Mass/volume] in Serum or PlasmaOrdered By: Matthias Mckenna on 86-63-6876Dvqfzmb [Mass/Vol]9.1 mg/dL8.6-10.3FGeorgetown Behavioral Hospital Carbon dioxide, total [Moles/volume] in Serum or PlasmaOrdered By: Matthias Mckenna on 63-55-7736IH3 [Moles/Vol]23.3 mmol/L21.0-31.0The [facility] Medical CenterChloride [Moles/volume] in Serum or PlasmaOrdered By: Matthias Mckenna on 09-28-4590Vedswuzw [Moles/Vol]102 mmol/M39-368OpzultvoqThe University Of Toledo Medical CenterComplete Blood Count Auto Diffon 01-18-0268Uoymklebs (Bld) [#/Vol] 0.0 10*3/uLNormal0.0-0.2The [facility] Physician GroupComment on above:Result Comment: PERFORMED BY: [place] [address] PATHOLOGIST MEMBERSHIP ADMINISTRATOR JASON ERVIN M.D.Performed By: #### BMP, CBC #### [place] [address] USABasophils/100 WBC (Bld)0.2 %Normal.The [facility] Physician GroupComment on above:Performed By: #### BMP, CBC #### [place] [address] USAEosinophils (Bld) [#/Vol]0.0 10*3/uLNormal0.0-0.45The [facility] Physician GroupComment on above:Performed By: #### BMP, CBC #### [place] [address] USAEosinophils/100 WBC (Bld)0.4 %Normal.The [facility] Physician GroupComment on above:Performed By: #### BMP, CBC #### [place] [address] USAErythrocyte distribution width (RBC) [Ratio]14.2 %Normal 12.0-14.8The [facility] Physician GroupComment on above:Performed By: #### BMP, CBC #### [place] [address] USAHematocrit (Bld) [Volume fraction]36.3 %Low38.8-50.0The [facility] Physician GroupComment on above:Performed By: #### BMP, CBC #### [address] [place] [address] USAHemoglobin (Bld) [Mass/Vol]12.0 g/dLLow13.0-17.0The [facility] Physician GroupComment on above:Performed By: #### BMP, CBC #### [place] [address] USALymphocytes (Bld) [#/Vol]1.1 10*3/uLNormal1.00-4.8The [facility] Physician GroupComment on above:Performed By: #### BMP, CBC #### [place] [address] USALymphocytes/100 WBC (Bld)9.4 %Normal.The [facility] Physician GroupComment on above:Performed By: #### BMP, CBC #### [place] [address] USAMCH (RBC) [Entitic mass]30.8 fcElipbl70.5-35.2The [facility] Physician GroupComment on above:Performed By: #### BMP, CBC #### [place] [address] USAMCV (RBC) [Entitic vol]93.2 hRVkhwqo14.5-101The [facility] Physician GroupComment on above:Performed By: #### BMP, CBC #### [place] [address] USAMean Corpuscular HGB Conc33.0 g/nOLiugyc41.5-35.6The [facility] Physician GroupComment on above:Performed By: #### BMP, CBC #### [place] [address] USAMonocytes (Bld) [#/Vol]1.2 10*3/uLHigh0.0-0.8The [facility] Physician GroupComment on above:Performed By: #### BMP, CBC #### [place] [address] USAMonocytes/100 WBC (Bld)10.4 %Normal.The [facility] Physician GroupComment on above:Performed By: #### BMP, CBC #### [facility] [address] [place] [address] USANeutrophils (Bld) [#/Vol]8.9 10*3/uLHigh1.8-7.7The [facility] Physician GroupComment on above:Performed By: #### BMP, CBC #### [facility] [address] [place] [id number] USANeutrophils/100 WBC (Bld)79.6 %Normal.The [facility] Physician GroupComment on above:Performed By: #### BMP, CBC #### [facility] [address] [place] [address] USANRBC%0.1 /100{WBC}Normal0-0.5The [facility]ician Group Comment on above:Performed By: #### BMP, CBC #### [facility] [address] [place] [address] USAPlatelet mean volume (Bld) [Entitic vol]8.0 fLNormal 6.6-10.1The [facility] Physician GroupComment on above:Performed By: #### BMP, CBC #### [facility] [address] [place] [address] USAPlatelets (Bld) [#/Vol]219 10*3/cHFppnbx728-082Otp [facility] Physician GroupComment on above:Performed By: #### BMP, CBC #### [facility] [address] [place] [address] USARBC (Bld) [#/Vol]3.89 10*6/uLLow3.90-5.60The [facility] Physician GroupComment on above:Performed By: #### BMP, CBC #### [facility] [address] [place], [place] [address] USAWBC (Bld) [#/Vol]11.2 10*3/uLHigh4.1-10.5The [facility] Physician GroupComment on above:Performed By: #### BMP, CBC #### [facility] [address] [place] [address] USACreatinine [Mass/volume] in Serum or PlasmaOrdered By: Matthias Mckenna on 30-89-4072Njeyrtcrnu [Mass/Vol]1.17 mg/dL0.70-1.30 [facility] CenterECG 12 lead ECGon 60-65-4778WYH 12 lead ECG [facility] Main [place] [address] [place] [address] Electrocardiograph Report Signed Patient: Matthew Garza MR#: [id number] : 1955 Acct:[id number] Age/Sex: 68 / M ADM Date: 07/16/23 Loc: Room: [address] [place] [address] Type: ADM IN Attending Dr: Matthias Mckenna [...] Anterior infarct present Confirmed by KATHERINE MCCULLOUGH [facility], CECILIA ([id number]) on 07/17/2023 8:58:42 AM Referred By: Electronically Signed By:CECILIA MURPHY MD [facility] Transcribed By: MUS Signed By Cecilia Murphy MD, FACC 07/17/23 0858[facility] Physician GroupEosinophils Auto (Bld) [#/Vol] Ordered By: Matthias Mckenna on 22-73-7750Jzyhngypfjq (Bld) [#/Vol]0.0 10*3/uL0.0-0.45[facility] CenterEosinophils/100 WBC Auto (Bld) Ordered By: Matthias Mckenna on 40-56-2648Mfpcftkpczi/100 WBC (Bld)0.4 %. [facility] CenterErythrocyte distribution width Auto (RBC) [Ratio]Ordered By: Matthias Mckenna on 56-41-6286Osqcmcnlsfi distribution width (RBC) [Ratio]14.2 %12.0-14.8[facility] CenterGlucose [Mass/volume] in Serum or PlasmaOrdered By: Matthias Mckenna on 07-17-2023 Glucose [Mass/Vol]99 mg/oO12-774PfcqbrhymThe University Of Toledo Medical CenterComment on above:ADA recommended reference rangeRandom Glucose Reference Range is dependent on time and content of last meal. Glucose of more than 200 mg/dL in a nonstressed, ambulatory subject supports the diagnosisof Diabetes Mellitus. Hematocrit Auto (Bld) [Volume fraction]Ordered By: Matthias Mckenna on 70-14-4596Mzussgsxfj (Bld) [Volume fraction]36.3 %Low38.8-50.0[facility] CenterHemoglobin [Mass/volume] in BloodOrdered By: Matthias Mckenna on 53-08-7298Xxfcwbzdqt (Bld) [Mass/Vol]12.0 g/dLLow13.0-17.0The [facility] CenterLeukocytes [#/volume] corrected for nucleated erythrocytes in Blood by Automated counOrdered By: Matthias Mckenna on 12-54-8010IQN corrected for nucl RBC Auto (Bld) [#/Vol]11.2 10*3/uLHigh4.1-10.5FGeorgetown Behavioral HospitalLymphocytes Auto (Bld) [#/Vol]Ordered By: Matthias Mckenna on 96-51-1796Pmzztskjioo (Bld) [#/Vol]1.1 10*3/uL1.00-4.8The [facility] CenterLymphocytes/100 WBC Auto (Bld)Ordered By: Matthias Mckenna on 55-32-1697Bryrararjhv/100 WBC (Bld)9.4 %.[facility] CenterMCH Auto (RBC) [Entitic mass]Ordered By: Matthias Mckenna on 98-97-4749XKS (RBC) [Entitic mass]30.8 pg27.5-35.2FGeorgetown Behavioral HospitalMCHC Auto (RBC) [Mass/Vol]Ordered By: Matthias Mckenna on 07-17-2023 MCHC (RBC) [Mass/Vol]33.0 g/dL32.5-35.6FGeorgetown Behavioral HospitalMCV Auto (RBC) [Entitic vol]Ordered By: Matthias Mckenna on 67-37-0592DGP (RBC) [Entitic vol]93.2 fL83.5-101The [facility] CenterMonocytes Auto (Bld) [#/Vol]Ordered By: Matthias Mckenna on 90-71-6195Dslkolffu (Bld) [#/Vol]1.2 10*3/uLHigh0.0-0.8The [facility] CenterMonocytes/100 WBC Auto (Bld)Ordered By: Matthias Mckenna on 19-31-6103Zzlzyopif/100 WBC (Bld) 10.4 %.[facility] CenterNeutrophils Auto (Bld) [#/Vol]Ordered By: Matthias Mckenna on 64-12-0986Woillqrwxnz (Bld) [#/Vol]8.9 10*3/uLHigh 1.8-7.7FGeorgetown Behavioral HospitalNeutrophils/100 WBC Auto (Bld)Ordered By: Matthias Mckenna on 84-14-4883Qyghiudjseh/100 WBC (Bld)79.6 %.[facility] CenterNo Panel InformationOrdered By: Matthias Mckenna on 40-37-8130Vhifseaft GFR (CKD-EPI)> 60.0 mL/MinThe [facility] Of [facility] Creatinine Clearance (Chem72.47[facility] Nucleated erythrocytes [Presence] in Blood by Automated countOrdered By: Matthias Mckenna on 67-86-2875Knevtzyaq RBC Auto Ql (Bld)0.1 /100{WBC}0-0.5 [facility] CenterPlatelet mean volume Auto (Bld) [Entitic vol] Ordered By: Matthias Mckenna on 17-84-8510Oaaxrtxs mean volume (Bld) [Entitic vol]8.0 fL6.6-10.1FGeorgetown Behavioral HospitalPlatelets Auto (Bld) [#/Vol] Ordered By: Matthias Mckenna on 55-01-0198Ujpvewqyo (Bld) [#/Vol]219 10*3/uL 150-450The [facility] CenterPotassium [Moles/volume] in Serum or PlasmaOrdered By: Matthias Mckenna on 94-00-7694Zxrkyyezq [Moles/Vol]4.3 mmol/L3.5-5.1FGeorgetown Behavioral HospitalRBC Auto (Bld) [#/Vol]Ordered By: Matthias Mckenna on 65-32-7721SIZ (Bld) [#/Vol]3.89 10*6/uLLow3.90-5.60 [facility] Healtherum or plasma anion gap determinationOrdered By: Matthias Mckenna on 14-39-7926Kzfav gap [Moles/Vol]15.0 mmol/L6.0-15.0 [facility] Healthodium [Moles/volume] in Serum or PlasmaOrdered By: Matthias Mckenna on 54-69-9944Kvdzkk [Moles/Vol]136 mmol/B309-780 [facility] CenterTroponin I High Sensitivityon 07-17-2023 Troponin I High Akogolhosoa4067.4 pg/mLOff scale high0.0-20.0The [facility] Physician GroupComment on above:Result Comment: Critical Result : Called to and read back by: XAVI RIZZO at: 07/17/2023 07:13:36 by:JAIME PERFORMED BY: [facility] [address] [place] [address] PATHOLOGIST MEMBERSHIP ADMINISTRATOR JASON ERVIN M.D.Performed By: #### HS TROP ####[facility] [place] [address] USATroponin I High Gfxrgpzepcv58552.3 pg/mLOff scale high0.0-20.0The [facility] Physician GroupComment on above:Result Comment: Critical Result : Called to and read back by: KATHIE RODRIGUEZ at: 07/16/2023 23:28:41 by:EVELIO PERFORMED BY: [facility] [address] [place] [address] PATHOLOGIST MEMBERSHIP ADMINISTRATOR JASON ERVIN M.D.Performed By: #### HS TROP #### [facility] [address] [place] [address] USATroponin I.cardiac [Mass/volume] in Serum or Plasma by Detection limit <= 0.01 ng/Ordered By: Bebe Mojica on 37-74-2951Curgqlbj I.cardiac DL <= 0.01 ng/mL [Mass/Vol]7506.4 pg/mLHigh0.0-20.0The [facility] CenterComment on above:Critical Result : Called to and read back by: XAVI RIZZO at: 07/17/2023 07:13:36 by:RGUrea nitrogen [Mass/volume] in Serum or Plasma Ordered By: Matthias Mckenna on 87-59-2045Kvey nitrogen [Mass/Vol]18 mg/dL 7-[facility] CenterWBC Auto (Bld) [#/Vol]Ordered By: Matthias Mckenna on 85-49-7062ODI (Bld) [#/Vol]11.2 10*3/uLHigh4.1-10.5FGeorgetown Behavioral HospitalA1C with Estimated Average Gluon 01-45-8041Spjdyhu [Mass/Vol]140 mg/dLNormalThe [facility] Physician GroupComment on above:Order Comment: Comment Add on to previous lab drawResult Comment: PERFORMED BY: [facility] [address] [place] [address] PATHOLOGIST MEMBERSHIP ADMINISTRATOR JASON ERVIN M.D.Performed By: #### A1C WTH eA, LIPID ####[facility] [address] [place] [address] WNVTgB3e (Bld) [Mass fraction]6.5 %High4.3-5.6The [facility] Physician GroupComment on above:Order Comment: Comment Add on to previous lab drawResult Comment: Increased risk for diabetes: 5.7 - 6.4 diabetes: >6.4 glycemic control for adults with diabetes: <7.0Performed By: #### A1C WTH eA, LIPID ####[place] [id number] [address] Activated partial thromboplastin time (aPTT) in platelet poor plasma by coagulation aOrdered By: [place] Black on 40-01-0396nDKO Coag (PPP) [Time] 38.0 sHigh25.1-36.5FGeorgetown Behavioral HospitalComment on above:A hematocrit value greater than 55% may lead to inaccurate results in coagulation testing. Patientshaving hematocrit values >55% require a special collection tube for coagulation studies. Please contact the laboratory at [phone] for redraw instructions.B-Type Natriuretic Peptideon 70-35-3249Thkiohlagqa peptide B (Bld) [Mass/Vol]292.0 pg/mLHigh5-100The [facility] Physician GroupComment on above:Result Comment: PERFORMED BY: [place] [address] PATHOLOGIST MEMBERSHIP ADMINISTRATOR JASON ERVIN M.D.Performed By: #### BNP #### [address] StreetNatriuretic peptide B (Bld) [Mass/Vol]245.0 pg/mLHigh5-100 The [facility] Physician GroupComment on above:Result Comment: PERFORMED BY: [place] [address] PATHOLOGIST MEMBERSHIP ADMINISTRATOR JASON ERVIN M.D.Performed By: #### PTT, BNP, CBC, PT, BMP, HS TROP ####[place] [id number] USABasic Metabolic Panelon 16-03-9489Aqyrq gap [Moles/Vol]14.7 mmol/LNormal6.0-15.0The [facility] Physician GroupComment on above:Performed By: #### PTT, BNP, CBC, PT, BMP, HS TROP ####[place] [address] [facility] Calcium [Mass/Vol]8.9 mg/dLNormal8.6-10.3The [facility] Physician GroupComment on above:Performed By: #### PTT, BNP, CBC, PT, BMP, HS TROP ####[place] [address] USAChloride [Moles/Vol]103 mmol/JAydlxj02-036Lah [facility] Physician GroupComment on above:Performed By: #### PTT, BNP, CBC, PT, BMP, HS TROP ####[place] [address] USACO2 [Moles/Vol]26.3 mmol/OKjrhnx08.0-31.0The [facility] Physician GroupComment on above:Performed By: #### PTT, BNP, CBC, PT, BMP, HS TROP ####[place] [address] USACreatinine [Mass/Vol]1.28 mg/dLNormal0.70-1.30The [facility] Physician GroupComment on above:Performed By: #### PTT, BNP, CBC, PT, BMP, HS TROP ####[place] [address] [place] Creatinine Clr Calc Ykvammxq05.24NormWayne HealthCare Main Campuse [facility] Physician GroupComment on above:Result Comment: PERFORMED BY: [facility] [address] [facility]osioTAM[facility] [id number] PATHOLOGIST MEMBERSHIP ADMINISTRATOR JASON ERVIN M.D.Performed By: #### PTT, BNP, CBC, PT, BMP, HS TROP ####[place] [address] USAGFR/1.73 sq M.predicted MDRD (S/P/Bld) [Vol rate/Area]mL/min/{1.73_m2}NormalThe [facility] Physician GroupComment on above:Performed By: #### PTT, BNP, CBC, PT, BMP, HS TROP ####[place] [address] [place] Glucose [Mass/Vol]102 mg/aVSwli79-109Fop [facility] Physician GroupComment on above:Result Comment: Random Glucose Reference Range is dependent on time and content of last meal. Glucose of more than 200 mg/dL in a nonstressed, ambulatory subject supports the diagnosis of Diabetes Mellitus. ADA recommended reference rangePerformed By: #### PTT, BNP, CBC, PT, BMP, HS TROP ####[place] [address] [place] [address] [place] Potassium [Moles/Vol]5.0 mmol/LNormal3.5-5.1The [facility] Physician GroupComment on above:Performed By: #### PTT, BNP, CBC, PT, BMP, HS TROP ####[place] [address] [place] [address] USASodium [Moles/Vol]139 mmol/GXouoxn256-066Fzs [facility] Physician GroupComment on above:Performed By: #### PTT, BNP, CBC, PT, BMP, HS TROP ####[place] [address] [place] [address] USAUrea nitrogen [Mass/Vol]25 mg/dLNormal7-25The [facility] Physician GroupComment on above:Performed By: #### PTT, BNP, CBC, PT, BMP, HS TROP ####[facility] [place] [address] USACholesterol [Mass/volume] in Serum or PlasmaOrdered By: Matthias Mckenna on 08-75-0234Txbruouvtmo [Mass/Vol]182 mg/sK439-181HaxhnicmjThe University Of [facility]edo Medical CenterComment on above:Chol less than 200 mg/dl low riskChol 201-239 mg/dl borderline riskChol 240 mg/dl and greater high riskCholesterol in LDL Calc [Mass/Vol]Ordered By: Matthias Mckenna on 59-97-3648Gdzkwzbzwxv in LDL [Mass/Vol]116 mg/dLHigh0-100The [facility] CenterComment on above: LDL ATP III CLASSIFICATIONLDL less than 100 mg/dL OptimalLDL 100-129 mg/dL Near or above otkjaszMOI431-343 mg/dL Borderline highLDL 160-189 mg/dL HighLDL greater than 189 mg/dL Very highCholesterol in VLDL Calc [Mass/Vol]Ordered By: Matthias Mckenna on 21-81-2469Wvjqvetxpoz in VLDL [Mass/Vol]23 mg/dLThe University Of [facility]edo Medical CenterComplete Blood Count Auto Diffon 57-61-5327Ieijlgbci (Bld) [#/Vol]0.0 10*3/uLNormal0.0-0.2The [facility] Physician GroupComment on above:Result Comment: PERFORMED BY: [facility] [address] [place] [address] PATHOLOGIST MEMBERSHIP ADMINISTRATOR JASON ERVIN M.D.Performed By: #### PTT, BNP, CBC, PT, BMP, HS TROP ####[place] [address] USABasophils/100 WBC (Bld)0.3 %Normal.The [facility] Physician GroupComment on above:Performed By: #### PTT, BNP, CBC, PT, BMP, HS TROP ####[place] [address] USAEosinophils (Bld) [#/Vol]0.0 10*3/uLNormal 0.0-0.45The [facility] Physician GroupComment on above:Performed By: #### PTT, BNP, CBC, PT, BMP, HS TROP ####[place] [address] USAEosinophils/100 WBC (Bld)0.4 %Normal.The [facility] Physician GroupComment on above:Performed By: #### PTT, BNP, CBC, PT, BMP, HS TROP ####[address] Erythrocyte distribution width (RBC) [Ratio]13.9 %Onunmx78.0-14.8The [facility] Physician GroupComment on above:Performed By: #### PTT, BNP, CBC, PT, BMP, HS TROP ####[address] Hematocrit (Bld) [Volume fraction]37.9 %Low38.8-50.0The [facility] Physician GroupComment on above:Performed By: #### PTT, BNP, CBC, PT, BMP, HS TROP ####[address] [address] [place] Hemoglobin (Bld) [Mass/Vol]12.5 g/dLLow13.0-17.0The [facility] Comment on above:Performed By: #### PTT, BNP, CBC, PT, BMP, HS TROP ####[address] Lymphocytes (Bld) [#/Vol]1.5 10*3/uLNormal1.00-4.8The [facility] Comment on above:Performed By: #### PTT, BNP, CBC, PT, BMP, HS TROP ####[address] Lymphocytes/100 WBC (Bld)13.9 %Normal.The [facility] Physician GroupComment on above:Performed By: #### PTT, BNP, CBC, PT, BMP, HS TROP ####[address]H (RBC) [Entitic mass]31.0 wxKveplh24.5-35.2The [facility] Physician GroupComment on above:Performed By: #### PTT, BNP, CBC, PT, BMP, HS TROP ####[address]V (RBC) [Entitic vol]93.6 oJYalufd09.5-101 The [facility] Physician GroupComment on above:Performed By: #### PTT, BNP, CBC, PT, BMP, HS TROP ####[address] Corpuscular HGB Conc33.1 g/gRTzmejj14.5-35.6The [facility] Physician GroupComment on above:Performed By: #### PTT, BNP, CBC, PT, BMP, HS TROP ####[address] Monocytes (Bld) [#/Vol]0.9 10*3/uLHigh0.0-0.8The [facility] Comment on above:Performed By: #### PTT, BNP, CBC, PT, BMP, HS TROP ####[place] [address] [place] Monocytes/100 WBC (Bld)8.5 %Normal.The [facility] Physician GroupComment on above:Performed By: #### PTT, BNP, CBC, PT, BMP, HS TROP ####[place] [address] USANeutrophils (Bld) [#/Vol]8.1 10*3/uLHigh1.8-7.7The [facility] Physician GroupComment on above:Performed By: #### PTT, BNP, CBC, PT, BMP, HS TROP ####[place] [address] USANeutrophils/100 WBC (Bld)76.9 %Normal.The [facility] Physician GroupComment on above:Performed By: #### PTT, BNP, CBC, PT, BMP, HS TROP ####[place] [address] USANRBC%0.1 /100{WBC}Normal0-0.5The [facility] Physician GroupComment on above:Performed By: #### PTT, BNP, CBC, PT, BMP, HS TROP ####[place] [id number] USAPlatelet mean volume (Bld) [Entitic vol]8.4 fLNormal6.6-10.1The [facility] Physician GroupComment on above: Performed By: #### PTT, BNP, CBC, PT, BMP, HS TROP ####[place] [address] USAPlatelets (Bld) [#/Vol]222 10*3/lCWgaaqh380-913Dos [facility] Physician GroupComment on above:Performed By: #### PTT, BNP, CBC, PT, BMP, HS TROP ####[place] [address] USARBC (Bld) [#/Vol]4.05 10*6/uLNormal3.90-5.60 The [facility] Physician GroupComment on above:Performed By: #### PTT, BNP, CBC, PT, BMP, HS TROP ####[place] [address] [place] [address] [facility] (Bld) [#/Vol]10.5 10*3/uLNormal4.1-10.5The [facility] Physician GroupComment on above:Performed By: #### PTT, BNP, CBC, PT, BMP, HS TROP ####[facility] [place] [address] USAECG 12 lead ECGon 82-89-8465TQZ 12 lead [facility] [place] [address] Electrocardiograph Report Signed Patient: Matthew Garza MR#: [id number] : 1955 Acct:[id number] Age/Sex: 68 / M ADM Date: 07/16/23 Loc: Room: [address] [place] [address] Type: ADM IN Attending Dr: Matthias Mckenna [...] ischemia Abnormal ECG Confirmed by KATHERINE MCCULLOUGH [facility]ENTERCECILIA (137) on 07/17/2023 8:58:21 AM Referred By: NOH Electronically Signed By:CECILIA MURPHY MD [facility] Transcribed By: RAFA Signed By Cecilia Murphy MD, [facility] 07/17/23 0858NoCarolinas ContinueC[facility] Physician GroupECG 12 lead ECGBLANCHARD VALLEY HE[facility] SYSTEM Main [address] [address] Electrocardiograph Report Signed Patient: Matthew Garza MR#: [id number] : 1955 Acct:[id number] Age/Sex: 68 / M ADM Date: 07/16/23 Loc: Room: [address] [place] [address] Type: ADM IN Attending Dr: Matthias Mckenna [...] Electronically Signed By:HEMA LEON MD Transcribed By: MUS Signed By Hema Leon MD 0 07/16/[address] [place] [address] Physician GroupEC 12 lead ECGBLANCHARD VALLEY HEALTH SYSTEM Main [place] [address] [place] [address] Electrocardiograph Report Signed Patient: Matthew Garza MR#: [id number] : 1955 Acct:[id number] Age/Sex: 68 / M ADM Date: 07/16/23 Loc: Room: 2Q4486-2 Type: ADM IN Attending Dr: Matthias Mckenna [...] previous ECGs available Confirmed by KATHERINE MCCULLOUGH [facility]ENTERCE[facility]ILIA (137) on 07/17/2023 8:58:00 AM Referred By: Electronically Signed By:CECILIA MURPHY MD [facility] Transcribed By: MUS Signed By Cecilia Murphy MD, [facility] 07/17/23 0858[facility] Physician GroupECH echo transthoracicon 19-60-8004XTQ echo transthoracicBLANCHARD VALLEY HEALTH SYSTEM Main [place] [address] [place] [address] Echocardiogram Signed Patient: Matthew Garza MR#: [id number] : 1955 Acct:[id number] Age/Sex: 68 / M ADM Date: 07/16/23 Loc: Room: [address] [place] [address] Type: ADM IN Attending Dr: Matthias Mckenna MD Ordering Provider: Matthias Mckenna MD Date of Service: 07/16/2311/30/1138 ECH/ECH echo transthoracic: NSTEMI Copies to: MD Cecilia Alves MD, [facility] Weight: 221 lb Performed By: Orquidea Valadez AAMIR BSA: 2.2 m2 BP: 168/92 mmHg HR: [...] 07/16/23 1201 Signed By: Cecilia Murphy MD, [facility] 07/16/23 [facility] Physician [facility] Medical CenterGlucose mean value [Mass/volume] in Blood Estimated from glycated hemoglobinOrdered By: Matthias Mckenna on 30-08-9000Khliken glucose Estimated from glycated hemoglobin (Bld) [Mass/Vol]140 mg/dLFirelands Regional Medical CenterHemoglobin A1c percentageOrdered By: Matthias lorie on 07-16-2023 HbA1c (Bld) [Mass fraction]6.5 %High4.3-5.6FGeorgetown Behavioral Hospital Comment on above:Increased risk for diabetes: 5.7 - 6.4diabetes: >6.4glycemic control for adults with diabetes: <7.0INR in Platelet poor plasma by Coagulation assayOrdered By: [place] Black on 95-67-4561KUV Coag (PPP) [Relative time]1.0 {INR}[facility] CenterComment on above:INR Therapeutic Range A) Pre- and Peroperative OAT started two weeks before surgery. NOT HIP SURGERY: 1.5 - 2.5 HIP SURGERY: 2 - 3B) Primary and secondary prevention of venous THROMBOSIS: 2 - 3C) Active venous thrombosis, pulmonary embolismand prevention of recurrent venous thrombosis: 2 - 3D) Prevention of arterial thromboembolismincluding patients with mechanical heart valves: 3 - 4.5Lipid Panelon 23-11-9537Mpeauyrpuqp [Mass/Vol]182 mg/jTAerjmw412-382Lkq [facility] Physician GroupComment on above:Order Comment: FASTING Y Comment Add on to previous lab drawResult Comment: Chol less than 200 mg/dl low risk Chol 201-239 mg/dl borderline risk Chol 240 mg/dl and greater high riskPerformed By: #### A1C WT eA, LIPID ####[facility] [address] [place] [address] [place] Cholesterol in HDL [Mass/Vol]42 mg/sGVkeikz83-93Qhx [facility] Comment on above:Order Comment: FASTING Y Comment Add on to previous lab draw Result Comment: HDL CHOL ATP-III CLASSIFICATION Cardiovascular Risk HDL > or equal to 60 mg/dL LOW HDL < 40 mg/dL HIGHPerformed By: #### A1C WT eA, LIPID ####[facility] [address] [place] [address] USACholesterol.total/Cholesterol in HDL [Mass ratio]4.3 {ratio}Normal<5.0The [facility] Physician [facility] Medical CenterComment on above:Order Comment: FASTING Y Comment Add on to previous lab drawResult Comment: PERFORMED BY: [facility] [address] [place] [id number] PATHOLOGIST MEMBERSHIP ADMINISTRATOR JASON ERVIN M.D.Performed By: #### A1C CONOR [place], LIPID ####[facility] [place] [id number] USALDL Cholesterol,Dhxqbcyuyo117 mg/dLHigh0-100[facility] Physician GroupComment on above:Order Comment: FASTING Y Comment Add on to previous lab drawResult Comment: LDL ATP III CLASSIFICATION LDL less than 100 mg/dL Optimal LDL 100-129 mg/dL Near or above optimal LDL 130-159 mg/dL Borderline high LDL 160-189 mg/dL High LDL greater than 189 mg/dL Very highPerformed By: #### A1C CONOR Aguilar, LIPID ####[place] [address] [place] [address] [facility] Triglyceride w/Gtlcpe420 mg/dLNormal0-149The [facility] Physician GroupComment on above:Order Comment: FASTING Y Comment Add on to previous lab drawResult Comment: TRIG ATP III CLASSIFICATION TRIG less than 150 mg/dL Normal TRIG 150-199 mg/dL Borderline high TRIG 200-500 mg/dL High TRIG greater than 500 mg/dL Very high Standard traceable to the Center for Disease Conrtrol and Prevention (CDC) test method.Performed By: #### A1C CONOR Aguilar, LIPID ####[facility] [place] [id number] USAVLDL MMGTOIWSMWQ60 mg/dLNormalThe [facility] Physician GroupComment on above:Order Comment: FASTING Y Comment Add on to previous lab drawPerformed By: #### A1C CONOR Aguilar, LIPID ####[place] [id number] [place] Natriuretic peptide B [Mass/Vol]Ordered By: [place] Black on 07-16-2023 Natriuretic peptide B (Bld) [Mass/Vol]292.0 pg/mLHigh5-100The [facility] CenterPartial Thromboplastin Timeon 81-49-2609zIFH Coag (Bld) [Time]38.0 sHigh25.1-36.5The [facility] Physician GroupComment on above:Result Comment: A hematocrit value greater than 55% may lead to inaccurate results in coagulation testing. Patients having hematocrit values >55% require a special collection tube for coagulation studies. Please contact the laboratory at [phone] for redraw instructions. PERFORMED BY: [facility] [address] [place] [address] PATHOLOGIST MEMBERSHIP ADMINISTRATOR JASON ERVIN M.D.Performed By: #### PTT, BNP, CBC, PT, BMP, HS TROP ####[facility] [place] [address] USAProthrombin Time INR on 08-47-7528IEA Coag (PPP) [Relative time]1.0 {INR}NormalThe [facility] Physician GroupComment on above:Result Comment: INR Therapeutic Range A) Pre- and [...] patients with mechanical heart valves: 3 - 4.5Performed By: #### PTT, BNP, CBC, PT, BMP, HS TROP ####[facility] [place] [address] USAPT Coag (PPP) [Time]11.8 sNormal9.0-12.9The [facility] Physician GroupComment on above:Result Comment: A hematocrit value greater than 55% may lead to inaccurate results in coagulation testing. Patients having hematocrit values >55% require a special collection tube for coagulation studies. Please contact the laboratory at [phone] for redraw instructions.Performed By: #### PTT, BNP, CBC, PT, BMP, HS TROP ####[facility] [place] [address] USAProthrombin time (PT) Ordered By: Chico Black on 45-36-1142OM Coag (PPP) [Time]11.8 s9.0-12.9 [facility] CenterComment on above:A hematocrit value greater than 55% may lead to inaccurate results in coagulation testing. Patientshaving hematocrit values >55% require a special collection tube for coagulation studies. Please contact the laboratory at [phone] for redraw instructions. Serum or plasma high density lipoprotein (HDL) cholesterol measurementOrdered By: Matthias Mckenna on 41-90-9278Bwtnggtqnfg in HDL [Mass/Vol]42 mg/dL23-92 [facility] CenterComment on above:HDL CHOL ATP-III CLASSIFICATION Cardiovascular RiskHDL > or equal to 60 mg/dL LOWHDL < 40 mg/dL HIGHSerum or plasma total cholesterol/high density lipoprotein (HDL) cholesterol mass ratOrdered By: Matthias Dowhittier hospital medical centermandy on 07-16-2023 Cholesterol.total/Cholesterol in HDL [Mass ratio]4.3 {ratio}<5.0[facility] CenterTriglyceride [Mass/volume] in Serum or PlasmaOrdered By: Matthias Dowhittier hospital medical centermandy on 29-17-2090Ufkjuldkswiz [Mass/Vol]119 mg/dL0-149The [facility] CenterComment on above:TRIG ATP III CLASSIFICATIONTRIG less than 150 mg/dL NormalTRIG 150-199 mg/dL Borderline highTRIG 200-500 mg/dL High TRIG greater than 500 mg/dL Very highStandard traceable to the Center for Disease Conrtrol and Prevention (CDC) test method.Troponin I High Sensitivityon 90-81-1036Hikfargg I High Ycsgrerpcin56298.0 pg/mLOff scale high0.0-20.0The [facility] Physician GroupComment on above:Result Comment: Critical Result : Called to and read back by: JULIO RIZZO at: 07/16/2023 21:09:41 by:KRISTEN PERFORMED BY: [place] [address] PATHOLOGIST MEMBERSHIP ADMINISTRATOR JASON ERVIN M.D.Performed By: #### HS TROP #### [place] [address] USATroponin I High Qoxtltghdwm54114.6 pg/mLOff scale high 0.0-20.0The [facility] Physician GroupComment on above:Order Comment: IN PENSION CONSULTANT 1521 PSW NEXT TROP DUE 1815 PSW [id number] Comment: Critical Result : Called to and read back by: KATHIE RIZZO at: 07/16/2023 19:31:10 by:[id number] PERFORMED BY: [address] [place] [address] PATHOLOGIST MEMBERSHIP ADMINISTRATOR JASON ERVIN M.D.Performed By: #### HS TROP ####[address] [address] USATroponin I High Ajcoiwkptaa71454.9 pg/mLOff scale high0.0-20.0The [facility] Physician GroupComment on above:Order Comment: IN PENSION CONSULTANT 1521 PSWResult Comment: Critical Result : Called to and read back by: BISMARK GRIFFIN at: 07/16/2023 17:16:42 by:KRISTEN PERFORMED BY: [address] [place] [address] PATHOLOGIST MEMBERSHIP ADMINISTRATOR JASON ERVIN M.D.Performed By: #### HS TROP ####[address] [address] USATroponin I High Gdpduaqmjbb3582.9 pg/mLOff scale high0.0-20.0The [facility] Physician GroupComment on above:Result Comment: Critical Result : Called to and read back by: SHAHNAZ KOTHARI/3T at: 07/16/2023 08:35:03 by:[id number] PERFORMED BY: [address] [place] [address] PATHOLOGIST MEMBERSHIP ADMINISTRATOR JASON ERVIN M.D.Performed By: #### PTT, BNP, CBC, PT, BMP, HS TROP ####[address] [address] USAXR CERVICAL 2V FLEX/EXTon 00-04-5074Cezpqybjk [facility] ServicesMR Brain WO contraston 01-07-2023* * *Final Report* * * DATE OF [...] narrowing. C7-T1: Canal and foramina are patent. DIVISION OF RADIOLOGYProvider, [facility] [place] - 01/07/[facility]23 * * *Final Report* * * DATE [...] narrowing. C7-T1: Canal and foramina are patent. IMPRESSION IMPRESSION: No acute findings. No acute infarction, [...] right and moderate left neural foraminal narrowing. Tobacco Baler: TOYA Transcribe Date/Time: Jan 07 2023 9:42A Dictated by : MANUELA TRAN MD This examination was interpreted and the report reviewed and electronically signed by: MANUELA TRAN MD on Jan 07 2023 9:54AM [facility] Cerv[facility] spine WO contraston 01-07-2023* * *Final Report* * * DATE OF [...] narrowing. C7-T1: Canal and foramina are patent. DIVISION OF RADIOLOGYProvider, [facility] [place] - 01/07/2023 * * *Final Report* * * DATE [...] narrowing. C7-T1: Canal and foramina are patent. IMPRESSION IMPRESSION: No acute findings. No acute infarction, [...] right and moderate left neural foraminal narrowing. Tobacco Baler: [facility] MEDICAL CENTERManjinder Transcribe Date/Time: Jan 07 2023 9:42A Dictated by : MANUELA TRAN MD This examination was interpreted and the report reviewed and electronically signed by: MANUELA TRAN MD on Jan 07 2023 9:54AM [facility] Informationon 61-70-2022VXUIRCPROA: No acute findings. No acute infarction, intracranial [...] right and moderate left neural foraminal narrowing. Tobacco Baler: TOYA Transcribe Date/Time: Jan 07 2023 9:42A Dictated by : MANUELA TRAN MD This examination was interpreted and the report reviewed and electronically signed by: MANUELA TRAN MD on Jan 07 2023 9:54AM [facility] DIVISION OF RADIOLOGYRadiology Study observation (narrative)[facility] ClinicNo Panel InformationOrdered By: Ccf Provider on 84-67-8214Tytklylfj ClinicCBC AUTO DIFFon [id number] #0.0 103/ulNormal0.0-0.1The [facility] HospitalComment on above:Performed By: #### CBC #### [facility] [address] [id number] Antonio KarenBasophils/100 WBC (Bld)0.2 %Normal0.2-2.0The [facility] Comment on above:Performed By: #### CBC #### [facility] [address] [address] Antonio KarenEO #0.0 103/ulNormal0.0-0.7The [facility] HospitalComment on above: Performed By: #### CBC #### [facility] [address] [address] Antonio KarenEosinophils/100 WBC (Bld)0.0 %Critically low0.9-7.0The [facility] HospitalComment on above:Performed By: #### CBC #### [facility] [address] [address] Antonio KarenErythrocyte distribution width (RBC) [Ratio]13.0 %Ambrhl08.0-15.0The [facility] HospitalComment on above:Performed By: #### CBC #### [facility] [address] [address] Antonio KarenHematocrit (Bld) [Volume fraction]41.2 %Critically low42.0-54.0The [facility] HospitalComment on above:Performed By: #### CBC #### [facility] [address] [address] Antonio KarenHemoglobin (Bld) [Mass/Vol]13.4 g/dLCritically low14.0-18.0The [facility] HospitalComment on above:Performed By: #### CBC #### [facility] [address] [place] [address] Antonio KarenIG #0.03 10e3/ulNormal0.00-0.03The [facility] HospitalComment on above:Performed By: #### CBC #### [facility] [address] [address] Antonio KarenIG %0.3 %Normal0.0-0.5The [facility] HospitalComment on above: Performed By: #### CBC #### [facility] [address] [address] Antonio KarenLYMPH #0.9 103/ulCritically low1.2-3.8The [facility] HospitalComment on above:Performed By: #### CBC #### [facility] [address] [place] [address] Antonio KarenLymphocytes/100 WBC (Bld)7.7 %Critically low20.5-60.0The [facility] HospitalComment on above:Performed By: #### CBC #### [facility] [address] [place] [address] Antonio KarenMANUAL DIFF REQNONormalThe [facility] HospitalComment on above: Performed By: #### CBC #### [facility] [address] [place] [address] Antonio KarenMCH (RBC) [Entitic mass]30.6 bpRfuzdn39.9-34.0[facility] Comment on above:Performed By: #### CBC #### [facility] [address] [place] [address] Antonio KarenMCHC (RBC) [Mass/Vol]32.5 g/fWQrswwg37.9-35.2[facility] Comment on above:Performed By: #### CBC #### [facility] [address] [place] [address] Antonio KarenMCV (RBC) [Entitic vol]94.1 fLCritically high80.0-94.0[facility] CenterComment on above:Performed By: #### CBC #### [facility] [address] [place] [address] Antonio KarenMONO #1.1 103/ulCritically high0.3-0.8The [facility] HospitalComment on above:Performed By: #### CBC #### [facility] [address] [id number] Antonio KarenMonocytes/100 WBC (Bld)9.8 %Normal1.7-12.0The [facility] Comment on above:Performed By: #### CBC #### [facility] [address] [place] [address] Antonio KarenNEUT #9.3 103/ulCritically high1.4-6.5The [facility] HospitalComment on above:Performed By: #### CBC #### [facility] [address] [place] [address] Antonio KarenNeutrophils/100 WBC (Bld)82.0 %Critically high43.0-75.0The [facility] HospitalComment on above:Performed By: #### CBC #### [facility] [address] [place] [address] Antonio KarenPlatelet mean volume (Bld) [Entitic vol]9.7 fLNormal9.5-13.5The [facility] HospitalComment on above:Performed By: #### CBC #### [facility] [address] [place] [address] Antonio OiismRKZ682 103/aaVavcff686-239Pto [facility] HospitalComment on above: Performed By: #### CBC #### [facility] [address] [place] [address] Antonio KarenRBC4.38 106/ulCritically low4.70-6.10The [facility] Centerment on above:Performed By: #### CBC #### [facility] [address] [place] [address] Antonio TnykaMFH99.4 103/ulCritically high4.0-11.0The [facility] Centerment on above:Performed By: #### CBC #### [facility] [address] [place] [address] Antonio KarenCovid-19 PCR (CVDTBH)on 57-59-6241DOUO-CoV-2 (COVID-19) RNA HERMAN+probe Ql (Unsp spec)DetectedCritically abnormalNOT DETECTEDThe [facility] HospitalComment on above:Result Comment: This test is not yet approved or cleared by the [place] Food and Drug Administration (FDA). This test was developed by [employer], [place], [place]. The performance characteristics of this test were validated by The [facility]. The results are not intended to be used as the sole means for clinical diagnosis or patient management decisions. The [facility] is authorized under Clinical Laboratory Improvement [...] for this test is supported by the Flaring Machine Operator of Health and Human Service's declaration that circumstances exist to justify the emergency use of in vitro diagnostics for the detection and/or diagnosis of the virus that causes COVID-19. This EUA will remain in effect for the duration of the COVID-19 declaration justifying emergency of IVDs, unless it is terminated or revoked by the FDA (after which the test may no longer be used).Performed By: #### CBC #### [facility] [address] [place] [address] Antonio KarenPROF CHEM 8 (BAS METB)on 31-78-7351Iunzc gap [Moles/Vol]14.4 mmol/L NormalThe [facility] HospitalComment on above:Performed By: #### CBC #### [facility] [address] [place] [address] Antonio KarenCalcium [Mass/Vol]8.5 mg/dLNormal8.5-10.1The [facility] Comment on above:Performed By: #### CBC #### [facility] [address] [place] [address] Antonio KarenChloride [Moles/Vol]99 mmol/YJhjiud16-606Jxp [facility] Comment on above:Performed By: #### CBC #### [facility] [address] [place] [address] Antonio KarenCO2 [Moles/Vol]25.8 mmol/EEjgqbx13.0-32.0The [facility] Comment on above:Performed By: #### CBC #### [facility] [address] [place] [address] Antonio KarenCreatinine [Mass/Vol]1.66 mg/dLCritically high0.70-1.30The [facility] HospitalComment on above:Performed By: #### CBC #### [facility] [address] [place] [address] Antonio KarenEGFR-AF UZCETAJV58 mL/min/1.45a9Uflthrzmxp low>=60The [facility] HospitalComment on above:Performed By: #### CBC #### [facility] [address] [place] [address] Antonio KarenEGFR-NON AF YLDWPUUQ84 mL/min/1.95x8Rcprjbwmrh low>=60The [facility] HospitalComment on above:Performed By: #### CBC #### [facility] [address] [place] [address] Antonio KarenGlucose [Mass/Vol]119 mg/dLCritically hhir56-188Xwc [facility] HospitalComment on above:Performed By: #### CBC #### [facility] [address] [place] [address] Antonio KarenPotassium [Moles/Vol]4.2 mmol/LNormal3.5-5.1The [facility] Comment on above:Performed By: #### CBC #### [facility] [address] [place] [address] Antonio KarenSodium [Moles/Vol]135 mmol/LCritically yvt115-229Vyz [facility] HospitalComment on above:Performed By: #### CBC #### [facility] [address] [place] [address] Antonio KarenUrea nitrogen [Mass/Vol]38.0 mg/dLCritically high7.0-18.0The [facility] HospitalComment on above:Performed By: #### CBC #### [facility] [address] [place] [address] Antonio KarenUrea nitrogen/Creatinine [Mass ratio]22.9 mg/mgNormalThe [facility] HospitalComment on above:Performed By: #### CBC #### [facility] [address] [place], [place] [address] Antonio KarenXR CHEST 2 Von [id number] CHEST 2 VSTUDY: Chest exam TECHNIQUE:XR CHEST 2 V COMPARISON: Chest radiographs 11/02/2020, 05/30/2013 HISTORY: COUGH FINDINGS: The lungs are well expanded. No pneumothorax. No pleural effusion. No consolidation. Cardiomediastinal silhouette is normal in size and position. No acute osseous abnormality. Rotator cuff repair hardware in the right humeral head. IMPRESSION: No acute cardiopulmonary findings. Electronically authenticated by: FRED GUPTA Date: 2021-07-19 20:37[facility] AUTO DIFFon [id number] #0.0 103/ulNormal0.0-0.1[facility] CenterComment on above:Performed By: #### CBC #### [facility] [address] [place] [address] Antonio KarenBasophils/100 WBC (Bld)0.2 %Normal0.2-2.0[facility] Comment on above:Performed By: #### CBC #### [facility] [address] [place] [address] Antonio KarenEO #0.1 103/ulNormal0.0-0.7ThProtestant HospitalComment on above: Performed By: #### CBC #### [facility] [address] [place] [address] Antonio KarenEosinophils/100 WBC (Bld)1.2 %Normal0.9-7.0[facility] Comment on above:Performed By: #### CBC #### [facility] [address] [place] [address] Antonio KarenErythrocyte distribution width (RBC) [Ratio]13.2 %Tmbqra80.0-15.0[facility] CenterComment on above:Performed By: #### CBC #### [facility] [address] [place] [address] Antonio KarenHematocrit (Bld) [Volume fraction]33.0 %Critically low42.0-54.0The [facility] HospitalComment on above:Performed By: #### CBC #### [facility] [address] [place] [address] Antonio KarenHemoglobin (Bld) [Mass/Vol]10.3 g/dLCritically low14.0-18.0The [facility] HospitalComment on above:Performed By: #### CBC #### [facility] [address] [place] [address] Antonio KarenIG #0.03 10e3/ulNormal0.00-0.03The [facility] HospitalComment on above:Performed By: #### CBC #### [facility] [address] [place] [address] Antonio KarenIG %0.4 %Normal0.0-0.5The [facility] HospitalComment on above: Performed By: #### CBC #### [facility] [address] [place] [address] Antonio KarenLYMPH #2.0 103/ulNormal1.2-3.8The [facility] HospitalComment on above: Performed By: #### CBC #### [facility] [address] [place] [address] Antonio KarenLymphocytes/100 WBC (Bld)24.1 %Eitkjq90.5-60.0[facility] Comment on above:Performed By: #### CBC #### [facility] [address] [place] [address] Antonio KarenMANUAL DIFF REQNONormalThe [facility] HospitalComment on above: Performed By: #### CBC #### [facility] [address] [place] [address] Antonio KarenMCH (RBC) [Entitic mass]30.4 kkNqofri23.9-34.0The [facility] Comment on above:Performed By: #### CBC #### [facility] [address] [place] [address] Antonio KarenMCHC (RBC) [Mass/Vol]31.2 g/rERekepj58.9-35.2The [facility] Comment on above:Performed By: #### CBC #### [facility] [address] [place] [address] Antonio KarenMCV (RBC) [Entitic vol]97.3 fLCritically high80.0-94.0The [facility] HospitalComment on above:Performed By: #### CBC #### [facility] [address] [place] [address] Antonio KarenMONO #0.7 103/ulNormal0.3-0.8The [facility] HospitalComment on above: Performed By: #### CBC #### [facility] [address] [place] [address] Antonio KarenMonocytes/100 WBC (Bld)8.3 %Normal1.7-12.0[facility] Comment on above:Performed By: #### CBC #### [facility] [address] [place] [address] Antonio KarenNEUT #5.5 103/ulNormal1.4-6.5The [facility] HospitalComment on above: Performed By: #### CBC #### [facility] [address] [place] [address] Antonio KarenNeutrophils/100 WBC (Bld)65.8 %Diihqj76.0-75.0The [facility] Comment on above:Performed By: #### CBC #### [facility] [address] [place] [address] Antonio KarenPlatelet mean volume (Bld) [Entitic vol]10.2 fLNormal9.5-13.5The [facility] HospitalComment on above:Performed By: #### CBC #### [facility] [address] [place] [address] Antonio BulliPOP981 103/etHllpgs808-154Zwi [facility] HospitalComment on above: Performed By: #### CBC #### [facility] [address] [place] [address] Antonio KarenRBC3.39 106/ulCritically low4.70-6.10The [facility] HospitalComment on above:Performed By: #### CBC #### [facility] [address] [place], [place] [id number] Antonio KarenWBC8.3 103/ulNormal4.0-11.0The [facility] HospitalComment on above: Performed By: #### CBC #### [facility] [address] [place] [address] Antonio KarenCRPon 74-63-3603QIJ [Mass/Vol]mg/LNormal<=1.0The [facility] Comment on above:Performed By: #### CMP, CRP #### [facility] [address] [place] [address] Antonio KarenPROF 14(COMP METB)on 26-28-3195Dudcthx [Mass/Vol]3.5 g/dLNormal 3.5-5.0[facility] CenterComment on above:Performed By: #### CMP, CRP #### [facility] [address] [place] [address] Antonio KarenAlbumin/Globulin [Mass ratio]1.1 {ratio}NormalSt. Mary'S Medical Center Comment on above:Performed By: #### CMP, CRP #### [facility] [address] [place] [address] Antonio KarenALP [Catalytic activity/Vol]57 U/ZNzisst68-822KlbSt. Mary'S Medical Center Comment on above:Performed By: #### CMP, CRP #### [facility] [address] [place] [address] Antonio KarenALT [Catalytic activity/Vol]20 U/LCritically gcz92-11Qmj [facility] HospitalComment on above:Performed By: #### CMP, CRP #### [facility] [address] [place] [address] Antonio KarenAnion gap [Moles/Vol]11.9 mmol/LNormalThe [facility] HospitalComment on above:Performed By: #### CMP, CRP #### [facility] [address] [place] [address] Antonio KarenAST [Catalytic activity/Vol]20 U/SAfiauj41-72QoeSt. Mary'S Medical Center Comment on above:Performed By: #### CMP, CRP #### [facility] [address] [address] Antonio KarenBilirubin [Mass/Vol]0.6 mg/dLNormal0.2-1.3TSelect [facility] Comment on above:Performed By: #### CMP, CRP #### [facility] [address] [address] Antonio KarenCalcium [Mass/Vol]8.2 mg/dLCritically low8.4-10.2St. [facility] Medical CenterComment on above:Performed By: #### CMP, CRP #### [facility] [address] [place] [address] Antonio KarenChloride [Moles/Vol]105 mmol/TYemfcy65-393HlvSt. Mary'S Medical Center Comment on above:Performed By: #### CMP, CRP #### [facility] [address] [place] [address] Antonio KarenCO2 [Moles/Vol]27.4 mmol/QGbfnty07.0-30.0[facility] Comment on above:Performed By: #### CMP, CRP #### [facility] [address] [place] [address] Antonio KarenCreatinine [Mass/Vol]1.36 mg/dLCritically high0.66-1.25The [facility] HospitalComment on above:Performed By: #### CMP, CRP #### [facility] [address] [place] [address] Antonio KarenEGFR-AF PITCAIRN ISLANDER>60Normal>=60St. [facility]S Medical CenterComment on above: Performed By: #### CMP, CRP #### [facility] [address] [place] [address] Antonio KarenEGFR-NON AF NNUQUOUS63 mL/min/1.90p6Kqkmxckysb low>=60St. [facility]S Medical CenterComment on above:Performed By: #### CMP, CRP #### [facility] [address] [place] [address] Antonio KarenGlobulin (S) [Mass/Vol]3.1 g/dLNormWhite HospitalComment on above:Performed By: #### CMP, CRP #### [facility] [address] [place] [address] Antonio KarenGlucose [Mass/Vol]88 mg/kBOknwyw42-061Dts [facility] HospitalComment on above:Performed By: #### CMP, CRP #### [facility] [address] [address] Antonio KarenPotassium [Moles/Vol]5.3 mmol/LCritically high3.4-5.0The [facility] HospitalComment on above:Performed By: #### CMP, CRP #### [facility] [address] [place] [address] Antonio KarenProtein [Mass/Vol]6.6 g/dLNormal6.1-8.2The [facility] HospitalComment on above:Performed By: #### CMP, CRP #### [facility] [address] [address] Antonio KarenSodium [Moles/Vol]139 mmol/UOjswfz896-388Tcd [facility] Comment on above:Performed By: #### CMP, CRP #### [facility] [address] [place] [address] Antonio KarenUrea nitrogen [Mass/Vol]44.0 mg/dLCritically high9.0-20.0The [facility] HospitalComment on above:Performed By: #### CMP, CRP #### [facility] [address] [place] [address] Antonio KarenUrea nitrogen/Creatinine [Mass ratio]32.4 mg/mgNormWhite HospitalComment on above:Performed By: #### CMP, CRP #### [facility] [address] [place], [place] [id number] Antonio KarenPROF CHEM 8 (BAS METB)on [id number] gap [Moles/Vol]14.5 mmol/L NormalThe [facility] HospitalComment on above:Performed By: #### CBC #### [facility] [address] [address] Antonio KarenCalcium [Mass/Vol]8.2 mg/dLCritically low8.4-10.2The [facility] HospitalComment on above:Performed By: #### CBC #### [facility] [address] [place] [address] Antonio KarenChloride [Moles/Vol]103 mmol/FWbcqen44-697Yzh [facility] Comment on above:Performed By: #### CBC #### [facility] [address] [place] [address] Antonio KarenCO2 [Moles/Vol]24.5 mmol/OFydfjj24.0-30.0The [facility] Comment on above:Performed By: #### CBC #### [facility] [address] [place] [address] Antonio KarenCreatinine [Mass/Vol]1.26 mg/dLCritically high0.66-1.25The [facility] HospitalComment on above:Performed By: #### CBC #### [facility] [address] [place] [address] Antonio KarenEGFR-AF P[place]CA[place] ISLANDER>60Normal>=60The [facility] HospitalComment on above: Performed By: #### CBC #### [facility] [address] [place] [address] Antonio KarenEGFR-NON AF CNSBNRRV24 mL/min/1.38d3Xqihbwvnos low>=60The [facility] HospitalComment on above:Performed By: #### CBC #### [facility] [address] [place] [address] Antonio KarenGlucose [Mass/Vol]94 mg/bYKhzysx91-234Bgc [facility] HospitalComment on above:Performed By: #### CBC #### [facility] [address] [place] [address] Antonio KarenPotassium [Moles/Vol]5.0 mmol/LNormal3.4-5.0The [facility] Comment on above:Performed By: #### CBC #### [facility] [address] [place] [address] Antonio KarenSodium [Moles/Vol]137 mmol/DUqyhcq958-734Lbu [facility] Comment on above:Performed By: #### CBC #### [facility] [address] [place] [address] Antonio KarenUrea nitrogen [Mass/Vol]41.0 mg/dLCritically high9.0-20.0The [facility] HospitalComment on above:Performed By: #### CBC #### [facility] [address] [place] [address] Antonio KarenUrea nitrogen/Creatinine [Mass ratio]32.5 mg/mgNormalThe [facility] HospitalComment on above:Performed By: #### CBC #### [facility] [address] [place] [address] Antonio KarenCBC AUTO DIFFon [id number] #0.0 103/ulNormal0.0-0.1The [facility] HospitalComment on above:Performed By: #### CBC #### [facility] [address] [place] [address] Antonio KarenBasophils/100 WBC (Bld)0.3 %Normal0.2-2.0The [facility] Comment on above:Performed By: #### CBC #### [facility] [address] [place] [address] Antonio KarenEO #0.1 103/ulNormal0.0-0.7The [facility] HospitalComment on above: Performed By: #### CBC #### [facility] [address] [place] [address] Antonio KarenEosinophils/100 WBC (Bld)1.0 %Normal0.9-7.0The [facility] Comment on above:Performed By: #### CBC #### [facility] [address] [place] [address] Antonio KarenErythrocyte distribution width (RBC) [Ratio]13.2 %Lgmibv17.0-15.0The [facility] HospitalComment on above:Performed By: #### CBC #### [facility] [address] [place] [address] Antonio KarenHematocrit (Bld) [Volume fraction]32.7 %Critically low42.0-54.0The [facility] HospitalComment on above:Performed By: #### CBC #### [facility] [address] [place] [address] Antonio KarenHemoglobin (Bld) [Mass/Vol]10.4 g/dLCritically low14.0-18.0The [facility] HospitalComment on above:Performed By: #### CBC #### [facility] [address] [place] [address] Antonio KarenIG #0.02 10e3/ulNormal0.00-0.03The [facility] HospitalComment on above:Performed By: #### CBC #### [facility] [address] [place] [address] Antonio KarenIG %0.3 %Normal0.0-0.5The [facility] HospitalComment on above: Performed By: #### CBC #### [facility] [address] [place] [address] Antonio KarenLYMPH #1.8 103/ulNormal1.2-3.8The [facility] HospitalComment on above: Performed By: #### CBC #### [facility] [address] [place] [address] Antonio KarenLymphocytes/100 WBC (Bld)23.1 %Pgzwah26.5-60.0The [facility] Comment on above:Performed By: #### CBC #### [facility] [address] [place] [address] Antonio KarenMANUAL DIFF REQNONormalThe [facility] HospitalComment on above: Performed By: #### CBC #### [facility] [address] [place] [address] Antonio KarenMCH (RBC) [Entitic mass]30.3 zuXeougt09.9-34.0The [facility] Comment on above:Performed By: #### CBC #### [facility] [address] [place] [address] Antonio KarenMCHC (RBC) [Mass/Vol]31.8 g/rIYdrzjl02.9-35.2The [facility] Comment on above:Performed By: #### CBC #### [facility] [address] [place] [address] Antonio KarenMCV (RBC) [Entitic vol]95.3 fLCritically high80.0-94.0The [facility] HospitalComment on above:Performed By: #### CBC #### [facility] [address] [place] [address] Antonio KarenMONO #0.6 103/ulNormal0.3-0.8The [facility] HospitalComment on above: Performed By: #### CBC #### [facility] [address] [place] [address] Antonio KarenMonocytes/100 WBC (Bld)7.9 %Normal1.7-12.0[facility] Comment on above:Performed By: #### CBC #### [facility] [address] [place] [address] Antonio KarenNEUT #5.3 103/ulNormal1.4-6.5The [facility] HospitalComment on above: Performed By: #### CBC #### [facility] [address] [place] [address] Antonio KarenNeutrophils/100 WBC (Bld)67.4 %Uknilk95.0-75.0The [facility] Comment on above:Performed By: #### CBC #### [facility] [address] [place] [address] Antonio KarenPlatelet mean volume (Bld) [Entitic vol]10.2 fLNormal9.5-13.5The [facility] HospitalComment on above:Performed By: #### CBC #### [facility] [address] [place] [address] Antonio JuekpPPH159 103/cvKrgpjw948-439Evm [facility] HospitalComment on above: Performed By: #### CBC #### [facility] [address] [place] [address] Antonio KarenRBC3.43 106/ulCritically low4.70-6.10The [facility] HospitalComment on above:Performed By: #### CBC #### [facility] [address] [place] [address] Antonio KarenWBC7.8 103/ulNormal4.0-11.0The [facility] HospitalComment on above: Performed By: #### CBC #### [facility] [address] [place] [address] Antonio KarenCRPon 56-87-5570TQB [Mass/Vol]mg/LNormal<=1.0The [facility] Comment on above:Performed By: #### CBC #### [facility] [address] [place] [address] Antonio KarenCULTURE URINEon 06-99-2903JRHOPMM URINECulture Observations: NO GROWTH.NormalThe [facility] HospitalComment on above:Performed By: #### CBC #### [facility] [address] [place] [address] Antonio KarenOCC BLD IMMUNOASSAYon 56-06-7778IWMVMV BLOODNegativeNormalNEGATIVE The [facility] HospitalComment on above:Performed By: #### CBC #### [facility] [address] [place] [address] Antonio KarenPROF 14(COMP METB)on 56-03-5709Lkongwe [Mass/Vol]3.8 g/dLNormal 3.5-5.0The [facility] HospitalComment on above:Performed By: #### CBC #### [facility] [address] [place] [address] Antonio KarenAlbumin/Globulin [Mass ratio]1.2 {ratio}NormalSt. Mary'S Medical Center Comment on above:Performed By: #### CBC #### [facility] [address] [place] [address] Antonio KarenALP [Catalytic activity/Vol]60 U/FUibkzo01-951Hda [facility] Comment on above:Performed By: #### CBC #### [facility] [address] [place] [address] Antonio KarenALT [Catalytic activity/Vol]19 U/LCritically ujg23-38Pdv [facility] HospitalComment on above:Performed By: #### CBC #### [facility] [address] [id number] Antonio KarenAnion gap [Moles/Vol]13.2 mmol/LNormalThe [facility] HospitalComment on above:Performed By: #### CBC #### [facility] [address] [address] Antonio KarenAST [Catalytic activity/Vol]20 U/KZflnvv94-22OkhSt. Mary'S Medical Center Comment on above:Performed By: #### CBC #### [facility] [address] [address] Antonio KarenBilirubin [Mass/Vol]0.5 mg/dLNormal0.2-1.3TSelect [facility] [place] Comment on above:Performed By: #### CBC #### [facility] [address] [place] [address] Antonio KarenCalcium [Mass/Vol]8.8 mg/dLNormal8.4-10.2[facility] Comment on above:Performed By: #### CBC #### [facility] [address] [place] [address] Antonio KarenChloride [Moles/Vol]105 mmol/CJekoda42-759AohSt. Mary'S Medical Center Comment on above:Performed By: #### CBC #### [facility] [address] [address] Antonio KarenCO2 [Moles/Vol]25.5 mmol/SCdayec74.0-30.0[facility] Comment on above:Performed By: #### CBC #### [facility] [address] [address] Antonio KarenCreatinine [Mass/Vol]1.97 mg/dLCritically high0.66-1.25The [facility] HospitalComment on above:Performed By: #### CBC #### [facility] [address] [address] Antonio KarenEGFR-AF VJATMPEI68 mL/min/1.63u7Aviwnyuwmn low>=60The [facility] HospitalComment on above:Performed By: #### CBC #### [facility] [address] [id number] Antonio KarenEGFR-NON AF GBRDIBKI01 mL/min/1.76d3Ktjlxbapkk low>=60The [facility] HospitalComment on above:Performed By: #### CBC #### [facility] [address] [address] Antonio KarenGlobulin (S) [Mass/Vol]3.3 g/dLNormWhite HospitalComment on above:Performed By: #### CBC #### [facility] [address] [address] Antonio KarenGlucose [Mass/Vol]76 mg/qWCtrzox28-513Ezp [facility] HospitalComment on above:Performed By: #### CBC #### [facility] [address] [address] Antonio KarenPotassium [Moles/Vol]4.7 mmol/LNormal3.4-5.0The [facility] Comment on above:Performed By: #### CBC #### [facility] [address] [address] Antonio KarenProtein [Mass/Vol]7.1 g/dLNormal6.1-8.2The [facility] HospitalCompromed[facility] on above:Performed By: #### CBC #### [facility] [address] [address] Antonio KarenSodium [Moles/Vol]139 mmol/RUnejfq339-428Upp [facility] Comment on above:Performed By: #### CBC #### [facility] [address] [id number] Antonio KarenUrea nitrogen [Mass/Vol]80.0 mg/dLCritically high9.0-20.0The [facility] on above:Result Comment: TEST REPEATED; CRITICAL VALUE VERIFIEDPerformed By: #### CBC #### [facility] [address] [address] Antonio KarenUrea nitrogen/Creatinine [Mass ratio]40.6 mg/mgNormalThProtestant HospitalComment on above:Performed By: #### CBC #### [facility] [address] [place] [address] Antonio KarenUA RANDOM W/MICROSCOPICon 12-21-3170EIPFTWUVZCCE SEENNormalNONE SEEN [facility]S Medical CenterCompromedica [facility] on above:Performed By: #### CBC #### [facility] [address] [place] [address] Antonio KarenBilirubin Ql (U)NegativeNormalNEGATIVESt. Mary'S Medical CenterComment on above:Performed By: #### CBC #### [facility] [address] [place] [address] Antonio KarenCASTNONE SEENNormalNONE SEENSt. Mary'S Medical CenterCompromedica [facility] on above: Performed By: #### CBC #### [facility] [address] [place] [address] Antonio KarenClarity (U)CLEARNormalCLEARSt. Mary'S Medical CenterCompromedica [facility] on above: Performed By: #### CBC #### [facility] [address] [place] [address] Antonio KarenColor (U)LT. YELLOWNormalYELLOWSt. Mary'S Medical CenterCompromedica [facility] on above:Performed By: #### CBC #### [facility] [address] [place] [address] Antonio KarenCrystals LM Nom (Urine sed)NONE SEENNormalNONE SEENSt. Mary'S Medical CenterCompromedica [facility] on above:Performed By: #### CBC #### [facility] [address] [place] [address] Antonio KarenEpithelial cells LM Ql (Urine sed)RARENormalNONE SEEN /RARESt. Mary'S Medical CenterCompromedica [facility] on above:Performed By: #### CBC #### [facility] [address] [place] [address] Antonio KarenGlucose Ql (U)100 mg/dlAbnormalNEGATIVESt. Mary'S Medical CenterComment on above:Performed By: #### CBC #### [facility] [address] [place] [address] Antonio KarenHemoglobin Ql (U)NegativeNormalNEGATIVEUniversity Hospitals Lake [facility] HospitalComment on above:Performed By: #### CBC #### [facility] [address] [place] [address] Antonio KarenKetones Ql (U)NegativeNormalNEGATIVEUniversity Hospitals Lake [facility] HospitalComment on above:Performed By: #### CBC #### [facility] [address] [place] [address] Antonio KarenLEUKOCYTESNegativeNormalNEGATIVEUniversity Hospitals [facility] Center HospitalComment on above:Performed By: #### CBC #### [facility] [address] [place] [address] Antonio KarenMUCOUSNONE SEENNormalNONE SEENSt. Mary'S Medical CenterComment on above: Performed By: #### CBC #### [facility] [address] [place] [address] Antonio KarenNitrite Ql (U)NegativeNormalNEGATIVEUniversity Hospitals Lake [facility] HospitalComment on above:Performed By: #### CBC #### [facility] [address] [place] [address] Antonio KarenpH (U)5.5 [pH]Normal5-9The [facility] HospitalComment on above: Performed By: #### CBC #### [facility] [address] [place] [address] Antonio KarenRBCNONE SEENAbnormal0-2The [facility] HospitalComment on above: Performed By: #### CBC #### [facility] [address] [place] [address] Antonio KarenSPEC GRAVITY1.838Qknjvd5.005-<=1.025The [facility] HospitalComment on above:Performed By: #### CBC #### [facility] [address] [place] [address] Antonio KarenUA PROTEINNegativeNormalNEGATIVE/ TRACEThe [facility] HospitalComment on above:Performed By: #### CBC #### [facility] [address] [place] [address] Antonio KarenUrobilinogen Qn (U)0.2 {Brittany'U}/dLNormal0.2 - 1.0The [facility] on above:Performed By: #### CBC #### [facility] [address] [place] [address] Antonio LealenWBCNONE SEENNormalNONE SEENProMedica Toledo Hospital on above: Performed By: #### CBC #### [facility] [address] [place] [address] Antonio KarenASYMPTOMATIC COVID-19 ANTIGENon [id number] StatementSEE BELOW NormalThe [facility] on above:Result Comment: This test has not been FDA [...] declaration is terminated or authorization is revoked sooner.Performed By: #### CVDAGA #### [facility] [address] [place] [address] Antonio MeredithEtkelBPZL-FqF-6 (COVID-19) RNA HERMAN+probe Ql (Unsp spec)NegativeNormal NEGATIVEThe [facility] on above:Result Comment: Negative results are presumptive. They do not preclude infection and should not be used as the sole basis for treatment decisions. Additional confirmatory testing by a molecular method should be considered.Performed By: #### CVDAGA #### [facility] [address] [place] [address] Antonio LealenCARDIAC YOUNG ADMITon [id number] [Catalytic activity/Vol]95 U/L Xenvef05-784Trz [facility] on above:Performed By: #### CBC #### [facility] [address] [place] [address] Antonio KarenCK.MB [Mass/Vol]0.62 ng/mLNormal<=2.37The [facility] HospitalComment on above:Performed By: #### CBC #### [facility] [address] [place] [address] Antonio KarenHSTROP4.2 pg/mLNormal4.0-42.2The [facility] HospitalComment on above: Result Comment: CUT-OFF POINTS HAVE BEEN ESTABLISHED BASED ON THE FOURTH UNIVERSAL DEFINITIONS OF MYOCARDIAL INFARCTION. THE UPPER REFERENCE LIMIT (URL) OF TROPONIN, DEFINED THE 99TH PERCENTILE OF cTnI DISTRIBUTION IN A REFERENCE POPULATION, HAS BEEN CONFIRMED THE DECISION THRESHOLD FOR CA DIAGNOSIS.Performed By: #### CBC #### [facility] [address] [place] [address] Antonio OtihrHDS231.0 ng/mLCritically high<=121.0The [facility] HospitalComment on above:Performed By: #### CBC #### [facility] [address] [place] [address] Antonio KarenCBC AUTO DIFFon [id number] #0.0 103/ulNormal0.0-0.1St. [facility]'S Medical CenterComment on above:Performed By: #### CBC #### [facility] [address] [place] [address] Antonio KarenBasophils/100 WBC (Bld)0.4 %Normal0.2-2.0The [facility] Comment on above:Performed By: #### CBC #### [facility] [address] [place] [address] Antonio KarenEO #0.0 103/ulNormal0.0-0.7The [facility] HospitalComment on above: Performed By: #### CBC #### [facility] [address] [place] [address] Antonio KarenEosinophils/100 WBC (Bld)0.4 %Critically low0.9-7.0The [facility] HospitalComment on above:Performed By: #### CBC #### [facility] [address] [place] [address] Antonio KarenErythrocyte distribution width (RBC) [Ratio]13.2 %Nqfhet12.0-15.0The [facility] HospitalComment on above:Performed By: #### CBC #### [facility] [address] [place] [address] Antonio KarenHematocrit (Bld) [Volume fraction]36.9 %Critically low42.0-54.0The [facility] HospitalComment on above:Performed By: #### CBC #### [facility] [address] [place] [address] Antonio KarenHemoglobin (Bld) [Mass/Vol]12.0 g/dLCritically low14.0-18.0The [facility] HospitalComment on above:Performed By: #### CBC #### [facility] [address] [place] [address] Antonio KarenIG #0.02 10e3/ulNormal0.00-0.03The [facility] HospitalComment on above:Performed By: #### CBC #### [facility] [address] [place] [address] Antonio KarenIG %0.3 %Normal0.0-0.5The [facility] HospitalComment on above: Performed By: #### CBC #### [facility] [address] [place] [address] Antonio KarenLYMPH #1.2 103/ulNormal1.2-3.8The [facility] HospitalComment on above: Performed By: #### CBC #### [facility] [address] [place] [address] Antonio KarenLymphocytes/100 WBC (Bld)15.3 %Critically low20.5-60.0The [facility] HospitalComment on above:Performed By: #### CBC #### [facility] [address] [place] [address] Antonio KarenMANUAL DIFF REQNONormalThe [facility] HospitalComment on above: Performed By: #### CBC #### [facility] [address] [place] [address] Antonio KarenMCH (RBC) [Entitic mass]30.9 yyGmsxsv56.9-34.0The [facility] Comment on above:Performed By: #### CBC #### [facility] [address] [place] [address] Antonio JeffMCHC (RBC) [Mass/Vol]32.5 g/uATmbylu90.9-35.2[facility] Comment on above:Performed By: #### CBC #### [facility] [address] [place] [address] Antonio JeffMCV (RBC) [Entitic vol]95.1 fLCritically high80.0-94.0The [facility] HospitalComment on above:Performed By: #### CBC #### [facility] [address] [place] [address] Antonio LealenMONO #0.5 103/ulNormal0.3-0.8The [facility] HospitalComment on above: Performed By: #### CBC #### [facility] [address] [place] [address] Antonio KarenMonocytes/100 WBC (Bld)5.8 %Normal1.7-12.0The [facility] Comment on above:Performed By: #### CBC #### [facility] [address] [place] [address] Antonio LealenNEUT #6.2 103/ulNormal1.4-6.5The [facility] HospitalComment on above: Performed By: #### CBC #### [facility] [address] [place] [address] Antonio KarenNeutrophils/100 WBC (Bld)77.8 %Critically high43.0-75.0The [facility] HospitalComment on above:Performed By: #### CBC #### [facility] [address] [place] [address] Antonio KarenPlatelet mean volume (Bld) [Entitic vol]10.0 fLNormal9.5-13.5The [facility] HospitalComment on above:Performed By: #### CBC #### [facility] [address] [place] [address] Antonio WtdvsWYK811 103/yoYjqtnp753-960Dsn [facility] HospitalComment on above: Performed By: #### CBC #### [facility] [address] [place] [address] Antonio JeffRBC3.88 106/ulCritically low4.70-6.10The [facility] HospitalComment on above:Performed By: #### CBC #### [facility] [address] [place] [address] Antonio LealenWBC8.0 103/ulNormal4.0-11.0The [facility] HospitalComment on above: Performed By: #### CBC #### [facility] [address] [place] [address] Antonio LealenCovid-19 PCR (CVDTBH)on [id number]-CoV-2 (COVID-19) RNA HERMAN+probe Ql (Unsp spec)Not detectedNormalNOT DETECTEDThe [facility] Comment on above:Result Comment: This test is not yet approved or cleared by the [place] FDA. When there are no FDA-approved or cleared tests available, and other criteria are met, FDA can make tests available under an emergency access mechanism called an Emergency Use Authorization (EUA). The EUA for this test is supported by the [place] of Health and Human Service's (HHS's) declaration that circumstances exist to justify the emergency use of in vitro diagnostics for the detection and/or diagnosis of the virus that causes COVID- 19. This EUA will remain in effect (meaning [...] of clinical signs and symptoms consistent with SARS-CoV-2.Performed By: #### CVDTBH #### [facility] [address] [place] [address] Antonio KarenD-DIMERon 52-86-0221M-DIMER0.49 mg/L FEUNormal0.19-0.50The [facility] HospitalComment on above:Performed By: #### DDIM, PT, PTT #### [facility] [address] [place], [place] [id number] Antonio KarenD-DIMER COMMENTSSEE BELOWNormalThProtestant HospitalComment on above:Result Comment: Increases in D-Dimer concentration observed with thromboembolic events [...] stress, and generalized hospitalization. Performed By: #### DDIM, PT, PTT #### [facility] [address] [place] [address] Antonio KarenLIPASEon 72-18-0434Tselcf [Catalytic activity/Vol]461.0 U/L Critically high23.0-300.0The [facility] HospitalComment on above:Performed By: #### CBC #### [facility] [address] [place] [address] Antonio KarenPROF 14(COMP METB)on 30-67-9485Feuqgwt [Mass/Vol]5.0 g/dLNormal 3.5-5.0St. [facility]S Medical CenterComment on above:Performed By: #### CBC #### [facility] [address] [place], [place] [address] Antonio KarenAlbumin/Globulin [Mass ratio]1.3 {ratio}NormalSt. Mary'S Medical Center Comment on above:Performed By: #### CBC #### [facility] [address] [place] [address] Antonio KarenALP [Catalytic activity/Vol]73 U/VClxoyj30-095VaeSt. Mary'S Medical Center Comment on above:Performed By: #### CBC #### [facility] [address] [place] [address] Antonio KarenALT [Catalytic activity/Vol]26 U/HLdxhng36-95WorSt. Mary'S Medical Center Comment on above:Performed By: #### CBC #### [facility] [address] [address] Antonio KarenAnion gap [Moles/Vol]17.6 mmol/LNormalSt. Mary'S Medical CenterComment on above:Performed By: #### CBC #### [facility] [address] [address] Antonio KarenAST [Catalytic activity/Vol]25 U/LOmicmn34-68QhiSt. Mary'S Medical Center Comment on above:Performed By: #### CBC #### [facility] [address] [address] Antonio KarenBilirubin [Mass/Vol]0.6 mg/dLNormal0.2-1.3TSelect [facility] Comment on above:Performed By: #### CBC #### [facility] [address] [place] [address] Antonio KarenCalcium [Mass/Vol]9.8 mg/dLNormal8.4-10.2[facility] Comment on above:Performed By: #### CBC #### [facility] [address] [address] Antonio KarenChloride [Moles/Vol]100 mmol/OAnfdgb97-801AzrSt. Mary'S Medical Center Comment on above:Performed By: #### CBC #### [facility] [address] [place] [address] Antonio KarenCO2 [Moles/Vol]24.5 mmol/HYiubkt80.0-30.0[facility] Comment on above:Performed By: #### CBC #### [facility] [address] [place] [address] Antonio KarenCreatinine [Mass/Vol]3.63 mg/dLCritically high0.66-1.25The [facility] HospitalComment on above:Performed By: #### CBC #### [facility] [address] [address] Antonio KarenEGFR-AF AGUWLIDV71 mL/min/1.65t5Hdroncnryt low>=60The [facility] HospitalComment on above:Performed By: #### CBC #### [facility] [address] [address] Antonio KarenEGFR-NON AF CBATDFRP46 mL/min/1.53q0Thmrnvrwio low>=60The [facility] on above:Performed By: #### CBC #### [facility] [address] [place] [address] Antonio KarenGlobulin (S) [Mass/Vol]3.9 g/dLNoPremier Health Miami Valley Hospital SouthComment on above:Performed By: #### CBC #### [facility] [address] [place] [address] Antonio KarenGlucose [Mass/Vol]102 mg/oSMgcmrr89-136Joa [facility] HospitalComment on above:Performed By: #### CBC #### [facility] [address] [place] [address] Antonio KarenPotassium [Moles/Vol]6.1 mmol/LCritically high3.4-5.0The [facility] HospitalCompromedica [facility] on above:Result Comment: critical value repeated and verified Performed By: #### CBC #### [facility] [address] [place] [address] Antonio KarenProtein [Mass/Vol]8.9 g/dLCritically high6.1-8.2The [facility] HospitalCompromedica [facility] hospital on above:Performed By: #### CBC #### [facility] [address] [place] [address] Antonio KarenSodium [Moles/Vol]135 mmol/LCritically lmg842-512Wve [facility] HospitalCompromedica [facility] on above:Performed By: #### CBC #### [facility] [address] [place] [address] Antonio KarenUrea nitrogen [Mass/Vol]105.0 mg/dLCritically high9.0-20.0The [facility] on above:Result Comment: critical value repeated and verifiedPerformed By: #### CBC #### [facility] [address] [place] [address] Antonio KarenUrea nitrogen/Creatinine [Mass ratio]28.9 mg/mgNormWhite HospitalComment on above:Performed By: #### CBC #### [facility] [address] [address] Antonio KarenPROF CHEM 8 (BAS METB)on 59-99-6043Olswa gap [Moles/Vol]17.7 mmol/L NormalSt. Mary'S Medical CenterComment on above:Performed By: #### CBC #### [facility] [address] [address] Antonio KarenCalcium [Mass/Vol]9.4 mg/dLNormal8.4-10.2The [facility] Comment on above:Performed By: #### CBC #### [facility] [address] [address] Antonio KarenChloride [Moles/Vol]101 mmol/MDlnxvj57-222Xqq [facility] Comment on above:Performed By: #### CBC #### [facility] [address] [place] [address] Antonio KarenCO2 [Moles/Vol]21.5 mmol/LCritically low22.0-30.0The [facility] HospitalComment on above:Performed By: #### CBC #### [facility] [address] [place] [address] Antonio KarenCreatinine [Mass/Vol]3.29 mg/dLCritically high0.66-1.25The [facility] HospitalComment on above:Performed By: #### CBC #### [facility] [address] [place] [address] Antonio KarenEGFR-AF DRNCDMSC32 mL/min/1.20d3Uldudssari low>=60The [facility] HospitalComment on above:Performed By: #### CBC #### [facility] [address] [place] [address] Antonio KarenEGFR-NON AF EXTUMDIV95 mL/min/1.05x8Shjaegzgvm low>=60The [facility] HospitalComment on above:Performed By: #### CBC #### [facility] [address] [place] [address] Antonio KarenGlucose [Mass/Vol]88 mg/oPSnvjes21-587Tee [facility] HospitalComment on above:Performed By: #### CBC #### [facility] [address] [place] [address] Antonio KarenPotassium [Moles/Vol]6.2 mmol/LCritically high3.4-5.0St. Mary'S Medical CenterCompromedica coldwater [facility] hospital on above:Result Comment: critical value repeated and verified Performed By: #### CBC #### [facility] [address] [place] [address] Antonio KarenSodium [Moles/Vol]134 mmol/LCritically gat554-039Plk [facility] HospitalCompromed[facility] on above:Performed By: #### CBC #### [facility] [address] [place] [address] Antonio KarenUrea nitrogen [Mass/Vol]100.0 mg/dLCritically high9.0-20.0[facility] on above:Result Comment: critical value repeated and verifiedPerformed By: #### CBC #### [facility] [address] [place] [address] Antonio KarenUrea nitrogen/Creatinine [Mass ratio]31.0 mg/mgNoPremier Health Miami Valley Hospital SouthComment on above:Performed By: #### CBC #### [facility] [address] [place] [address] Antonio KarenPROTIMEon 87-71-9900KPE Coag (PPP) [Relative time]1.01 {INR}Normal The [facility] HospitalCompromedica [facility] on above:Performed By: #### DDIM, PT, PTT #### [facility] [address] [place] [address] Antonio KarenINR GUIDELINESSEE BELOWNoPremier Health Miami Valley Hospital SouthCompromedica [facility] hospital on above: Result Comment: DESIRED INR: 2.0 - 3.0 CONDITIONS NOT LISTED BELOW 2.5 - 3.5 FOR PROSTHETIC HEART VALVE REPLACEMENT 2.5 - 3.5 RECURRENT THROMBOSISPerformed By: #### DDIM, PT, PTT #### [facility] [address] [place] [address] Antonio KarenPT Coag (PPP) [Time]10.9 sNormal9.0-11.6The [facility] on above:Performed By: #### DDIM, PT, PTT #### [facility] [address] [place], [place] [address] Antonio JeffPTTon [id number] Coag (Bld) [Time]26.4 oKdoitj73.3-36.2The [facility] on above:Performed By: #### DDIM, PT, PTT #### [facility] [address] [id number] Antonio KarenTYPE AND SCREENon [id number] AND SCREENNegativeNormWhite HospitalComment on above:Performed By: #### CBC #### [facility] [address] [place] [address] Antonio LealenXR CHEST 1 Von 90-00-1984CW CHEST 1 VEXAMINATION: XR CHEST 1 V HISTORY: CHEST PAIN, UNSPECIFIED COMPARISON: [...] Electronically authenticated by: KEELY COTA Date: 2020-11-02 13:30[facility] [id number] From: Idalmis Hyatt To: EU - Recalls Villanueva; Sent: 09/26/2019 13:20:37 EDT Show up: 10/27/2019 13:20:00 EDT Subject: 1 year w/psa Due Date/Time: 11/27/2019 13:20:00 EDT Reminder/Recall Office had to cancel patient's appointment for 09-26-2019 due to PRW being out of office. LM for patient to call and reschedule. If doesn't call to reschedule in 2 months call patient. 1 year w/PSA From: Bess Ha (EU - Recalls Kay) To: EU - Administrative; Sent: 11/22/2019 15:00:51 EDT Show up: 11/22/2019 15:00:00 EDT Subject: RE: 1 year w/psa lvm. From: Lupe Zafar MA (EU - Recalls Kay) To: EU - Administrative; Sent: 12/02/2019 12:24:47 EDT Show up: 12/02/2019 12:23:00 EDT Subject: RE: 1 year w/psa Please try and reschedule for a 1 year with f/u Pt was last seen 09/2018. needs PSA as well. Last PSA was done at [facility]. thank you lvm x2. Left message to call for annual recheck- per Kay' last note, needs PSA and KUB. Patient does not have a trackable diagnosis. Multiple phone messages have been left asking pt to call to schedule f/up. NoKing[facility] [place] Vital Signs Date TimeVital SignValuePerforming BytdqbinxWsrffvzi72-97-2258 15:33-0400 Diastolic blood tqpftjco13 mm[Hg]Eric Montiel MD Work Phone: [facility]07-29-2025 15:33-0400Heart rate50 /min Eric Montiel MD Work Phone: [facility]07-29-2025 15:33-0392WxS9% (BldA) [Mass fraction]100 %Eric Montiel MD Work Phone: [facility]07-29-2025 15:33-0400Systolic blood urirdksk821 mm[Hg]Eric Montiel MD Work Phone: [facility]07-11-2025 09:42-0400Body smbuzl155.26 cmMatthew Collazo MD Work Phone: [facility]07-11-2025 09:42-0400 Body mass index (BMI) [Ratio]31 kg/m2Matthew Collazo MD Work Phone: [phone] [place], [place] [address]07-11-2025 09:42-0400 Body srkotc40.25 kgMatthew Collazo MD Work Phone: [phone] [place], [place] [address]07-11-2025 09:42-0400 Diastolic blood tgpybagj74 mm[Hg]Matthew Collazo MD Work Phone: [phone]07-11-2025 09:42-0400 Heart rate50 /minMatthew Collazo MD Work Phone: [phone])[address]07-11-2025 09:42-0400 Respiratory rate18 /minMatthew Collazo MD Work Phone: [phone] [address]07-11-2025 09:42-0400 SaO2% (BldA) [Mass fraction]98 %Matthew Collazo MD Work Phone: [phone]07-11-2025 09:42-0400 Systolic blood oyzlzcwr619 mm[Hg]Matthew Collazo MD Work Phone: [phone])[address]05-12-2025 09:48-0400 Body vwhkge053.3 cmAlexwilver Bierut PA-C Work Phone: cAvita Health SystemOywcjy36-25-6069 09:48-0400Body mass index (BMI) [Ratio]31.16 kg/f1Sgkioreol Bierut PA-C Work Phone: cAvita Health SystemNyaqfg74-91-5186 09:48-0400Body temperature 97.3 [degF]Leif Bierut PA-C Work Phone: [phone] Health SystemHnbghz36-06-6457 09:48-0400Body mkoysx27.7 kgAlexander Bierut PA-C Work Phone: [phone] Health SystemPhpgqk68-89-6939 09:48-0400Diastolic blood xhuegqxr13 mm[Hg]Leif Bierut PA-C Work Phone: cAvita Health SystemJvtrgn62-95-2025 09:48-0400Heart rate55 /min Leif Hurdermarija PA-C Work Phone: cAv[facility] Health SystemXgcfpp95-54-3258 09:48-8293JuA0% (BldA) [Mass fraction]98 %Leif Hurderut PA-C Work Phone: cst. [facility] hospitaland Febhqf41-39-1506 09:48-0400Systolic blood ppymvkjr055 mm[Hg]Leif Hurdermarija PA-C Work Phone: cAvita Health SystemCzhhdn21-50-6991 09:57-0500Body xirvhw840.26 cmThe [facility]01-24-2025 09:57-0500Body mass index (BMI) [Ratio]30.4 kg/i1PsjqgdutsThe [facility]01-24-2025 09:57-0500Body ddkker85.44 kgThe [facility]01-24-2025 09:57-0500Diastolic blood jjesuzrt94 mm[Hg][facility]01-24-2025 09:57-0500 Heart rate84 /[facility]01-24-2025 09:57-0500Inhaled oxygen flow rate97 L/[facility]01-24-2025 09:57-0500 Respiratory rate18 /[facility]01-24-2025 09:57-0500 SaO2% (BldA) [Mass fraction]59 %[facility]01-24-2025 09:57-0500Systolic blood gxghopha613 mm[Hg][facility] 03-22-2024 14:47-6682TsZ7% (BldA) [Mass fraction]100 %Eric Montiel MD Work Phone: [facility]01-14-2025 14:44-0500Body .3 Gonsalo Montiel MD Work Phone: [facility]01-14-2025 14:44-0500Body mass index (BMI) [Ratio]29.24 kg/m2Eric Montiel MD Work Phone: [facility]01-14-2025 14:44-0500Body praqlw79.81 kgEric Montiel MD Work Phone: [facility]11-05-2024 10:59-0500Body ckmcpu616.7 cmAlexwilver Bierut PA-C Work Phone: cAvita Health SystemUzeulj77-20-2974 10:59-0500Body mass index (BMI) [Ratio]30.84 kg/u4Heyieidzi Bierut PA-C Work Phone: [phone] [place] [address]-05-2024 10:59-0500Body temperature 97.3 [degF]Leif Bierut PA-C Work Phone: [phone] Health SystemUcompr80-61-1826 10:59-0500Body kg Leif Bierut PA-C Work Phone: cAvita Health SystemUlkjsk94-50-6876 10:59-0500Diastolic blood kavlggeq48 mm[Hg]Leif Bierut PA-C Work Phone: [phone] [address]-05-2024 10:59-0500Heart rate45 /min Leif Bierut PA-C Work Phone: [phone] Health SystemXgpmbt60-80-1212 10:59-3495HqB3% (BldA) [Mass fraction]99 %Leif Bierut PA-C Work Phone: cAvita Health SystemRhzudo70-30-4264 10:59-0500Systolic blood ockuqnib913 mm[Hg]Leif Bierut PA-C Work Phone: [phone] Health SystemManoqy04-02-3256 09:02-0400Body hufzti709 cm Matthew Collazo MD Work Phone: 1([phone])295-[address] [place], [place] 1244310-25-2024 09:02-0400Body mass index (BMI) [Ratio]30.75 kg/m2Matthew Collazo MD Work Phone: 1(301)046-[address] [place], [place] 1244310-25-2024 09:02-0400Body dlepnj07.08 kgMatthew Collazo MD Work Phone: 1(375)575-[address] [place], [place] 1244310-25-2024 09:02-0400Diastolic blood qqyztnel87 mm[Hg]Matthew Collazo MD Work Phone: 1(004)776-[address] [place], [place] 4924610-25-2024 09:02-0400Heart rate 50 /minMatthew Collazo MD Work Phone: [facility]-25-2024 09:02-0400Systolic blood qbdtpaft395 mm[Hg]Matthew Collazo MD Work Phone: 1(249)173-[address] [place], [place] 4924609-03-2024 14:52-0400Diastolic blood dqsgckab83 mm[Hg]Eric Montiel MD Work Phone: [facility]09-03-2024 14:52-0400Heart rate60 /min Eric Montiel MD Work Phone: [facility]09-03-2024 14:52-7339GqW9% (BldA) [Mass fraction]98 %Eric Montiel MD Work Phone: [facility]09-03-2024 14:52-0400Systolic blood gfyiqilr254 mm[Hg]Eric Montiel MD Work Phone: [facility]08-05-2024 13:49-0400Body zkbogo959.7 cmCevelia Ewing MANAGER FUND.ELECTRIC ORGAN ASSEMBLER AND CHECKER Work Phone: [phone] Health SystemXjrmwx02-25-7119 13:49-0400Body mass index (BMI) [Ratio]30.41 kg/b7Jgqacpqf [facility]uvront MANAGER FUND.ELECTRIC ORGAN ASSEMBLER AND CHECKER Work Phone: [phone] Health SystemQmwveg13-53-7033 13:49-0400Body temperature 96.69 [degF]Christiana Ewing MANAGER FUND.ELECTRIC ORGAN ASSEMBLER AND CHECKER Work Phone: [phone] Health SystemAjpbsq65-38-6348 13:49-0400Body yhdkhr12.72 kgChristen [facility] Hospitaluvhenry [facility] MANAGER FUND.ELECTRIC ORGAN ASSEMBLER AND CHECKER Work Phone: [phone] Health SystemYtktym42-35-1520 13:49-0400Diastolic blood vubhhomc37 mm[Hg]Christiana Ewing MANAGER FUND.ELECTRIC ORGAN ASSEMBLER AND CHECKER Work Phone: [facility] Vbluup22-97-6086 13:49-0400Heart rate47 /min [facility]ra[facility] MANAGER FUND.ELECTRIC ORGAN ASSEMBLER AND CHECKER Work Phone: [phone]and Iesqsp03-24-7760 13:49-0400Respiratory rate 20 /minChrisdaisy [facility] MANAGER FUND.ELECTRIC ORGAN ASSEMBLER AND CHECKER Work Phone: [phone]and Uyhfbb51-45-7333 13:49-2086XhM2% (BldA) [Mass fraction]98 %[facility]ra[facility] MANAGER FUND.ELECTRIC ORGAN ASSEMBLER AND CHECKER Work Phone: [phone] Oydddh84-65-7024 13:49-0400Systolic blood bisilarl024 mm[Hg][facility] Centerra[facility] MANAGER FUND.ELECTRIC ORGAN ASSEMBLER AND CHECKER Work Phone: [facility] Gmbrmt36-08-4576 10:16-0400Body axmdxi678.26 cmMD Matthew Collazo Work Phone: 1(881)[address]07-26-2024 10:16-0400 Body mass index (BMI) [Ratio]30.1 kg/m2MD Matthew Collazo Work Phone: 1(058)83274 [address]07-26-2024 10:16-0400 Body xfqidl88.53 kgMD Matthew Collazo Work Phone: 1(074)08174 [address]07-26-2024 10:16-0400 Diastolic blood vswfoolp11 mm[Hg]MD Matthew Collazo Work Phone: 1(686)75774 [address]07-26-2024 10:16-0400 Heart rate62 /minMD Matthew Collazo Work Phone: 1(257)70574 [address]07-26-2024 10:16-0400 Respiratory rate18 /minMD Matthew Collazo Work Phone: 1(401)94374 [address]07-26-2024 10:16-0400 SaO2% (BldA) [Mass fraction]98 %MD Matthew Collazo Work Phone: 1(580)279-[address] [place], [place] 5491307-26-2024 10:16-0400 Systolic blood hkqbzajd549 mm[Hg]MD Matthew Collazo Work Phone: 1(189)39574 [address]05-28-2024 11:35-0400 Body mass index (BMI) [Ratio]31.78 kg/m2Matthew Collazo MD Work Phone: 1(727)43336 [address]05-28-2024 11:35-0400Body ryxdue43.8 kgMatthew Collazo MD Work Phone: 1(269)14236 [address]05-28-2024 11:35-0400Diastolic blood lyjzyhjl45 mm[Hg]Matthew Collazo MD Work Phone: 1(829)76236 [address]05-28-2024 11:35-0400Heart rate 72 /minMatthew Collazo MD Work Phone: 1(240)26636 [address]05-28-2024 11:35-0400Systolic blood rimjiekh301 mm[Hg]Matthew Collazo MD Work Phone: 1(323)71536 [address]05-20-2024 14:28-0400Body mass index (BMI) [Ratio]31.78 kg/m2Matthew Collazo MD Work Phone: 1(378)24336 [address]05-20-2024 14:28-0400Body .8 kgMatthew Collazo MD Work Phone: 1(460)50936 [address]05-20-2024 14:28-0400Diastolic blood tvjrdqum02 mm[Hg]Matthew Collazo MD Work Phone: 1(294)10836 [address]05-20-2024 14:28-0400Heart rate 58 /minMatthew Collazo MD Work Phone: 1(774)17836 [address]05-20-2024 14:28-0400Systolic blood ebxtowsu900 mm[Hg]Matthew Collazo MD Work Phone: 1(633)49336 [address]05-17-2024 11:41-0400Body iyfwbh532.26 cmMD Matthew Collazo Work Phone: 1(311)58474 [address]05-17-2024 11:41-0400 Body mass index (BMI) [Ratio]31.1 kg/m2MD Matthew Collazo Work Phone: 1(855)20874 [address]05-17-2024 11:41-0400 Body jkpymq78.7 kgMD Matthew Collazo Work Phone: [phone])85374 [address]05-17-2024 11:41-0400 Diastolic blood iuiuiwuz00 mm[Hg]MD Matthew Collazo Work Phone: [phone])12974 [address]05-17-2024 11:41-0400 Heart rate53 /minMD Matthew Collazo Work Phone: [phone])59674 [address]05-17-2024 11:41-0400 Respiratory rate18 /minMD Matthew Collazo Work Phone: 1(948)21074 [address]05-17-2024 11:41-0400 SaO2% (BldA) [Mass fraction]96 %MD Matthew Collazo Work Phone: 1(146)53974 [address]05-17-2024 11:41-0400 Systolic blood mlbsimoo710 mm[Hg]MD Matthew Collazo Work Phone: 1(777)67074 [address]05-10-2024 12:08-0400 Body jncvxu302.26 cmMD Matthew Collazo Work Phone: 1(847)93174 [address]05-10-2024 11:25-0400 Body vomlicexhee37.8 [degF]MD Matthew Collazo Work Phone: [phone])60274 [address]05-10-2024 11:25-0400 Diastolic blood kyoaxqzm75 mm[Hg]MD Matthew Collazo Work Phone: 1(996)665[address]05-10-2024 11:25-0400 Heart rate56 /minMD Matthew Collazo Work Phone: 1(415)12074 [address]05-10-2024 11:25-0400 Respiratory rate18 /minMD Matthew Collazo Work Phone: 1(602)72574 [address]05-10-2024 11:25-0400 SaO2% (BldA) [Mass fraction]97 %MD Matthew Collazo Work Phone: 1(699)715-[facility]05-10-2024 11:25-0400 Systolic blood jfukgqjd293 mm[Hg]MD Matthew Collazo Work Phone: 1(406)586-[facility]05-10-2024 08:49-0400 Body lidwyp88.5 kgMD Matthew Collazo Work Phone: 1(684)025-[address] [place], [place] 5491305-01-2024 13:50-0400 Body yocfws072.7 cmChrKettering Health Daytonuvront MANAGER FUND.ELECTRIC ORGAN ASSEMBLER AND CHECKER Work Phone: cAvita Health SystemTodlvx60-49-7084 13:50-0400Body mass index (BMI) [Ratio]32.69 kg/j7Ntgirboc [facility]uv[facility] MANAGER FUND.ELECTRIC ORGAN ASSEMBLER AND CHECKER Work Phone: [phone] Health SystemDfkdys95-37-8330 13:50-0400Body temperature 96.6 [degF][facility] [place] MANAGER FUND.ELECTRIC ORGAN ASSEMBLER AND CHECKER Work Phone: [phone] Health SystemPnvzsa33-50-2819 13:50-0400Body moqpnn81.52 kgChBeebe Medical Centeruvhenry [facility] MANAGER FUND.ELECTRIC ORGAN ASSEMBLER AND CHECKER Work Phone: [phone] Health SystemPcyjfd09-22-2657 13:50-0400Diastolic blood skkrqrok68 mm[Hg]ChristRussell County Medical Centeruvront MANAGER FUND.ELECTRIC ORGAN ASSEMBLER AND CHECKER Work Phone: [phone] Health SystemTebstk26-28-1064 13:50-0400Heart rate65 /min [facility] [place]uv[facility] MANAGER FUND.ELECTRIC ORGAN ASSEMBLER AND CHECKER Work Phone: [phone]. [facility] hospitaland Pxorni54-80-8480 13:50-0400Respiratory rate 20 /minChrisSt. Luke's Nampa Medical Centeruvhenry [facility] MANAGER FUND.ELECTRIC ORGAN ASSEMBLER AND CHECKER Work Phone: [phone] Health SystemZjutet78-76-5993 13:50-6749TsG8% (BldA) [Mass fraction]98 %Christen [facility]uvront MANAGER FUND.ELECTRIC ORGAN ASSEMBLER AND CHECKER Work Phone: [phone] Health SystemYrluhl21-05-1725 13:50-0400Systolic blood iuowxjet257 mm[Hg]Christen Cheuvront MANAGER FUND.ELECTRIC ORGAN ASSEMBLER AND CHECKER Work Phone: [phone] Health SystemDbppst03-40-1981 14:45-0400Diastolic blood ztybehnc48 mm[Hg]Eric Montiel MD Work Phone: [phone]04-02-2024 14:45-0400Heart rate62 /min Eric Montiel MD Work Phone: [phone] [address]-02-2024 14:45-3169OiV9% (BldA) [Mass fraction]97 %Eric Montiel MD Work Phone: [phone] [address]-02-2024 14:45-0400Systolic blood mm[Hg]Eric Montiel MD Work Phone: [phone]02-19-2024 13:08-0500Body blknac385.7 cmChristen Cheuvront MANAGER FUND.ELECTRIC ORGAN ASSEMBLER AND CHECKER Work Phone: [phone] Health SystemMdkxxn82-64-2069 13:08-0500Body temperature 96.21 [degF]Christen Cheuvront MANAGER FUND.ELECTRIC ORGAN ASSEMBLER AND CHECKER Work Phone: [phone] Health SystemRlpblg25-06-7682 13:08-0500Body zhsinn98.52 kgChristen Cheuvront MANAGER FUND.ELECTRIC ORGAN ASSEMBLER AND CHECKER Work Phone: [phone] Health SystemStehup90-95-4605 13:08-0500Diastolic blood vgvzddyi79 mm[Hg]Christen Cheuvront MANAGER FUND.ELECTRIC ORGAN ASSEMBLER AND CHECKER Work Phone: [phone] Health SystemByxiep77-23-9787 13:08-0500Heart rate67 /min Christen Cheuvront MANAGER FUND.ELECTRIC ORGAN ASSEMBLER AND CHECKER Work Phone: [phone]. [facility] hospitaland Xsnndv87-50-1331 13:08-0500Respiratory rate 20 /minChristen Cheuvront MANAGER FUND.ELECTRIC ORGAN ASSEMBLER AND CHECKER Work Phone: [phone]. anthony's hospitaland Lfvmjl03-93-8937 13:08-2829RuJ8% (BldA) [Mass fraction]96 %Christen Cheuvront MANAGER FUND.ELECTRIC ORGAN ASSEMBLER AND CHECKER Work Phone: cAvita Health SystemToqvui13-09-4293 13:08-0500Systolic blood sreqfrlb907 mm[Hg]Christiana Ewing APRN.ELECTRIC ORGAN ASSEMBLER AND CHECKER Work Phone: cAvita Health SystemApavbt31-38-6550 14:52-0500Diastolic blood cduqaego05 mm[Hg]Eric Montiel MD Work Phone: [facility]12-05-2023 14:52-0500Heart rate63 /min Eric Montiel MD Work Phone: [facility]12-05-2023 14:52-0111VuX5% (BldA) [Mass fraction]98 %Eric Montiel MD Work Phone: [facility]12-05-2023 14:52-0500Systolic blood cqyfglae555 mm[Hg]Eric Montiel MD Work Phone: [facility]09-05-2023 09:44-0400Body avhabk498.7 cmAeunice Montiel MD Work Phone: [facility]09-05-2023 09:44-0400Body bkppdy05.07 kgEric Montiel MD Work Phone: [facility]09-05-2023 09:44-0400Diastolic blood hghpjzjy61 mm[Hg]Eric Montiel MD Work Phone: [facility]09-05-2023 09:44-0400Heart rate56 /min Eric Montiel MD Work Phone: [place] [address]-05-2023 09:44-9777ZqE2% (BldA) [Mass fraction]98 %Eric Montiel MD Work Phone: [facility]09-05-2023 09:44-0400Systolic blood fjibbnvu035 mm[Hg]Eric Montiel MD Work Phone: [facility] Encounters Encounter DateEncounter TypeCare ProviderFacilityStart: 11-29-2024 End: 60-00-3871Pkanglbme encounterJohn J Hiestand MD Work Phone: [facility]ediatric[facility] Start: 10-06-2024 End: 25-86-3784jqibbbnypzDabnDee Montiel MD Work Phone: Neurological RestorationComment on above:Physical therapy and Emotional support dogStart: 10-04-2024 End: 23-07-8957Utjgakn encounter Wade Montiel MD Work Phone: Neurological RestorationComment on above:Parkinson's disease, unspecified whether dyskinesia present, unspecified whether manifestations fluctuate (HCC) (Primary Dx)Start: 10-04-2024 End: 63-50-7189nzhfhaqkkfUGZQ MARGOLIUSFacility:[facility] Hospitaltart: 09-16-2024 End: 35-73-0264yiizcxfrxqFzwfEfrain Collazo MD Work Phone: [facility] Work Phone: Start: 09-16-2024 End: 96-02-8598Rmuzlhl encounter Gael Rangel MD-[facility] Work Phone: Start: 07-19-2024 End: 09-55-6785Rvxcoikpd encounterAlexander Bierut PA-C Work Phone: NeurologyComment on above:PAP Rx Faxed ([facility] )Start: 07-18-2024 End: 90-11-4707Uxanrfh encounter procedureAlexander Bierut PA-C Work Phone: NeurologyComment on above:Dream enactment behavior (Primary Dx); Primary central sleep apnea; Obstructive sleep apnea syndromeStart: 07-18-2024 End: 80-52-9421ixyzbaictmYBWIUVIRK BIERUTFacility:[facility] Start: 07-15-2024 End: 18-39-6175Ydeycmyzd encounterAlexander Bierut PA-C Work Phone: NeurologyComment on above:Requesting PAP Compliance & Therapy Report ([facility])PAP Compliance & Therapy Report (Follow Up)Start: 04-01-2024 End: 63-09-3698tjculogruiNmcunlnwcSelect [facility] Work Phone: Start: 04-01-2024 End: 64-08-4669Rvrxdye encounter Rosalinabon [facility] Physician [facility] Work Phone: Start: 03-22-2024 End: 37-70-9303makjmczltvSNYR MARGOLIUSFacility:[facility] Hospitaltart: 03-22-2024 End: 93-77-3015Kzcjgmx encounter Wade Montiel MD Work Phone: Neurological RestorationComment on above:Parkinson's disease, unspecified whether dyskinesia present, unspecified whether manifestations fluctuate (HCC) (Primary Dx); Mild cognitive impairmentStart: 01-15-2024 End: 63-18-5134Bphieamls encounterAlexander Bierut PA-C Work Phone: NeurologyComment on above:Orders (PAP RX.)Start: 01-14-2024 End: 51-07-4584EkmuytZtcnGene Collazo MD Work Phone: [employer] [facility] Internal Medicine/Pediatrics Comment on above:Essential hypertensionStart: 01-12-2024 End: 73-60-6934bmsoaopbizIBGYGIZFB BIERUTFacility:[facility] Start: 01-12-2024 End: 14-03-2652Pjuqtqo encounter procedureAlexatyson Bierut PA-C Work Phone: NeurologyComment on above:Obstructive sleep apnea syndrome (Primary Dx); Dream enactment behavior; Primary central sleep apneaStart: 01-01-2024 End: 30-52-6655Rcqekfd encounter Andre Collazo MD Work Phone: [facility] Internal Medicine/Pediatrics Comment on above:Routine general medical examination at a health care facility (Primary Dx); Parkinson's disease with dyskinesia without fluctuating manifestations (CMS-HCC); JATINDER (obstructive sleep apnea); Coronary artery disease involving [place] coronary artery of [place] heart without angina pectoris; Essential hypertension; Gross hematuria; HypercholesteremiaStart: 01-01-2024 End: 47-17-6403Jazuvny encounter statusMatthew Collazo MD Work Phone: [facility] Work Phone: start: 01-01-2024 End: 78-25-2835rerbdtuwfiPGDU J [facility] Ambulatory PPGStart: 54-50-0295Etkuvdqld for general adult medical examination without abnormal findingsMATTHEW Price [facility] Ambulatory PPGStart: 12-10-2023 ambulatoryERIC MONTIELFacility:[facility] Hospitaltart: 12-10-2023 End: 73-88-0204Evhmldbrkb hospital visit by physiciandaniela [place] [address] Work Phone: [facility] FOR WOMENComment on above:Parkinsonism, unspecified Parkinsonism type (HCC) [G20.C]Start: 11-25-2023 End: 87-08-5764zmjlegshssSPUPP SPERLINGFacility:[facility] Hospitaltart: 11-23-2023 End: 46-95-2079Jetavuxqd encounterChristen Doris Ewing APRN.CNP Work Phone: NeurologyStart: 11-17-2023 End: 24-13-7250eyjcqlqhieZCQNG SPERLINGFacility:[facility] Hospitaltart: 11-12-2023 End: 57-83-6358YajvcsXwkxmtmst [facility] Physicians Internal Medicine/PediatricsComment on above:Essential hypertensionStart: 11-12-2023 End: 76-94-9072AzlycjQmkuGene Collazo MD Work Phone: [facility] Internal Medicine/Pediatrics Comment on above:Essential hypertensionStart: 11-10-2023 End: 77-19-8352uhvkwrcgtiVJRR MARGOLIUSFacility:[facility] Hospitaltart: 11-10-2023 End: 37-27-0438Cdwcfli encounter Wade Montiel MD Work Phone: Neurological RestorationComment on above:Parkinsonism, unspecified Parkinsonism type (HCC) (Primary Dx); Cognitive impairmentStart: 10-21-2023 End: 02-02-8693zybzknqyljFIKBL B APLINGNot AvailableStart: 13-32-0795Rykkghodo encounterChristen A Cheuvront MANAGER FUND.ELECTRIC ORGAN ASSEMBLER AND CHECKER Work Phone: NeurologyComment on above:PAP Supply FaxStart: 10-12-2023 End: 84-00-6768kaersojydtLXUGWWVL A CHEUVRONTFacility:[facility] Start: 10-12-2023 End: 05-29-1039Ttydxut encounter procedureChristen A Cheuvront MANAGER FUND.ELECTRIC ORGAN ASSEMBLER AND CHECKER Work Phone: NeurologyComment on above:Obstructive sleep apnea syndrome (Primary Dx); JATINDER treated with BiPAP; Parkinson's disease, unspecified whether dyskinesia present, unspecified whether manifestations fluctuate (HCC); Myocardial infarction, unspecified CA type, unspecified artery (HCC); Obesity, Class I, BMI 30-34.9Start: 10-02-2023 End: 57-64-2941iplyheudbuSW John J Hiestand Work Phone: [facility] Work Phone: Start: 10-02-2023 End: 98-25-0584Xstdblt encounter procedureMD Matthew Collazo Work Phone: [facility] Work Phone: Start: 09-25-2023 End: 91-39-4455NvdnfkFnsg J Hiestand MD Work Phone: [facility]ediatrics Comment on above:Essential hypertensionStart: 08-04-2023 End: 34-56-0007Oghpumu encounter procedureMatthew Collazo MD Work Phone: [facility]/Pediatrics Comment on above:Bilateral impacted cerumen (Primary Dx)Start: 08-04-2023 End: 33-81-3955nnngxgddjlHTUA [facility] Ambulatory PPGStart: 07-27-2023 End: 66-97-1346Mmuxnl outpatient visit 15 minutesMatthew Collazo MD Work Phone: [facility]/Pediatrics Comment on above:H/O non-ST elevation myocardial infarction (NSTEMI) (Primary Dx); Coronary artery disease involving [place] coronary artery of [place] heart without angina pectoris; Bilateral hearing loss, unspecified hearing loss typeStart: 07-27-2023 End: 66-93-1618mcamhokxhmAVTW J [facility] Ambulatory PPGStart: 07-24-2023 End: 38-46-5320geylirqgegCE John J Hiestand Work Phone: [facility] Work Phone: Start: 07-24-2023 End: 17-28-9619Abusmee encounter procedureMD Matthew Collazo Work Phone: [facility] Work Phone: Start: 62-41-9744Cpv-patient / Non-visitMD Matthew Collazo Work Phone: [facility] Work Phone: Start: 07-16-2023 End: 03-87-5719Mkf-patient / Non-visitMD Matthew Collazo Work Phone: [facility] Work Phone: Start: 07-16-2023 End: 72-35-9651Rglgxffxrg and management of inpatientMatthew Collazo [facility]: 07-16-2023 End: 25-84-4588Kphypabmxt and management of inpatientMD Matthew Collazo Work Phone: [facility] Work Phone: Start: 89-68-6722Aucoybpcg encounterChristen A Kaylin TORRESELECTRIC ORGAN ASSEMBLER AND CHECKER Work Phone: NeurologyComment on above:PAP Therapy FaxStart: 07-08-2023 End: 30-09-0238Mzkkyay encounter procedureChristen A Cheuvront MANAGER FUND.ELECTRIC ORGAN ASSEMBLER AND CHECKER Work Phone: NeurologyComment on above:Obstructive sleep apnea syndrome (Primary Dx); JATINDER treated with BiPAP; Malfunction of continuous positive airway pressure (CPAP) or bilevel positive airway pressure (BPAP) machine, initial encounter; Dream enactment behavior; Parkinson's disease, unspecified whether dyskinesia present, unspecified whether manifestations fluctuate (HCC); Primary hypertensionStart: 61-48-3812W[facility]nWilliams [facility] Work Phone: NeurologyStart: 06-09-2023 End: 12-50-5270Qmsisci encounter Wade Montiel MD Work Phone: Neurological RestorationComment on above:Parkinson's disease without dyskinesia or fluctuating manifestations (HCC) (Primary Dx); Tremor; Gait disorderStart: 91-35-7499Cemcenqds encounterChristen A Cheuvront MANAGER FUND.ELECTRIC ORGAN ASSEMBLER AND CHECKER Work Phone: NeurologyComment on above:PAP Replacement FaxStart: 04-27-2023 End: 09-10-1364Colerno encounter procedureChristen A Cheuvront MANAGER FUND.ELECTRIC ORGAN ASSEMBLER AND CHECKER Work Phone: NeurologyComment on above:Obstructive sleep apnea syndrome (Primary Dx); JATINDER treated with BiPAP; Malfunction of continuous positive airway pressure (CPAP) or bilevel positive airway pressure (BPAP) machine, initial encounter; Parasomnia, unspecified type; Dream enactment behavior; Injury while sleepingStart: 83-43-6175ChpwrpZlxfRich Collazo MD Work Phone: [facility] Internal Medicine/Pediatrics Comment on above:Essential hypertensionStart: 03-16-2023 End: 69-71-5271vjjdzsoqumYBURS B APLINGNot AvailableStart: 02-10-2023 End: 07-72-5979Ovtvemmpua hospital visit by sObaldo Burks J1-4 Work Phone: RadiologyComment on above:Cervical stenosis of spine [M48.02]Start: 02-10-2023 End: 96-13-0283Mvjaatn encounter Wade Montiel MD Work Phone: Neurological RestorationComment on above:Tremor (Primary Dx)Start: 09-56-3079Bchnks OnlyEric Montiel MD Work Phone: Neurological RestorationComment on above:Cervical stenosis of spine (Primary Dx)Results (MRI)Start: 01-07-2023 End: 60-76-9339Upzyneiamg hospital [facility] by [facility] Cristina (1.5t) Work Phone: RadiologyComment on above:Spinal stenosis of cervical region [M48.02]Start: 11-11-2022 End: 16-81-6348Zfvmxow encounter procedureEric Montiel MD Work Phone: Neurological RestorationComment on above:Tremor (Primary Dx); Spinal stenosis of cervical region; Gait disorderStart: 07-19-2021 End: 77-04-1361lfxyzrmmkfEMLTB PARKERFacility:L2Chkop: 11-02-2020 End: 28-83-0009dbfgtjxqgxDO DEBBIE HOYFacility:H1 Procedures DateProcedureProcedure DetailPerforming ClinicianStart: 80-26-9540Xgrje dip stick/tablet rgnt non-auto w/o micrscpJohn Albert Collazo MD Work Phone: start: 10-08-7454Chvdb depression screening assessment Matthew Collazo MD Work Phone: start: 47-89-6018Oopxe 1996 panel - Serum or Plasma Leif Ramos PA-C Work Phone: Start: 28-94-1936My loclzj jo ann spect w/ct 1 area 1 day imagingEric Montiel MD Work Phone: Start: 37-65-9111RA LHC & COR AngioMD Matthew Collazo Work Phone: start: 56-60-0084ME Stent 1st Vessel LAD KAREN Matthew Collazo Work Phone: start: 33-15-0614SR Stent Ea Add LAD KAREN Matthew Collazo Work Phone: start: 43-78-6847EY Matthew Collazo Work Phone: start: 62-47-3535Obthd spine cervical 2 or 3 views Vivian Tran MANAGER FUND.ELECTRIC ORGAN ASSEMBLER AND CHECKER Work Phone: Start: 31-77-5561Vzo brain brain stem w/o contrast Uriel Montiel MD Work Phone: Start: 40-90-4214Bvwmf depression screening assessment Matthew Collazo MD Work Phone: start: 55-39-9826QhsvlnahlotLqwc Hiestand MD Work Phone: start: 49-53-9891Qoscx 1996 panel - Serum or Plasma Eric Montiel MD Work Phone: Plan of Treatment DateCare ActivityDetailAuthorStart: 88-93-3360Besjg microalbumin profile DTaP,Tdap,Td Vaccine (3 - Td or Tdap)[facility]: 89-97-2544VFA Vaccine (1 - 1-dose 75+ series)RSV Vaccine (1 - 1-dose 75+ series)[facility]: 63-73-4485Zsjlg panelLipid ScreeningMartins Ferry Hospitaltart: 45-80-6257Pixkjgkg specific antigen measurementProstate Cancer Screening DiscussionMartins Ferry Hospitaltart: 35-04-0791Wsmmirrxl for malignant neoplasm of colonColonoscopyParkwood Hospital SystemStart: 47-08-4362MKOROEYI CANCER SCREENING DISCUSSIONPROSTATE CANCER SCREENING DISCUSSIONMartins Ferry Hospitaltart: 38-61-2966Xrbktqrc specific antigen measurementProstate Cancer Screening DiscussionMartins Ferry Hospitaltart: 71-65-1773Mvvtxbsu ScreeningDiabetes Screening [facility]: 25-20-2287Ekmwqamf ScreeningDiabetes ScreeningMartins Ferry Hospitaltart: 00-45-9463PD Controlled (<130/80)BP Controlled (<130/80)[facility] End: 61-23-4134Jbxovlq encounter prqgyflud94/30/2026 4:00 PM EST Office Visit Neurological Yazidi [address] [place] [address] Eric Montiel MD [address] [place] [address] 6 monthNeurological RestorationComment on above:6 monthStart: 01-23-2025 End: 81-06-8338Idijvyt encounter geakjjtlo62/17/2025 10:00 AM EST Office Visit Neurology [address] [place] [address] Leif Ramos PA-C [address] [place] [address] 6 month follow upNeurologyComment on above:6 month follow upStart: 12-31-2024 Adult BMI ScreeningAdult BMI ScreeningProDayton Va [facility] SystemStart: 12-31-2024 Depression ScreeningDepression ScreeningProDayton Va Medical Center SystemStart: 12-31-2024 Fall Risk ScreeningFall Risk ScreeningParkwood Hospital SystemStart: 12-31-2024 Medicare Annual Wellness VisitMedicare Annual Wellness VisitProDayton Va Medical Center SystemStart: 49-41-0101Ybsgwot ScreeningTobacco ScreeningProDayton Va Medical Center System Start: 03-66-5449WD Controlled (<130/80)BP Controlled (<130/80)[facility] Start: 06-17-4011HWUCC-19 Vaccine ( season)COVID-19 Vaccine ( season)[facility] SystemStart: 05-49-1721Hvlhyagbx vaccination [facility]: 79-19-1657Jnqsx-19 Vaccine ( season)Covid-19 Vaccine ( season)[facility]: 10-04-2024 End: 73-22-6618Ifbxlrc encounter eodrcdfpe66/29/2025 4:00 PM EDT Office Visit Neurological [facility] [address] [facility] [place] [address] Eric Montiel MD [address] [place] [address] 6 month follow upNeurological RestorationComment on above:6 month follow upStart: 77-53-1495Zfcja BMI ScreeningAdult BMI ScreeningJ.W. Ruby [facility] Health SystemStart: 19-63-0183Jofukep ScreeningTobacco ScreeningParkwood Hospital SystemStart: 84-25-2348Xypzc BMI ScreeningAdult BMI ScreeningParkwood Hospital SystemStart: 43-52-6478Nljrbvv ScreeningTobacco ScreeningParkwood Hospital System Start: 07-18-2024 End: 46-13-8990Zqmnbnr encounter sbrwxgjuk36/12/2025 10:00 AM EDT Office Visit Neurology [address] [place] [address] Leif Ramos PA-C [address] [place] [address] 6 month follow upNeurologyComment on above:6 month follow upStart: 07-11-2024 End: 29-74-0189Yipkabs encounter /05/2025 1:00 PM EDT Office Visit Neurology [address] [place] [address] Leif Ramos PA-C [address] [place] [address] 6 month follow upNeurologyComment on above:6 month follow upStart: 03-22-2024 End: 61-78-2792Noydpbi encounter hldtipsaj29/14/2025 3:00 PM EST Office Visit Neurological [facility] [address] [facility] [place] [address] Eric Montiel MD [address] [place] [address] Follow upNeurological RestorationComment on above:Follow up Start: 27-82-2896Lttmclc Directive DiscussionAdvance Directive Discussion [facility]: 01-01-2025Medicare Advantage Annual Wellness Visit Medicare Advantage Annual Wellness VisitMartins Ferry Hospitalt[facility]: 01-12-2024 End: 22-00-6101Jkuvuut encounter procedureNeurologyComment on above:Return in about 3 months (around 01/12/2024) for with EFRA.Start: 01-01-2024 End: 29-58-3701Pqndeji encounter ednhckjdo76/25/2024 9:00 AM EDT Office Visit [facility] [address] [place] [address] [address] [place] [phone] Matthew Collazo MD [address] [place] [address], [address] [place], [place] [id number] [facility]/PediatricsStart: 11-10-2023 End: 94-05-8623Gnifrdi encounter snkxxarjm72/03/2024 3:30 PM EDT Office Visit Neurological Yazidi [address] [place] [address] Eric Montiel MD [address] [place], [place] [id number] Follow upNeurological RestorationComment on above:Follow up Start: 99-52-0485Sdzlk-19 Vaccine ( season)Covid-19 Vaccine ( season)[facility]: 39-86-6153Bzczv-19 Vaccine ( season)Covid-19 Vaccine ( season)[facility]: 11-08-2023 Influenza vaccinationMartins Ferry Hospital[facility]: 56-83-2937Aunxx BMI ScreeningAdult BMI ScreeningProDayton Va Medical [facility] SystemStart: 70-87-0466Umqoffjjtq Screening Depression ScreeningProDayton Va Medical Center SystemStart: 08-68-5921Ajwt Risk Screening Fall Risk ScreeningProDayton Va Medical Center SystemStart: 08-16-2024Medicare Annual Wellness VisitMedicare Annual Wellness VisitProDayton Va Medical Center SystemStart: 72-73-4645Uzfadig ScreeningTobacco ScreeningProDayton Va Medical Center SystemStart: 10-12-2023 End: 28-43-9229Wpvrhiy encounter munaeqzfs24/05/2024 2:00 PM EDT Office Visit Neurology [address] [place] [address] Christiana Ewing, MANAGER FUND.ELECTRIC ORGAN ASSEMBLER AND CHECKER [address] [place] [address] 3 mo tres with APPNeurologyComment on above:3 mo tres with APPStart: 08-04-2023 End: 34-54-7740Zluxeet encounter fusawlfot51/28/2024 11:30 AM EDT Procedure visit [facility] [address] [place] [address] 1 [place] [phone] Matthew Collazo MD [address] [place] [address], [address] [place], [place] [phone] [facility]/PediatricsStart: 53-68-6759Ejfnk-19 Vaccine ( season)Covid-19 Vaccine ()[facility] 07[facility]2023 [facility]: 36-11-8361Qfigrtlu to cardiac rehabilitation programKettering Healthtart: 56-34-1406Fpmgujew of Coronary Artery, Two Arteries with Two Drug-eluting Intraluminal Devices, Percutaneous ApproachDilation of Coronary Artery, Two Arteries with Two Drug- eluting Intraluminal Devices, Percutaneous ApproachKettering Healthtart: 50-18-8894Rzotxsviqnu of Left Heart using Low Osmolar Contrast Fluoroscopy of Left Heart using Low Osmolar ContrastKettering Healthtart: 86-77-5606Mdjqdhfaare of Multiple Coronary Arteries using Low Osmolar ContrastFluoroscopy of Multiple Coronary Arteries using Low Osmolar ContrastKettering Healthtart: 73-51-7885Rfjuxiqjuvx of Cardiac Sampling and Pressure, Left Heart, Percutaneous ApproachMeasurement of Cardiac Sampling and Pressure, Left Heart, Percutaneous ApproachKettering Healthtart: 47-83-6791Eodjmafs admissionKettering Healthtart: 47-95-4831Ohsjponz to cardiologistThe University Of [facility] Start: 10-16-5349JcrllhgmzKettering Healthtart: 91-03-2721Jefnejq Directive DiscussionAdvance Directive DiscussionMartins Ferry Hospitalt[facility]: 58-99-8505Ammyyburwe Health ScreeningBehavioral Health ScreeningCleveland Clinic South [facility]inte Hospital Start: 43-45-1933Xmxbsvgbsz AssessmentDepression AssessmentCleveland Clinic South Pointe Hospital Start: 14-17-5568Igwtv 1996 panel - Serum or PlasmaLipid ScreeningMartins Ferry Hospitaltart: 92-48-1801Oumrh panelLipid ScreeningMartins Ferry Hospitaltart: 51-73-0056WYZSG SCREENLIPID SCREENMartins Ferry Hospitaltart: 31-55-4335Hwamy-19 Vaccine ( season)Covid-19 Vaccine ( season)[facility]: 89-00-3817Bqunprppw vaccinationMartins Ferry Hospitaltart: 07-04-2022 COVID-19 VACCINE (5 - Pfizer series)COVID-19 VACCINE (5 - Pfizer series) [facility]: 02-25-0212XBARDDG DIRECTIVE DISCUSSIONADVANCE DIRECTIVE DISCUSSIONMartins Ferry Hospitaltart: 91-12-4407NDPXXVIFNKIK: 65+ (1 - PCV) PNEUMOCOCCAL: 65+ (1 - PCV)[facility]: 11-34-4352RCaT,Tdap and Td Vaccines (2 - Td or Tdap)DTaP,Tdap and Td Vaccines (2 - Td or Tdap)[facility]: 63-09-9889Obgll microalbumin profileDTaP,Tdap,Td Vaccine (2 - Td or Tdap)[facility]: 45-64-6481XPQVCFWLLJ ASSESSMENTDEPRESSION ASSESSMENTMartins Ferry Hospitaltart: 51-86-9618Vkawlyqjk for malignant neoplasm of colonMartins Ferry Hospitaltart: 62-13-8950QLT Vaccine (1 - 1-dose 60+ series)RSV Vaccine (1 - 1-dose 60+ series)[facility]: 42-32-1279Efqibztmvgcvrf of varicella zoster vaccineZoster (Shingles) Vaccine (1 of 2)[facility]: 47-92-2775BRZTSNBP VACCINE (1 of 2)SHINGRIX VACCINE (1 of 2) [facility]: 96-07-1084TJQUZCYPW (FIT-DNA)COLOGUARD (FIT-DNA)[facility]: 90-97-9581LwgmotlaqolSVYJKXENDKWXvoqwhypp ClinicStart: 2002 COLORECTAL CANCER SCREENINGCOLORECTAL CANCER SCREENINGMartins Ferry Hospitaltart: 88-21-2172XJ COLONOGRAPHYCT COLONOGRAPHYMartins Ferry Hospitaltart: 2002 DIABETES SCREENDIABETES SCREENMartins Ferry Hospitaltart: 53-37-0167Rmywuhef ScreeningDiabetes ScreeningMartins Ferry Hospitaltart: 02-36-1119PRORH OCCULT BLOOD FECAL OCCULT BLOODMartins Ferry Hospitaltart: 31-83-6732Nsbaepvzq for malignant neoplasm of colonMartins Ferry Hospitaltart: 34-72-4140FBXQLDHGTTIZKHMWAZMCGNEGFC [facility]: 45-79-5138Lzfjl microalbumin profileDTAP,TDAP,TD (1 - Tdap)[facility]: 29-49-5641Yqcnu BMI Follow Up PlanAdult BMI Follow Up PlanCarolinas [facility]CARE Hospital [facility] Universitytart: 84-01-9486Dpqkja PCP Team Chronic Disease VisitAnnual PCP Team Chronic Disease VisitMartins Ferry Hospitaltart: 06-27-1975 Anxiety ScreeningAnxiety ScreeningMartins Ferry Hospitaltart: 34-29-6588ZV Controlled (<130/80)BP Controlled (<130/80)[facility]: 18-55-5944Zvxyfnazif ScreeningDepression ScreeningMartins Ferry Hospitaltart: 88-71-6622QEZVXXJJI C SCREENINGHEPATITIS C SCREENINGMartins Ferry Hospitaltart: 92-98-2478Llotulasj C screeningHepatitis C ScreeningMartins Ferry Hospitaltart: 33-53-2354HSA SCREENINGHIV SCREENINGMartins Ferry Hospitaltart: 43-41-4045IXR screeningHIV ScreeningMartins Ferry Hospitaltart: 14-19-6564Lchrer Use: CardiovascularStatin Use: Cardiovascular [facility] End: 98-97-6294Cqyfyfeadhkhj metabolic 2000 panel - Serum or PlasmaComprehensive metabolic panel Lab Routine Essential hypertension 1 Occurrences starting 01/01/2024 until 12/31/2024[facility] SystemComment on above:1 Occurrences starting 01/01/2024 until 12/31/2024omprehensive metabolic 2000 panel - Serum or PlasmaComprehensive metabolic panel Lab Routine Essential hypertension 01/01/2024 9:47 AM [facility]rapeuticsDoctors HospitalGreengate Power [facility] CenterLipid 1996 panel - Serum or Plasma Lipid profile Lab Routine Hypercholesteremia 01/01/2024 9:47 AM [facility] TherapeuticsDoctors HospitalMolecular Sensing [facility] End: 16-08-5584Ssafc panelLipid panel Lab Routine Hypercholesteremia 1 Occurrences starting 01/01/2024 until 12/31/2024[facility] Work Phone: comment on above:1 Occurrences starting 01/01/2024 until 12/31/2024 End: 54-48-2770Tcp brain brain stem w/o contrast materialMRI BRAIN WO IVCON Radiology Routine Gait disorder Tremor 1 Occurrences starting 11/11/2022 until 12/11/2023[facility] Work Phone: Comment on above:1 Occurrences starting 11/11/2022 until 12/11/2023 End: 51-62-5959Crk spinal canal cervical w/o contrast matrlMRI CERVICAL SPINE WO IVCON Radiology Routine Spinal stenosis of cervical region 1 Occurrences start ing 11/11/2022 until 12/11/2023[facility] Work Phone: Comment on above:1 Occurrences starting 11/11/2022 until 12/11/2023atient EducationCoronary Angioplasty Heart Attack (DC) Angina (DC) Diabetes and diet Know your [facility] Work Phone: [facility] Work Phone: End: 02-17-3439PgghzakytmijuYXQYLZUAQTKYC (PSG) Procedures Routine Obstructive sleep apnea syndrome Parasomnia, unspecified type Dream enactment behavior Injury while sleeping 1 Occurrences starting 04/27/2023 until 04/26/2024 [facility] Work Phone: comment on above:1 Occurrences starting 04/27/2023 until 04/26/2024Prostate specific Ag [Mass/volume] in Serum or PlasmaProstatic specific antigen, diagnostic Lab Routine Gross hematuria 01/01/2024 9:47 AM EDT [facility] End: 56-17-3269Pjbxhoaiv specific antigen, diagnosticProstatic specific antigen, diagnostic Lab Routine Gross hematuria 1 Occurrences starting 01/01/2024 until 12/31/2024[facility] SystemComment on above:1 Occurrences starting 01/01/2024 until 12/31/2024 End: 66-71-1444BPTNM BrainNM BRAIN TREMOR SPECT/CT Radiology Routine Parkinsonism, unspecified Parkinsonism type (HCC) 1 Occurrences starting 11/10/2023 until 12/09/2024[facility] Work Phone: Comment on above:1 Occurrences starting 11/10/2023 until 12/09/2024[facility] Immunizations Immunization DateImmunizationNotesCare UtnnjytkHyhiqepa61-82-5129qoxsrnqpi virus vaccine, unspecified formulationEric Montiel MD Work Phone: [facility] HospitalHzhims23-88-0471tvxcuxbue virus vaccine, unspecified formulationMatthew Collazo MD Work Phone: [phone] [place], [place] [address]Kykdue78-56-0925Ddrhxkwyaxgl Conjugate 20-valentMatthew Collazo MD Work Phone: [phone] [place], [place] 12[address]301-31-2023influenza, injectable, quadrivalent, preservative freeMatthew Collazo MD Work Phone: [phone] [place], [place] [address]Yjlwyq10-60-8775qcfyvkcml virus vaccine, unspecified formulationEric Montiel MD Work Phone: [facility] HospitalTcmyir84-01-5710giwqjwezi, seasonal, injectableMatthwe Collazo MD Work Phone: [phone] [place], [place] [address]604-08-2021COVID-19, mRNA, LNP- S, PF, 30mcg/0.3mL DoseMatthew Collazo MD Work Phone: [phone] [place], [place] 4924603-17-2021COVID-19, mRNA, LNP- S, PF, 30mcg/0.3mL Wang Collazo MD Work Phone: [facility] JacksonGsxiwx48-46-5417rlcmwev toxoid, reduced diphtheria toxoid, and acellular pertussis vaccine, Jericho Collazo MD Work Phone: [facility] Payers DatePayer CategoryPayerPolicy [id number]-evg [id number] Health InsuranceDEVOCHRISTUS GOOD [facility] [id number] [id number] 2023Medicare [id number] Health Insurance [id number] 2.0.1.983387.3.57[id number] 2.0.1.357854.3.57[id number] 2.0.1.958953.3.57[id number] 2.16.840.1.581304.3.57[id number] 2.16.840.1.530397.3.57[id number] 2.16.840.1.973571.3.57[id number] 2.16.840.1.020927.3.57[id number] 2.16.840.1.323277.3.579.2.1286Medicare HMODEVOTED HEALTH MEDICARE ADVANTAGE [id number] 2.16.840.1.473864.3.579.2.531UnknownDEVOTED HEALTH PLANS DEVOTED [facility] MEDICARE ADVANTAGE [id number] Effective for all dates [phone] [id number] LIEBERMAN [id number] Social History DateTypeDetailFacilityStart: 10-22-2022 End: 61-85-1730Nyqldpp smoking status NHISNever smoked tobaccoCleveland Clinic South Pointe Hospital Start: 10-22-2022 End: 00-33-6373Rrqlrgr use and exposureSmokeless tobacco non-userMartins Ferry Hospitaltart: 11-11-2022 End: 07-81-5351Kvwmaoy intakeLifetime non-drinker (finding)[facility] Start: 03-22-2020 End: 69-32-2706Fmradpe of Social functionMartins Ferry Hospitaltart: 03-22-2020 End: 73-78-2734Tbbkrzf use panelCleveland Clinic South Pointe HospitalNatatrium health waxhaw Score (1-100), lower number is lower ecsz55SpadiflinMartins Ferry Hospitaltart: 02-17-6695Wxe Assigned At BirthNot on fileMartins Ferry Hospitaltart: 98-15-0459Vor Assigned At BirthMaleFTriHealth Good Samaritan Hospitaltart: 10-12-2014 End: 18-99-6898BpvBwzt (finding)[facility]: 10-22-2022 End: 47-06-2097Plvyvsb intakeCurrent drinker of alcohol (finding)[facility] stiQRdtart: 41-43-1859Nbqfesj CommentOnce in a whileGeorgetown Behavioral Hospital Medical Equipment Procedure CodeEquipment CodeEquipment Original TextEquipment IdentifierDatesCL STENT RAMON FRONTIER 2.5 X 22FDAStart: 19-81-5837AT STENT RAMON FRONTIER 3.5 X 38 FDAStart: 56-34-2397AN STENT RAMON FRONTIER 2.5 X 22FDAStart: 93-74-4566ZY STENT RAMON FRONTIER 3.5 X 38FDAStart: 30-61-5657SV STENT RAMON FRONTIER 2.5 X 22FDA Start: 78-67-5832EW STENT RAMON FRONTIER 3.5 X 38FDAStart: 15-65-0919DE STENT RAMON FRONTIER 2.5 X 22FDAStart: 53-89-3412KH STENT RAMON FRONTIER 3.5 X 38FDA Start: 20-14-3025WD STENT RAMON FRONTIER 2.5 X 22FDAStart: 30-90-1933ZH STENT RAMON FRONTIER 3.5 X 38FDAStart: 07-16-2023 Goals DatePatient GoalDesired Activity/State Functional Status MdfdUwjalieaxiSuhguwRrwusgqb61-88-3953Depfwrbbin statusPatient at Baseline [facility] Work Phone: Mental Status IswfWbrvxgmkqfFfzcagPyrgvfzo40-70-8552Wtvpcdjea functionCognitive Status Patient at BaselineKettering Memorial Hospital Ctr Work Phone: Clinical Notes 11-11-2022 to 11-29-2024 Note Date & VebvRzllVixfctlh50-17-2127 Miscellaneous Notes* Telephone Encounter - Tricia Villaseñor - 11/29/2024 3:11 PM EDT Left vm to call office to schedule MAW documented in this encounterGeorgetown Behavioral Hospital09-23-2025 Telephone encounter Note* Telephone Encounter - [facility] - 11/29/2024 3:11 PM EDT Left vm to call office to schedule MAW [facility]07-29-2025 Instructions* Patient Instructions* Eric Montiel MD - 10/04/2024 4:22 PM EDT Let's increase the Sinemet to 1.5 pills three times per day. Thi is for tremors and walking. Please continue the Aricept at 5 mg each day. This medication is meant to help with memory. Please see me again in 6 months or so. documented in this encounterCleveland Clinic South Pointe Hospital07-29-2025 History of Present illness Narrative* Eric Montiel MD - 10/04/2024 4:00 PM EDT [facility] - FOLLOW UP EVALUATION I had the pleasure of seeing Mr. Garza for follow-up today. He is a 69 year old right-handed male with a history of tremor since 1999 or so . He is seen with his , Pallavi Moore Previous Plan-03/22/2024 Visit: Recommended patient to stop driving given high risk of getting into an accident (this recommendation is based on results of neuropsychological testing) Start Aricept 5 mg every night for memory concerns Continue Sinemet 1 tablet TID Follow up in 6 months Interval History: He is doing okay. He had trouble remembering how to set up a tent when camping this summer. Walking and balance are impaired. Has had two falls since last visit. Fell recently while taking apart a cabinet. Still gets some tremors, though Sinemet has helped. Mostly action tremor when holding a dish. He takes Sinemet 1 tab tid. 8 am, noon, 6 pm. He thinks it may help some with tremors. No wearing off. He denies dexterity issues. 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 He does drive, no issueshe says. However his does most of the driving. He takes Aricept 5 mg daily denies hallucinations: Patient denies sleep disturbances. 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 denies Swallowing difficulties. denies Orthostatic hypotension symptoms. Sense of smell is intact Movement Disorders Medications Schedule - as of the start of the visit: Medications Sinemet 25/100 one tab tid Questionnaires: ALLERGIES No Known Allergies Current Outpatient Medications Medication Sig CPAP/BIPAP/OTHER Type .CPAPSettings into a note to see current settings/supplies/DME information. donepezil (ARICEPT) 5 mg tablet Take 1 tablet by mouth daily at bedtime. carbidopa-levodopa (SINEMET) 25-100 mg per tablet Take 1 pill three times per day CPAP/BIPAP/OTHER Type .CPAPSettings into a note to see current settings/supplies/DME information. acetaminophen-codeine (TYLENOL-COD #3) 300-30 mg per tablet (Patient not taking: Reported on 07/18/2024) aspirin, enteric coated (ASPIRIN, ENTERIC COATED) 81 [...] a note to see current settings/supplies/DME information. (Patient not taking: Reported on 01/12/2024) CPAP/BIPAP/OTHER Type .CPAPSettings into a note to see current settings/supplies/DME information. (Patient not taking: Reported on 01/12/2024) glucosam/chond-msm1/C/jaya/bor (RIBGJLFXEBE-BXFWZ-CIQ COMPLEX ORAL) Take 2 tablets by mouth once daily. CPAP/BIPAP/OTHER REPLACEMENT BIPAP DEVICE: BIPAP with settings of 25/21 cm H2O. Dx: Obstructive Sleep Apnea G47.33 DME: [facility] Fax: Fax download reports to [phone]. bisoprolol-hydroCHLOROthiazide (ZIAC) 10-6.25 mg per tablet Take 1 tablet by mouth every morning. BIPAP No current facility-administered medications for this visit. Objective Vital Signs: BP 121/78 (BP Site: Right Arm, BP Position: Sitting, BP Cuff Size: Regular Adult) Pulse (!) 50 SpO2 100% Awake and alert Off by three on exact date Able to spell APPLE forwards and backwards. Knows 7 quarters in $1.75. Movement Disorders Cognitive and Motor Biomeasures: 03/22/2024 10/04/2024 Processing Speed Processing Speed Total Number Correct 34 25 Processing Speed Z score -0.18 -1.09 03/22/2024 10/04/2024 VMT Memory Raw Score 52 27 Memory Z Score 0.85 -1.1 03/22/2024 10/04/2024 MDT - RIGHT Hand Dominant MDT Right Hand Time 36.5 37.73 Dominant Hand % 0.19 MDT Left Hand Time 38.47 41.64 Non-Dominant Hand % 0.03 03/22/2024 10/04/2024 Walking Speed Walking Speed Test (25 feet) 9.41 9.65 WST Percentile 0.07 15.87 *Percentile interpretation: Higher is better. A score < 50 would be worse than predicted, [id number] would be near predicted and > 50 would be better than predicted. Z score interpretation: higher than -1.5 is within normal; -1.5 to - 2.0 represents mild impairment; lower than -2.0 represents significant impairment Movement Disorders Scales Performed: MDS-UPDRS Motor subscale condition of exam Medication Off/On/Naiive ON Time of UPDRS Time of Last Medication Last Medication Taken DBS Right N/A DBS Left N/A MDS-UPDRS Motor subscale scores Speech 2-Mild. Loss of modulation, diction, or volume, with a few words unclear, but the overall sentences easy to follow. Facial Expression 2-Mild. In addition to decreased eye-blink frequency, Masked facies present in the lower face as well, namely fewer movements around the mouth, such as less spontaneous smiling, butlips not parted. Rigidity Neck 2-Mild. Rigidity detected without the activation maneuver, but full range of motion is easily achieved. Rigidity Right Upper Extremity 2-Mild. Rigidity detected without the activation maneuver, but full range of motion is easily achieved. Rigidity Left Upper Extremity 2-Mild. Rigidity detected without the activation maneuver, but full range of motion is easily achieved. Rigidity Right Lower Extremity 2-Mild. Rigidity detected without the activation maneuver, but full range of motion is easily achieved. Rigidity Left Lower Extremity 2-Mild. Rigidity detected without the activation maneuver, but full range of motion is easily achieved. Finger Taps Right 2-Mild. a) 3 to 5 interruptions during tapping, b) mild slowing, c) the amplitudedecrements midway in the 10-tap sequence. Finger Taps Left 2-Mild. a) 3 to 5 interruptions during tapping, b) mild slowing, c) the amplitude decrements midway in the 10-tap sequence. Hand Movements Right 2-Mild. a) 3 to 5 interruptions during the movements, b) mild slowing, c) the amplitude decrements midway in the task. Hand Movements Left 2-Mild. a) 3 to 5 interruptions during the movements, b) mild slowing, c) the amplitude decrements midway in the task. Arm Movements Right 0-Normal. No problems. Arm Movements Left 2-Mild. a) 3 to 5 interruptions during the movements, b) mild slowing, c) the amplitude decrements midway in the sequence. Toe Taps Right 0-Normal. No problem. Toe Taps Left 1-Slight. a) the regular [...] end of the task. Leg Agility Left 1-Slight. a) the regular rhythm is broken with one or two interruptions or hesitations of the movement, b) slight slowing, c) the amplitude decrements near the end of the task. Arise From Chair 0-Normal. No problems. Able to arise quickly without hesitation. Gait 2-Mild. Independent walking but with substantial gait impairment. Gait Freezing 0-Normal. No freezing. Posture Stability 0-Normal. No problems: recovers with one or two steps. Posture 1-Slight. Not quite erect, but posture could be normal for older person. Body Bradykinesia 1-Slight. Slight global slowness and poverty of spontaneous movements. Postural Tremor Hand Right 0-Normal. No tremor. Postural Tremor Hand Left 1-Slight. Tremor is present but less than 1cm in amplitude. Kinetic Tremor Right 0-Normal. No tremor. Kinetic Tremor Left 1-Slight. Tremor is present but less than 1cm in amplitude. Rest Tremor Amplitude Right Upper Extremity 0-Normal. No tremor. Rest Tremor Amplitude Left Upper Extremity 2-Mild. > 1 cm but < 3 cm in maximal amplitude. Rest Tremor Amplitude Right Lower Extremity 0-Normal. No tremor. Rest Tremor Amplitude Left Lower Extremity 0-Normal. No tremor. Rest Tremor Amplitude Lip/Jaw 0-Normal. No tremor. Rest Tremor Constancy 3-Moderate. Tremor at rest is present 51-75% of the entire examination period. MDS-UPDRS Motor subscale totals Left Total 16 Right Total 9 Midline Total 10 Tremor Total / 10 7 PIGD Total / 3 2 Overall Total 38 Change Better/Worse WORSE % Change Compared to Last Filed Total (!) 52 Pertinent Studies MRI brain, C spine 01/07/2023: [...] Plan: Assessment Mr. Garza is a right-handed 69 year old year old male with Parkinson disease (diagnosed 2022, abnormal DATSCAN grade 1 2023) who presents for follow up. He has long standing ET as well. Sinemet has provided subjective benefit for his tremors (and cognition). 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 Cessation of driving was recommended (he continues to drive short distances against our recommendation, but will be stopping when his license expires in June he says. Continue Aricept 5 mg daily Follow up in 6 months Updated Movement Disorders Medication Schedule: Medications Sinemet 25/100 1.5 1.5 1.5 Aricept 5 mg 1 Time spent 30 min on the day of service, which included preparing to see the patient, [id number]-[id number] patient care, completing clinical documentation, obtaining and/or [...] Sincerely, Eric Montiel MD documented in this encounterC[facility] NoteHNO ID: [id number] Author: ERIC MONTIEL MD Service: ? Author Type: Physician Type: Progress Notes Filed: 10/04/2024 16:29 Note Text: [facility] - FOLLOW UP EVALUATION I had the pleasure of seeing Mr. Garza for follow-up today. He is a 69 year old right-handed male with a history of tremor since 1999 or so . He is seen with his , Pallavi Moore Previous Plan-03/22/2024 Visit: Recommended patient to stop driving given high risk of getting into an accident (this recommendation is based on results of neuropsychological testing) Start Aricept 5 mg every night for memory concerns Continue Sinemet 1 tablet TID Follow up in 6 months Interval History: He is doing okay. He had trouble remembering how to set up a tent when camping this summer. Walking and balance are impaired. Has had two falls since last visit. Fell recently while taking apart a cabinet. Still gets some tremors, though Sinemet has helped. Mostly action tremor when holding a dish. He takes Sinemet 1 tab tid. 8 am, noon, 6 pm. He thinks it may help some with tremors. No wearing off. He denies dexterity issues. 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 He does drive, no issues he says. However his does most of the driving. He takes Aricept 5 mg daily denies hallucinations: Patient denies sleep disturbances. 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 denies Swallowing difficulties. denies Orthostatic hypotension symptoms. Sense of smell is intact Movement Disorders Medications Schedule - as of the start of the visit: Medications Sinemet 25/100 one tab tid Questionnaires: ALLERGIES No Known Allergies Current Outpatient Medications Medication Sig CPAP/BIPAP/OTHER Type .CPAPSettings into a note to see current settings/supplies/DME information. donepezil (ARICEPT) 5 mg tablet Take 1 tablet by mouth daily at bedtime. carbidopa-levodopa (SINEMET) 25-100 mg per tablet Take 1 pill three times per day CPAP/BIPAP/OTHER Type .CPAPSettings into a note to see current settings/supplies/DME information. acetaminophen-codeine (TYLENOL-COD #3) 300-30 mg per tablet (Patient not taking: Reported on 07/18/2024) aspirin, enteric coated (ASPIRIN, ENTERIC COATED) 81 [...] a note to see current settings/supplies/DME information. (Patient not taking: Reported on 01/12/2024) CPAP/BIPAP/OTHER Type .CPAPSettings into a note to see current settings/supplies/DME information. (Patient not taking: Reported on 01/12/2024) glucosam/chond-msm1/C/jaya/bor (UJCDXISHUXU-LQLEW-GWA COMPLEX ORAL) Take 2 tablets by mouth once daily. CPAP/BIPAP/OTHER REPLACEMENT BIPAP DEVICE: BIPAP with settings of 25/21 cm H2O. Dx: Obstructive Sleep Apnea G47.33 [facility] Fax: Fax download reports to [phone]. bisoprolol-hydroCHLOROthiazide (ZIAC) 10-6.25 mg per tablet Take 1 tablet by mouth every morning. BIPAP No current facility-administered medications for this visit. Objective Vital Signs: BP 121/78 (BP Site: Right Arm, BP Position: Sitting, BP Cuff Size: Regular Adult) Pulse (!) 50 SpO2 100% Awake and alert Off by three on exact date Able to spell APPLE forwards and backwards. Knows 7 quarters in $1.75. Movement Disorders Cognitive and Motor Biomeasures: 03/22/2024 10/04/2024 Processing Speed Processing Speed Total Number Correct 34 25 Processing Speed Z score -0.18 -1.09 03/22/2024 10/04/2024 VMT Memory Raw Score 52 27 Memory Z Score 0.85 -1.1 03/22/2024 10/04/2024 MDT - RIGHT Hand Dominant MDT Right Hand Time 36.5 37.73 Dominant Hand % 0.19 MDT Left Hand Time 38.47 41.64 Non-Dominant Hand % 0.03 03/22/2024 10/04/2024 Walking Speed Walking Speed Test (25 feet) 9.41 9.65 WST Percentile 0.07 15.87 *Percentile interpretation: Higher is better. A score < 50 would be worse than predicted, around 50 would be near predicted and > 50 would be better than predicted. Z score interpretation: higher than -1.5 is within normal; -1.5 to -2.0 represents mild impairment; lower than -2.0 represents significant impairment Movement Disorders Scales Performed: MDS-UPDRS Motor subscale condition of exam Medication Off/On/Naiive ON Time of UPDRS Time of Last Medication Last Medication Taken DBS Right N/A DBS Left N/A MDS-UPDRS Motor subscale (more content not included)...[facility]05-13-20[facility] Telephone encounter Note* Telephone Encounter - Lucy Dye OCCA - 07/19/2024 12:47 PM EDT PAP order, OV notes, and demographics were all faxed to [facility] at [phone], and received confirmation on 07/19/2024 at 1236. [facility]05-13-[facility] Miscellaneous Notes* Telephone Encounter - Lucy Dye OCCA - 07/19/2024 12:47 PM EDT PAP order, OV notes, and demographics were all faxed to [facility] at [phone], and received confirmation on 07/19/2024 at 1236. documented in this encounterCleveland [facility]05-12-2025 Instructions* Patient Instructions* Leif Ramos PA-C - 07/18/2024 10:30 AM EDT Your report looks great. Your AHI (apnea/hypoponea index... breathing disruptions/hour) is down from 66 to 7. When you had those 66 events per hour, your oxygen level dropped down to 76%. We will follow-up in about 6 months. Keep using your machine like you have been and if you have anyquestions please give us a call. Have a nice day, Eamon Ramos documented in this encounterCleveland Clinic [facility]05-12-2025 NoteHNO ID: [id number] Author: LEIF RAMOS PA-C Service: ? Author Type: Physician Intelligence Operations Type: Progress Notes Filed: 07/19/2024 12:28 Note Text: [facility] Follow up/ Established patient visit Date of last visit : 01/12/2024 IMPRESSION: Obstructive sleep apnea syndrome (primary encounter diagnosis) 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 Matthew Garza is a pleasant 68 year old male with PMH of JATINDER on BiPAP, PD, cervical stenosis, tremor, HTN, JATINDER, and class I obesity. Updated Split Study with RBD protocol was [...] Auto BiPAP through [facility]. He presents with his for follow-up. He is using his device nightly and is sleep well with it. Unfortunately, we still do not have remote access to his compliance data. We will reach out to [facility] (Phone ? Fax ) regarding this. rAHI is elevated at 13.5. I suspect this is due to significant leak- 89L/min. The patient was advised to switch out his supplies and start using a new mask/headgear. He understands that a titration study may be the next step should his AHI remain elevated. No recent DEBs. The patient's says Matthew energy level and sleep quality are both better when he uses his device. PLAN: - Continue Auto Bilevel PAP at IPAP max 25 cmH2O, EPAP min 9 cmH2O, PS 4 cmH2O -We will fax an order for supplies to : [facility] (Phone ? Fax ) Remember to clean your mask and equipment regularly, as directed. - Avoid use of ozone senior sql developer, SoClean devices, or UV cleaning devices - [...] needed. - Order will be sent to [employer] for supplies: [facility] (Phone ? Fax ) Bedroom Safety Measures: Removing sharp objects and weapons from room you're sleeping in Move furniture and clutter from the room or away from the bed so you don't run into anything. Make sure windows and doors are locked Sleep away from your partner if symptoms are dangerous for them Can lower bed closer to the ground or get bed rails Follow-up in 6 months. Leif Ramos PA-C Interval history : He has been doing well with therapy. Reports a better mask fit and denies any SB. SLEEP APNEA Sleep apnea type : JATINDER, Most Recent Apnea-Hypopnea Index (AHI): 66 Treatment : PAP therapy D[facility]: [facility] PAP History: Uses Bilevel PAP for 8 hours per night, 7 nights per week. Current PAP setting: see report. Difficulties with Bilevel PAP: None Reviewed objective PAP compliance data: yes AHI 7.8 Leak 95th percentile 20 LPM There is a perceived benefit by the patient Observers report abolition of snoring and respiratory events with Bilevel PAP use. PATIENT-ENTERED QUESTIONNAIRE SLEEP SCORES PMH, PSH, SH: reviewed SLEEP RELATED ROS Review of Systems Constitutional: Negative for fatigue and night sweats. Respiratory: Negative for difficulty breathing. Cardiovascular: Negative for chest pain and palpitations. Musculoskeletal: Negative for uncomfortable leg sensations. ALLERGIES No Known Allergies CURRENT MEDICATIONS: donepezil (ARICEPT) 5 mg tablet Take 1 tablet by mouth daily at bedtime. carbidopa-levodopa (SINEMET) 25-100 mg per tablet Take 1 pill three times per day CPAP/BIPAP/OTHER Type .CPAPSettings into a note to see current settings/s (more content not included)...[facility]05-[facility] History of Present illness Narrative* Leif Ramos PA-C - 07/18/2024 10:15 AM EDT Images from the original note were not included. [facility] Follow up/ Established patient visit Date of last visit : 01/12/2024 IMPRESSION: Obstructive sleep apnea syndrome (primary encounter diagnosis) 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 Matthew Garza is a pleasant 68 year old male with PMH of JATINDER on BiPAP, PD, cervical stenosis, tremor,HTN, JATINDER, and class I obesity. Updated Split Study with RBD protocol was [...] of RBD, however severityof SDB renders evaluation inadequate; auto BiPAP with IPAP max 25, EPAP min 9, and pressure support4 recommended with close clinical follow-up; 4% hypopnea scoring; BMI 32.8. He was set-up with AutoBiPAP through [facility]. He presents with his for follow-up. He is using his device nightly and is sleep well with it. Unfortunately, we still do not have remote access to his compliance data. We will reach out to [facility] (Phone Fax ) regarding this. rAHI is elevated at 13.5. I suspect this is due to significant leak- 89L/min. The patient was advised to switch out his supplies and start using a new mask/headgear. He understands that a titration study may be the next step should his AHI remain elevated. No recent DEBs. The patient's says Matthew energy level and sleep quality are both better when heuses his device. PLAN: - Continue Auto Bilevel PAP at IPAP max 25 cmH2O, EPAP min 9 cmH2O, PS 4 cmH2O -We will fax an order for supplies to : [facility] (Phone Fax ) Remember to clean your mask and equipment regularly, as directed. - Avoid use of ozone senior sql developer, SoClean devices, or UV cleaning devices - [...] needed. - Order will be sent to [employer] for supplies: [facility] (Phone Fax ) Bedroom Safety Measures: Removing sharp objects and weapons from room you're sleeping in Move furniture and clutter from the room or away from the bed so you don't run into anything. Make sure windows and doors are locked Sleep away from your partner if symptoms are dangerous for them Can lower bed closer to the ground or get bed rails Follow-up in 6 months. Leif Ramos PA-C Interval history : He has been doing well with therapy. Reports a better mask fit and denies any SB. SLEEP APNEA Sleep apnea type : JATINDER, Most Recent Apnea-Hypopnea Index (AHI): 66 Treatment : PAP therapy DME: [facility] PAP History: Uses Bilevel PAP for 8 hours per night, 7 nights per week. Current PAP setting: see report. Difficulties with Bilevel PAP: None Reviewed objective PAP compliance data: yes AHI 7.8 Leak 95th percentile 20 LPM There is a perceived benefit by the patient Observers report abolition of snoring and respiratory events with Bilevel PAP use. PATIENT-ENTERED QUESTIONNAIRE SLEEP SCORES PMH, PSH, SH: reviewed SLEEP RELATED ROS Review of Systems Constitutional: Negative for fatigue and night sweats. Respiratory: Negative for difficulty breathing. Cardiovascular: Negative for chest pain and palpitations. Musculoskeletal: Negative for uncomfortable leg sensations. ALLERGIES No Known Allergies CURRENT MEDICATIONS: donepezil (ARICEPT) 5 mg tablet Take 1 tablet by mouth daily at bedtime. carbidopa-levodopa (SINEMET) 25-100 mg per tablet Take 1 pill three times per day CPAP/BIPAP/OTHER Type .CPAPSettings into a note to see current settings/supplies/DME information. aspirin, enteric coated (ASPIRIN, ENTERIC COATED) 81 mg EC tablet Take 81 mg by mouth once daily. atorvastatin (LIPITOR) 80 mg tablet Take 80 mg by mouth once daily. nitroglycerin sublingual (NITROQUICK) 0.4 mg SL tablet Q5M losartan (COZAAR) 25 mg tablet Take 25 mg by mouth every morning. ticagrelor (BRILINTA) 90 mg tablet two times a day. glucosam/chond-msm1/C/jaya/bor (HIBSVYNNQBA-ZQBIR-IYL COMPLEX ORAL) Take 2 tablets by mouth once daily. CPAP/BIPAP/OTHER REPLACEMENT BIPAP DEVICE: BIPAP with settings of 25/21 cm H2O. Dx: Obstructive Sleep Apnea G47.33 [facility] Fax: Fax download reports to [phone]. bisoprolol-hydroCHLOROthiazide (ZIAC) 10-6.25 mg per tablet Take 1 tablet by mouth every morning. BIPAP acetaminophen-codeine (TYLENOL-COD #3) 300-30 mg per tablet (Patient not taking: Reported on 07/18/2024) CPAP/BIPAP/OTHER Type .CPAPSettings into a note to see current settings/supplies/DME information. (Patient not taking: Reported on 01/12/2024) CPAP/BIPAP/OTHER Type .CPAPSettings into a note to see current settings/supplies/DME information. (Patient not taking: Reported on 01/12/2024) Prior Hypersomnia/Narcolepsy Medications (20 years) No data to display Prior RLS Medications (last 20 years) 03/22/2024 00:00 RLS Medications carbidopa/levodopa Take 1/2 pill three times per day for 1 week, then increase to 1 pill three times per day (25-100 mg tab) -Discontinued Patient not taking as of 01/12/2024 11:06 AM carbidopa/levodopa Take 1 pill three times per day (25-100 mg tab) Details Outpatient prescription Medication marked as long-term Patient not taking Prior Insomnia Medications (last 20 years) No data to display PHYSICAL EXAMINATION: General appearance: NAD, well groomed HEENT: Normocephalic, atraumatic Neuro: Awake, alert, memory grossly intact, speech is fluent Respiratory: No increased work of breathing; able to speak in complete sentences Psych: Appropriate, normal affect IMPRESSION: Dream enactment behavior (primary encounter diagnosis) Primary central sleep apnea Obstructive sleep apnea syndrome Matthew Garza is a pleasant 69 year old male with PMH of JATINDER on BiPAP, PD, cervical stenosis, tremor,HTN, JATINDER, and class I obesity. Updated Split Study with RBD protocol was [...] of RBD, however severityof SDB renders evaluation inadequate; auto BiPAP with IPAP max 25, EPAP min 9, and pressure support4 recommended with close clinical follow-up; 4% hypopnea scoring; BMI 32.8. He was set-up with AutoBiPAP through [facility]. He continues to use his BiPAP nightly. We were linked to his account in [employer]. Leak has improved since his previous appt. AHI is at 7.8. The patient does not have any concerns regarding his sleep apnea. PLAN: - Continue Auto Bilevel PAP - We will send an order to his DME for supplies - Remember to clean your mask and equipment regularly, as directed. - You should be eligible for new supplies approximately every 3-6 months, depending on your insurance coverage. Contact your Durable Medical Equipment (DME) company for new supplies as needed. - Follow up in 6 months Leif Ramos PA-C I spent a total of 43 minutes on the date of the service which included preparing to see the patient, ozhm-[id number]-qewt patient care, completing clinical documentation, communicating with other HCPs (not separately reported), communicating results to the patient/family/caregiver, and care coordination (n ot separately reported). documented in this encounterC[facility]05-[facility] Telephone encounter Note * Telephone Encounter - Lucy Dye OCCA - 07/15/2024 2:46 PM EDT Received compliance report and was able to gain access the patient report online at [facility]. [facility]05-09-[facility] Miscellaneous Notes* Telephone Encounter - Lucy Dye OCCA - 07/15/2024 2:46 PM EDT Received compliance report and was able to gain access the patient report online at [facility]. * Telephone Encounter - Lucy Dye OCCA - 07/15/2024 1:11 PM EDT [facility] and [id number] She stated she will fax over report to our office. Fax number to our office confirmed as [phone]. Waiting on report. documented in this encounterCleveland [facility]05-09-2025 Telephone encounter Note * Telephone Encounter - Lucy Dye OCCA - 07/15/2024 2:43 PM EDT Images from the original note were not included. [facility]05-[facility] Miscellaneous Notes* Telephone Encounter - Lucy Dye OCCA - 07/15/2024 2:43 PM EDT Images from the original note were not included. documented in this encounterC[facility]05-09-2025 Telephone encounter Note * Telephone Encounter - Lucy Dye OCCA - 07/15/2024 1:11 PM EDT Called [facility] requesting patient's PAP compliance and therapy report. Spoke with alicia ID is [id number]. She stated she will fax over report to our office. Fax number to our office confirmed as [phone]. Waiting on report. [facility]01-14-[facility] Instructions* Patient Instructions* Eric Montiel MD - 03/22/2024 3:59 PM EST I would recommend stopping driving. I am concerned that you are at a high risk of getting in an accident. For the memory problems, let's try a medication called Aricept, 5 mg each night. Please continue Sinemet 1 pill three times per day. Please see me again in 6 months or so. documented in this encounterCleveland Clinic [facility]01-14-2025 NoteHNO ID: [id number] Author: ERIC MONTIEL MD Service: ? Author Type: Physician Type: Progress Notes Filed: 03/25/2024 08:25 Note Text: [facility] - FOLLOW UP EVALUATION I had the pleasure of seeing Mr. Garza for follow-up today. He is a 68 year old right-handed male with a history of tremor since 1999 or so . Subjective Mr. Garza is a right-handed 68 year old year old male with possible Parkinson disease (diagnosed 2022) who presents for follow up. He has long standing ET as well. Sinemet has provided subjective benefit for his tremors (and cognition). Differential diagnosis includes PD vs ET plus other cause of cognitive impairment. Previous Plan-11/10/2023 Visit: Probable Parkinson disease - Will obtain DaTscan for diagnostic clarity. See discussion above. Continue to hold Sinemet for now, but will resume if DaTscan is abnormal. Cognitive complaints - Will obtain neuropsych testing. He apparently had this done somewhere a few years ago and it showed mild dementia . Consider referral to brain health pending results (especially if DaTscan is WNL) Follow up in 4-6 months Interval History: Neuropsych testing completed 11/17/2023: Evaluation shows severely slowed cognitive processing speed, deficits in attention, and impaired semantic fluency Current test scores are comparable to his outside test results in 03/2019, and in some cases, better Meets criteria for multi-domain MCI The pattern of cognitive weaknesses/deficits seen on testing is not specific, but not atypical in the setting of Parkinson's disease Recommendations made to refrain from driving DaTscan 12/10/2023: Suggestive of grade 1 loss of dopaminergic neuronal terminal density in the striatum Today, patient reports: On Sinemet 25-100 mg- 1 tabs TID Has been driving. No mishaps or accidents. Tremors are unchanged. Left worse than right. Worse with stress Memory is about the same. Still forgetful. Feels stable walking. No falls in interim. No issues with sleep - sleeps with a BiPAP on. Not acting out dreams since being on the BiPAP. Mood is good. Is due to see his vp lab on Apr 01 Questionnaires: ALLERGIES No Known Allergies Current Outpatient Medications Medication Sig CPAP/BIPAP/OTHER Type .CPAPSettings into a note to see current settings/supplies/DME information. acetaminophen-codeine (TYLENOL-COD #3) 300-30 mg per tablet aspirin, enteric coated (ASPIRIN, ENTERIC COATED) 81 mg EC tablet Take 81 mg by mouth once daily. atorvastatin (LIPITOR) 80 mg tablet Take 80 mg by mouth once daily. nitroglycerin sublingual (NITROQUICK) 0.4 mg SL tablet Q5M losartan (COZAAR) 25 mg tablet Take 25 mg by mouth every morning. ticagrelor (BRILINTA) 90 mg tablet two times a day. glucosam/chond-msm1/C/jaya/bor (ACXQERPCMWU-GKTBQ-KAT COMPLEX ORAL) Take 2 tablets by mouth once daily. CPAP/BIPAP/OTHER REPLACEMENT BIPAP DEVICE: BIPAP with settings of 25/21 cm H2O. Dx: Obstructive Sleep Apnea G47.33 DME: [facility] Fax: Fax download reports to [phone]. bisoprolol-hydroCHLOROthiazide (ZIAC) 10-6.25 mg per tablet Take 1 tablet by mouth every morning. BIPAP carbidopa-levodopa (SINEMET) 25-100 mg per tablet Take 1/2 pill three times per day for 1 week, then increase to 1 pill three times per day (Patient not taking: Reported on 01/12/2024) CPAP/BIPAP/OTHER Type .CPAPSettings into a note to see current settings/supplies/DME information. (Patient not taking: Reported on 01/12/2024) CPAP/BIPAP/OTHER Type .CPAPSettings into a note to see current settings/supplies/DME information. (Patient not taking: Reported on 01/12/2024) No current facility-administered medications for this visit. Objective Vital Signs: Ht 175.3 cm (5' 9 ) Wt 89.8 kg (198 lb) SpO2 100% BMI 29.24 kg/m? Orthostatic Vitals: Sitting: BP 134/72 Pulse 50 Weight: 89.8 kg (198 lb) Height: 175.3 cm (5' 9 ) No LMP for male patient. Body mass index is 29.24 kg/m?. General Physical Examination: General: Awake, alert, interactive, no acute distress, good nutritional status, normal development, well-kept General Neurological Examination: Neurological Exam Mental Status Awake, alert and oriented to person, place and time. Language is fluent with no aphasia. Cranial Nerves CN II: Visual acuity is normal. Visual carlisle full to confrontation. CN III, IV, : Extraocular movements intact bilaterally. Normal lids and orbits bilaterally. Pupils equal round and reactive to light bilaterally. CN V: Facial sensation is normal. CN VII: Full and symmetric facial movement. Mild hypomimia. CN VIII: Hearing is normal. CN IX, X: Palate elevates symmetrically. Normal gag reflex. CN XI: Shoulder shrug strength is normal. CN XII: Tongue midline without atrophy or fasciculations. Motor Normal muscle bulk throughout. Normal muscle tone. Strength is 5/5 (more content not included)...[facility]01-14-2025 History of Present illness Narrative* Eric Montiel MD - 03/22/2024 2:55 PM EST [facility] - FOLLOW UP EVALUATION I had the pleasure of seeing Mr. Garza for follow-up today. He is a 68 year old right-handed male with a history of tremor since 1999 or so . Subjective Mr. Garza is a right-handed 68 year old year old male with possible Parkinson disease (diagnosed 2022) who presents for follow up. He has long standing ET as well. Sinemet has provided subjective benefit for his tremors (and cognition). Differential diagnosis includes PD vs ET plus other cause of cognitive impairment. Previous Plan-11/10/2023 Visit: Probable Parkinson disease - Will obtain DaTscan for diagnostic clarity. See discussion above. Continue to hold Sinemet for now, but will resume if DaTscan is abnormal. Cognitive complaints - Will obtain neuropsych testing. He apparently had this done somewhere a few years ago and it showed mild dementia . Consider referral to brain health pending results (especially if DaTscan is WNL) Follow up in 4-6 months Interval History: Neuropsych testing completed 11/17/2023: Evaluation shows severely slowed cognitive processing speed, deficits in attention, and impaired semantic fluency Current test scores are comparable to his outside test results in 03/2019, and in some cases, better Meets criteria for multi-domain MCI The pattern of cognitive weaknesses/deficits seen on testing is not specific, but not atypical in the setting of Parkinson's disease Recommendations made to refrain from driving DaTscan 12/10/2023: Suggestive of grade 1 loss of dopaminergic neuronal terminal density in the striatum Today, patient reports: On Sinemet 25-100 mg- 1 tabs TID Has been driving. No mishaps or accidents. Tremors are unchanged. Left worse than right. Worse with stress Memory is about the same. Still forgetful. Feels stable walking. No falls in interim. No issues with sleep - sleeps with a BiPAP on. Not acting out dreams since being on the BiPAP. Mood is good. Is due to see his vp lab on Apr 01 Questionnaires: ALLERGIES No Known Allergies Current Outpatient Medications Medication Sig CPAP/BIPAP/OTHER Type .CPAPSettings into a note to see current settings/supplies/DME information. acetaminophen-codeine (TYLENOL-COD #3) 300-30 mg per tablet aspirin, enteric coated (ASPIRIN, ENTERIC COATED) 81 mg EC tablet Take 81 mg by mouth once daily. atorvastatin (LIPITOR) 80 mg tablet Take 80 mg by mouth once daily. nitroglycerin sublingual (NITROQUICK) 0.4 mg SL tablet Q5M losartan (COZAAR) 25 mg tablet Take 25 mg by mouth every morning. ticagrelor (BRILINTA) 90 mg tablet two times a day. glucosam/chond-msm1/C/jaya/bor (BMIELVLHIEN-EHJZS-UUS COMPLEX ORAL) Take 2 tablets by mouth once daily. CPAP/BIPAP/OTHER REPLACEMENT BIPAP DEVICE: BIPAP with settings of 25/21 cm H2O. Dx: Obstructive Sleep Apnea G47.33 [facility] Fax: Fax download reports to [phone]. bisoprolol-hydroCHLOROthiazide (ZIAC) 10-6.25 mg per tablet Take 1 tablet by mouth every morning. BIPAP carbidopa-levodopa (SINEMET) 25-100 mg per tablet Take 1/2 pill three times per day for 1 week, then increase to 1 pill three times per day (Patient not taking: Reported on 01/12/2024) CPAP/BIPAP/OTHER Type .CPAPSettings into a note to see current settings/supplies/DME information. (Patient not taking: Reported on 01/12/2024) CPAP/BIPAP/OTHER Type .CPAPSettings into a note to see current settings/supplies/DME information. (Patient not taking: Reported on 01/12/2024) No current facility-administered medications for this visit. Objective Vital Signs: Ht 175.3 cm (5' 9 ) Wt 89.8 kg (198 lb) SpO2 100% BMI 29.24 kg/m Orthostatic Vitals: Sitting: BP 134/72 Pulse 50 Weight: 89.8 kg (198 lb) Height: 175.3 cm (5' 9 ) No LMP for male patient. Body mass index is29.24 kg/m . General Physical Examination: General: Awake, alert, interactive, no acute distress, good nutritional status, normal development,well-kept General Neurological Examination: Neurological Exam Mental Status Awake, alert and oriented to person, place and time. Language is fluent with no aphasia. Cranial Nerves CN II: Visual acuity is normal. Visual carlisle full to confrontation. CN III, IV, : Extraocular movements intact bilaterally. Normal lids and orbits bilaterally. Pupils equal round and reactive to light bilaterally. CN V: Facial sensation is normal. CN VII: Full and symmetric facial movement. Mild hypomimia. CN VIII: Hearing is normal. CN IX, X: Palate elevates symmetrically. Normal gag reflex. CN XI: Shoulder shrug strength is normal. CN XII: Tongue midline without atrophy or fasciculations. Motor Normal muscle bulk throughout. Normal muscle tone. Strength is 5/5 throughout all four extremities. Sensory Sensation is intact to light touch, pinprick, vibration and proprioception in all four extremities. Coordination Mild action tremor bilaterally. Trouble with finger tapping and toe tapping L>R. Gait Casual gait is normal including stance, stride, and arm swing. Pertinent Studies MRI brain, C spine 01/07/2023: [...] Plan: Assessment Mr. Garza is a right-handed 68 year old year old male with possible Parkinson disease (diagnosed 2022) who presents for follow up. He has long standing ET as well. Sinemet has provided subjective benefit for his tremors (and cognition). Differential diagnosis includes PD vs ET plus other cause of cognitive impairment. DaTscan (12/2023) suggestive of grade 1 loss of dopaminergic neuronal terminal density in the striatum. The following are the current problems noted and addressed during this visit: Parkinson's disease, unspecified whether dyskinesia present, unspecified whether manifestations fluctuate (hcc) (primary encounter diagnosis) Mild cognitive impairment Plan 03/22/2024 Visit: Recommended patient to stop driving given high risk of getting into an accident (this recommendation is based on results of neuropsychological testing) Start Aricept 5 mg every night for memory concerns Continue Sinemet 1 tablet TID Follow up in 6 months Sincerely, Courtney Angeles MD Neurology PGY-2 [facility] Date: March 22, 2024 Time: 4:23 PM Attending Note I evaluated the patient and personally participated in the howe components. I agree with the resident's findings and plan as documented and have discussed the case and management of the patient's carewith the resident. Signature: Eric Montiel MD Date: 03/25/2024 Time: 8:25 AM Time spent 30 min on the day of service, which included preparing to see the patient, [id number] patient care, completing clinical documentation, obtaining and/or [...] Sincerely, Eric Montiel MD [facility] encounter Note * Telephone Encounter - Aniyah Thibodeaux LPN - 01/15/2024 1:30 PM EST PAP ORDER FAXED TO [facility] WITH DEMOGRAPHICS, OFFICE NOTES WITH CONFIRMATION NOTED. [facility] Miscellaneous Notes* Telephone Encounter - Aniyah Thibodeaux LPN - 01/15/2024 1:30 PM EST PAP ORDER FAXED TO [facility] WITH DEMOGRAPHICS, OFFICE NOTES WITH CONFIRMATION NOTED. documented in this encounterC[facility]11-07-[facility] Miscellaneous Notes* Telephone Encounter - Rea Mullins CMA - 01/14/2024 8:02 AM EST [facility] Note* Telephone Encounter - Rea Mullins CMA - 01/14/2024 8:02 AM EST [facility] Instructions* Patient Instructions* Leif Ramos PA-C - 01/12/2024 11:49 AM EST PAP Supply Guidelines Below are the guidelines [...] Humidifier Chamber(disposable) 1 every 6 months *Self-Pay Continue PAP Therapy - Continue Bilevel PAP nightly. - Remember to clean your mask and equipment regularly, as directed. - You should be eligible for new supplies approximately every 3-6 months, depending on your insurance coverage. Contact your Durable Medical Equipment (DME) company for new supplies as needed. Keep using your machine and switch out to a new mask to help reduce the air leak. Reach out if you have any questions, we will follow-up in about 6 months. Thanks for coming in, it was a please meeting you two. Eamon Ramos documented in this encounterC[facility]11-[facility] History of Present illness Narrative* eLif Ramos PA-C - 01/12/2024 11:15 AM EST Images from the original note were not included. [facility] Follow up/ Established patient visit Date of last visit : 10/12/2023 IMPRESSION: Obstructive sleep apnea syndrome (primary encounter [...] of RBD, however severityof SDB renders evaluation inadequate; auto BiPAP with IPAP max 25, EPAP min 9, and pressure support4 recommended with close clinical follow-up; 4% hypopnea scoring; BMI 32.8. He was set-up with AutoBiPAP through [facility]. There is no remote access set-up for device; per DME, they need 3 digit code from Auto BiPAP device. Per , his new mask (F30) is working much better w/o noisiness. He is not having yelling/making noises during the night, and no recent DEBs. He had a recent CA (07/2023) and his EDS is somewhat worse [...] code - I will send you a hiyalife message when the download is received, letting you know if any changes to your settings are needed/recommended - Remember to clean your mask and equipment regularly, as directed. - Avoid use of ozone senior sql developer, SoClean devices, or UV cleaning devices - [...] rails - Follow-up 3 months Christiana Ewing APRN.ELECTRIC ORGAN ASSEMBLER AND CHECKER HPI: Matthew Garza is a pleasant 68 year old male with PMH of JATINDER on BiPAP, PD, cervical stenosis, tremor, HTN, JATINDER, and class I obesity. PSG on 06/17/2023 revealed an AHI of 66.8 and a low SaO2 of 75%.He presents today with his . He has been sleeping better with his device. rAHI is down from hisprevious appointments but still slightly elevated at 13.5 Interval history : Pt has been sleeping much better with his new device. There is excessive leak noted on his report, however this has not been waking him at night. rAHI is elevated at 13.5. We stilldo not have remote access to his compliance data but he brought his machine to the appt and I manually accessed his info. Here for follow up for JATINDER/CSA/BiPAP management SLEEP APNEA Sleep apnea type : JATINDER, and CSA Most Recent Apnea-Hypopnea Index (AHI): 66.8 Treatment : PAP therapy DME: [facility] History: Uses Bilevel PAP for 7 hours per night, 7 nights per week. Current PAP setting: Auto bilevel PAP: max IPAP 25 cmH20; min EPAP 9 cmH20; pressure support 4 cmH20 Difficulties with Bilevel PAP: None Reviewed objective PAP compliance data: Yes Compliance download date: Percentage > 4 hours: 100% (100% total usage) Average use: 7 hours 5 minutes Leaks 89 L/min. Residual AHI 13.5 Mask type: full face mask, Resmed F30 Mask issues: air leak Uses chin strap: No Uses ramp function:yes Uses humidity: Yes There is a perceived benefit by the patient: Observers report abolition of snoring and respiratory events with Bilevel PAP use. SLEEP HYGIENE QUESTIONS: Bedtime : 10-11pm Wake up Time : 8am Time it takes to fall sleep : Less than 5 minutes when he uses his device Activities in bed before falling asleep : 0-1 Number of times patient wakes up per night : 1 Reason (s) why patient wakes up during the night : to urinate Estimated total sleep time ( in a 24 hour period of time) : 8-9 hours Naps : Yes, 1-2 hours, feels much better PATIENT-ENTERED QUESTIONNAIRE SLEEP SCORES PMH, PSH, SH: Reviewed SLEEP RELATED ROS Review of Systems Constitutional: Positive for fatigue. Cardiovascular: Negative for chest pain and palpitations. Genitourinary: Positive for nocturia. Neurological: Negative for memory loss. ALLERGIES No Known Allergies CURRENT MEDICATIONS: acetaminophen-codeine (TYLENOL-COD #3) 300-30 mg per tablet aspirin, enteric coated (ASPIRIN, ENTERIC COATED) 81 mg EC tablet Take 81 mg by mouth once daily. atorvastatin (LIPITOR) 80 mg tablet Take 80 mg by mouth once daily. nitroglycerin sublingual (NITROQUICK) 0.4 mg SL tablet Q5M losartan (COZAAR) 25 mg tablet Take 25 mg by mouth every morning. ticagrelor (BRILINTA) 90 mg tablet two times a day. glucosam/chond-msm1/C/jaya/bor (JLJTOEUNLML-FPJHI-CQA COMPLEX ORAL) Take 2 tablets by mouth once daily. CPAP/BIPAP/OTHER REPLACEMENT BIPAP DEVICE: BIPAP with settings of 25/21 cm H2O. Dx: Obstructive Sleep Apnea G47.33 [facility] Fax: Fax download reports to [phone]. bisoprolol-hydroCHLOROthiazide (ZIAC) 10-6.25 mg per tablet Take 1 tablet by mouth every morning. BIPAP carbidopa-levodopa (SINEMET) 25-100 mg per tablet Take 1/2 pill three times per day for 1 week, then increase to 1 pill three times per day (Patient not taking: Reported on 01/12/2024) CPAP/BIPAP/OTHER Type .CPAPSettings into a note to see current settings/supplies/DME information. (Patient not taking: Reported on 01/12/2024) CPAP/BIPAP/OTHER Type .CPAPSettings into a note to see current settings/supplies/DME information. (Patient not taking: Reported on 01/12/2024) Prior Hypersomnia/Narcolepsy Medications (20 years) No data to display Prior Insomnia Medications (last 20 years) No data to display PHYSICAL EXAMINATION: General appearance: NAD, well groomed HEENT: Normocephalic, atraumatic Neuro: Awake, alert, memory grossly intact, speech is fluent Respiratory: No increased work of breathing; able to speak in complete sentences Psych: Appropriate, normal affect IMPRESSION: Obstructive sleep apnea syndrome (primary encounter diagnosis) 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 Matthew Garza is a pleasant 68 year old male with PMH of JATINDER on BiPAP, PD, cervical stenosis, tremor,HTN, JATINDER, and class I obesity. Updated Split Study with RBD protocol was [...] of RBD, however severityof SDB renders evaluation inadequate; auto BiPAP with IPAP max 25, EPAP min 9, and pressure support4 recommended with close clinical follow-up; 4% hypopnea scoring; BMI 32.8. He was set-up with [facility]PAP through [facility]. He presents with his for follow-up. He is using his device nightly and is sleep well with it. Unfortunately, we still do not have remote access to his compliance data. We will reach out to [facility] (Phone Fax ) regarding this. rAHI is elevated at 13.5. I suspect this is due to significant leak- 89L/min. The patient was advised to switch out his supplies and start using a new mask/headgear. He understands that a titration study may be the next step should his AHI remain elevated. No recent DEBs. The patient's says Matthew energy level and sleep quality are both better when heuses his device. PLAN: - Continue Auto Bilevel PAP at IPAP max 25 cmH2O, EPAP min 9 cmH2O, PS 4 cmH2O -We will fax an order for supplies to : [facility] (Phone Fax ) Remember to clean your mask and equipment regularly, as directed. - Avoid use of ozone senior sql developer, SoClean devices, or UV cleaning devices - [...] needed. - Order will be sent to [employer] for supplies: [facility] (Phone Fax ) Bedroom Safety Measures: Removing sharp objects and weapons from room you're sleeping in Move furniture and clutter from the room or away from the bed so you don't run into anything. Make sure windows and doors are locked Sleep away from your partner if symptoms are dangerous for them Can lower bed closer to the ground or get bed rails Follow-up in 6 months. Leif Ramos PA-C I spent a total of 35 minutes on the date of the service which included preparing to see the patient, [id number] patient care, completing clinical documentation, obtaining and/or reviewing separately obtained history, communicating results to the patient/family/caregiver, and care coordination (no t separately reported). documented in this encounterC[facility]11-[facility] NoteHNO ID: [id number] Author: LEIF RAMOS PA-C Service: ? Author Type: Physician Intelligence Operations Type: Progress Notes Filed: 01/13/2024 10:35 Note Text: [facility] Follow up/ Established patient visit Date of last visit : 10/12/2023 IMPRESSION: Obstructive sleep apnea syndrome (primary encounter [...] no recent DEBs. He had a recent CA (07/2023) and his EDS is somewhat worse since that time. He is dozing on and off throughout the day. PLAN: - Continue Auto Bilevel PAP at IPAP max 25 cmH2O, EPAP min 9 cmH2O, PS 4 cmH2O - I will request a download from your DME company: [facility] (Phone ? Fax ) - You will need to provide them with your 3-digit device code - I will send you a hiyalife message when the download is received, letting you know if any changes to your settings are needed/recommended - Remember to clean your mask and equipment regularly, as directed. - Avoid use of ozone senior sql developer, SoClean devices, or UV cleaning devices - [...] needed. - Order will be sent to [employer] [facility] for supplies: [facility] (Phone ? Fax ) - Let DME know if [...] rails - Follow-up 3 months Christiana Ewing APRN.ELECTRIC ORGAN ASSEMBLER AND CHECKER HPI: Matthew Garza is a pleasant 68 year old male with PMH of JATINDER on BiPAP, PD, cervical stenosis, tremor, HTN, JATINDER, and class I obesity. PSG on 06/17/2023 revealed an AHI of 66.8 and a low SaO2 of 75%. He presents today with his . He has been sleeping better with his device. rAHI is down from his previous appointments but still slightly elevated at 13.5 Interval history : Pt has been sleeping much better with his new device. There is excessive leak noted on his report, however this has not been waking him at night. rAHI is elevated at 13.5. We still do not have remote access to his compliance data but he brought his machine to the appt and I manually accessed his info. Here for follow up for JATINDER/CSA/BiPAP management SLEEP APNEA Sleep apnea type : JATINDER, and CSA Most Recent Apnea-Hypopnea Index (AHI): 66.8 Treatment : PAP therapy DME: [facility] History: Uses Bilevel PAP fo (more content not included)...[facility] 01-01[facility] History of Present illness Narrative* Matthew Collazo MD - 01/01/2024 9:00 AM EDT Subjective SUBJECTIVE: Patient ID: Matthew Garza is a 68 y.o. male who presents for a Medicare Annual Wellness exam. Comes in for wellness. Followed by Neurology related to mild cognitive impairment and associated Parkinson's disease. Followed by Cardiology. A couple of weeks ago he had a single episode of gross hematuria not associated with any pain or dysuria. He has not had recurrence. He is on antiplatelet agents and has a history of kidney stones. The following portions of the patient's history were reviewed and updated as appropriate: allergies, current medications, past family history, past medical history, past social history, past surgicalhistory and problem list. AWV FLOWSHEET : Lifestyle Assessment Do you smoke or use smokeless tobacco?: No If you smoke or use smokeless tobacco, are you ready to quit?: NA Are you exposed to secondhand smoke?: No On average, how many drinks of alcohol do you consume in a week?: 1 or less Do you exercise for 30 or more minutes on average at least 3 days a week?: Always Do you have any tooth, denture, or oral problems?: (!) Yes (i have a upper plate) Do you snore or has anyone told you that you snore?: (!) Yes Do you try to eat a balanced diet?: Yes Do you experience leakage of urine, also known as urinary incontinence?: Never Do you have difficulty performing any of these activities? (check all that apply): None Do you have difficulty performing any of these activities? (check all that apply): None Fall Risk Fall Risk Assessment Completed?: Yes Have you fallen in the past year?: (!) Yes How many times?: 1 Were you injured?: No (right sprain) Are you worried about falling?: No Do you feel unsteady when standing or walking?: No Risk Stratification: Moderate Risk Depression Screening Little interest or pleasure in doing things: Not at all Feeling down, depressed, or hopeless: Not at all Trouble falling or staying asleep, or sleeping too much: (!) More than half the days Feeling tired or having little energy: Not at all Poor appetite or overeating: Not at all Feeling bad about yourself - or that you are a failure or have let yourself or your family down: Not at all Trouble concentrating on things, such as reading the newspaper or watching television: Not at all Moving or speaking so slowly that other people could have noticed. Or the opposite - being so fidgety or restless that you have been moving around a lot more than usual: (!) Several days Thoughts that you would be better off , or of hurting yourself in some way: Not at all PEG Scale What number best describes your pain on average in the past week?: 0 - No pain What number best describes how, during the past week, pain has interfered with your enjoyment of life?: 0 - Does not interfere What number best describes how, during the past week, pain has interfered with your general activity?: 0 - Does not interfere PEG Pain Total Score: 0 Safety Assessment Do you have throw rugs on the floor?: (!) Yes Do you feel safe at your home?: Yes Do you feel unsteady when walking?: No Are you having difficulty with driving?: No Do you have trouble seeing?: No What assistive device do you use? (check all that apply): None Hearing Assessment Do you strain or struggle to hear/understand conversations?: (!) Yes Do you have trouble hearing the television or radio when others do not?: No Does your family ever voice concerns about your hearing?: (!) Yes Do you wear hearing aid/s?: No Personal Health During the past 4 weeks, how would you rate your overall health?: Good Do you understand how to take all of your medications?: Yes How confident are you that you can control and manage most of your health problems?: (!) Somewhat confident In the past 12 months, how many times have you been hospitalized?: (!) One End of Life Planning Do you have a living will?: (!) No Do you have a durable power of counter top maker?: (!) No Cognitive Screening Do you have trouble remembering or recalling facts or events?: (!) Yes Do family members or caregivers report that you have difficulty remembering things?: (!) Yes Clock Drawing Test: Normal REVIEW OF SYSTEMS: Review of Systems Constitutional: Negative for unexpected weight change. HENT: Negative for trouble swallowing and voice change. He does not hear very well Eyes: Negative for visual disturbance. Respiratory: Negative for cough and shortness of breath. Cardiovascular: Negative for chest pain and leg swelling. Gastrointestinal: Negative for abdominal pain and blood in stool. Genitourinary: Negative for difficulty urinating. Neurological: Negative for dizziness, light-headedness and headaches. Objective PHYSICAL EXAMINATION: Vitals: 01/01/24 0902 BP: 160/75 Pulse: 50 Weight: 93.1 kg (205 lb 3.2 oz) Height: 174 cm (5' 8.5 ) Physical Exam Constitutional: Comments: Blood pressure above ideal target. HENT: Right Ear: Tympanic membrane and ear canal normal. Left Ear: Tympanic membrane and ear canal normal. Nose: No congestion. Mouth/Throat: Pharynx: Oropharynx is clear. Eyes: General: No scleral icterus. Pupils: Pupils are equal, round, and reactive to light. Neck: Vascular: No carotid bruit. Cardiovascular: Rate and Rhythm: Normal rate and regular rhythm. Heart sounds: No murmur heard. Pulmonary: Effort: Pulmonary effort is normal. Breath sounds: Normal breath sounds. Abdominal: General: There is no distension. Palpations: Abdomen is soft. Tenderness: There is no abdominal tenderness. Musculoskeletal: Right lower leg: No edema. Left lower leg: No edema. Neurological: Mental Status: He is alert. Mental status is at baseline. Assessment/Plan ASSESSMENT/PLAN Medication reviewed. Labs ordered. Specialty follow-up reviewed. Up-to-date on colon cancer screening until 2028. He needs to see audiology regarding a hearing test and possibly hearing aids. Routinefollow-up annually for wellness. Diagnoses and all orders for this visit: Routine general medical examination at a [facility] care facility Parkinson's disease with dyskinesia without fluctuating manifestations ([facility]) JATINDER (obstructive sleep apnea) Coronary artery disease involving [place] coronary artery of [place] heart without angina pectoris Essential hypertension - Comprehensive metabolic panel; Future Gross hematuria - POCT urinalysis dipstick only - Prostatic specific antigen, diagnostic; Future Hypercholesteremia - Lipid panel; Future documented in this encounterAvita Health System Galion HospitalU.S. TrailMaps [facility] [id number] History of Present illness Narrative* Osei Liu, RT(R) - 12/10/2023 9:30 AM EDT RADIOLOGY SERVICE PROGRESS NOTE SERVICE DATE: 12/10/2023 SERVICE TIME: 9:46 AM PATIENT IDENTITY VERIFICATION COMPLETED USING TWO (2) STANDARD IDENTIFIERS: Name and Date of confirmed by patient verbally and Name and Date of confirmed by identification band FALL SCREENING: Has the patient had 2 falls in the last year or 1 fall with injury or currently using an Ambulatory Assistive Device (Walker, Cane, Wheelchair, Crutches, etc.)? No PATIENT GENDER DATA: .male ALLERGIES: Reviewed and unchanged MEDICATIONS REVIEWED: No PATIENT RELEVANT IMPLANT DATA REVIEWED: Not Applicable PATIENT PRESENTS WITH AN IMPLANTABLE OR ATTACHED LAUNDRY FOLDER: No CREATININE: No results found for: CREAT , EGFROTH , EGFRAA P.O.C.T. RESULTS: N/A December 10, [address] PERFORMED: No IV SITE: Ambulatory: A peripheral IV was started in the Right forearm with a Angio cath: 22 gauge. POST EXAM PIV STATUS: Discontinued PROCEDURE TYPE: NM INJECT: SIMEON scan. 5.1 mCi I 123 DatScan. No other medications given.. ADMINISTRATION TIME: 937 PATIENT DISCHARGED TO: Ambulatory patient, left [place] department area. A Diagnostic radioactive procedure has taken place, with no further precautions necessary other than routine body substance precautions. More information regarding radiation safety can be found usingthis link: [email or web address]%20Nuclear%20Medicine%[email or web address] SIGNATURE: BASSEM Chavira) PATIENT NAME: Matthew Garza DATE: December 10, 2023 TIME: 9:46 AM PAGER/CONTACT #: documented in this encounterC[facility] NoteHNO ID: [id number] Author: OSEI LIU RT (R) Service: ? Author Type: Technologist Type: Progress Notes Filed: 12/10/2023 09:47 Note Text: RADIOLOGY SERVICE PROGRESS NOTE SERVICE DATE: 12/10/2023 SERVICE TIME: 9:46 AM PATIENT IDENTITY VERIFICATION COMPLETED USING TWO (2) STANDARD IDENTIFIERS: Name and Date of confirmed by patient verbally and Name and Date of confirmed by identification band FALL SCREENING: Has the patient had 2 falls in the last year or 1 fall with injury or currently using an Ambulatory Assistive Device (Walker, Cane, Wheelchair, Crutches, etc.)? No PATIENT GENDER DATA: .male ALLERGIES: Reviewed and unchanged MEDICATIONS REVIEWED: No PATIENT RELEVANT IMPLANT DATA REVIEWED: Not Applicable PATIENT PRESENTS WITH AN IMPLANTABLE OR ATTACHED LAUNDRY FOLDER: No CREATININE: No results found for: CREAT , EGFROTH , EGFRAA P.O.C.T. RESULTS: N/A December 10, [address] PERFORMED: No IV SITE: Ambulatory: A peripheral IV was started in the Right forearm with a Angio cath: 22 gauge. POST EXAM PIV STATUS: Discontinued PROCEDURE TYPE: NM INJECT: SIMEON scan. 5.1 mCi I 123 DatScan. No other medications given.. ADMINISTRATION TIME: 937 PATIENT DISCHARGED TO: Ambulatory patient, left [place] department area. A Diagnostic radioactive procedure has taken place, with no further precautions necessary other than routine body substance precautions. More information regarding radiation safety can be found using this link: [email or web address] 20Diagnostic%20Nuclear%20Medicine%[email or web address] SIGNATURE: RT Fan(R) PATIENT NAME: Matthew Garza DATE: December 10, 2023 TIME: 9:46 AM PAGER/CONTACT #:[facility] [id number] NoteHNO ID: [id number] Author: KARL MCGREGOR PSYD Service: ? Author Type: Psychologist Type: Progress Notes Filed: 11/30/2023 08:10 Note Text: We discussed the results of his recent neuropsychological evaluation today. I explained the testing showed deficits in processing speed, attention, and semantic fluency. We also discussed his relative strengths. I explained that though testing shows some areas of significant impairment, there is not clear evidence of significant decline since testing in 2019. I provided a diagnosis of MCI. I recommended against driving. We discussed healthy living habits, such as engaging in social and cognitively stimulating activity, eating a healthy diet, and physical exercise to bolster short and usp brain health. I answered all questions and asked that they reach out with and future questions or needs. Neuropsychological evaluation services by neuropsychologist = 25 min (extension of evaluation services on 11/17/2023) Karl Mcgregor PsyD, [facility]- Neuropsychology Section Neurological [place] [facility] Telephone encounter Note* Telephone Encounter - Jimenez Fermin - 11/23/2023 10:14 AM EDT error [facility]09-16-20[facility] Miscellaneous Notes* Telephone Encounter - Tobias Fermintah - 11/23/2023 10:14 AM EDT error documented in this encounterCleveland Clinic [facility]09-10-2024 NoteHNO ID: [id number] Author: KARL MCGREGOR PSYD Service: ? Author Type: Psychologist Type: Progress Notes Filed: 11/30/2023 08:10 Note Text: [facility] Neurological [place] Section of Neuropsychology Neuropsychological Evaluation Report CONFIDENTIAL Patient: Matthew Garza Age: [age] year old : 1955 Sex: male Handedness: right-handed Date of Evaluation: 11/17/2023 History and Presenting Problem: Mr. Matthew Garza is a 68 year old man with a history of essential tremor, possibly secondary to Parkinson's disease, who presented for a neuropsychological evaluation today to assess concerns of progressive memory decline. He was accompanied by his . His records show that Sinemet has provided subjective benefit for his tremor and cognition. He had outside cognitive testing in June 2019. Per my review of the results from that evaluation, his scores showed weak attention, impaired working memory and processing speed, and deficits in aspects of verbal learning and memory. Today, he stated that he was referred to assess for dementia. He stated that he sometimes misplaces things. He will forget to shut doors. He does not lose things. He sometimes forgets small details of conversations. He has word finding difficulties, sometimes. He does well with the names of familiar family and friends. He has problems with comprehension, to which his agreed. His remote memory is good. He has reported problems with attention and concentration, but stated that his mind does not wander during conversation. He focuses when watching TV and movies and can follow the plot well. He feels cognitively slow. His stated that he always forgets to shut drawers. He will forget to put things away in the refrigerator or freezer. He puts things places where she can't find them. He has word finding difficulties in conversation. When with friends, he uses his phone rather than conversing. He will mix up the names of friends. Big picture, he feels that he may be a little slower than he should be, but that his cognition/memory is otherwise good for his age. His believes that he is worse than he should be for his age, and that others have noticed a decline too. He spends time using his phone, playing games, including Lumosity. He walks his dog daily. He reads the news online. 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 He manages the finances and his medications well with his pillbox. He drives some, locally. He has never been a good navigator, even in his own town, but this has become worse of late. He has a hard time with detours. He is denied problems with basic ADLs. Neuropsychiatric Symptoms: He described good mood. He does tend to put things off. He denied depression. He had depression and anxiety when working, related to his job. He retired June 2021. He still has some anxiety, which has always been the case. 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 He denied hallucinations. He has previously stated that he has seen flashes and squiggly lines in his periphery, though he denied this today. He denied delusions. He denied suicidal ideation. Sleep: He uses a BIPAP. He denied problems with sleep onset or maintenance. He has REM behavioral disorder (RBD), but not symptoms since using his new BIPAP machine. Medical History: He denied a history of head injury, stroke, or seizure. He had a CA in July and had a few stents placed. ACTIVE PROBLEM LIST Parkinson's Disease (Hcc) Stenosis, Cervical Spine Htn (Hypertension) Current Outpatient Medications on File Prior to Visit Medication Sig acetaminophen-codeine (TYLENOL-COD #3) 300-30 mg per tablet aspirin, enteric coated (ASPIRIN, ENTERIC COATED) 81 [...] a note to see current settings/supplies/DME information. CPAP/BIPAP/OTHER Type .CPAPSettings into a note to see current settings/supplies/DME information. glucosam/chond-msm1/C/jaya/bor (IXRJLZHUSCW-MSCZJ-HOA COMPLEX ORAL) Take 2 tablets by mouth once daily. CPAP/BIPAP/OTHER REPLACEMENT BIPAP DEVICE: BIPAP with settings of 25/21 cm H2O. Dx: Obstructive Sleep Apnea G47.33 [facility] Fax: Fax download reports to [phone]. bisoprolol-hydroCHLOROthiazide (ZIAC) 10-6.25 mg per tablet Take 1 tablet by mouth every morning. BIPAP Brain MRI 01/07/2023: Chronic Change: Scattered punctate foci of increased T2 and FLAIR signal are noted in the supratentorial white matter which is a nonspecific findin (more content not included)...[facility]09-05-2024 Miscellaneous Notes * Telephone Encounter - Rea Mullins CMA - 11/12/2023 8:43 PM EDT duplicate documented in this [facility]09-05-2024 Telephone encounter Note* Telephone Encounter - Rea Mullins CMA - 11/12/2023 8:43 PM EDT duplicate [facility]09-05-2024 Miscellaneous Notes* Telephone Encounter - Rea Mullins CMA - 11/12/2023 3:06 PM EDT Refill request documented in this [facility]09-05-2024 Telephone encounter Note* Telephone Encounter - Rea Mullins CMA - 11/12/2023 3:06 PM EDT Refill request [place] [id number] History of Present illness Narrative* Eric Montiel MD - 11/10/2023 3:30 PM EDT [facility] - FOLLOW UP EVALUATION I had the pleasure of seeing Mr. Garza for follow-up today. He is a 68 year old right-handed male with a history of tremor since 1999 or so . Subjective Previous Plan-06/09/2023 Visit: Tremor, gait disorder - Probable PD. Subjective improvement in tremors and gait. Mild objective improvements on examination today. Patient tolerating medication ok. Will Increase Sinemet 25-100mg to 1.5 tabs TID. Cognitive slowing - mild, progressive memory changes. Patient to get repeat sleep study d/t concernfor uncontrolled JATINDER. If JATINDER treatment adjustment Interval History: He is doing okay. He went on a cruise to [place]. Physically he is doing okay. He had a fall last months. Right leg folded underneath (me) . He had an X-ray, no broken bones. Still gets some tremors, though Sinemet has helped. Mostly action tremor when holding a dish. Actually he has been out of Sinemet for a couple weeks. Maybe memory worse since then. Forgets to put thing back in the fridge. Did also have a heart attack a few weeks ago. 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 He does drive, no issues he says. denies hallucinations: Patient denies sleep disturbances. 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 denies Swallowing difficulties. denies Orthostatic hypotension symptoms. Sense of smell is intact Movement Disorders Medications Schedule - as of the start of the visit: Medications Sinemet 25/100 1.5 1.5 1.5 Questionnaires: ALLERGIES No Known Allergies Current Outpatient Medications Medication Sig acetaminophen-codeine (TYLENOL-COD #3) 300-30 mg per tablet aspirin, enteric coated (ASPIRIN, ENTERIC COATED) 81 [...] a note to see current settings/supplies/DME information. CPAP/BIPAP/OTHER Type .CPAPSettings into a note to see current settings/supplies/DME information. glucosam/chond-msm1/C/jaya/bor (ACHINAMXQYX-IKKTC-FVQ COMPLEX ORAL) Take 2 tablets by mouth once daily. carbidopa-levodopa (SINEMET) 25-100 mg per tablet Take 1.5 pills, 3 times per day CPAP/BIPAP/OTHER REPLACEMENT BIPAP DEVICE: BIPAP with settings of 25/21 cm H2O. Dx: Obstructive Sleep Apnea G47.33 [facility] Fax: Fax download reports to [phone]. bisoprolol-hydroCHLOROthiazide (ZIAC) 10-6.25 mg per tablet Take 1 tablet by mouth every morning. BIPAP No current facility-administered medications for this visit. Objective Vital Signs: BP 129/64 (BP Site: Left Arm, BP Position: Sitting, BP Cuff Size: Regular Adult) Pulse 60 SpO2 98% Awake and alert Fair historian Able to spell APPLE forwards and backwards. Knows 7 quarters in $1.75. ([place] affects testing below) Movement Disorders Scales Performed: MDS-UPDRS Motor subscale condition of exam Medication Off/On/Naiive OFF Time of UPDRS Time of Last Medication Last Medication Taken DBS Right N/A DBS Left N/A MDS-UPDRS Motor subscale scores Speech 0-Normal. No speech problems. Facial Expression 1-Slight. Minimal masked facies manifested only by decreased frequency of blinking. Rigidity Neck 0-Normal. No rigidity. Rigidity Right Upper Extremity 0-Normal. No rigidity. Rigidity Left Upper Extremity 0-Normal. No rigidity. Rigidity Right Lower Extremity 2-Mild. Rigidity detected without the activation maneuver, but full range of motion is easily achieved. Rigidity Left Lower Extremity 0-Normal. No rigidity. Finger Taps Right 2-Mild. a) 3 to 5 interruptions during tapping, b) mild slowing, c) the amplitudedecrements midway in the 10-tap sequence. Finger Taps Left 2-Mild. a) 3 to 5 interruptions during tapping, b) mild slowing, c) the amplitude decrements midway in the 10-tap sequence. Hand Movements Right 2-Mild. a) 3 to 5 interruptions during the movements, b) mild slowing, c) the amplitude decrements midway in the task. Hand Movements Left 2-Mild. a) 3 to 5 interruptions during the movements, b) mild slowing, c) the amplitude decrements midway in the task. Arm Movements Right 1-Slight. a) the regular rhythm is broken with one or two interruptions or hesitations of the movement, b) slight slowing, c) the amplitude decrements near the end of the sequence. Arm Movements Left 2-Mild. a) 3 to 5 interruptions during the movements, b) mild slowing, c) the amplitude decrements midway in the sequence. Toe Taps Right 1-Slight. a) [...] end of the task. Leg Agility Left 2-Mild. a) 3 to 5 interruptions during the movements, b) mild slowness, c) the amplitude decrements midway in the task. Arise From Chair 0-Normal. No problems. Able to arise quickly without hesitation. Gait 2-Mild. Independent walking but with substantial gait impairment. Gait Freezing 0-Normal. No freezing. Posture Stability 0-Normal. No problems: recovers with one or two steps. Posture 1-Slight. Not quite erect, but posture could be normal for older person. Body Bradykinesia 1-Slight. Slight global slowness and poverty of spontaneous movements. Postural Tremor Hand Right 0-Normal. No tremor. Postural Tremor Hand Left 0-Normal. No tremor. Kinetic Tremor Right 1-Slight. Tremor is present but less than 1cm in amplitude. Kinetic Tremor Left 1-Slight. Tremor is present but less than 1cm in amplitude. Rest Tremor Amplitude Right Upper Extremity 0-Normal. No tremor. Rest Tremor Amplitude Left Upper Extremity 0-Normal. No tremor. Rest Tremor Amplitude Right Lower Extremity 0-Normal. No tremor. Rest Tremor Amplitude Left Lower Extremity 0-Normal. No tremor. Rest Tremor Amplitude Lip/Jaw 0-Normal. No tremor. Rest Tremor Constancy 0-Normal. No tremor. MDS-UPDRS Motor subscale totals Left Total 10 Right Total 10 Midline Total 5 Tremor Total / 10 2 PIGD Total / 3 2 Overall Total [...] Plan: Assessment Mr. Garza is a right-handed 68 year old year old male with possible Parkinson disease (diagnosed 2022) who presents for follow up. He has long standing ET as well. Sinemet has provided subjective benefit for his tremors (and cognition), however he has been out of the medication for several weeks andthere is no clear motor worsening of exam. Differential diagnosis includes PD vs ET plus other cause of cognitive impairment. The following are the current problems noted and addressed during this visit: Cognitive impairment Parkinsonism, unspecified parkinsonism type (hcc) (primary encounter diagnosis) Plan 11/10/2023 Visit: Probable Parkinson disease - Will obtain DaTscan for diagnostic clarity. See discussion above. Continue to hold Sinemet for now, but will resume if DaTscan is abnormal. Cognitive complaints - Will obtain neuropsych testing. He apparently had this done somewhere a few years ago and it showed mild dementia . Consider referral to brain [facility] pending results (especially if DaTscan is WNL) Follow up in 4-6 months Time spent 30 min on the day of service, which included preparing to see the patient, [id number] patient care, completing clinical documentation, obtaining and/or [...] Sincerely, Eric Montiel MD documented in this encounterC[facility]24 NoteHNO ID: [id number] Author: ERIC MONTIEL MD Service: ? Author Type: Physician Type: Progress Notes Filed: 11/10/2023 15:52 Note Text: [facility] - FOLLOW UP EVALUATION I had the pleasure of seeing Mr. Garza for follow-up today. He is a 68 year old right-handed male with a history of tremor since 1999 or so . Subjective Previous Plan-06/09/2023 Visit: Tremor, gait disorder - Probable PD. Subjective improvement in tremors and gait. Mild objective improvements on examination today. Patient tolerating medication ok. Will Increase Sinemet 25-100mg to 1.5 tabs TID. Cognitive slowing - mild, progressive memory changes. Patient to get repeat sleep study d/t concern for uncontrolled JATINDER. If JATINDER treatment adjustment Interval History: He is doing okay. He went on a cruise to [place]. Physically he is doing okay. He had a fall last months. Right leg folded underneath (me) . He had an X-ray, no broken bones. Still gets some tremors, though Sinemet has helped. Mostly action tremor when holding a dish. Actually he has been out of Sinemet for a couple weeks. Maybe memory worse since then. Forgets to put thing back in the fridge. Did also have a heart attack a few weeks ago. 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 He does drive, no issues he says. denies hallucinations: Patient denies sleep disturbances. 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 denies Swallowing difficulties. denies Orthostatic hypotension symptoms. Sense of smell is intact Movement Disorders Medications Schedule - as of the start of the visit: Medications Sinemet 25/100 1.5 1.5 1.5 Questionnaires: ALLERGIES No Known Allergies Current Outpatient Medications Medication Sig acetaminophen-codeine (TYLENOL-COD #3) 300-30 mg per tablet aspirin, enteric coated (ASPIRIN, ENTERIC COATED) 81 [...] a note to see current settings/supplies/DME information. CPAP/BIPAP/OTHER Type .CPAPSettings into a note to see current settings/supplies/DME information. glucosam/chond-msm1/C/jaya/bor (UQMYVWPUUNF-FLFYJ-GMP COMPLEX ORAL) Take 2 tablets by mouth once daily. carbidopa-levodopa (SINEMET) 25-100 mg per tablet Take 1.5 pills, 3 times per day CPAP/BIPAP/OTHER REPLACEMENT BIPAP DEVICE: BIPAP with settings of 25/21 cm H2O. Dx: Obstructive Sleep Apnea G47.33 DME: [facility] Fax: Fax download reports to [phone]. bisoprolol-hydroCHLOROthiazide (ZIAC) 10-6.25 mg per tablet Take 1 tablet by mouth every morning. BIPAP No current facility-administered medications for this visit. Objective Vital Signs: BP 129/64 (BP Site: Left Arm, BP Position: Sitting, BP Cuff Size: Regular Adult) Pulse 60 SpO2 98% Awake and alert Fair historian Able to spell APPLE forwards and backwards. Knows 7 quarters in $1.75. ([place] affects testing below) Movement Disorders Scales Performed: MDS-UPDRS Motor subscale condition of exam Medication Off/On/Naiive OFF Time of UPDRS Time of Last Medication Last Medication Taken DBS Right N/A DBS Left N/A MDS-UPDRS Motor subscale scores Speech 0-Normal. No speech problems. Facial Expression 1-Slight. Minimal masked facies manifested only by decreased frequency of blinking. Rigidity Neck 0-Normal. No rigidity. Rigidity Right Upper Extremity 0-Normal. No rigidity. Rigidity Left Upper Extremity 0-Normal. No rigidity. Rigidity Right Lower Extremity 2-Mild. Rigidity detected without the activation maneuver, but full range of motion is easily achieved. Rigidity Left Lower Extremity 0-Normal. No rigidity. Finger Taps Right 2-Mild. a) 3 to 5 interruptions during tapping, b) mild slowing, c) the amplitude decrements midway in the 10-tap sequence. Finger Taps Left 2-Mild. a) 3 to 5 interruptions during tapping, b) mild slowing, c) the amplitude decrements midway in the 10-tap sequence. Hand Movements Right 2-Mild. a) 3 to 5 interruptions during the movements, b) mild slowing, c) the amplitude decrements midway in the task. Hand Movements Left 2-Mild. a) 3 to 5 interruptions during the movements, b) mild slowing, c) the amplitude decrements midway in the task. Arm Movements Right 1-Slight. a) the regular rhythm is broken with one or two interruptions or hesitations of the movement, b) slig (more content not included)...[facility]09-03-2024 Instructions* Patient Instructions* Eric Montiel MD - 11/10/2023 3:29 PM EDT I would recommend having a special type of brain scan done, called a DaTscan. This scan measure dopamine activity in the brain, and can help confirm whether or not someone has Parkinson's disease. Ifthis test comes back abnormal, then we will restart the Carbidopa/levodopa. For the memory changes, let's repeat the detailed memory testing, called neuropsychological testing. I have ordered this test for you. Please see me again in 4-6 months or so, but we will be in touch before then when the DaTscan is done. documented in this encounterMichael Ville [address]-06-2024 Telephone encounter Note * Telephone Encounter - Zack Wallace LPN - 10/13/2023 8:42 AM EDT Faxed order, office notes to: DME name: [facility] fax # [phone] DME Faxed info in patient's chart. [facility]08-06-2024 Miscellaneous Notes* Telephone Encounter - Zack Wallace LPN - 10/13/2023 8:42 AM EDT Faxed order, office notes to: DME name: [facility] fax # [phone] DME Faxed info in patient's chart. documented in this encounterC[facility] Instructions* Patient Instructions* Christiana Ewing APRN.ELECTRIC ORGAN ASSEMBLER AND CHECKER - 10/12/2023 2:33 PM EDT Images from the original note were not included. PATIENT INSTRUCTIONS: - Continue Auto Bilevel PAP at IPAP max 25 cmH2O, EPAP min 9 cmH2O, PS 4 cmH2O - I will request a download from your [employer] company: [facility] (Phone Fax ) - You will need to provide them with your 3-digit device code - I will send you a hiyalife message when the download is received, letting you know if any changes to your settings are needed/recommended - Remember to clean your mask and equipment regularly, as directed. - Avoid use of ozone senior sql developer, SoClean devices, or UV cleaning devices - [...] the central scheduling system for the [facility] [place] at [phone]. - Call the Sleep Disorders Center at [phone] for questions. - May use Message My Doc through hiyalife for questions. - [facility] website: [email or web address] documented in this encounterC[facility]08-[facility]-2024 NoteHNO ID: [id number] Author: CHEUVRONT, CHRISTEN, MANAGER FUND.ELECTRIC ORGAN ASSEMBLER AND CHECKER Service: ? Author Type: Nurse Practitioner Type: Progress Notes Filed: 10/12/2023 14:43 Note Text: [facility] Follow up/ Established [...] a DME (durable medical equipment) company - [facility] (Phone ? Fax ) [...] or call after you receive your machine: [phone] - Follow-up visit needs to be between [...] ground or get bed rails Christiana Ewing APRN.ELECTRIC ORGAN ASSEMBLER AND CHECKER Here for follow up for JATINDER - PAP compliance Interval history : No recent DEBs or yelling during sleep with new Auto BiPAP device. He received his new device from [facility] but they need 3 digit code to set-up remote access. Overall doing well with Auto BiPAP. He is dozing off more during the day since his recent CA in 07/2023. SLEEP APNEA Split study with expanded EMG monitoring completed 06/17/2023 showed severe JATINDER (AHI 66.8) associated with minimum oxygen saturation of 76%; CPAP titration was ini (more content not included)...[facility]08-05-[facility] History of Present illness Narrative* Christiana Ewing APRN.ELECTRIC ORGAN ASSEMBLER AND CHECKER - 10/12/2023 2:06 PM EDT Images from the original note were not included. [facility] Follow up/ Established [...] or call after you receive your machine: [phone] - Follow-up visit needs to be between [...] ground or get bed rails Christiana Ewing APRN.ELECTRIC ORGAN ASSEMBLER AND CHECKER Here for follow up for JATINDER - PAP compliance Interval history : No recent DEBs or yelling during sleep with new Auto BiPAP device. He received his new device from [employer] but they need 3 digit code to set-up remote access. Overall doing well with Auto BiPAP. He is dozing off more during the day since his recent CA in 07/2023. SLEEP APNEA Split study with [...] note to see current settings/supplies/DME information. glucosam/chond-msm1/C/jaya/bor (SQRONIUXSHF-QIGBA-MSP COMPLEX ORAL) Take 2 tablets by mouth once daily. carbidopa-levodopa (SINEMET) 25-100 mg per tablet Take 1.5 pills, 3 times per day CPAP/BIPAP/OTHER REPLACEMENT BIPAP DEVICE: BIPAP with settings of 25/21 cm H2O. Dx: Obstructive Sleep Apnea G47.33 [facility] Fax: Fax download reports to [phone]. bisoprolol-hydroCHLOROthiazide (ZIAC) 10-6.25 mg per tablet Take [...] 90.7 kg (200 lb) SpO2 98% BMI 30.41kg/m PHYSICAL EXAMINATION: General appearance: NAD, well groomed [...] of RBD, however severityof SDB renders evaluation inadequate; auto BiPAP with IPAP max 25, EPAP min 9, and pressure support4 recommended with close clinical follow-up; 4% hypopnea scoring; BMI 32.8. He was set-up with AutoBiPAP through [facility]. There is no remote access set-up for device; per DME, they need 3 digit code from Auto BiPAP device. Per , his new mask (F30) is working much better w/o noisiness. He is not having yelling/making noises during the night, and no recent DEBs. He had a recent CA (07/2023) and his EDS is somewhat worse [...] code - I will send you a hiyalife message when the download is received, letting you know if any changes to your settings are needed/recommended - Remember to clean your mask and equipment regularly, as directed. - Avoid use of ozone senior sql developer, SoClean devices, or UV cleaning devices - [...] needed. - Order will be sent to [employer] for supplies: [facility] (Phone [...] which included preparing to see the patient, [id number] patient care, completing clinical documentation, obtaining and/or reviewing separately obtained history, performing a medically appropriate examination, counseling and educating the pat ient/family/caregiver, ordering medications, tests, or procedures, and communicating results to thepatient/family/caregiver. documented in this encounterC[facility]07[facility] Miscellaneous Notes* Telephone Encounter - Rea Mullins CMA - 09/25/2023 9:48 AM EDT [facility] Telephone encounter Note* Telephone Encounter - Rea Mullins CMA - 09/25/2023 9:48 AM EDT [facility]05-28[facility] History of Present illness Narrative* Matthew Collazo MD - 08/04/2023 11:30 AM EDT Subjective Patient ID: Matthew Garza is a 68 y.o. male. He used Debrox and comes in for ear rinse. Review of Systems Objective Physical Exam HENT: Right Ear: There is impacted cerumen. Left Ear: There is impacted cerumen. Assessment/Plan Large plug of wax removed from the right ear canal with a combination of flushing and mechanical removal. Smaller amount of wax removed from the left ear canal also with flushing and mechanical removal. Both ear canals are now clear in the underlying drums appear unremarkable. His sensation of being plugged is relieved on the right but not as much on the left. He may have some water remaining in his ear canal. He will give this a few days and if he is still not hearing as well as he thinks he should he should have a hearing test through audiology. Diagnoses and all orders for this visit: Bilateral impacted cerumen documented in this encounterGe[facility]05-20-2024 History of Present illness Narrative* Matthew Collazo MD - 07/27/2023 2:15 PM EDT Subjective Patient ID: Matthew Garza is a 68 y.o. male. Comes in for hospital follow-up. He had non-STEMI and subsequent stents in his LAD. Left ventricular systolic function preserved. He is on dual antiplatelet therapy with a plan for at least 1 year. He has had no chest pain since discharge. He is not a smoker. His major complaint is hearing loss andhis wants him to see the utilities ground worker. He has a history of wax in his ears. The following portions of the patient's history were reviewed and updated as appropriate: allergies, current medications, past family history, past medical history, past social history, and problem list. Review of Systems Objective Physical Exam Constitutional: Appearance: Normal appearance. Comments: Blood pressure is reasonable. HENT: Right Ear: There is impacted cerumen. Left Ear: There is impacted cerumen. Cardiovascular: Rate and Rhythm: Normal rate and regular rhythm. Heart sounds: No murmur heard. No gallop. Pulmonary: Effort: Pulmonary effort is normal. Breath sounds: Normal breath sounds. Musculoskeletal: Right lower leg: No edema. Left lower leg: No edema. Neurological: Mental Status: He is alert. Assessment/Plan Post discharge medication and cardiology follow-up reviewed. He will use Debrox for a course and return to have his ears flushed before seeing audiology for a hearing evaluation. Diagnoses and all orders for this visit: H/O non-ST elevation myocardial infarction (NSTEMI) Coronary artery disease involving [place] coronary artery of [place] heart without angina pectoris Bilateral hearing loss, unspecified hearing loss type - Ambulatory referral to Audiology (Non-[facility]); Future documented in this encounterGe[facility]05-09-2024 Consult note Author Bebe Mojica [facility] July 16, 2023 3:18pmNote Date/TimeMay 2023 3:18pmPaul Ville [id number] Cardiology Consult Note Signed Patient: Matthew Garza MR#: [id number] 725 : 1955 Acct:[id number] Age/Sex: 68 / M Adm Date: 4 Loc: Room: 7O8885-9 Type: ADM IN Attending Dr: Matthias Mckenna MD Copies to: MD Matthew Alves MD W Scott Sheldon, DO~ Cardiology HPI History of Present Illness Consult Date: 07/16/23 Reason for Consult: Non-ST elevation CA, critical LAD and diagonal branch disease HPI: [...] HPI Constitutional Constitutional: Reports as per HPI [facility] Medical History (Updated 07/16/23 @ 13:25 by Navya Rangel MD) Collar bone fracture Rotator cuff arthropathy of right shoulder Strabismus Arthritis Sleep apnea Parkinson disease Hypertension Social History Smoking Status: Never smoker Substance Use Type: None Meds Medications and Allergies Allergies No Known Allergies Allergy (Verified 07/16/23 04:46) Home Medications bisoprolol 10 mg-hydrochlorothiazide 6.25 mg tablet 1 tab PO DAILY BLOOD PRESSURE 07/16/23 [HistoryConfirmed 07/16/23] carbidopa 25 mg-levodopa 100 mg tablet [...] x10E3/uL Lymph # (Auto) 1.5 (1.00-4.8) x10E3/uL Cooper # (Auto) 0.9 H (0.0-0.8) x10E3/uL Eos [...] By: <Electronically signed by Bebe Mojica DO> 07/16/231517 [facility] Work Phone: 1(664) 868-965505-09-2024 Consult note Author Navya Rangel [facility] July 16, 2023 1:37pmNote Date/TimeMay 2023 1:23pm[place] [address] Cardiology Consult Note Signed Patient: Matthew Garza MR#: [id number] 725 : 1955 Acct:[id number] Age/Sex: 68 / M Adm Date: 4 Loc: Room: [address] [place] [address] Type: ADM IN Attending Dr: Matthias Mckenna MD Copies to: MD Matthew Alves MD Linda Njoroge, MD~ Cardiology HPI History of Present Illness Consult Date: 07/16/23 Reason for Consult: NSTEMI HPI: Mr. Garza is a 68 year old male with PMH significant for HTN and Parkinson's disease who presented as a transfer from [place] for management of NSTEMI. He initially presented [...] received ASA and lovenox and transferred to [facility] for further evaluation. Repeat EKG here showed NSR with lateral T wave inversions. Troponin was elevatedat 2152; BNP elevated at 245. Pt remains chest pain free. Review of Systems Review of Systems All other systems reviewed & are negative unless noted below or in HPI [facility] Medical History (Updated 07/16/23 @ 13:25 by Navya Rangel MD) Collar bone fracture Rotator cuff arthropathy of right shoulder Strabismus Arthritis Sleep apnea Parkinson disease Hypertension Social History Smoking Status: Never smoker Substance Use Type: None Meds Medications and Allergies Allergies No Known Allergies Allergy (Verified 07/16/23 04:46) Home Medications bisoprolol 10 mg-hydrochlorothiazide 6.25 mg tablet 1 tab PO DAILY BLOOD PRESSURE 07/16/23 [HistoryConfirmed 07/16/23] carbidopa 25 mg-levodopa 100 mg tablet [...] x10E3/uL Lymph # (Auto) 1.5 (1.00-4.8) x10E3/uL Cooper # (Auto) 0.9 H (0.0-0.8) x10E3/uL Eos [...] disease who presented as a transfer from [place] for management of NSTEMI. Troponin at [place] was 50-->73-->180. Troponin here was 2152; BNP [...] follow Documented By: Navya Rangel MD 07/16/23 5976 Signed By: <Electronically signed by Navya Rangel MD> 07/16/23 8279 [facility] Work Phone: [phone]) 902-610105-09-2024 Procedure [facility]05-09-2024 Procedure [facility]05-09-2024 Progress note Author Matthias Mckenna [facility] July 16, 2023 11:52amNote Date/TimeMay 2023 11:[address] [address] Hospitalist Progress Note Signed Patient: Matthew Garza MR#: [id number] 725 : 1955 Acct:[id number] Age/Sex: 68 / M Adm Date: 4 Loc: 3T Room: [address] [place] [address] Type: ADM IN Attending Dr: Matthias Mckenna [...] a family history of cardiac conditions including CA in his father. He denies any current symptoms of palpitations, nausea/vomiting, chest pain currently. I did inform him that he is likely having a heart attack and we will therefore need to have him undergo cardiac catheterization for further evaluation. I did inform him that he will need to see vp lab first before this occurs. Exam Physical Exam [...] Tablet PO 07/15/24 08:59 325 mg DAILY [facility] Administration Bisoprolol Fumarate 10 mg 07/16/23 05:55 07/16/23 08:20 Bisoprolol 5 Mg Tablet PO 07/15/24 05:54 Not Given DAILY JOE Docusate Sodium 100 mg 07/16/23 05:48 Docusate 100 Mg Capsule PO 07/15/24 05:47 QHS PRN Constipation Sodium Chloride 1,000 mls @ 100 mls/hr 07/16/23 10:30 0.9% Sodium Chloride 1,000 Ml IV 07/15/24 10:29 .Q10H [facility] Miscellaneous Information 1 each 07/16/23 10:21 Consult [...] BB -SLNG and morphine PRN for pain -Software Applications Engineer on lifestyle modifications: Physical activity regimen, healthy diet, weight loss HTN- Continue bisoprolol at home dose, HCTZ is currently on hold Parkinson's disease- Neuro status at baseline. Continue Sinemet CODE STATUS: FULL CODE Documented By: Matthias Mckenna MD 4 1154 Signed By: <Electronically signed by Matthias Mckenna MD> 07/16/23 1152 [facility] Work Phone: 1(833) 809-705605-09-2024 History and physical note Author Chico Black [facility] July 16, 2023 6:13amNote Date/TimeMay 2023 6:13Deb[place]ah [place] [id number] Hospitalist H&P Signed Patient: Matthew Garza MR#: [id number] 725 : 1955 Acct:[id number] Age/Sex: 68 / M Adm Date: 4 Loc: Room: [address] [place] [address] Type: ADM INOo Attending Dr: Chico Black MD Copies to: MD Matthew Robin MD~ [facility] DATE OF EXAMINATION: 07/16/23 CHIEF COMPLAINT: chest pain HISTORY OF PRESENT ILLNESS: 68 year old man with history of HTN and parkinson's disease who presented to [place] ED complaining of chest pain starting earlier [...] for evaluation Vital signs on arrival to [place] ED were unremarkable- ECG NSR 70bpm with nonspecific abnormalities. initial troponin was 50 -> 73 -> 180 (~2-3 xULN) Pt was given ASA and enoxaparin and was transferred here for further evaluation Pt denies any current chest pain or other complaints ROS: 10 systems reviewed and were negative except as noted in the [facility] Medical History Collar bone fracture Rotator cuff [...] setting as: INPATIENT because of an expectation ofan over 2 midnight stay. Estimated length of stay (# of days): 3 Documented By: Chico Black MD 07/16/23604 Signed By: <Electronically signed by Chico Black MD> 07/16/23612 [facility] Work Phone: 1(347) 749-422805-02-2024 Telephone encounter Note* Telephone Encounter - Zack Wallace LPN - 07/09/2023 10:15 AM EDT Faxed order, office notes, demographics and sleep study to: DME name: [facility] fax # [phone] DME Faxed info in patient's chart. [facility]05-02-2024 Miscellaneous Notes* Telephone Encounter - Zack Wallace LPN - 07/09/2023 10:15 AM EDT Faxed order, office notes, demographics and sleep study to: DME name: [facility] fax # [phone] DME Faxed info in patient's chart. documented in this encounterC[facility]05-[facility] Instructions* Patient Instructions* Christiana Ewing APRN.ELECTRIC ORGAN ASSEMBLER AND CHECKER - 07/08/2023 2:30 PM EDT Images from [...] or call after you receive your machine: [phone] - Follow-up visit needs to be between [...] the central scheduling system for the [facility] [place] at [phone]. - Call the Sleep Disorders Center at [phone] for questions. - May use Message My Doc through hiyalife for questions. - [facility] website: [email or web address] n documented in this encounterC[facility]05-[facility] History of Present illness Narrative* Christiana Ewing APRN.CNP - 07/08/2023 2:17 PM EDT Images from the original note were not included. [facility] Follow up/ Established [...] device gtz off randomly. He was using [employer], but has not received supplies in a long time. His filter is extremely dirty today in office, which may be contributing to issues with device. Mask and supplies are also very dirty. He is unsure when his last sleep study was completed. He believes this was done at [facility] ([place], [place]). He was initially started on CPAP, [...] apnea. Emphasized importance of safe sleeping. PLAN: -[place] device as quickly as possible online as this will determine your spot in queue. [employer] or your [employer] medical equipment company ([employer]) will be handling replacement. [email or web address] or call [phone]. Check back frequently with the [employer] website for updates. - I will place an order for a new BiPAP device to be sent by [facility] - Continue Bilevel PAP at current settings of 25/21 cmH2O. - Clean out humidifier with soap and water and rinse well - Order new CPAP filters on 591wed - Try the new CPAP mask sample provided today - [employer] - Discussed possible diagnosis, causes, and [...] to schedule - Alternatively, you can call [phone] to schedule the test - Results are [...] to the ground or get bed rails Christen A Cheuvront, MANAGER FUND.ELECTRIC ORGAN ASSEMBLER AND CHECKER Here for follow up for JATINDER - [...] visit 04/27/2023) Device: [facility] Bilevel PAP : [id number] Settings: 25/21 cmH2O 23/30 days >=4 hours Average use: 5.0 hours Mask fit: 99% Residual AHI: 21.6 Mask: F20 Mask issues: none DME: [facility] in [place], [place] - wants to change DME PAP [...] ALLERGIES No Known Allergies CURRENT MEDICATIONS: glucosam/chond-msm1/C/jaya/bor (EHHMJCBRWIA-MCNOU-QFZ COMPLEX ORAL) Take 2 tablets by mouth once daily. carbidopa-levodopa (SINEMET) 25-100 mg per tablet Take 1.5 pills, 3 times per day CPAP/BIPAP/OTHER REPLACEMENT BIPAP DEVICE: BIPAP with settings of 25/21 cm H2O. Dx: Obstructive Sleep Apnea G47.33 DME: [employer] [facility] Fax: Fax download reports to [phone]. bisoprolol-hydroCHLOROthiazide (ZIAC) 10-6.25 mg per tablet Take [...] will have a prescription sent to a [employer] (durable medical equipment) company - [facility] [...] or call after you receive your machine: [phone] - Follow-up visit needs to be between [...] the ground or get bed rails Christiana Ewing, MANAGER FUND.JACINTA I spent a total of 37 minutes on the date of the service which included preparing to see the patient, qcem-kn-efbo patient care, completing clinical documentation, obtaining and/or reviewing separately obtained history, performing a medically appropriate examination, counseling and educating the pat ient/family/caregiver, ordering medications, tests, or procedures, and communicating results to thepatient/family/caregiver. documented in this encounterC[facility]04-[facility] History of Present illness Narrative* Evelyn Gabriel - 06/18/2023 2:45 AM EDT Sleep Study Check-In Documentation Date: June 18, 2023 Name: Matthew Garza Patient was accompanied by Self. Location: [place] Latex allergy: No Tape allergy: No Current medications were reviewed with the patient:Yes Sleep aid taken by patient for the sleep study: Plain of sleep aid: Not Applicable Procedure was explained to the patient and all questions were answered. PAP treatment discussed and shown to patient: Yes If PAP used enter mask info: Mask NameSimplus, MakeF&P MaskTypeFull Face Mask SizeMedium Knowledge Program (KP): KP was not completed in epic by patient and accepted Study type: Split Study-Polysomnogram with CPAP titration Adverse Event: No (If yes create a new abstract) Comments: Patient was advised to follow up with their ordering provider regarding test results Evelyn Norton documented in this encounterC[facility]04-03-2024 Miscellaneous Notes* Addendum Note - Eric Montiel MD - 06/10/2023 12:57 PM EDTAddended by: ERIC MONTIEL on: 06/10/2023 12:57 PM Modules accepted: Orders documented in this encounterCleveland Clinic [facility]04-02-2024 Instructions* Patient Instructions* Jesus Donald DO - 06/09/2023 4:01 PM EDT Please increase your Sinemet dose to 1.5 (one and a half) tablets, three times a day. We will have you follow up in the clinic in 4-5 months. We can discuss further memory testing if your sleep apneatreatments do not help your memories. documented in this encounterC[facility]04-02-2024 History of Present illness Narrative* Eric [...] Allergies Current Outpatient Medications Medication Sig glucosam/chond-msm1/C/jaya/bor (LIGGURRPDRH-HBULL-XWD COMPLEX ORAL) Take 2 tablets by mouth once daily. CPAP/BIPAP/OTHER REPLACEMENT BIPAP DEVICE: BIPAP with settings of 25/21 cm H2O. Dx: Obstructive Sleep Apnea G47.33 [facility] Fax: Fax download reports to [phone]. bisoprolol-hydroCHLOROthiazide (ZIAC) 10-6.25 mg per tablet Take 1 tablet by mouth every morning. BIPAP carbidopa-levodopa (SINEMET) 25-100 mg per tablet Take 1.5 pills, 3 times per day No current facility-administered medications for this visit. Objective Vital Signs: BP 132/71 (BP Site: Right Arm, BP Position: Sitting, BP Cuff Size: Regular Adult) Pulse 62 RrW200% Orthostatic Vitals: None for this encounter No [...] which included preparing to see the patient, [id number] patient care, completing clinical documentation, obtaining and/or [...] 06/10/2023 Time: 10:43 AM documented in this encounterCleveland [facility]02-19-2024 Miscellaneous Notes* Telephone Encounter - Zack Wallace LPN - 04/27/2023 4:37 PM EST Faxed order, office notes to: DME name: [facility] fax # [phone] Faxed info in patient's chart. documented in this encounterCleveland Clinic [facility]02-19-2024 Instructions* Patient Instructions* Christiana Ewing APRN.ELECTRIC ORGAN ASSEMBLER AND CHECKER - 04/27/2023 1:31 PM EST Images from the original note were not included. PLAN: -[place] device as quickly as possible online as this will determine your spot in queue. [employer] or your durable medical equipment company (DME) will be handling replacement. [email or web address].[email or web address].Futurelytics/ or call [phone]. Check back frequently with the [employer] website for updates. - I will place an order for a new BiPAP device to be sent by [employer] - Continue Bilevel PAP at current settings of 25/21 cmH2O. - Clean out humidifier with soap and water and rinse well - Order new CPAP filters on 591wed - Try the new CPAP mask sample [...] to schedule - Alternatively, you can call [phone] to schedule the test - Results are [...] treatment, there are resources available at the [facility] such as a nutrition consultation or referral to weight management programs at our [facility] [place]. Please let us know if we can assist with a referral. documented in this encounterC[facility] History of Present illness Narrative* Christiana Ewing APRN.CNP - 04/27/2023 1:00 PM EST Images from the original note were not included. [facility] New Patient Evaluation PATIENT NAME: Matthew Garza DATE OF SERVICE: April 23, 2023 CONSULTING PROVIDER: Eric Montiel [address] [facility] [address] REASON FOR CONSULT: Eric Montiel sends the [...] completed. He believes this was done at [facility] ([place], [place]). He has a Laurel BiPAP device. He was not aware this was recalled. This was received from [facility] in [place], [place]. MANUAL DATA ACCESS: Device: Laurel Bilevel PAP : [id number] Settings: 25/21 cmH2O days >=4 hours Average use: 5.0 hours Mask fit: 99% Residual AHI: 21.6 Mask: F20 Mask issues: none DME: [facility] in [place], [place] SLEEP-WAKE SCHEDULE Bedtime: 1030-11 PM. He [...] device gtz off randomly. He was using [employer], but has not received supplies in a long time. His filter is extremely dirty today in office, which may be contributing to issues with device. Mask and supplies are also very dirty. He is unsure when his last sleep study was completed. He believes this was done at [facility] ([place], [place]). He was initially started on CPAP, [...] apnea. Emphasized importance of safe sleeping. PLAN: -[place] device as quickly as possible online as this will determine your spot in queue. [employer] or your durable medical equipment company (DME) will be handling replacement. [email or web address] Comp[employer] Systems/ or call [phone]. Check back frequently with the [employer] website for updates. - I will place an order for a new BiPAP device to be sent by [employer] - Continue Bilevel PAP at current settings of 25/21 cmH2O. - Clean out humidifier with soap and water and rinse well - Order new CPAP filters on 591wed - Try the new CPAP mask sample provided today - [employer] FFM - Discussed possible diagnosis, causes, and [...] to schedule - Alternatively, you can call [phone] to schedule the test - Results are [...] Ewing APRN.JACINTA I spent a total of 55 minutes on the date of the service which included preparing to see the patient, [id number]-[id number] patient care, completing clinical documentation, obtaining and/or reviewing separately obtained history, performing a medically appropriate examination, counseling and educating the pat ient/family/caregiver, ordering medications, tests, or procedures, and communicating results to thepatient/family/caregiver. documented in this encounterC[facility]01-[facility]24 Miscellaneous Notes* Telephone Encounter - Rea Mullins CMA - 04/01/2023 9:46 AM EST [facility] Tele[facility] encounter Note* Telephone Encounter - Rea Mullins CMA - 04/01/2023 9:46 AM EST Ref[facility] request [facility]12-05-[facility] Instructions* Patient Instructions* Eric Montiel MD - [...] person or virtual visit. documented in this encounterC[facility]12-05-[facility]23 History of Present illness Narrative* Eric [...] which included preparing to see the patient, xksr-[id number] patient care, completing clinical documentation, obtaining and/or [...] Sincerely, Eric Montiel MD documented in this encounterC[facility]11-08-2023 Miscellaneous Notes* Telephone Encounter - Yanelis Sharma RN - 01/14/2023 4:38 PM EST I spoke with Vladimir and gave him results from MRI per Dr. Montiel. He was also given information to schedule in [facility]. We also scheduled a follow up appt with Dr. Montiel 02/10/2023 at 3pm. * Telephone Encounter - Yanelis Sharma RN - 01/14/2023 2:31 PM EST Message left for patient to return call to discusss results from MRI * Telephone Encounter - Yanelis Sharma RN - 01/14/2023 2:31 PM EST [...] I would recommend he meet with a mis specialist to discuss. I have placed a referral for spine surgery (neurosurgery). Eric Hough documented in this encounterC[facility]09-05-[facility]23 Instructions* Patient Instructions* Eric Montiel MD - [...] person or virtual visit. 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 NPH,and VENDING MACHINE HOST/HOSTESS vascular disease are also both in the [...] which included preparing to see the patient, [id number] patient care, completing clinical documentation, obtaining and/or [...] Sincerely, Eric Montiel MD [facility]* Diagnosis Tremor- Primary Abnormal involuntary movements Spinal stenosis of cervical region Spinal stenosis in cervical region Gait disorder Abnormality of gait documented in this encounter [facility]* Diagnosis Cervical stenosis of spine- Primary Spinal stenosis in cervical region documented in this encounter [facility]* Diagnosis Tremor- Primary Abnormal involuntary movements documented in this encounter [facility]* Diagnosis Cervical stenosis of spine Spinal stenosis in cervical region documented in this encounter [facility]* Diagnosis Obstructive sleep apnea syndrome- Primary Obstructive sleep apnea (adult) (pediatric) JATINDER treated with BiPAP Malfunction of continuous positive airway pressure (CPAP) or bilevel positive airway pressure (BPAP) machine, initial encounter Parasomnia, unspecified type Dream enactment behavior Injury while sleeping documented in this encounter [facility]* Diagnosis Parkinson's disease without dyskinesia or fluctuating manifestations (HCC)- Primary Tremor Abnormal involuntary movements Gait disorder Abnormality of gait documented in this encounter [facility]* Diagnosis Obstructive sleep apnea syndrome- Primary Obstructive sleep apnea (adult) (pediatric) JATINDER treated with BiPAP Malfunction of continuous positive airway pressure (CPAP) or bilevel positive airway pressure (BPAP) machine, initial encounter Dream enactment behavior Parkinson's disease, unspecified whether dyskinesia present, unspecified whether manifestations fluctuate (HCC) Primary hypertension Unspecified essential hypertension documented in this encounter [facility]* Diagnosis Onset Date Resolution Status Hyperlipidemia acuteHypertensionacuteNSTEMI (non-ST elevated myocardial infarction)acute Parkinson [facility]St[facility] Work Phone: Evaluation note* Diagnosis Onset Date Resolution Status Hyperlipidemia acuteHypertensionacuteParkinson diseaseacuteNSTEMI (non-ST elevated myocardial infarction)resolvedHyperlipidemiaacuteHypertensionacuteParkinson diseaseacute NSTEMI (non-ST elevated myocardial infarction)resolvedHyperlipidemiaacute HypertensionacuteParkinson diseaseacuteNSTEMI (non-ST elevated myocardial infarction)resolved [facility] Work Phone: Evaluation note* Diagnosis Obstructive sleep apnea syndrome- Primary Obstructive sleep apnea (adult) (pediatric) JATINDER treated with BiPAP Parkinson's disease, unspecified whether dyskinesia present, unspecified whether manifestations fluctuate (HCC) Myocardial infarction, unspecified CA type, unspecified artery (HCC) Obesity, Class I, BMI 30-34.9 Obesity, unspecified documented in this encounter [facility]* Diagnosis Parkinsonism, unspecified Parkinsonism type (HCC)- Primary Cognitive impairment Unspecified persistent mental disorders due to conditions classified elsewhere documented in this encounter [facility]* Diagnosis Spinal stenosis of cervical region Spinal stenosis in cervical region Gait disorder Abnormality of gait Tremor Abnormal involuntary movements documented in this encounter [facility]* Diagnosis Parkinsonism, unspecified Parkinsonism type (HCC) documented in this encounter [facility]* Diagnosis Obstructive sleep apnea syndrome- Primary Obstructive sleep apnea (adult) (pediatric) 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 documented in this encounter [facility]* Diagnosis Parkinson's disease, unspecified whether dyskinesia present, unspecified whether manifestations fluctuate (HCC)- Primary Mild cognitive impairment Mild cognitive impairment, so stated documented in this encounter [facility]* Diagnosis Onset Date Resolution Status Admit Date Hyperlipidemia acuteJanuary 2024 9:46amHypertensionacuteJanuary 2024 9:46am Parkinson diseaseacuteJanuary 2024 9:46amNSTEMI (non-ST elevated myocardial infarction)resolvedJanuary 2024 9:46am [facility] Work Phone: Evaluation note* Diagnosis Essential hypertension Unspecified essential hypertension [facility] Diagnosis H/O non-ST elevation myocardial infarction (NSTEMI)- Primary Coronary artery disease involving [place] coronary artery of [place] heart without angina pectoris Bilateral hearing loss, unspecified hearing loss type [facility]* Diagnosis Bilateral impacted cerumen- Primary Impacted cerumen [facility] Diagnosis Essential hypertension Unspecified essential hypertension [facility]* Diagnosis Routine general medical examination at a health care facility- Primary Parkinson's disease with dyskinesia without fluctuating manifestations ([facility]) JATINDER (obstructive sleep apnea) Obstructive sleep apnea (adult) (pediatric) Coronary artery disease involving [place] coronary artery of [place] heart without angina pectoris Essential hypertension Unspecified essential hypertension Gross hematuria Hypercholesteremia Pure hypercholesterolemia documented [facility]* Diagnosis Essential hypertension Unspecified essential hypertension [facility]* Diagnosis Dream enactment behavior- Primary Primary central sleep apnea Obstructive sleep apnea syndrome Obstructive sleep apnea (adult) (pediatric) documented in this encounter [facility]* Diagnosis Onset Date Resolution Status Admit Date Hyperlipidemia acuteJuly 2024 9:22amHypertensionacuteJuly 2024 9:22amParkinson diseaseacuteJuly 2024 9:22amNSTEMI (non-ST elevated myocardial infarction) resolvedJuly 2024 9:22am [facility] Work Phone: Evaluation note* Diagnosis Parkinson's disease, unspecified whether dyskinesia present, unspecified whether manifestations fluctuate (HCC)- Primary documented in this encounter [facility] note* Diagnosis Parkinson's disease, unspecified whether dyskinesia present, unspecified whether manifestations fluctuate (HCC)- Primary documented in this encounter [facility] Discharge instructions Additional Instructions DISCHARGE INSTRUCTIONS FOR [...] doctor or pharmacist, without first calling the vp lab who implanted the stent. If you require [...] weight lifting, stair steppers, etc. until the vp lab approves these activities. Check with the vp lab on your first follow-up visit. CALL YOUR ELECTRICAL EQUIPMENT TESTER: -If bleeding should occur from the catheter insertion site- apply pressure to the site then immediately call us. -Report any fever, redness, drainage, increased swelling, or firmness at the catheter insertion site. Some bruising or slight swelling may be present at the time of discharge. -Should arm or leg become cold, numb, white, or blue, contact the vp lab immediately. -IF you should experience episodes of [...] if you have recurrent angina. The attending vp lab or a nurse clinician should provide you [...] list with you to your next doctor's appointment.[facility] Work Phone: InstructionsNot on filedocumented in this encounter [facility]ructionsNot on filedocumented in this encounter [facility] SystemInstructionsNot on filedocumented in this encounter [facility] SystemInstructionsNot on filedocumented in this encounter [facility] SystemInstructionsNot on filedocumented in this encounter [facility] SystemInstructionsNot on filedocumented in this encounter [facility] SystemProgress note Author Navya Rangel [facility] July 17, 2023 2:19pmNote Date/TimeMay 2023 2:19pm[place] [address] Cardiology Progress Note Signed Patient: Matthew Garza MR#: [id number] : 1955 Acct:[id number] Age/Sex: 68 / M Adm Date: 4 Loc: Room: [address] [place] [address] Type: DIS IN Attending Dr: Matthias Mckenna [...] MPV Neut % (Auto) Lymph % (Auto) Cooper % (Auto) Eos % (Auto) Baso % (Auto) Nucleat RBC Rel Count Neut # (Auto) Lymph # (Auto) Cooper # (Auto) Eos # (Auto) Baso # (Auto) PHA Creatinine Clear Sodium Potassium Chloride Carbon Dioxide Anion Gap BUN Creatinine Est GFR (CKD-EPI) Glucose Calcium Troponin I High Sens 94339.9 H* 88187.6 H* 75903.0 H* 07/16/23 07/17/23 22:08 05:32 Corrected WBC 11.2 H Uncorrected WBC Count 11.2 H RBC 3.89 L Hgb 12.0 L Hct 36.3 L MCV 93.2 MCH 30.8 MCHC 33.0 RDW 14.2 Plt Count 219 MPV 8.0 Neut % (Auto) 79.6 Lymph % (Auto) 9.4 Cooper % (Auto) 10.4 Eos % (Auto) 0.4 Baso % (Auto) 0.2 Nucleat RBC Rel Count 0.1 Neut # (Auto) 8.9 H Lymph # (Auto) 1.1 Cooper # (Auto) 1.2 H Eos # (Auto) 0.0 Baso # (Auto) 0.0 PHA Creatinine Clear 72.47 Sodium 136 Potassium 4.3 Chloride 102 Carbon Dioxide 23.3 Anion Gap 15.0 BUN 18 Creatinine 1.17 Est GFR (CKD-EPI) > 60.0 Glucose 99 Calcium 9.1 Troponin I High Sens 94699.3 H* 7506.4 H* A&P - Cardiology (1) [...] disease who presented as a transfer from [facility] for management of NSTEMI. Troponin at [facility] was 50-->73-->180. Troponin here was 2152; BNP elevated at 245. Repeat EKG here showed NSR with lateral T wave inversions. Assessment: NSTEMI HTN HLD Parkinson's disease Recommendations: - LHC showed total occlusion diagonal branch and severe proximal/mid LAD disease. Pt is s/p successful bifurcation PCI ostial-proximal diagonal and proximal/mid LAD with 2.5 x 22 and 3.5 x 38 mm Onyxstents respectively. - Echo 07/16/2023 showed normal LVEF [...] rehab on discharge - Follow up with [facility] cardiology in 2 weeks. Documented By: Navya Rangel MD 07/17/23 1411 Signed By: <Electronically signed by Navya Rangel MD> 07/17/23 1419 [facility] Work Phone: Reason for referral (narrative)* Diagnostic Procedure Only (Routine) - ClosedSpecialtyDiagnoses / ProceduresReferred By Contact Referred To ContactXR IMAGING Diagnoses Cervical stenosis of spine Procedures XR CERVICAL 2V FLEX/EXT RADEX SPINE CERVICAL 2 OR 3 VIEWS Vivian Tran, MANAGER FUND.ELECTRIC ORGAN ASSEMBLER AND CHECKER [address] [place] [address] Xr Imaging [facility] Referral IDStatusReasonStart DateExpiration DateVisits RequestedVisits [id number] Auto-Generated Referral 12 [facility] for referral (narrative)* Diagnostic Procedure Only (Routine) - New RequestSpecialtyDiagnoses / ProceduresReferred By Contact Referred To ContactMOLECULAR & FUNCTIONAL IMAGING Diagnoses Parkinsonism, unspecified Parkinsonism type (HCC) Procedures NM BRAIN TREMOR SPECT/CT RP LOCLZJ JO ANN SPECT W/CT 1 AREA 1 DAY IMAGING Eric Montiel MD [address] [place] [address] Molecular & Functional Imaging [address] [place] [address] Referral IDStaHenry [facility] DateExpiration DateVisits RequestedVisits [id number] Request Auto-Generated Referral / * Transition of Care (Routine) - Ref Not RequiredSpecialtyDiagnoses / Procedures Referred By ContactReferred To Contact Diagnoses Cognitive impairment Procedures NEUROPSYCHOLOGICAL TESTING CONSULT NEUROBEHAVIORAL STATUS XM PHYS/QHP 1ST HOUR NEUROPSYCHOLOGICAL TST EVAL PHYS/QHP 1ST HOUR NEUROPSYCHOLOGICAL TST EVAL PHYS/QHP EA ADDL HR PSYCL/NRPSYCL TST TECH 2+ TST 1ST 30 MIN PSYCL/NRPSYCL TST TECH 2+ TST EA ADDL 30 MIN Eric Montiel MD [address] [place] [phone] Referral IDStatusReasonHustle DateExpiration DateVisits RequestedVisits [id number] Not Required PCP Requested Referral [facility] for referral (narrative)* Diagnostic Procedure Only (Routine) - ClosedSpecialtyDiagnoses / ProceduresReferred By ContactReferred To ContactMOLECULAR & FUNCTIONAL IMAGING Diagnoses Parkinsonism, unspecified Parkinsonism type (HCC) Procedures NM BRAIN TREMOR SPECT/CT RP LOCLZJ J OANN SPECT W/CT 1 AREA 1 DAY IMAGING Eric Montiel MD [address] [place] [address] Molecular & Functional Imaging [address] [place] [address] Referral IDStatusReasonStleawood DateExpiration DateVisits RequestedVisits [id number] Auto-Generated Referral / [facility] HospitalReason for referral (narrative)* Consultation (Routine) - Pending ReviewSpecialtyDiagnoses / ProceduresReferred By ContactReferred To ContactAudiology Diagnoses Bilateral hearing loss, unspecified hearing loss type Matthew Collazo MD [address] [place] [address], [address] [place] [address] Referral IDStatusReasonHustle DateExpiration DateVisits RequestedVisits [id number] Review Specialty Services Required / [facility] for referral (narrative)No reason for referral information availableFairfield Medical Center Work Phone: Reason for visit Narrative* Diagnostic Procedure Only (Routine) - ClosedSpecialtyDiagnoses / ProceduresReferred By ContactReferred To ContactMOLECULAR & FUNCTIONAL IMAGING Diagnoses Parkinsonism, unspecified Parkinsonism type (HCC) Procedures NM BRAIN TREMOR SPECT/CT RP LOCLZJ JO ANN SPECT W/CT 1 AREA 1 DAY IMAGING Eric Montiel MD [address] [phone] Molecular & Functional Imaging [address] [place] [address] Referral IDStatusReasonStleawood DateExpiration DateVisits RequestedVisits [id number] Auto-Generated Referral [facility] Summary Purpose Family History Relationship Condition Age at Onset Recorded Date/T shankar father Myocardial infarction Unknown Not SpecifiedMyocardial infarctionUnknown Relationship Condition Age at Onset Recorded Date/T shankar father Myocardial infarction Unknown motherMyocardial infarctionUnknown Advance Directives Advance Directive Response Recorded Date/ Time Advance Directives No February 12:58pm Advance Directive Response Recorded Date/ Time Advance Directives No February 11:58am Reason for Referral SpecialtyDiagnoses / ProceduresReferred By ContactReferred To ContactMR IMAGING Diagnoses Gait disorder Tremor Procedures MRI BRAIN WO IVCON MRI BRAIN BRAIN STEM W/O CONTRAST MATERIAL Eric Montiel MD [address] [place] [address] Mr [facility] [place] [address] Referral IDStatusReasonStart DateExpiration DateVisits RequestedVisits [id number] Review Auto-Generated Referral /[id number] / ProceduresReferred By ContactReferred To ContactMR IMAGING Diagnoses Spinal stenosis of cervical region Procedures MRI CERVICAL SPINE WO IVCON MRI SPINAL CANAL CERVICAL W/O CONTRAST MATRL Eric Montiel MD [address] [place] [address] Mr [facility] [place] [address] Referral IDStatusReasonStart DateExpiration DateVisits RequestedVisits [id number] Review Auto-Generated Referral /[id number] / ProceduresReferred By ContactReferred To ContactNeurosurgery Diagnoses Cervical stenosis of spine Procedures CONSULT TO NEUROSURGERY OFFICE/OUTPATIENT [facility] 60-74 MINUTES Eric Montiel MD [address] [place] [address] Referral IDStatusReasonStart DateExpiration DateVisits RequestedVisits [id number] PCP Requested Referral /[id number] / ProceduresReferred By ContactReferred To Contact Diagnoses Parkinson's disease without dyskinesia or fluctuating manifestations (HCC) Procedures PROVIDER ORDERED FOLLOW UP OFFICE/OUTPATIENT [facility] 60 MINUTES Eric Montiel MD [address] [place] [address] Referral IDStatusReasonStart DateExpiration DateVisits RequestedVisits [id number] PCP Requested Referral /[id number] IDStatusReasonStart DateExpiration DateVisits RequestedVisits [id number] Auto-Generated Referral /[id number] IDStatusReasonStart DateExpiration DateVisits RequestedVisits [id number] Auto-Generated Referral / Chief Complaint and Reason for Visit Chief Complaint Chest Pain,elevated troponin Chest Pain,elevated troponinReason for VisitHyperlipidemia Hypertension NSTEMI (non-ST elevated myocardial infarction) Parkinson disease Chief Complaint Chest Pain,elevated troponin Chest Pain,elevated troponin Amb Documentation TCMReason for VisitHyperlipidemia Hypertension NSTEMI (non-ST elevated myocardial infarction) Parkinson disease Chief Complaint Chest Pain,elevated troponin Chest Pain,elevated troponin Amb Documentation TCM 2 MonthsReason for VisitHyperlipidemia Hypertension Parkinson disease NSTEMI (non-ST elevated myocardial infarction) Hyperlipidemia Hypertension Parkinson disease NSTEMI (non-ST elevated myocardial infarction) Hyperlipidemia Hypertension Parkinson disease NSTEMI (non-ST elevated myocardial infarction) Chief Complaint Admit Date 6 Months April 01, 2024 9 :46am Reason for Visit Admit Date Hyperlipidemia April 01, 2024 9 :46am Hypertension April 01, 2024 9 :46am Parkinson disease April 01, 2024 9 :46am NSTEMI (non-ST elevated myocardial infar ction) April 01, 2024 9:46am Chief Complaint Admit Date 6 months September 16, 2024 9:22 am Reason for Visit Admit Date Hyperlipidemia September 16, 2024 9:22 am Hypertension September 16, 2024 9:22 am Parkinson disease September 16, 2024 9:22 am NSTEMI (non-ST elevated myocardial infar ction) September 16, 2024 9:22am Additional Source Comments (unrecognized sect ion and content) No Status Records FoundNo Status Records FoundNo Status Records FoundNo Status Records FoundNo Status Records FoundNo Status Records FoundNo Status Records FoundNo Status Records Found INFORMATION SOURCE (unrecogn ized section and content) DATE CREATED AUTHOR 02/09/2020 [facility] DATE CREATED AUTHOR AUTHOR'S ORGANIZ ATION 07/26/2021 [facility] DATE CREATED AUTHOR AUTHOR'S ORGANIZ ATION 08/02/2023 [facility] DATE CREATED AUTHOR AUTHOR'S ORGANIZ ATION 10/23/2023 [facility] DATE CREATED AUTHOR AUTHOR'S ORGANIZ ATION 12/12/2023 [facility] DATE CREATED AUTHOR AUTHOR'S ORGANIZ ATION 01/02/2024 [facility] DATE CREATED AUTHOR AUTHOR'S ORGANIZ ATION 01/03/2024 [facility] DATE CREATED AUTHOR AUTHOR'S ORGANIZ ATION 10/10/2024 [facility] Source Comments (unrecognize d section and content) In the event this informatio n is protected by the Federal Confidentiality of Alcohol and Drug Abuse Patient Records regulations: The Federal rules restrict any use of the information to criminally investigate or prosecute any alcohol or drug abuse patient.[facility] HospitalIn the event this information is protected by the Federal Confidentiality of Alcohol and Drug Abuse Patient Records regulations: The Federal rules restrict any use of the information to criminally investigate or prosecute any alcohol or drug abuse patient.[facility] HospitalIn the event this information is protected by the Federal Confidentiality of Alcohol and Drug Abuse Patient Records regulations: The Federal rules restrict any use of the information to criminally investigate or prosecute any alcohol or drug abuse patient.[facility] HospitalIn the event this information is protected by the Federal Confidentiality of Alcohol and Drug Abuse Patient Records regulations: The Federal rules restrict any use of the information to criminally investigate or prosecute any alcohol or drug abuse patient.[facility] HospitalIn the event this information is protected by the Federal Confidentiality of Alcohol and Drug Abuse Patient Records regulations: The Federal rules restrict any use of the information to criminally investigate or prosecute any alcohol or drug abuse patient.[facility] HospitalIn the event this information is protected by the Federal Confidentiality of Alcohol and Drug Abuse Patient Records regulations: The Federal rules restrict any use of the information to criminally investigate or prosecute any alcohol or drug abuse patient.[facility] HospitalIn the event this information is protected by the Federal Confidentiality of Alcohol and Drug Abuse Patient Records regulations: The Federal rules restrict any use of the information to criminally investigate or prosecute any alcohol or drug abuse patient.[facility] HospitalIn the event this information is protected by the Federal Confidentiality of Alcohol and Drug Abuse Patient Records regulations: The Federal rules restrict any use of the information to criminally investigate or prosecute any alcohol or drug abuse patient.[facility] HospitalIn the event this information is protected by the Federal Confidentiality of Alcohol and Drug Abuse Patient Records regulations: The Federal rules restrict any use of the information to criminally investigate or prosecute any alcohol or drug abuse patient.[facility] HospitalIn the event this information is protected by the Federal Confidentiality of Alcohol and Drug Abuse Patient Records regulations: The Federal rules restrict any use of the information to criminally investigate or prosecute any alcohol or drug abuse patient.[facility] HospitalIn the event this information is protected by the Federal Confidentiality of Alcohol and Drug Abuse Patient Records regulations: The Federal rules restrict any use of the information to criminally investigate or prosecute any alcohol or drug abuse patient.[facility] HospitalIn the event this information is protected by the Federal Confidentiality of Alcohol and Drug Abuse Patient Records regulations: The Federal rules restrict any use of the information to criminally investigate or prosecute any alcohol or drug abuse patient.[facility] HospitalIn the event this information is protected by the Federal Confidentiality of Alcohol and Drug Abuse Patient Records regulations: The Federal rules restrict any use of the information to criminally investigate or prosecute any alcohol or drug abuse patient.[facility] HospitalIn the event this information is protected by the Federal Confidentiality of Alcohol and Drug Abuse Patient Records regulations: The Federal rules restrict any use of the information to criminally investigate or prosecute any alcohol or drug abuse patient.[facility] HospitalIn the event this information is protected by the Federal Confidentiality of Alcohol and Drug Abuse Patient Records regulations: The Federal rules restrict any use of the information to criminally investigate or prosecute any alcohol or drug abuse patient.[facility] HospitalIn the event this information is protected by the Federal Confidentiality of Alcohol and Drug Abuse Patient Records regulations: The Federal rules restrict any use of the information to criminally investigate or prosecute any alcohol or drug abuse patient.[facility] HospitalIn the event this information is protected by the Federal Confidentiality of Alcohol and Drug Abuse Patient Records regulations: The Federal rules restrict any use of the information to criminally investigate or prosecute any alcohol or drug abuse patient.[facility] HospitalIn the event this information is protected by the Federal Confidentiality of Alcohol and Drug Abuse Patient Records regulations: The Federal rules restrict any use of the information to criminally investigate or prosecute any alcohol or drug abuse patient.[facility] HospitalIn the event this information is protected by the Federal Confidentiality of Alcohol and Drug Abuse Patient Records regulations: The Federal rules restrict any use of the information to criminally investigate or prosecute any alcohol or drug abuse patient.[facility] HospitalIn the event this information is protected by the Federal Confidentiality of Alcohol and Drug Abuse Patient Records regulations: The Federal rules restrict any use of the information to criminally investigate or prosecute any alcohol or drug abuse patient.[facility] HospitalIn the event this information is protected by the Federal Confidentiality of Alcohol and Drug Abuse Patient Records regulations: The Federal rules restrict any use of the information to criminally investigate or prosecute any alcohol or drug abuse patient.[facility] HospitalIn the event this information is protected by the Federal Confidentiality of Alcohol and Drug Abuse Patient Records regulations: The Federal rules restrict any use of the information to criminally investigate or prosecute any alcohol or drug abuse patient.[facility] HospitalIn the event this information is protected by the Federal Confidentiality of Alcohol and Drug Abuse Patient Records regulations: The Federal rules restrict any use of the information to criminally investigate or prosecute any alcohol or drug abuse patient.[facility] HospitalIn the event this information is protected by the Federal Confidentiality of Alcohol and Drug Abuse Patient Records regulations: The Federal rules restrict any use of the information to criminally investigate or prosecute any alcohol or drug abuse patient.[facility] HospitalIn the event this information is protected by the Federal Confidentiality of Alcohol and Drug Abuse Patient Records regulations: The Federal rules restrict any use of the information to criminally investigate or prosecute any alcohol or drug abuse patient.[facility] HospitalIn the event this information is protected by the Federal Confidentiality of Alcohol and Drug Abuse Patient Records regulations: The Federal rules restrict any use of the information to criminally investigate or prosecute any alcohol or drug abuse patient.[facility] HospitalIn the event this information is protected by the Federal Confidentiality of Alcohol and Drug Abuse Patient Records regulations: The Federal rules restrict any use of the information to criminally investigate or prosecute any alcohol or drug abuse patient.[facility] Reason for Visit (unrecogniz ed section and content) ReasonCommentsNew PatientNew Patient EvaluationSpecialtyDiagnoses / Procedures Referred By ContactReferred To ContactNeurology / NEUROLOGICAL SCIENTOLOGIST Diagnoses Essential tremor essential tremor Procedures [facility] HealthMatthew [address] [place] [address], [address] [place] [address] Eric Montiel MD [address] [place] [address] Referral IDStatusReasonStart DateExpiration DateVisits RequestedVisits [id number]/25/202312/[id number] CommentsEstablished PatientFOLLOW UPSpecialtyDiagnoses / ProceduresReferred By ContactReferred To ContactNeurology / NEUROLOGICAL SCIENTOLOGIST Diagnoses FOLLOW UP Procedures OFFICE/OUTPATIENT ESTABLISHED HIGH MDM 40-54 MIN EST PATIENT Eric Montiel MD [address] [place] [address] Eric Montiel MD [address] [place] [address] Referral IDStatusReasonStart DateExpiration DateVisits RequestedVisits [id number]/29/202312/31/[id number] Main J1 SpecialtyDiagnoses / ProceduresReferred By ContactReferred To ContactXR IMAGING Diagnoses Cervical stenosis of spine Procedures XR CERVICAL 2V FLEX/EXT RADEX SPINE CERVICAL 2 OR 3 VIEWS Vivian Tran, MANAGER FUND.ELECTRIC ORGAN ASSEMBLER AND CHECKER [address] [place] [address] Xr [facility] [place] [address] Referral IDStatusReasonStart DateExpiration DateVisits RequestedVisits [id number] Auto-Generated Referral /[id number] PatientSpecialtyDiagnoses / Procedures Referred By ContactReferred To ContactSLEEP DISORDERS Diagnoses Obstructive sleep apnea syndrome Procedures CONSULT TO SLEEP MEDICINE - ADULT OFFICE/OUTPATIENT [facility] 60-74 MINUTES Eric Montiel MD [address] [place] [address] [facility] [address] [place] [address] Referral IDStatusReasonStart DateExpiration DateVisits RequestedVisits [id number] PCP Requested Referral /[id number] Replacement FaxReasonCommentsEstablished PatientFollow upSpecialtyDiagnoses / ProceduresReferred By ContactReferred To ContactNeurology / NEUROLOGICAL SCIENTOLOGIST Diagnoses Follow up Procedures EST NI PATIENT Eric Montiel MD [address] [place] [address] Eric Montiel MD [address] [place] [address] Referral IDStatusReasonStleawood DateExpiration DateVisits RequestedVisits [id number] Review/[id number] UpReason CommentsPAP Therapy FaxReasonCommentsFollow UpSleep ApneaReasonCommentsPAP Supply FaxReasonCommentsEstablished PatientFollow upSpecialtyDiagnoses / ProceduresReferred By ContactReferred To Contact Diagnoses Parkinson's disease without dyskinesia or fluctuating manifestations (HCC) Procedures PROVIDER ORDERED FOLLOW UP OFFICE/OUTPATIENT [facility] 60 MINUTES Eric Montiel MD [address] [place] [address] [address] [facility] DateExpiration DateVisits RequestedVisits [id number] PCP Requested Referral /[id number] / ProceduresReferred By ContactReferred To ContactMR IMAGING Diagnoses Spinal stenosis of cervical region Procedures MRI CERVICAL SPINE WO IVCON MRI SPINAL CANAL CERVICAL W/O CONTRAST MATRL Eric Montiel MD [address] [id number] [facility] [place] [address] Referral IDStatusLewisG[facility] DateExpiration DateVisits RequestedVisits [id number] Auto-Generated Referral /[id number] ApneaPt here for 3 month f/u. Pt states that during the night the CPAP has turned off and that he's had to plug it back in and turn it back in.ReasonCommentsOrdersPAP RX.ReasonCommentsEstablished PatientFollow UpReasonCommentsMed RefillReasonCommentshospital discharge [facility] for [facility] issuesReasonCommentsear washReasonOnset DateCommentsMed [id number] [id number] patient wants a life alertBlood in UrineCouple weeks agoReasonCommentsRequesting PAP Compliance & Therapy Report [facility] ServicesReasonCommentsPAP Compliance & Therapy ReportFollow UpReasonCommentsSleep ApneaPt here for 6 month CPAP compliance appt. Pt states it's going well.ReasonCommentsPAP Rx FaxedIntegrated Home MedicalReasonComments Established Patient Care Teams (unrecognized sec tion and content) Team MemberRelationshipSpecialtyStart DateEnd Date CynmaycoMatthew nj [address] [place] [address], [address] [place] [address] ReferringInternal Medicine10/24/22Te MemberRelationshipSpecialtyStart DateEnd Date Kylerclem Matthew Dinesh [address] [place] [address], [address] [place] [address] ReferringInternal Medicine10/24/22Te MemberRelationshipSpecialtyStart DateEnd Date KylerMatthew nj [address] [place] [address], [address] [place] [address] ReferringInternal Medicine10/24/22Te MemberRelationshipSpecialtyStart DateEnd Date KylerMatthew nj [address] [place] [address], [address] [place] [address] ReferringInternal Medicine10/24/22Team MemberRelationshipSpecialtyStart DateEnd Date KylerMatthew nj [address] [place] [address], [address] [place] [address] ReferringInternal Medicine10/24/22Team MemberRelationshipSpecialtyStart DateEnd Date KylerMatthew nj [address] [place] [address], [address] [place] [address] ReferringInternal Medicine10/24/22Team MemberRelationshipSpecialtyStart DateEnd Date CynMatthew parker [address] [place] [address], [address] [place] [address] ReferringInternal Medicine10/24/22Team MemberRelationshipSpecialtyStart DateEnd Date Matthew Collazo [address] [place] [address], [address] [place] [address] ReferringInternal Medicine10/24/22Team MemberRelationshipSpecialtyStart DateEnd Date Matthew Collazo [address] [place] [address], [address] [place] [address] ReferringInternal Medicine10/24/22 Team Status: Active Member Role Status Dates Matthew Collazo MD Primary Care Provider Active Team Status: Inactive Member Role Status Dates Matthew Collazo MD Primary Care Provider Active Start: July 16, 2023 End: July 16Benito Clayton ProviderActiveStart: July 16, 2023 End: July 17, 2023Blanquita Garza RNOther ProviderActiveStart: July 16, 2023 End: July 17, 2023Stsofia Silva MDOther ProviderActiveStart: July 16, 2023 End: July 17, 2023Holger Leblanc MDOther ProviderActiveStart: July 16, 2023 End: July 17, 2023Navya Rangel MDOther ProviderActiveStart: July 16, 2023 End: July 17, 2023Ned Alvesending ProviderActiveStart: July 16, 2023 End: July 17, 2023 Team Status: Active Member Role Status Dates Matthew Collazo MD Primary Care Provider Active Start: July 16, 2023 Benito Robin ProviderActiveStart: July 16, 2023 Matthias Mckenna MDOther ProviderActiveStart: July 16, 2023 Blanquita Garza RNOther ProviderActiveStart: July 16, 2023 Atul Silva MDOther ProviderActiveStart: July 16, 2023 Holger Leblanc MDOther ProviderActiveStart: July 16, 2023 Chaz Lorenzo Provider, Other ProviderActiveStart: July 16, 2023 Team Status: Inactive Member Role Status Dates Matthew Collazo MD Primary Care Provider Active Start: July 16, 2023 End: July 16Benito Clayton ProviderActiveStart: July 16, 2023 End: July 17, 2023FrChaz Cazares ProviderActiveStart: July 16, 2023 End: July 17, 2023Blanquita Garza RNOther ProviderActiveStart: July 16, 2023 End: July 17, 2023Stsofia Silva MDOther ProviderActiveStart: July 16, 2023 End: July 17, 2023Holger Leblanc MDOther ProviderActiveStart: July 16, 2023 End: July 17, 2023Carl Lorenzo ProviderActiveStart: July 16, 2023 End: July 17, 2023 Team Status: Active Member Role Status Dates Matthew Collazo MD Primary Care Provider Active Start: July 20, 2023 Karina Sykes , RNAttending ProviderActiveStart: July 20, 2023 Team Status: Inactive Member Role Status Dates Matthew Collazo MD Primary Care Provider Active Start: July 24, 2023 End: July 24, 2023Chaz Lorenzo ProviderActiveStart: July 24, 2023 End: July 24, 2023 Team Status: Active Member Role Status Dates Navya Rangel MD Tank Setter Helper Active [facility] Care ProviderActive Team Status: Active Member Role Status Dates Matthew Collazo MD Primary Care Provider Active Start: July 16, 2023 End: July 16Benito Clayton ProviderActiveStart: July 16, 2023 End: July 17, 2023Carl Alves ProviderActiveStart: July 16, 2023 End: July 17, 2023Mariel Borjas ProviderActiveStart: July 16, 2023 End: July 17, 2023Stephen Tann , MDOther ProviderActiveStart: July 16, 2023 End: July 17, 2023Geedin Leblanc MDOther ProviderActiveStart: July 16, 2023 End: July 17, 2023LinChaz Perez Provider, Other ProviderActive Start: July 16, 2023 End: July 17, 2023 Team Status: Inactive Member Role Status Dates Matthew Collazo MD Primary Care Provider Active Start: October 02, 2023 End: October 02, 2023LinChaz Perez ProviderActiveStart: October 02, 2023 End: October 02, 2023Team MemberRelationshipSpecialtyStart DateEnd Date Matthew Collazo [address] [place] [address], [address] [place] [address] ReferringInternal Medicine10/24/22Team MemberRelationshipSpecialtyStart DateEnd Date Matthew Collazo [address] [place] [address], [address] [place] [address] ReferringInternal Medicine10/24/22Team MemberRelationshipSpecialtyStart DateEnd Date Matthew Collazo [address] [place] [address], [address] [place] [address] ReferringInternal Medicine10/24/22Team MemberRelationshipSpecialtyStart DateEnd Date Matthew Collazo [address] [place] [address], [address] [place] [address] ReferringInternal Medicine10/24/22Team MemberRelationshipSpecialtyStart DateEnd Date Matthew Collazo MD [address] [place] [address], [address] [place] [address] ReferringInternal Medicine10/24/22Team MemberRelationshipSpecialtyStart DateEnd Date Matthew Collazo MD [address] [place] [address], [address] [place] [address] ReferringInternal Medicine10/24/22Team MemberRelationshipSpecialtyStart DateEnd Date Matthew Collazo MD [address] [place] [address], [address] [place] [address] ReferringInternal Medicine10/24/22Team MemberRelationshipSpecialtyStart DateEnd Date Matthew Collazo MD [address] [place] [address], [address] [place] [address] ReferringInternal Medicine10/24/22Team MemberRelationshipSpecialtyStart DateEnd Date Matthew Collazo MD [address] [place] [address], [address] [place] [address] ReferringInternal Medicine10/24/22 Team Status: Inactive Member Role Status Dates Matthew Collazo MD Primary Care Provider Active Start: April 01, 2024 End: April 01, 2024Linda FINESSE Rangelttending ProviderActiveStart: April 01, 2024 End: April 01, 2024Team MemberRelationshipSpecialtyStart DateEnd Date Matthew Collazo MD [address] [place] [address], [address] [place] [address] PCP - GeneralPediatrics6Team MemberRelationshipSpecialtyStart DateEnd Date Matthew Collazo MD [address] [place] [address], [address] [place] [address] PCP - GeneralPediatrics6/Team MemberRelationshipSpecialtyStart DateEnd Date Matthew Collazo MD [address] [place] [address], [address] [place] [address] PCP - GeneralPediatrics6/Team MemberRelationshipSpecialtyStart DateEnd Date Matthew Collazo MD [address] [place] [address], [address] [place] [address] PCP - GeneralPediatrics6/Team MemberRelationshipSpecialtyStart DateEnd Date Matthew Collazo MD [address] [place] [address], [address] [place] [address] PCP - GeneralPediatrics6/Team MemberRelationshipSpecialtyStart DateEnd Date Matthew Collazo MD [address] [place] [address], [address] [place] [address] [facility] - [facility] Centeriatric09/03/16Team MemberRelationshipSpecialtyStart DateEnd Date Matthew Collazo MD [address] [place] [address], [address] [place] [address] ReferringInternal Medicine10/24/22Team MemberRelationshipSpecialtyStart DateEnd Date Matthew Collazo MD [address] [place] [address], [address] [place] [address] ReferringInternal Medicine10/24/22 Team Status: Inactive Member Role Status Dates Matthew Collazo MD Primary Care Provider Active Start: September 16, 2024 End: September 16, 2024Navya Rangel MDAttashely ProviderActiveStart: September 16, 2024 End: September 16, 2024Team MemberRelationshipSpecialtyStart DateEnd Date Matthew Collazo MD [address] [place] [address], [address] [place] [address] ReferringInternal Medicine10/24/22Team MemberRelationshipSpecialtyStart DateEnd Date Mattehw Collazo MD [facility], [address] [place] [address] PCP - GeneralPediatric09/03/16 Goals (unrecognized section and content) Goals may be documented in a n alternate sectionNot on filedocumented as of this encounterNot on filedocumented as of this encounterNot on filedocumented as of this encounterNot on filedocumented as of this encounterNot on filedocumented as of this encounterNot on filedocumented as of this encounterNot on filedocumented as of this encounterNot on filedocumented as of this encounterGoals may be documented in an alternate sectionNot on filedocumented as of this encounter FOR RECORDS PERTAINING TO PATIENTS WHO ARE [...] BE BASED ON THE PRIMARY CLINICAL RECORDS. [employer] [facility]. provides no warranty or guarantee of the accuracy or completeness of information in this document.
--- OUTSIDE RECORDS SUMMARY | 2025-01-02 22:47 | XMS_ITS | Clinical Summary ---
Author Organization [facility] Address [address] [place] [address] Care Team Providers Care Manager Nuclear Name Role Phone Michael Spicer MD Unavailable [phone] Allergies No known active allergies Medications * This document contains information received from the source organization and may not represent a complete record from that organization. MedicationSigDispense QuantityRefillsLast FilledStart DateEnd DateStatus bisoprolol-hydroCHLOROthiazide (ZIAC) 10-6.25 mg per tablet Take 1 tablet by mouth every morning.09/12/2022ctive BIPAP Active CPAP/BIPAP/OTHER Indications:Obstructive sleep apnea syndrome,JATINDER treated with BiPAP,Malfunction of continuous positive airway pressure (CPAP) or bilevel positive airway pressure (BPAP) machine, initial encounterREPLACEMENT BIPAP DEVICE: BIPAP with settings of 25/21 cm H2O. Dx: Obstructive Sleep Apnea G47.33 DME: [facility] Fax: Fax download reports to [phone]. 1 Each /ctive glucosam/chond-msm1/C/jaya/bor (JLVNERKPPTY-CQNNE-ZNS COMPLEX ORAL) Take 2 tablets by mouth once daily.Active CPAP/BIPAP/OTHER Indications:Obstructive sleep apnea syndrome,JATINDER treated with BiPAP,Dream enactment behavior,Malfunction of continuous positive airway pressure (CPAP) or bilevel positive airway pressure (BPAP) machine, initial encounterType .CPAPSettings into a note to see current settings/supplies/DME information. 1 Each /ctive aspirin, enteric coated (ASPIRIN, ENTERIC COATED) 81 mg EC tablet Take 81 mg by mouth once daily.Active atorvastatin (LIPITOR) 80 mg tablet Take 80 mg by mouth once daily.Active nitroglycerin sublingual (NITROQUICK) 0.4 mg SL tablet Q5M07/17/2023ctive losartan (COZAAR) 25 mg tablet Take 25 mg by mouth every morning.Active ticagrelor (BRILINTA) 90 mg tablet two times a day.08/27/2023ctive CPAP/BIPAP/OTHER Indications:Obstructive sleep apnea syndrome,JATINDER treated with BiPAP,Parkinson's disease, unspecified whether dyskinesia present, unspecified whether manifestations fluctuate (HCC),Myocardial infarction, unspecified [place] type, unspecified artery (HCC)Type .CPAPSettings into a note to see current settings/supplies/DME information. 1 Each /ctive acetaminophen-codeine (TYLENOL-COD #3) 300-30 mg per tablet 10/20/2023ctive CPAP/BIPAP/OTHER Type .CPAPSettings into a note to see current settings/supplies/DME information. 1 Each /ctive donepezil (ARICEPT) 5 mg tablet Indications:Mild cognitive impairmentTake 1 tablet by mouth daily at bedtime. 90 tablet 5Active CPAP/BIPAP/OTHER Type .CPAPSettings into a note to see current settings/supplies/DME information. 1 each /ctive carbidopa-levodopa (SINEMET) 25-100 mg per tablet Indications:Parkinson's disease, unspecified whether dyskinesia present, unspecified whether manifestations fluctuate (HCC)Take 1.5 pills three times per day 405 tablet 5Active Active Problems ProblemNoted DateDiagnosed DateParkinson's tjtuhyx9607/08/2023Stenosis, cervical spine07/08/2023HTN (hypertension)07/08/2023 Encounters DateTypeDepartmentCare OruiUdxnjyhkykp62/31/2025 Get Medical Advice [facility] [address] [facility] [place] [address] Eric Montiel MD Physical therapy and Emotional support dog10/04/2024 4:00 PM EDTOffice Visit [facility] [address] [facility] [address] Eric Montiel MD Parkinson's disease, unspecified whether dyskinesia present, unspecified whether manifestations fluctuate (HCC) (Primary Dx)10/04/2024Travelfrom Last 3 Months Social History Tobacco UseTypesPacks/DayYears UsedDateSmoking Tobacco: NeverSmokeless Tobacco: NeverAlcohol UseStandard Drinks/WeekCommentsNever0 (1 standard drink = 0.6 oz pure alcohol)Area Deprivation IndexAnswerDate RecordedNational Score (1-100), lower number is lower snnv392602/06/2023State Score (1-10), lower number is lower kmoz04404/09/2022ata from: https://www.neighborhoodatlas.medicine.[facility].edu/. Last address used for lbzbalsxqro[address]/06/2023Sex and Gender InformationValueDate RecordedSex Assigned at BirthNot on fileLegal SexMale 10/24/2022 3:56 PM EDTGender IdentityNot on fileSexual OrientationNot on file Last Filed Vital Signs Vital SignReadingTime TakenCommentsBlood Odbbbmuh794/7807 3:33 PM EDT Tebae7985/29/2025 3:33 PM ZXSEsnypjzzqdv68.3 ??C (97.3 ??F)07/18/2024 9:48 AM EDTRespiratory Dcgn5951 1:49 PM EDTOxygen Znmntbxzkf053%10/04/2024 3:33 PM EDTInhaled Oxygen Concentration--Vaztzs19.7 kg (210 lb 15.7 oz)07/18/2024 9:48 AM UKQXmtsad298.3 cm (5' 9 )07/18/2024 9:48 AM EDTBody Mass Index31.16 07/18/2024 9:48 AM EDT Plan of Treatment DateTypeDepartmentCare Team (Latest Contact Info)Xsoeeucjqyf37/17/2025 10:00 AM ESTOffice Visit Neurology [address] [place] [address] Leif Ramos PA-C [address] [place] [address] 6 month follow up04/07/2025 4:00 PM ESTOffice Visit [facility] [address] [address] Eric Montiel MD [address] [place] [address] 6 monthHealth MaintenanceDue DateLast DoneCommentsAnnual PCP Team Chronic Disease Visit06/27/1975Anxiety Uykrreudc30/20/1976Depression Ibutbtlck64/20/1976 Hepatitis C Ijjhybelc90/20/1976CT Kyxwyjzpuqxk41/20/7999Lunfootifds66/20/2003 Fecal Occult Blood06/26/20029564Fzqnbznpzxfsx57/20/2003Shingrix Vaccine (1 of 2) 06/27/2007Cologuard (FIT-DNA)Colorectal Cancer Screening 02/01/2021dvance Directive Idnuntwqvx03/01/2025Medicare Advantage Annual Wellness Visit5Covid-19 Vaccine ( season)2024 04/27/2024, 03/22/2023, 03/05/2022, Additional history existsInfluenza Vaccine (#1)5004/27/2024, 01/28/2023, 04/08/2022, Additional history exists Diabetes Gynutptcu83, 10/24/2022, 01/14/2021, Additional history existsLipid Aiqlytwlf91/, 01/08/2018Prostate Cancer Screening Hnneonvabd32, 10/24/2022RSV Vaccine (1 - 1-dose 75+ series)3DTaP,Tdap,Td Vaccine (3 - Td or Tdap)501/08/2024, 06/05/2012Pneumococcal Vaccine: 50+Ynxtpfmsx39/16/2023 Insurance * Guarantor: Rich, Michael DAccount TypeRelation to PatientDate of BirthPhone Billing AddressPersonal/JhvidpWqdc65/20/1956 [address] [place] [address] Care Teams Team MemberRelationshipSpecialtyStart DateEnd Date Michael Spicer MD [address] [place] [address], [address] [place], [place] [id number] ReferringInternal Medicine10/24/22
--- OUTSIDE RECORDS SUMMARY | 2025-01-02 22:47 | XMS_ITS | Clinical Summary ---
Author Organization [employer] Address [id number] [address] [place] [address] Care Team Providers Care Auto Damage Trainee Name Role Phone Michael Spicer MD Primary Care Provider Allergies No known active allergies Medications MedicationSigDispense QuantityRefillsLast FilledStart DateEnd DateStatus atorvastatin (LIPITOR) 80 mg tablet Take 1 tablet (80 mg total) by mouth in the morning.Active losartan (COZAAR) 25 mg tablet Take 1 tablet (25 mg total) by mouth in the morning.Active aspirin 81 mg Take 1 tablet (81 mg total) by mouth in the morning.Active nitroglycerin (NITRODUR) 0.4 mg/hr Place 1 patch on the skin daily.Active ticagrelor (BRILINTA) 90 mg tablet Take by mouth every 12 (twelve) hours.Active carbidopa-levodopa (PARCOPA) 25-100 mg per disintegrating tablet Dissolve 1 tablet on tongue 3 (three) times a day.Active bisoprolol-hydroCHLOROthiazide (ZIAC) 10-6.25 mg per tablet Indications:Essential hypertensionTAKE 1 TABLET BY MOUTH IN THE MORNING (pt needs appointment for further refills) 90 tablet 4Active Active Problems ProblemNoted DateDiagnosed DateParkinson's disease with dyskinesia without fluctuating qvpjtrrniikfej73/25/2024oronary artery disease involving [place] coronary artery of [place] heart without angina chwnqomn51/20/2024H/O non-ST elevation myocardial infarction (NSTEMI)07/27/20234107Cssrghytmesslew10/04/2020 Essential mirotlugnxjm86/04/2020OSA (obstructive sleep apnea)02/10/2020Essential toowwq1102/10/2020 Encounters DateTypeDepartmentCare FqarVsqmamcyetg78/23/2025Telephone [facility] [address] [place] [address] Michael Spicer MD from Last 3 Months Immunizations ImmunizationAdministration DatesNext DueCOVID-19, mRNA, LNP-S, PF, 30mcg/0.3mL Dose06/14/2020,05/23/2020Influenza, Im Trivalent Tqismwcogjau48/06/2021 Influenza, Injectable, quadrivalent (PF)04/08/2022neumococcal Conjugate 20-fpqfrj1010/22/2022Tdap06/05/2012 Family History Medical HistoryRelationNameCommentsHeart diseaseFatherRelationNameStatusComments Father Social History Tobacco UseTypesPacks/DayYears UsedDateSmoking Tobacco: NeverSmokeless Tobacco: Never Tobacco Cessation:Counseling Given: No Alcohol UseStandard Drinks/WeekCommentsYes0 (1 standard drink = 0.6 oz pure alcohol)Once in a whilePHQ-2AnswerDate RecordedTotal Ddshv654/25/2024Childcare AnswerDate NomfkxsnDrbxcaycxFyjxqjg86/12/2019EmploymentAnswerDate Recorded FtvmyqyyeiNrgbqat15/12/2019Hunger ScreeningAnswerDate RecordedWithin the past 12 months we worried whether our food would run out before we got money to buy more.Never True10/22/2022Within the past 12 months the food we bought just didn't last and we didn't have money to get more.Never True3Purpose - LifeAnswerDate RecordedPurpose and direction in mvnnFpuaqxf10/14/2021ex and Gender InformationValueDate RecordedSex Assigned at BirthNot on fileLegal Sex Male10/12/2014 11:28 AM EDTGender IdentityNot on fileSexual OrientationNot on file Last Filed Vital Signs Vital SignReadingTime TakenCommentsBlood Npgtcyji596/7510 9:02 AM EDT Daqyi1899 9:02 AM FHKGdhrwixzmpr45.3 ??C (97.4 ??F)11/05/2020 1:19 PM EDTRespiratory Mtqv421403/22/2018 9:35 AM ESTOxygen Hwzborubvp59%03/22/2018 9:35 AM ESTInhaled Oxygen Concentration--Xlgxlm23.1 kg (205 lb 3.2 oz)01/01/2024 9:02 AM DFCMjvkae176 cm (5' 8.5 )01/01/2024 9:02 AM EDTBody Mass Index30.7501/01/2024 9:02 AM EDT Plan of Treatment Health MaintenanceDue DateLast DoneCommentsStatin Use: Nhetpzwqpmupzt53/20/1956 Adult BMI Follow Up Plan06/27/1975Zoster (Shingles) Vaccine (1 of 2)06/27/2007 DTaP,Tdap and Td Vaccines (2 - Td or Tdap)COVID-19 Vaccine ( season), 03/05/2022, 01/01/2021, Additional history existsInfluenza Azcndvq24/, 04/08/2022, 12/12/2020dult BMI Uobnrvnoq16epression Qqawhxepa25Fall Risk Zteaiozho11Medicare Annual Wellness Visit12/31/2024 01/01/2024, 10/22/2022Tobacco Whrzodscv78olonoscopy03/22/2028 03/22/2018, 03/22/2018 Medical Devices Not on file Procedures Procedure NamePriorityDate/TimeAssociated DiagnosisCommentsPROVATION COLONOSCOPY Maqqhni5203/22/2018 7:41 AM EST from Last 3 Months or Most Recently Relevant to Health Maintenance Results * ES colonoscopy imaging (03/22/2018 7:41 AM EST)Specimen (Source)Anatomical Location / LateralityCollection Method / VolumeCollection TimeReceived Time Narrative SYSTEMGENERATED, DOCUMENTATION - 03/22/2018 7:41 AM EST This order has been auto-finalized for image and report archival. *See procedures tab in Epic or report included with PACS images for full interpretation.* Authorizing ProviderResult TypeResult StatusMichael E Grillis DOIMG OR IMG ORDERABLESFinal Result from Last 3 Months or Most Recently Relevant to Health Maintenance Insurance * Guarantor: Michael Quiroz TypeRelation to PatientDate of BirthPhone Billing AddressPersonal/MfsouyZtfk02/20/1956 [address] [place] [address] Care Teams Team MemberRelationshipSpecialtyStart DateEnd Date Michael Spicer MD [address] [place] [address], [address] [place] [address] PCP - GeneralPediatric09/03/16
--- OUTSIDE RECORDS SUMMARY | 2025-01-02 22:47 | XMS_ITS | Clinical Summary ---
Demographics Address [address] [place] [address] Home Phone Mobile Phone Preferred Language en Marital Status Druze Affiliation Unknown Race White Ethnic Group Not or Lati no Author Organization [facility] Address [address] [place] [address] Care Team Providers Care Card Maker Name Role Phone Michael Spicer MD Primary Care Provider [phone] Allergies No known active allergies Medications MedicationSigDispense QuantityRefillsLast FilledStart DateEnd DateStatus bisoprolol-hydroCHLOROthiazide (Ziac) 10-6.25 MG tablet Take 1 tablet by mouth in the morning.09/12/2022ctive carbidopa-levodopa (Sinemet) 25-100 MG tablet TAKE 1/2 TABLET BY MOUTH THREE TIMES A DAY FOR 1 WEEK THEN INCREA... (REFER TO PRESCRIPTION NOTES).Active Respiratory Therapy Supplies (CareTouch CPAP & BIPAP Hose) misc Active ticagrelor (Brilinta) 90 MG tablet twice a day08/27/2023ctive nitroglycerin (Nitrostat) 0.4 MG SL tablet Q5M07/17/2023ctive nitroglycerin (Nitrodur) 0.4 MG/HR patch Place 1 patch on the skin in the morning.Active losartan (Cozaar) 25 MG tablet Take 25 mg by mouth in the morning.07/17/2023ctive atorvastatin (Lipitor) 80 MG tablet Take 80 mg by mouth in the morning.07/17/2023ctive aspirin 81 MG EC tablet Take 81 mg by mouth in the morning.07/17/2023ctive acetaminophen-codeine (Tylenol w/ Codeine #3) 300-30 MG tablet 10/20/2023ctive Family History Medical HistoryRelationNameCommentsHeart diseaseFatherProstate cancerFather StrokeOtherFamily historyHypertensionSiblingRelationNameStatusCommentsFather DeceasedMotherDeceasedOtherFamily historySibling Social History Tobacco UseTypesPacks/DayYears UsedDateSmoking Tobacco: NeverSmokeless Tobacco: Never Tobacco Cessation:Counseling Given: Not Answered Alcohol UseStandard Drinks/WeekCommentsYes0 (1 standard drink = 0.6 oz pure alcohol)1-2 drinks monthly or less, caffeine 3-4 cups per daySex and Gender InformationValueDate RecordedSex Assigned at BirthNot on fileLegal SexMale 05/21/2022 7:06 PM EDTGender IdentityNot on fileSexual OrientationNot on file Last Filed Vital Signs Vital SignReadingTime TakenCommentsBlood Pressure--Pulse--Temperature-- Respiratory Rate--Oxygen Saturation--Inhaled Oxygen Concentration--Kylrlf53.5 kg (215 lb)11/03/2022 1:36 PM YLICclmmv838.7 cm (5' 8 )11/03/2022 1:36 PM EDTBody Mass Index32.69011/03/2022 1:36 PM EDT Plan of Treatment Not on file Insurance * Guarantor: Michael Quiroz TypeRelation to PatientDate of BirthPhone Billing AddressPersonal/JcxvvdWdkl50/20/1956 [address] [place] [address] Care Teams Team MemberRelationshipSpecialtyStart DateEnd Date Michael Spicer MD PCP - GeneralFamily Medicine11/03/22
--- OUTSIDE RECORDS SUMMARY | 2025-01-02 22:47 | XMS_ITS | Clinical Summary ---
Demographics Address [address] [place] [address] Mobile Phone Preferred Language en Marital Status Yazidism Affiliation Unknown Race Unknown Ethnic Group Unknown Author Organization [facility] Address [address] [place] [address] Phone Care Team Providers Care Pet Caregiver Name Role Phone Unavailable Primary Care Provider Unavailabl e Social History Tobacco UseTypesPacks/DayYears UsedDateSmoking Tobacco: Never AssessedSex and Gender InformationValueDate RecordedSex Assigned at BirthNot on fileLegal Sex Male07/16/2023 2:03 PM EDTGender JchrwognJywk03/17/2024 12:02 PM EDTSexual OrientationNot on file Plan of Treatment Health MaintenanceDue DateLast DoneCommentsCT Viosxddsskms89/20/1958Colonoscopy 1957Colorectal Cancer Ftuzzobvl45/20/1958FIT-DNA (Cologuard)1957FIT 1957Lipid Panel1957Medicare Annual Wellness Visit (AWV)1955 Lbptezesacbuu19/20/1958MMR Vaccines (1 of 1 - Standard series)1958 Hepatitis C Sbkgnvhjv98/20/1976DTaP/Tdap/Td Vaccines (1 - Tdap)06/27/1979PSA Prostate Cancer Pumlbcaeb81/20/2008Pneumococcal Vaccine (1 of 1 - PCV)06/27/2007 Zoster Vaccines (1 of 2)06/27/2007Influenza Vaccine (#1)2024OVID-19 Vaccine (1 - 2024- season)2024RSV High Risk: (Elderly (60+) or Population) (1 - 1-dose 75+ series)2032HIB VaccinesAged OutNo longer eligible based on patient's age to complete this topicHPV VaccinesAged OutNo longer eligible based on patient's age to complete this topicHepatitis A VaccinesAged OutNo longer eligible based on patient's age to complete this topic Hepatitis B VaccinesAged OutNo longer eligible based on patient's age to complete this topicIPV VaccinesAged OutNo longer eligible based on patient's age to complete this topicMeningococcal VaccineAged OutNo longer eligible based on patient's age to complete this topicRotavirus VaccinesAged OutNo longer eligible based on patient's age to complete this topic Insurance * Guarantor: Otf Quiroz TypeRelation to PatientDate of BirthPhoneBilunited hospital [facility] AddressPersonal/QywxhnNtiq60/20/1956 [address] [place] [address] * Guarantor: Otf Quiroz TypeRelation to PatientDate of BirthPhoneBilunited hospital center AddressPersonal/KmxsoyOblq41/20/1956 [address] [place] [address]
--- NOTE | 2025-01-02 22:56 | XR_ITS ---
[facility] [place] [id number] Patient Name: MATTHEW GARZA MRN: [id number] date: 1955 Sex: M Assigned Patient Location: ED.MAIN Current Patient Location: ED.MAIN Accession/Order Number: [id number] Exam Date: 01/02/2025 23:05 Report Date: 01/02/2025 23:57 At the request of: RAZA ROBERTO DO Procedure: XR finger LT min 2V 3 views of the left second digit INDICATION: Laceration over the PIP joint Comparison hand x-ray 03/14/2024 FINDINGS: No fracture dislocation identified. Moderate degenerative changes involving the DIP joint with ossific spurring. No soft tissue gas or opaque foreign body identified. Mild soft tissue swelling identified lymph node PIP joint. XR/XR finger LT min 2V IMPRESSION: Negative for fracture dislocation. Negative for radiopaque foreign body Impression dictated by: Mahin Churchill M.D. 01/02/2025 11:57 PM Dictation Location: [place] [address] Electronically authenticated by: [id number] Y Date: 01/02/2025 23:57
[2025-01-02] MEDS: LIDOCAINE/EPINEPHRINE/TETRACAINE 3 ML GEL.PF.APP TOPICAL (23:22)
--- NOTE | 2025-01-03 00:04 | PC.NURSE ---
i gave this patient verbal and written discharge orders and this patient voices yes to understanding these. at time of discharge this patient voices no concerns, needs and shows no signs of distress
--- NOTE | 2025-01-03 01:41 | ED.GENADUL1 ---
HPI HPI - General Adult General Chief complaint: Wound/Laceration Stated complaint: LACERATION L INDEX FINGER Time Seen by Provider: 01/02/25 22:45 Source: patient Mode of arrival: walk-in Limitations: no limitations History of Present Illness HPI narrative: Patient is a 69-year-old male presenting to the emergency department for evaluation of a left finger injury. Patient was using scissors 2 hours ago when he accidentally cut himself. He initially washed it out with water and put Neosporin on it. However, he presents to the ED because he was having persistent bleeding from the wound. He is on Brilinta. He denies any other injuries. His last tetanus shot was the beginning of this year and is up-to-date. Related Data Home Medications ?Medication ?Instructions ?Recorded ?Confirmed bisoprolol 10 1 tab PO QAM 07/15/23 03/14/24 mg-hydrochlorothiazide 6.25 mg tablet aspirin 81 mg tablet,delayed 81 mg PO DAILY 10/20/23 03/14/24 release atorvastatin 80 mg tablet 80 mg PO DAILY 10/20/23 03/14/24 losartan 25 mg tablet 25 mg PO DAILY 10/20/23 03/14/24 nitroglycerin 0.4 mg sublingual 0.4 mg sublingual Q5M PRN chest 10/20/23 03/14/24 tablet pain ticagrelor 90 mg tablet (Brilinta) 90 mg PO Q12H 10/20/23 03/14/24 carbidopa 25 mg-levodopa 100 mg tab 03/14/24 tablet Allergies Allergy/AdvReac Type Severity Reaction Status Date / Time No Known Drug Allergies Allergy Verified 01/02/25 22:53 Review of Systems ROS Status of ROS 10 or more systems reviewed and unremarkable except as noted in history and below [facility] Medical History (Updated 01/02/25 @ 23:51 by Pietro Clemente DO) JATINDER (obstructive sleep apnea) ?G47.33 - Obstructive sleep apnea (adult) (pediatric) (ICD-10) Social History Little interest or pleasure in doing things: not at all Feeling down, depressed, or hopeless: not at all Exam Narrative Exam Narrative: CONSTITUTIONAL: Well-appearing, answering questions and following commands appropriately SKIN: Was warm and dry. EYES: Sclerae white. EARS, NOSE, THROAT: Moist oral mucosa. RESPIRATORY: Nonlabored respirations. CARDIOVASCULAR: Normal rate and regular rhythm. Cap refill less than 2 seconds in the left index finger GASTROINTESTINAL: Abdomen is nondistend MUSCULOSKELETAL: There is a 0.5 cm linear laceration over the patient's left index finger, just overlying the PIP joint. He has full, pain-free range of motion throughout the MCP, PIP, and DIP of the left index finger. The laceration is very superficial, there is no visible joint capsule surface. NEUROLOGIC: Patient is awake and alert. 5/5 strength with flexion/extension at the MCP, PIP, DIP joints. Sensation intact to light touch in the left index finger. Constitutional Vital Signs, click to edit/add: Last Vital Signs Temp 97.9 F 01/02/25 22:43 Pulse 60 01/02/25 22:43 Resp 19 01/02/25 22:43 BP 160/68 H 01/02/25 22:43 Pulse Ox 97 01/02/25 22:43 O2 Del Method Room Air 01/02/25 22:43 Course Vital Signs Vital signs: Vital Signs Temperature 97.9 F 01/02/25 22:43 Pulse Rate 60 01/02/25 22:43 Respiratory Rate 19 01/02/25 22:43 Blood Pressure 160/68 H 01/02/25 22:43 Pulse Oximetry 97 01/02/25 22:43 Oxygen Delivery Method Room Air 01/02/25 22:43 Temperature 97.9 F 01/02/25 22:43 Pulse Rate 60 01/02/25 22:43 Respiratory Rate 19 01/02/25 22:43 Blood Pressure 160/68 H 01/02/25 22:43 Pulse Oximetry 97 01/02/25 22:43 Oxygen Delivery Method Room Air 01/02/25 22:43 Medical Decision Making MDM Narrative Medical decision making narrative: Patient is a 69-year-old male presenting to the emergency department for evaluation of left index finger laceration. Vital signs on arrival are within normal limits. He is afebrile and hemodynamically stable. The left index finger is neurovascularly intact. He has full, pain-free range of motion throughout the MCP, DIP, PIP joints -low concern for tendinous injury or involvement of the joint. However, x-rays were obtained to rule out foreign body or possible joint involvement. The wound was irrigated copiously and LET gel was applied. X-rays of the left index finger independently reviewed and interpreted by myself and radiology demonstrated no acute osseous abnormalities or foreign body. The wound was closed by primary intention with a single 4-0 Ethilon suture. He was instructed to return to the emergency department or his PCP in 5 to 7 days for suture removal. Return precautions were given including any new or concerning symptoms. Patient understands and agrees to the plan. FINAL IMPRESSION: #Acute left index finger laceration DISPOSITION: Discharged home CONDITION: Good Imaging Data left index finer xray: Attestation: I personally reviewed and interpreted this imaging study as follows: Radiologist's impression: ITS Impressions Finger X-Ray 01/02/25 22:56 IMPRESSION: Negative for fracture dislocation. Negative for radiopaque foreign body Impression dictated by: Mahin Churchill M.D. 01/02/2025 11:57 PM Dictation Location: [place] [address] Electronically authenticated by: [id number] Y Date: 01/02/2025 23:57 Discharge Plan Discharge Chief Complaint: Wound/Laceration Clinical Impression: Laceration Patient Disposition: Home, Self-Care Time of Disposition Decision: 23:51 Condition: Good Mode of Transportation: Private Vehicle Prescriptions / Home Meds: No Action bisoprolol-hydrochlorothiazide 10-6.25 mg tablet 1 tab PO QAM aspirin 81 mg tablet,delayed release (DR/EC) 81 mg PO DAILY atorvastatin 80 mg tablet 80 mg PO DAILY losartan 25 mg tablet 25 mg PO DAILY nitroglycerin 0.4 mg tablet, sublingual 0.4 mg sublingual Q5M PRN (Reason: chest pain) Brilinta 90 mg tablet 90 mg PO Q12H carbidopa-levodopa 25-100 mg tablet Print Language: Turkmen Additional Instructions: Return to ED or PCP for suture removal in 5-7 days Referrals: MATTHEW COLLAZO [Primary Care Provider, Family Practice] - 1 week Discharge Date/Time: 01/03/25 00:04 Procedures ED Laceration Laceration Laceration 1: Site: hand Side (if applicable): left Size (cm): 0.5 Description: linear Depth: simple, single layer Anesthetic used: lidocaine 1% Anesthesia technique: local infiltration (LET gel) Amount (ml): 3 Pre-repair: irrigated extensively Skin layer closed with: other (Ethilon ) Size (cm): 4-0 Number of sutures: 1 Technique: simple, interrupted
== END 2025-01-03 00:04 | disposition home or self-care (01) ==
PROVIDERS: Emergency Provider Student in an Organized Health Care Education/Training Program; PCP Internal Medicine
DX: S61.211A Laceration without foreign body of left index finger without damage to nail, initial encounter (principal); W26.8XXA Contact with other sharp object(s), not elsewhere classified, initial encounter
CPT/HCPCS: 12001; 73140; 99283